=== PATIENT | female | born 1935 | race Caucasian/White ===

== ENCOUNTER 2016-11-16 17:55 | Observation (INO) | payer OTHER, BC ==
[2016-11-16 18:04] VITALS: BMI 38.7
--- NOTE | 2016-11-16 18:04 | PDOC ---
Rapid Medical Evaluation Time Seen by Provider: 11/16/16 17:58 Medical Evaluation: Allergies Allergy/AdvReac Type Severity Reaction Status Date / Time No Known Allergies Allergy Verified 11/16/16 17:59 11/16/16 18:03 I have performed a brief in-person evaluation of this patient. The patient presents with a chief complaint of: 81y/o F HTN, valve replacement p /w near syncope and fall, no chest pain. Pertinent physical exam findings: VSS no trauma I have ordered the following: labs, ua ekg, cxr ct head The patient will proceed to the ED for further evaluation.
[2016-11-16 18:30] LABS: BASOPHIL 0.4 % (0-2.0); EOSINOPHIL 2.3 % (0-4.5); MCHC 33.1 g/dl (32.0-36.0); MEAN CELL VOLUME 93.7 fl (80-96); MEAN PLT VOLUME 8.2 fl (7.5-11.1); NEUTROPHILS 78.6 % (42.8-82.8); PLATELET COUNT 216 K/MM3 (134-434); RDW 15.4 % (11.6-15.6); WHITE BLOOD COUNT 9.4 K/mm3 (4.0-10.0)
[2016-11-16 18:49] LABS: INR 2.39 (0.82-1.09); PROTHROMBIN TIME (PATIENT) 26.8 SEC (9.98-11.88)
[2016-11-16 18:52] LABS: URINE APPEARANCE CLEAR; URINE BILIRUBIN NEGATIVE (NEGATIVE); URINE BLOOD NEGATIVE (NEGATIVE); URINE COLOR YELLOW; URINE GLUCOSE (UA) NEGATIVE (NEGATIVE); URINE KETONE NEGATIVE (NEGATIVE); URINE LEUK ESTERASE NEGATIVE (NEGATIVE); URINE NITRITE NEGATIVE (NEGATIVE); URINE PROTEIN NEGATIVE (NEGATIVE); URINE UROBILINOGEN NEGATIVE E.U./dl (0.2-1.0)
[2016-11-16 18:56] LABS: ALBUMIN 3.4 g/dl (3.4-5.0); ANION GAP 8 (8-16); BILIRUBIN,TOTAL 0.6 mg/dL (0.2-1.0); CALCIUM 8.7 mg/dL (8.5-10.1); CO2 27 mmol/L (21-32); CREATININE 0.7 mg/dL (0.55-1.02); GLUCOSE,RANDOM 88 mg/dL (74-106); MAGNESIUM 2.1 mg/dL (1.8-2.4); SGOT/AST 22 U/L (15-37); SGPT/ALT 25 U/L (12-78); TOT PROT 6.8 g/dl (6.4-8.2)
[2016-11-16 18:59] LABS: ALK PHOS 80 U/L (45-117); TROPONIN I 0.04 ng/ml (0.00-0.05)
--- NOTE | 2016-11-16 19:40 | PDOC ---
History of Present Illness - General Chief Complaint: Lightheaded Stated Complaint: FALL/DIZZY Time Seen by Provider: 11/16/16 17:58 History Source: Patient Exam Limitations: No Limitations - History of Present Illness Initial Comments: 11/16/16 19:32 81yo Female patient with PmHx: HTN, Afib, Hypothyroidism, Heart valve replacement 10 yrs ago, anticoagulation use (Coumadin), presented to ED c/o fall. Patient states she was at work using the bathroom, and while washing her hands she fell over onto her right side. She denies head or neck injury, but states similar episode last April while at home. Patient did not seek any medical treatment at that time. However, patient verbalized discussing incident with her Neurologist Dr. Luna who order Cat Scan of her head that result returned normal. Patient denied feeling dizzy, light headed, confused, CP, Abd pain, back pain, n/v/d, or any other complaints at this time. Cardiology- Dr. Celaya PCP- Dr. Grullon Neurology- Dr. Luna Timing/Duration: reports: resolved prior to arrival Severity/Quality: denies: mild, moderate, severe, aching, burning, dull, ingestion, pressure, sharp, stabbing, tearing, tightness, other Location: denies: substernal, central, epigastric, shoulder, back, abdomen, other Chest Pain Radiation: denies: no radiation, jaw, arms, neck, shoulders, back, sternal notch, epigastric, other Activities at Onset: denies: none, exertion, emotional upset, rest, sleep, no specific activity, eating, working, sexual intercourse, other Prior Chest Pain/Cardiac Workup: reports: Other (Heart Valve Replacement.) Past History - Travel Traveled outside of the country in the last 30 days: No Close contact w/someone who was outside of country & ill: No - Past Medical History Allergies/Adverse Reactions: Allergies Allergy/AdvReac Type Severity Reaction Status Date / Time No Known Allergies Allergy Verified 11/16/16 17:59 Home Medications: Ambulatory Orders Aspirin [ASA -] 81 mg PO DAILY #0 tab.chew 07/03/12 Calcium Carb/Vit D3/Minerals [Caltrate-600 with Vit D Tab] 1 each PO DAILY #0 tablet 07/03/12 Cyanocobalamin Vit B-12 Inj. [Vitamin B12 Injection -] 1,000 mcg IJ MONTHLY #0 vial 07/03/12 Furosemide [Lasix -] 20 mg PO DAILY #0 tablet 07/03/12 Losartan/Hydrochlorothiazide [Losartan-Hctz 50-12.5 mg Tab] 1 each PO DAILY #0 tablet 07/03/12 Multivitamin W/Iron, Minerals [Centrum] 1 tab PO DAILY #0 liquid 07/03/12 Potassium Chloride [Klor-Con] 20 meq PO DAILY #0 packet 07/03/12 Rosuvastatin Calcium [Crestor] 5 mg PO HS #0 tablet 07/03/12 Sotalol HCl [Sotalol] 80 mg PO BID #0 tablet 07/03/12 Levothyroxine [Synthroid -] 100 mcg PO MOTUWETH 10/09/15 Warfarin Sodium [Coumadin] 2.5 mg PO DAILY #0 tablet 10/10/15 Levothyroxine [Synthroid -] 150 mcg PO SUFRSA 04/23/16 Anemia: No Asthma: No Cancer: No Cardiac Disorders: Yes (CHRONIC ATRIAL FIBRILLATION, ARTIFICAL AORTIC VALVE) CVA: No COPD: No CHF: No Dementia: No Diabetes: No GI Disorders: Yes (GASTRIC CARCINOID, COLON ADENOMAS) Disorders: No HTN: Yes Hypercholesterolemia: Yes Liver Disease: No Seizures: No Thyroid Disease: Yes (HYPOTHYROIDISM) - Surgical History Abdominal Surgery: Yes Appendectomy: No Cardiac Surgery: ([facility]R 2006-[facility]) Cholecystectomy: Yes (OPEN CHOLECYSTECTOMY) Neurologic Surgery: No Orthopedic Surgery: Yes (BILATERAL CARPAL TUNNEL RELEASE) - Psycho/Social/Smoking Cessation Hx Anxiety: No Suicidal Ideation: No Smoking Status: No Smoking History: Never smoked Have you smoked in the past 12 months: No Number of Cigarettes Smoked Daily: 0 Information on smoking cessation initiated: No Hx Alcohol Use: No Drug/Substance Use Hx: No Substance Use Type: None Hx Substance Use Treatment: No Cardiac Specific PMH - Complaint Specific PMHX Abdominal Aortic Aneurysm: No Angina: No Cardiac Arrhythmia: No Cardiac Stent: No GERD: No Myocardial Infarction: No Pacemaker: No Pulmonary Embolus: No Valvular Heart Disease: No Peripheral Vascular Disease: No Review of Systems - Review of Systems Able to Perform ROS?: Yes Is the patient limited Serbian proficient: No Constitutional: No: Chills, Fever, Malaise, Weakness HEENTM: No: Blurred Vision, Double Vision Respiratory: No: Cough, Orthopnea, Shortness of Breath, Stridor, Wheezing, Hemoptysis Cardiac (ROS): Yes: Syncope. No: Chest Pain, Edema, Lightheadedness, Palpitations, Chest Tightness ABD/GI: No: Blood Streaked Bowels, Constipated, Diarrhea, Nausea, Poor Appetite , Poor Fluid Intake, Rectal Bleeding, Vomiting : No: Dysuria, Frequency, Flank Pain, Hematuria, Pain, Urgency Musculoskeletal: Yes: Muscle Weakness. No: Back Pain Integumentary: No: Change in Color, Erythema, Rash, Sweating Neurological: Yes: Unsteady Gait (Uses assistive device for ambulation.). No: Headache, Numbness, Paresthesia, Seizure, Tingling, Tremors, Weakness, Ataxia, Dizziness All Other Systems: Reviewed and Negative *Physical Exam - Vital Signs Last Vital Signs Temp Pulse Resp BP Pulse Ox 97.6 F 70 19 153/91 96 11/16/16 18:00 11/16/16 18:00 11/16/16 18:00 11/16/16 18:00 11/16/16 18:00 - Physical Exam General Appearance: Yes: Nourished, Appropriately Dressed. No: Apparent Distress, Mild Distress, Moderate Distress, Severe Distress Neck: positive: Trachea midline, Supple. negative: Tender, Normal Thyroid, Rigid Respiratory/Chest: positive: Lungs Clear, Normal Breath Sounds. negative: Chest Tender, Respiratory Distress, Accessory Muscle Use, Labored Respiration, Rapid RR Cardiovascular: positive: Regular Rhythm, Regular Rate. negative: Edema, JVD, Murmur Gastrointestinal/Abdominal: positive: Normal Bowel Sounds, Soft. negative: Distended, Guarding, Rebound, Tenderness Musculoskeletal: positive: Normal Inspection, Other (Kyphosis). negative: CVA Tenderness Extremity: positive: Normal Capillary Refill, Normal Inspection, Normal Range of Motion Integumentary: positive: Normal Color, Dry, Warm Neurologic: positive: health and wellness coordinator II-XII NML intact, Fully Oriented, Alert, Normal Mood/ Affect, Normal Response, Motor Strength 5/5 ED Treatment Course - LABORATORY CBC & Chemistry Diagram: 11/16/16 18:27 11/16/16 18:27 - ADDITIONAL ORDERS Additional order review: Laboratory Results 11/16/16 11/16/16 11/16/16 18:40 18:27 18:27 INR 2.39 H Sodium 143 Potassium 3.8 Chloride 108 H Carbon Dioxide 27 Anion Gap 8 BUN 20 H Creatinine 0.7 Creat Clearance w eGFR > 60 Random Glucose 88 Calcium 8.7 Magnesium 2.1 Total Bilirubin 0.6 AST 22 D ALT 25 D Alkaline Phosphatase 80 Creatine Kinase 68 Troponin I 0.04 Total Protein 6.8 Albumin 3.4 Urine Color Yellow Urine Appearance Clear Urine pH 5.0 Ur Specific [place] 1.017 Urine Protein Negative Urine Glucose (UA) Negative Urine Ketones Negative Urine Blood Negative Urine Nitrite Negative Urine Bilirubin Negative Urine Urobilinogen Negative Ur Leukocyte Esterase Negative 11/16/16 18:27 RBC 3.72 MCV 93.7 MCHC 33.1 RDW 15.4 MPV 8.2 Neutrophils % 78.6 Lymphocytes % 8.4 D Monocytes % 10.3 H Eosinophils % 2.3 Basophils % 0.4 *DC/Admit/Observation/Transfer Diagnosis at time of Disposition: Syncope and collapse - Discharge Dispostion Condition at time of disposition: Fair Admit: Yes
--- NOTE | 2016-11-16 19:44 | PDOC ---
*Physical Exam - Vital Signs Last Vital Signs Temp Pulse Resp BP Pulse Ox 97.6 F 70 19 153/91 96 11/16/16 18:00 11/16/16 18:00 11/16/16 18:00 11/16/16 18:00 11/16/16 18:00 ED Treatment Course - LABORATORY CBC & Chemistry Diagram: 11/16/16 18:27 11/16/16 18:27 - ADDITIONAL ORDERS Additional order review: Laboratory Results 11/16/16 11/16/16 18:40 18:27 Sodium 143 Potassium 3.8 Chloride 108 H Carbon Dioxide 27 Anion Gap 8 BUN 20 H Creatinine 0.7 Creat Clearance w eGFR > 60 Random Glucose 88 Calcium 8.7 Magnesium 2.1 Total Bilirubin 0.6 AST 22 D ALT 25 D Alkaline Phosphatase 80 Creatine Kinase 68 Troponin I 0.04 Total Protein 6.8 Albumin 3.4 Urine Color Yellow Urine Appearance Clear Urine pH 5.0 Ur Specific [place] 1.017 Urine Protein Negative Urine Glucose (UA) Negative Urine Ketones Negative Urine Blood Negative Urine Nitrite Negative Urine Bilirubin Negative Urine Urobilinogen Negative Ur Leukocyte Esterase Negative 11/16/16 18:27 RBC 3.72 MCV 93.7 MCHC 33.1 RDW 15.4 MPV 8.2 Neutrophils % 78.6 Lymphocytes % 8.4 D Monocytes % 10.3 H Eosinophils % 2.3 Basophils % 0.4 Medical Decision Making - Medical Decision Making 11/16/16 19:44 agree with care from CARLOS Renee *DC/Admit/Observation/Transfer Diagnosis at time of Disposition: Syncope and collapse - Discharge Dispostion Condition at time of disposition: Fair
[2016-11-17] MEDS: ROSUVASTATIN CA 5 MG TABLET (FP) PO SCH ×2 (00:36→21:19)
[2016-11-17] MEDS: SOTALOL HCL 80 MG TABLET (FP) PO SCH ×3 (00:36→21:19)
[2016-11-17] MEDS: LEVOTHYROXINE NA 100 MCG TABLET (FP) PO SCH (06:40)
[2016-11-17 07:50] LABS: BASOPHIL 0.6 % (0-2.0); EOSINOPHIL 1.9 % (0-4.5); MCH 31.1 pg (25.7-33.7); MCHC 33.2 g/dl (32.0-36.0); MEAN CELL VOLUME 93.6 fl (80-96); MEAN PLT VOLUME 8.6 fl (7.5-11.1); NEUTROPHILS 76.5 % (42.8-82.8); PLATELET COUNT 164 K/MM3 (134-434)
[2016-11-17 08:02] LABS: INR 2.18 (0.82-1.09); PROTHROMBIN TIME (PATIENT) 24.4 SEC (9.98-11.88)
[2016-11-17 08:22] LABS: ALBUMIN 2.9 g/dl (3.4-5.0); ANION GAP 7 (8-16); BILIRUBIN,TOTAL 0.8 mg/dL (0.2-1.0); CALCIUM 8.8 mg/dL (8.5-10.1); CO2 27 mmol/L (21-32); GLUCOSE,RANDOM 81 mg/dL (74-106); SGOT/AST 22 U/L (15-37); SGPT/ALT 23 U/L (12-78); TOT PROT 5.6 g/dl (6.4-8.2)
[2016-11-17 08:27] LABS: ALK PHOS 66 U/L (45-117); CREATININE 0.5 mg/dL (0.55-1.02)
--- NOTE | 2016-11-17 08:51 | PN ---
Progress Note (short form) - Note Progress Note: Dr. Meyer to document today. 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 No loss CSS. Brought to ER by cinder crew worker. Similar to event last year. Hx A. Fib, Aortic Valve replacement, Hypertension , DJD knees and Hypothyroidism.
[2016-11-17] MEDS ORDERED: LOSARTAN 50MG/HCTZ 12.5MG 1 TAB (FP) PO SCH (10:00)
[2016-11-17] MEDS ORDERED: PT OWN MED DRAWER 7, Y5N ONE (10:40)
[2016-11-17] MEDS: ASPIRIN 81 MG CHEWABLE TABLETS PO SCH (10:48)
[2016-11-17] MEDS: POTASSIUM CHLORIDE TABS 20 MEQ TABLET.ER (FP) PO SCH (10:48)
[2016-11-17] MEDS: CALCIUM 500MG/VIT-D 200 UNITS COMBO TABLET (FP) PO SCH (10:48)
[2016-11-17] MEDS: FUROSEMIDE 20 MG TABLET (FP) PO SCH (10:48)
[2016-11-17] MEDS: MULTIVITAMINS THER W-MINERALS COMBO TABLET (FP) PO SCH (10:48)
--- NOTE | 2016-11-17 12:51 | CON.CARD ---
Consult Consult Specialty:: Cardiology Referred by:: Dayne Grullon MD Reason for Consultation:: H/o Ryan Busby - History of Present Illness Chief Complaint: s/p mechanical fall History of Present Illness: 81yo Female patient with PmHx: HTN, Afib, Hypothyroidism, Heart valve replacement 10 yrs ago, anticoagulation use (Coumadin), presented to ED c/o fall. Patient states she was at work using the bathroom, and while washing her hands she mechanocal fall over onto her right side. Neurologist Dr. Luna who order Cat Scan of her head that result returned normal. Patient denied chest tightness, palpitations, dyspnea worse than baseline, near or true syncope, orthopnea, PND or LE edema. Ambulates with walker assistance. Cardiology- Dr. Celaya PCP- Dr. Grullon Neurology- Dr. Luna - History Source History Provided By: Patient Limitations to Obtaining History: No Limitations - Past Medical History Cardio/Vascular: Yes: AFIB, HTN, Hyperlipdemia - Past Surgical History Past Surgical History: Yes: Valve Replacement - Alcohol/Substance Use Hx Alcohol Use: No - Smoking History Smoking history: Never smoked Have you smoked in the past 12 months: No Aproximately how many cigarettes per day: 0 Home Medications - Allergies Allergies/Adverse Reactions: Allergies Allergy/AdvReac Type Severity Reaction Status Date / Time No Known Allergies Allergy Verified 11/16/16 17:59 - Home Medications Home Medications: Ambulatory Orders Aspirin [ASA -] 81 mg PO DAILY #0 tab.chew 07/03/12 Calcium Carb/Vit D3/Minerals [Caltrate-600 with Vit D Tab] 1 each PO DAILY #0 tablet 07/03/12 Cyanocobalamin Vit B-12 Inj. [Vitamin B12 Injection -] 1,000 mcg IJ MONTHLY #0 vial 07/03/12 Furosemide [Lasix -] 20 mg PO DAILY #0 tablet 07/03/12 Losartan/Hydrochlorothiazide [Losartan-Hctz 50-12.5 mg Tab] 1 each PO DAILY #0 tablet 07/03/12 Multivitamin W/Iron, Minerals [Centrum] 1 tab PO DAILY #0 liquid 07/03/12 Potassium Chloride [Klor-Con] 20 meq PO DAILY #0 packet 07/03/12 Rosuvastatin Calcium [Crestor] 5 mg PO HS #0 tablet 07/03/12 Sotalol HCl [Sotalol] 80 mg PO BID #0 tablet 07/03/12 Levothyroxine [Synthroid -] 100 mcg PO MOTUWETH 10/09/15 Warfarin Sodium [Coumadin] 2.5 mg PO DAILY #0 tablet 10/10/15 Levothyroxine [Synthroid -] 150 mcg PO SUFRSA 04/23/16 Review of Systems - Review of Systems Constitutional: reports: No Symptoms - Risk Factors Known Risk Factors: Yes: Age, Gender, Hypercholesterolemia, Hypertension Vital Signs: Vital Signs Temperature 97.7 F 11/17/16 06:00 Pulse Rate 69 11/17/16 09:24 Respiratory Rate 20 11/17/16 09:24 Blood Pressure 130/60 11/17/16 09:24 O2 Sat by Pulse Oximetry (%) 96 11/17/16 10:52 Constitutional: Yes: No Distress, Calm Neck: Yes: Supple Respiratory: Yes: Regular, CTA Bilaterally Gastrointestinal: Yes: Normal Bowel Sounds, Soft, Abdomen, Obese Cardiovascular: Yes: Regular Rate and Rhythm JVD: No Carotid Bruit: No Heart Sounds: Yes: S1, S2 Murmur: Yes: Systolic Murmur, Grade 2 Edema: No - Other Data Labs, Other Data: CBC, BMP 11/17/16 06:00 11/17/16 06:00 INR, PTT INR 2.18 (0.82-1.09) H 11/17/16 06:00 Ejection Fraction %: LVEF > or = 40 % Imaging - Results Chest X-ray: Report Reviewed (NAD) Cat Scan: Report Reviewed (HCT: No acute changes) Problem List - Problems (1) Fall (on) (from) unspecified stairs and steps, initial encounter Code(s): W10.9XXA - FALL (ON) (FROM) UNSPECIFIED STAIRS AND STEPS, INIT ENCNTR Qualifiers: Encounter type: initial encounter Qualified Code(s): W10.9XXA - Fall (on) (from) unspecified stairs and steps, initial encounter (2) Status post aortic valve replacement with bioprosthetic valve during current hospitalization Code(s): Z95.4 - PRESENCE OF OTHER HEART-VALVE REPLACEMENT (3) Status post aortic aneurysm repair Code(s): Z98.89 - OTHER SPECIFIED POSTPROCEDURAL STATES * DO NOT USE * Z86.79 - PERSONAL HISTORY OF OTHER DISEASES OF THE CIRCULATORY SYSTEM (4) Paroxysmal atrial fibrillation Code(s): I48.0 - PAROXYSMAL ATRIAL FIBRILLATION (5) Hypertensive cardiomegaly without heart failure Code(s): I11.9 - HYPERTENSIVE HEART DISEASE WITHOUT HEART FAILURE (6) Hyperlipidemia Code(s): E78.5 - HYPERLIPIDEMIA, UNSPECIFIED Qualifiers: Hyperlipidemia type: pure hypercholesterolemia Qualified Code(s): E78.0 - Pure hypercholesterolemia (7) Hypothyroidism Code(s): E03.9 - HYPOTHYROIDISM, UNSPECIFIED Qualifiers: Hypothyroidism type: unspecified Qualified Code(s): E03.9 - Hypothyroidism, unspecified (8) Gait disturbance Code(s): R26.9 - UNSPECIFIED ABNORMALITIES OF GAIT AND MOBILITY (9) Anticoagulation adequate with anticoagulant therapy Code(s): Z79.01 - DETENTION (CURRENT) USE OF 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 Assessment/Plan 06/19/2015 Echo: Normal LV size and fxn, functional MS 1.2 cm^2, bioAVR, LAE, mild MR, TR 07/18/2013 P-Myoview: No ischemia, LVEF 82% 1. Post mechanical fall, denies LOC with underlying gait disturbance 2. s/p bioAVR [place] 3. PAF->SR CHADSVASC with therapeutic INR 4. HTN/HCVD 5. Hyperlipidemia 6. Mild carotid stenosis 7. Hypothyroidism P:1. Continue Lasix 20 qd, Hyzaar 50/12.5 qd, Crestor 5 qhs, Sotalol 80 bid with replete K as needed 2. Coumadin per INR 2-3 3. Check orthostasis, PT, gait training, check EKG (not in chart) 4. Thank you for consultative opportunity
--- NOTE | 2016-11-17 13:58 | HP ---
Admitting History and Physical - Primary Care Physician PCP: Dayne Grullon - Admission Chief Complaint: I fell History of Present Illness: Ms Berg is a very pleasant 81 year old female who comes in after a fall. 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 She says she did not feel lightheaded prior to the fall, nor did she lose consciousness. She did not feel weakness or paresthesia, she did not trip or have a mechanical fall. She says she just fell. She did not hit her head or feel like she sustained any trauma. However she was unable to stand up and called EMS. Aside from this she says she felt fine. She denies confusion, change of vision, vertigo, hearing loss or tinnitus, chest pain/pressure, shortness of breath, nausea, vomiting, diarrhea, constipation, difficulty or pain on urination, or swelling. History Source: Patient Limitations to Obtaining History: No Limitations - Past Medical History Cardiovascular: Yes: AFIB, HTN, Hyperlipdemia - Past Surgical History Past Surgical History: Yes: Cholecystectomy, Valve Replacement - Smoking History Smoking history: Never smoked Have you smoked in the past 12 months: No Aproximately how many cigarettes per day: 0 - Alcohol/Substance Use Hx Alcohol Use: Yes (occasional) History of Substance Use: reports: None - Social History ADL: Independent History of Recent Travel: No Home Medications - Allergies Allergies/Adverse Reactions: Allergies Allergy/AdvReac Type Severity Reaction Status Date / Time No Known Allergies Allergy Verified 11/16/16 17:59 - Home Medications Home Medications: Ambulatory Orders Aspirin [ASA -] 81 mg PO DAILY #0 tab.chew 07/03/12 Calcium Carb/Vit D3/Minerals [Caltrate-600 with Vit D Tab] 1 each PO DAILY #0 tablet 07/03/12 Cyanocobalamin Vit B-12 Inj. [Vitamin B12 Injection -] 1,000 mcg IJ MONTHLY #0 vial 07/03/12 Furosemide [Lasix -] 20 mg PO DAILY #0 tablet 07/03/12 Losartan/Hydrochlorothiazide [Losartan-Hctz 50-12.5 mg Tab] 1 each PO DAILY #0 tablet 07/03/12 Multivitamin W/Iron, Minerals [Centrum] 1 tab PO DAILY #0 liquid 07/03/12 Potassium Chloride [Klor-Con] 20 meq PO DAILY #0 packet 07/03/12 Rosuvastatin Calcium [Crestor] 5 mg PO HS #0 tablet 07/03/12 Sotalol HCl [Sotalol] 80 mg PO BID #0 tablet 07/03/12 Levothyroxine [Synthroid -] 100 mcg PO MOTUWETH 10/09/15 Warfarin Sodium [Coumadin] 2.5 mg PO DAILY #0 tablet 10/10/15 Levothyroxine [Synthroid -] 150 mcg PO SUFRSA 04/23/16 Family Disease History - Family Disease History Family Disease History: CA: Sister Review of Systems Findings/Remarks: Full review of systems obtained, as per HPI and otherwise negative. Physical Examination Vital Signs: Vital Signs Temperature 97.7 F 11/17/16 06:00 Pulse Rate 69 11/17/16 09:24 Respiratory Rate 20 11/17/16 09:24 Blood Pressure 130/60 11/17/16 09:24 O2 Sat by Pulse Oximetry (%) 96 11/17/16 10:52 Constitutional: Yes: Well Nourished, No Distress, Calm Eyes: Yes: Conjunctiva Clear, EOM Intact HENT: Yes: Atraumatic, Normocephalic Cardiovascular: Yes: Regular Rate and Rhythm. No: Gallop, Murmur, Rub Respiratory: Yes: Regular, CTA Bilaterally. No: Rales, Rhonchi, Wheezes Gastrointestinal: Yes: Normal Bowel Sounds, Soft. No: Distention, Tenderness Extremities: Yes: WNL Edema: No Labs: CBC, BMP 11/17/16 06:00 11/17/16 06:00 Imaging - Results Chest X-ray: Report Reviewed, Image Reviewed Ultrasound: Report Reviewed Problem List - Problems (1) Collapse Assessment/Plan: -patient tells me she collapsed without syncope -however patient told neurology she did pass out -neurology and cardiology following -carotid ultrasound reviewed -order ECHO per neurology request -monitor on telemetry Code(s): R55 - SYNCOPE AND COLLAPSE (2) Hyperlipidemia Assessment/Plan: -continue crestor Code(s): E78.5 - HYPERLIPIDEMIA, UNSPECIFIED Qualifiers: Hyperlipidemia type: pure hypercholesterolemia Qualified Code(s): E78.0 - Pure hypercholesterolemia (3) Hypothyroidism Assessment/Plan: -continue synthroid Code(s): E03.9 - HYPOTHYROIDISM, UNSPECIFIED Qualifiers: Hypothyroidism type: unspecified Qualified Code(s): E03.9 - Hypothyroidism, unspecified (4) Paroxysmal atrial fibrillation Assessment/Plan: -continue sotalol and coumadin -cardiology following Code(s): I48.0 - PAROXYSMAL ATRIAL FIBRILLATION (5) Status post aortic valve replacement with bioprosthetic valve during current hospitalization Assessment/Plan: -obtain ECHO to evaluate -cardiology following Code(s): Z95.4 - PRESENCE OF OTHER HEART-VALVE REPLACEMENT
--- NOTE | 2016-11-17 13:59 | EKG ---
Test Reason : Blood Pressure : / mmHG Vent. Rate : 068 BPM Atrial Rate : 068 BPM P-R Int : 162 ms QRS Dur : 086 ms QT Int : 444 ms P-R-T Axes : 010 -13 037 degrees QTc Int : 472 ms NORMAL SINUS RHYTHM INFERIOR INFARCT , AGE UNDETERMINED ABNORMAL ECG WHEN COMPARED WITH ECG OF 02-JUL-2012 11:33, NO SIGNIFICANT CHANGE WAS FOUND Confirmed by RICHARD BLACKWELL MD ([id number]) on 11/17/2016 1:58:37 PM Referred By: Confirmed By:RICHARD BLACKWELL MD
[2016-11-17] MEDS: HYDROCHLOROTHIAZIDE 12.5 MG CAPSULE (FP) PO SCH (14:20)
[2016-11-17] MEDS: LOSARTAN POTASSIUM 50 MG TABLET (FP) PO SCH (14:20)
--- NOTE | 2016-11-17 14:34 | CON.NEURO ---
Consult Consult Specialty:: NEUROLOGY Reason for Consultation:: syncope and collapse - History of Present Illness History of Present Illness: 81yo Female patient with pmh. of HTN, Afib, Hypothyroidism, Heart valve replacement 10 yrs ago, anticoagulation use (Coumadin), ataxic gait was admitted after a fall. The patient states she was at work using the bathroom, and while washing her hands she just fall down on the floor. She denies nausea, vomiting, lightheadeness. She called a coworker , who came to help her raise up from the floor. She ambulates with walker only for few years. - History Source History Provided By: Patient, Medical Record Limitations to Obtaining History: No Limitations - Past Medical History Cardio/Vascular: Yes: AFIB, HTN, Hyperlipdemia, Other (valve replacement) - Past Surgical History Past Surgical History: Yes: Valve Replacement - Alcohol/Substance Use Hx Alcohol Use: No - Smoking History Smoking history: Never smoked Have you smoked in the past 12 months: No Aproximately how many cigarettes per day: 0 Home Medications - Allergies Allergies/Adverse Reactions: Allergies Allergy/AdvReac Type Severity Reaction Status Date / Time No Known Allergies Allergy Verified 11/16/16 17:59 - Home Medications Home Medications: Ambulatory Orders Aspirin [ASA -] 81 mg PO DAILY #0 tab.chew 07/03/12 Calcium Carb/Vit D3/Minerals [Caltrate-600 with Vit D Tab] 1 each PO DAILY #0 tablet 07/03/12 Cyanocobalamin Vit B-12 Inj. [Vitamin B12 Injection -] 1,000 mcg IJ MONTHLY #0 vial 07/03/12 Furosemide [Lasix -] 20 mg PO DAILY #0 tablet 07/03/12 Losartan/Hydrochlorothiazide [Losartan-Hctz 50-12.5 mg Tab] 1 each PO DAILY #0 tablet 07/03/12 Multivitamin W/Iron, Minerals [Centrum] 1 tab PO DAILY #0 liquid 07/03/12 Potassium Chloride [Klor-Con] 20 meq PO DAILY #0 packet 07/03/12 Rosuvastatin Calcium [Crestor] 5 mg PO HS #0 tablet 07/03/12 Sotalol HCl [Sotalol] 80 mg PO BID #0 tablet 07/03/12 Levothyroxine [Synthroid -] 100 mcg PO MOTUWETH 10/09/15 Warfarin Sodium [Coumadin] 2.5 mg PO DAILY #0 tablet 10/10/15 Levothyroxine [Synthroid -] 150 mcg PO SUFRSA 04/23/16 Review of Systems - Review of Systems Constitutional: reports: Weakness Eyes: reports: No Symptoms HENT: reports: No Symptoms Neck: reports: No Symptoms Cardiovascular: reports: No Symptoms Respiratory: reports: No Symptoms Gastrointestinal: reports: No Symptoms Genitourinary: reports: No Symptoms Breasts: reports: No Symptoms Reported Musculoskeletal: reports: Muscle Weakness Neurological: reports: Pre-Existing Deficit, Unsteady Gait Hematology/Lymphatic: reports: No Symptoms Psychiatric: reports: No Symptoms Physical Exam-Neuro Vital Signs: Vital Signs Temperature 97.7 F 11/17/16 06:00 Pulse Rate 69 11/17/16 09:24 Respiratory Rate 20 11/17/16 09:24 Blood Pressure 130/60 11/17/16 09:24 O2 Sat by Pulse Oximetry (%) 96 11/17/16 10:52 Constitutional: Yes: No Distress, Calm Neck: Yes: Supple, Trachea Midline Cardiovascular: Yes: Regular Rate and Rhythm, S1, S2 Respiratory: Yes: Regular, CTA Bilaterally Gastrointestinal: Yes: Normal Bowel Sounds, Soft Renal/: Yes: WNL Musculoskeletal: Yes: WNL Edema: Yes Edema: LLE: 1+, RLE: 1+ Psychiatric: Yes: Alert, Oriented Labs: CBC, BMP 11/17/16 06:00 11/17/16 06:00 INR, PTT INR 2.18 (0.82-1.09) H 11/17/16 06:00 - Neuro Exam Level Of Consciousness: Yes: Oriented to Person, Oriented to Place, Oriented to Time Eyes: Yes: PERRLA Speech: WNL Dominant Hand: Right Cranial Nerves II-XII Intact: Yes Gag: Present DTR's: 1+ Left Bicep, 1+ Right Bicep, 1+ Left Tricep, 1+ Right Tricep, 1+ Left Brachioradialis, 1+ Right Brachioradialis, 1+ Left Achilles, 1+ Right Achilles Babinski: Absent Response to light touch: Normal Response to pain prick: Normal Response to temperature: Normal Response to vibration: Normal Coordination: Normal: Finger to Nose, Heel to Turner Motor Strength: 5/5: Left Arm, Right Arm, Left Leg, Right Leg Gait: Ataxia Imaging - Results Cat Scan: Report Reviewed, Image Reviewed Problem List - Problems (1) Fall (on) (from) unspecified stairs and steps, initial encounter Code(s): W10.9XXA - FALL (ON) (FROM) UNSPECIFIED STAIRS AND STEPS, INIT ENCNTR Qualifiers: Encounter type: initial encounter Qualified Code(s): W10.9XXA - Fall (on) (from) unspecified stairs and steps, initial encounter (2) Gait disturbance Code(s): R26.9 - UNSPECIFIED ABNORMALITIES OF GAIT AND MOBILITY (3) Ataxia Code(s): R27.0 - ATAXIA, UNSPECIFIED (4) Anticoagulation adequate with anticoagulant therapy Code(s): Z79.01 - MCFP (CURRENT) USE OF 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 Assessment/Plan 81yo Female patient with pmh. of HTN, Afib, Hypothyroidism, Heart valve replacement 10 yrs ago, anticoagulation use (Coumadin), ataxic gait was admitted after a fall. The patient states she was at work using the bathroom, and while washing her hands she just fall down on the floor. She states she didn 't urinate or bowel movements.She denies nausea, vomiting, lightheadeness. She called a coworker , who came to help her raise up from the floor. She ambulates with walker only for few years.She just finished in PT/OT for gait stability Impression: fall due to syncope, presyncope event. versus ataxia. Gait instability. CT head is negative for bleed ICP. INR is therapeutic. Plan: - to do syncope work up: doppler carotids, echocardiogram, MRI brain, - PT/OT evaluation - holter 24h. ekg. - check for UTI, cardiac troponin. check TSH, FT4, T4 - EEG to rule out seizures. Thank you for this kind referral.
[2016-11-17] MEDS: WARFARIN NA 2.5 MG TABLET (FP) PO SCH (18:11)
[2016-11-18] MEDS: LEVOTHYROXINE NA 100 MCG TABLET (FP) PO SCH (06:23)
[2016-11-18 07:26] LABS: THYROID STIMULATING HORMONE 1.66 uIU/ml (0.358-3.74)
--- NOTE | 2016-11-18 08:48 | PN ---
Progress Note (short form) - Note Progress Note: Dr. Meyer to document today.
[2016-11-18] MEDS: FUROSEMIDE 20 MG TABLET (FP) PO SCH (09:16)
[2016-11-18] MEDS: MULTIVITAMINS THER W-MINERALS COMBO TABLET (FP) PO SCH (09:16)
[2016-11-18] MEDS: CALCIUM 500MG/VIT-D 200 UNITS COMBO TABLET (FP) PO SCH (09:16)
[2016-11-18] MEDS: POTASSIUM CHLORIDE TABS 20 MEQ TABLET.ER (FP) PO SCH (09:16)
[2016-11-18] MEDS: HYDROCHLOROTHIAZIDE 12.5 MG CAPSULE (FP) PO SCH (09:16)
[2016-11-18] MEDS: ASPIRIN 81 MG CHEWABLE TABLETS PO SCH (09:16)
[2016-11-18] MEDS: SOTALOL HCL 80 MG TABLET (FP) PO SCH ×2 (09:17→22:14)
[2016-11-18 10:14] LABS: INR 1.7 (0.82-1.09); PROTHROMBIN TIME (PATIENT) 18.9 SEC (9.98-11.88)
--- NOTE | 2016-11-18 11:12 | PN ---
Progress Note, Physician History of Present Illness: Denies near or true syncope, palpitations, dyspnea. - Current Medication List Current Medications: Active Medications Aspirin (Asa -) 81 mg PO DAILY [facility] Last Admin: 11/18/16 09:16 Dose: 81 mg Calcium Carbonate/Cholecalciferol (Os-Fitz 500+D -) 1 tab PO DAILY [facility] Last Admin: 11/18/16 09:16 Dose: 1 tab Furosemide (Lasix -) 20 mg PO DAILY [facility] Last Admin: 11/18/16 09:16 Dose: 20 mg Hydrochlorothiazide (Hctz -) 12.5 mg PO DAILY [facility] Last Admin: 11/18/16 09:16 Dose: 12.5 mg Levothyroxine Sodium (Synthroid -) 150 mcg PO SuFrSa@0700 [facility] Levothyroxine Sodium (Synthroid -) 100 mcg PO MoTuWeTh@0700 [facility] Last Admin: 11/18/16 06:23 Dose: 100 mcg Losartan Potassium (Cozaar -) 50 mg PO DAILY [facility] Last Admin: 11/17/16 14:20 Dose: 50 mg Multivitamins/Minerals (Theragran-M) 1 each PO DAILY [facility] Last Admin: 11/18/16 09:16 Dose: 1 each Potassium Chloride (K-Dur -) 20 meq PO DAILY [facility] Last Admin: 11/18/16 09:16 Dose: 20 meq Rosuvastatin Calcium (Crestor -) 5 mg PO HS [facility] Last Admin: 11/17/16 21:19 Dose: 5 mg Sotalol HCl (Betapace -) 80 mg PO BID [facility] Last Admin: 11/18/16 09:17 Dose: 80 mg Warfarin Sodium (Coumadin -) 2.5 mg PO DAILY@1800 [facility] Last Admin: 11/17/16 18:11 Dose: 2.5 mg - Objective Vital Signs: Vital Signs Temperature 97.7 F 11/18/16 06:00 Pulse Rate 62 11/18/16 09:30 Respiratory Rate 20 11/18/16 09:30 Blood Pressure 141/75 11/18/16 09:30 O2 Sat by Pulse Oximetry (%) 96 11/17/16 19:30 Constitutional: Yes: No Distress, Calm Neck: Yes: Supple Cardiovascular: Yes: Regular Rate and Rhythm Respiratory: Yes: Regular, CTA Bilaterally Gastrointestinal: Yes: Normal Bowel Sounds, Soft, Abdomen, Obese Edema: No Labs: CBC, BMP 11/17/16 06:00 11/18/16 05:35 INR, PTT INR 2.18 (0.82-1.09) H 11/17/16 06:00 - ....Imaging EKG: Report Reviewed (Tele: PAF->SR EKG: NSR @ 62 inferior Qs) Problem List - Problems (1) Fall (on) (from) unspecified stairs and steps, initial encounter Code(s): W10.9XXA - FALL (ON) (FROM) UNSPECIFIED STAIRS AND STEPS, INIT ENCNTR Qualifiers: Encounter type: initial encounter Qualified Code(s): W10.9XXA - Fall (on) (from) unspecified stairs and steps, initial encounter (2) Status post aortic valve replacement with bioprosthetic valve during current hospitalization Code(s): Z95.4 - PRESENCE OF OTHER HEART-VALVE REPLACEMENT (3) Status post aortic aneurysm repair Code(s): Z98.89 - OTHER SPECIFIED POSTPROCEDURAL STATES * DO NOT USE * Z86.79 - PERSONAL HISTORY OF OTHER DISEASES OF THE CIRCULATORY SYSTEM (4) Paroxysmal atrial fibrillation Code(s): I48.0 - PAROXYSMAL ATRIAL FIBRILLATION (5) Hypertensive cardiomegaly without heart failure Code(s): I11.9 - HYPERTENSIVE HEART DISEASE WITHOUT HEART FAILURE (6) Hyperlipidemia Code(s): E78.5 - HYPERLIPIDEMIA, UNSPECIFIED Qualifiers: Hyperlipidemia type: pure hypercholesterolemia Qualified Code(s): E78.0 - Pure hypercholesterolemia (7) Hypothyroidism Code(s): E03.9 - HYPOTHYROIDISM, UNSPECIFIED Qualifiers: Hypothyroidism type: unspecified Qualified Code(s): E03.9 - Hypothyroidism, unspecified (8) Gait disturbance Code(s): R26.9 - UNSPECIFIED ABNORMALITIES OF GAIT AND MOBILITY (9) Anticoagulation adequate with anticoagulant therapy Code(s): Z79.01 - STAFF ASSISTANT (CURRENT) USE OF 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 Assessment/Plan 06/19/2015 Echo: Normal LV size and fxn, functional MS 1.2 cm^2, bioAVR, LAE, mild MR, TR 07/18/2013 P-Myoview: No ischemia, LVEF 82% MRI brain is negative for acute stroke. 11/17/2016 Echo: Normal LV size and fxn, borderline ZAIDA, mild TR, mod MG 23 mmHg, mild AR 1. Post mechanical fall, denies LOC with underlying gait disturbance 2. s/p bioAVR [place] 3. PAF->SR CHADSVASC with therapeutic INR 4. HTN/HCVD 5. Hyperlipidemia 6. Mild carotid stenosis 7. Hypothyroidism P:1. Continue Lasix 20 qd, Hyzaar 50/12.5 qd, Crestor 5 qhs, Sotalol 80 bid with replete K as needed 2. Coumadin per INR 2-3, d/c ASA 81 qd 3. PT, gait training
[2016-11-18] MEDS: LOSARTAN POTASSIUM 50 MG TABLET (FP) PO SCH (12:04)
--- NOTE | 2016-11-18 12:58 | PN ---
Progress Note, Physician History of Present Illness: 81yo Female patient with pmh. of HTN, Afib, Hypothyroidism, Heart valve replacement 10 yrs ago, anticoagulation use (Coumadin), ataxic gait was admitted after a fall. The patient states she was at work using the bathroom, and while washing her hands she just fall down on the floor. She denies nausea, vomiting, lightheadeness. She called a coworker , who came to help her raise up from the floor. She ambulates with walker only for few years. - Current Medication List Current Medications: Active Medications Aspirin (Asa -) 81 mg PO DAILY [facility] Last Admin: 11/18/16 09:16 Dose: 81 mg Calcium Carbonate/Cholecalciferol (Os-Fitz 500+D -) 1 tab PO DAILY [facility] Last Admin: 11/18/16 09:16 Dose: 1 tab Furosemide (Lasix -) 20 mg PO DAILY [facility] Last Admin: 11/18/16 09:16 Dose: 20 mg Hydrochlorothiazide (Hctz -) 12.5 mg PO DAILY [facility] Last Admin: 11/18/16 09:16 Dose: 12.5 mg Levothyroxine Sodium (Synthroid -) 150 mcg PO SuFrSa@0700 [facility] Levothyroxine Sodium (Synthroid -) 100 mcg PO MoTuWeTh@0700 [facility] Last Admin: 11/18/16 06:23 Dose: 100 mcg Losartan Potassium (Cozaar -) 50 mg PO DAILY [facility] Last Admin: 11/18/16 12:04 Dose: 50 mg Multivitamins/Minerals (Theragran-M) 1 each PO DAILY [facility] Last Admin: 11/18/16 09:16 Dose: 1 each Potassium Chloride (K-Dur -) 20 meq PO DAILY [facility] Last Admin: 11/18/16 09:16 Dose: 20 meq Rosuvastatin Calcium (Crestor -) 5 mg PO HS [facility] Last Admin: 11/17/16 21:19 Dose: 5 mg Sotalol HCl (Betapace -) 80 mg PO BID [facility] Last Admin: 11/18/16 09:17 Dose: 80 mg Warfarin Sodium (Coumadin -) 2.5 mg PO DAILY@1800 [facility] Last Admin: 11/17/16 18:11 Dose: 2.5 mg - Objective Vital Signs: Vital Signs Temperature 97.7 F 11/18/16 06:00 Pulse Rate 62 11/18/16 09:30 Respiratory Rate 20 11/18/16 09:30 Blood Pressure 141/75 11/18/16 09:30 O2 Sat by Pulse Oximetry (%) 96 11/17/16 19:30 Constitutional: Yes: Well Nourished, No Distress, Calm Eyes: Yes: Conjunctiva Clear, EOM Intact, PERRL HENT: Yes: Atraumatic, Normocephalic Neck: Yes: Supple, Trachea Midline Cardiovascular: Yes: Regular Rate and Rhythm, S1, S2 Respiratory: Yes: Regular, CTA Bilaterally, SOB on Exertion Gastrointestinal: Yes: Normal Bowel Sounds, Soft Musculoskeletal: Yes: WNL Extremities: Yes: WNL Edema: Yes Edema: LLE: 2+, RLE: 2+ Peripheral Pulses WNL: Yes Peripheral Pulses: Left Radial: 1+, Right Radial: 1+ Neurological: Yes: WNL, Alert, Oriented, Cran Nerves II-XII Intact, Pre- Existing Deficit, Unsteady Gait (severe ataxia, large base gait with walker) ...Motor Strength: WNL Psychiatric: Yes: Alert, Oriented Labs: CBC, BMP 11/17/16 06:00 11/18/16 05:35 INR, PTT INR 1.70 (0.82-1.09) H 11/18/16 09:20 - ....Imaging Ultrasound: Report Reviewed, Image Reviewed MRI: Report Reviewed, Image Reviewed EKG: Report Reviewed, Image Reviewed Problem List - Problems (1) Fall (on) (from) unspecified stairs and steps, initial encounter Code(s): W10.9XXA - FALL (ON) (FROM) UNSPECIFIED STAIRS AND STEPS, INIT ENCNTR Qualifiers: Encounter type: initial encounter Qualified Code(s): W10.9XXA - Fall (on) (from) unspecified stairs and steps, initial encounter (2) Gait disturbance Code(s): R26.9 - UNSPECIFIED ABNORMALITIES OF GAIT AND MOBILITY (3) Ataxia Code(s): R27.0 - ATAXIA, UNSPECIFIED (4) Anticoagulation adequate with anticoagulant therapy Code(s): Z79.01 - AUTO PAINTER (CURRENT) USE OF 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 (5) Aortic stenosis, moderate Code(s): I35.0 - NONRHEUMATIC AORTIC (VALVE) STENOSIS Assessment/Plan 81yo Female patient with pmh. of HTN, Afib, Hypothyroidism, Heart valve replacement 10 yrs ago, anticoagulation use (Coumadin), ataxic gait was admitted after a fall. The patient states she was at work using the bathroom, and while washing her hands she just fall down on the floor. She states she didn 't urinate or bowel movements.She denies nausea, vomiting, lightheadeness. She called a coworker , who came to help her raise up from the floor. She ambulates with walker only for few years.She just finished in PT/OT for gait stability Impression: fall due to syncope, presyncope event. cardiac syncope possible due to aortic stenosis moderate to severe. versus ataxia. Gait instability. CT head is negative for bleed ICP. INR is therapeutic. MRI brain is negative for acute stroke. Echocardiogram shows moderate to severe aortic stenosis. Plan: - syncope work up completed : doppler carotids, echocardiogram, MRI brain. - Cardiology consult appreciated . Patient has moderate to severe aortic stenosis. This could be a cause for her syncopal event. - PT/OT evaluation - holter 24h. ekg. - check for UTI, cardiac troponin. check TSH, FT4, T4 - EEG to rule out seizures. Thank you for this kind referral.
--- NOTE | 2016-11-18 13:01 | PN ---
Progress Note, Physician Chief Complaint: Ms Berg says she is feeling fine and without complaint. No cp, sob, n/v. Episode has not recurred. - Current Medication List Current Medications: Active Medications Aspirin (Asa -) 81 mg PO DAILY [facility] Last Admin: 11/18/16 09:16 Dose: 81 mg Calcium Carbonate/Cholecalciferol (Os-Fitz 500+D -) 1 tab PO DAILY [facility] Last Admin: 11/18/16 09:16 Dose: 1 tab Furosemide (Lasix -) 20 mg PO DAILY [facility] Last Admin: 11/18/16 09:16 Dose: 20 mg Hydrochlorothiazide (Hctz -) 12.5 mg PO DAILY [facility] Last Admin: 11/18/16 09:16 Dose: 12.5 mg Levothyroxine Sodium (Synthroid -) 150 mcg PO SuFrSa@0700 [facility] Levothyroxine Sodium (Synthroid -) 100 mcg PO MoTuWeTh@0700 [facility] Last Admin: 11/18/16 06:23 Dose: 100 mcg Losartan Potassium (Cozaar -) 50 mg PO DAILY [facility] Last Admin: 11/18/16 12:04 Dose: 50 mg Multivitamins/Minerals (Theragran-M) 1 each PO DAILY [facility] Last Admin: 11/18/16 09:16 Dose: 1 each Potassium Chloride (K-Dur -) 20 meq PO DAILY [facility] Last Admin: 11/18/16 09:16 Dose: 20 meq Rosuvastatin Calcium (Crestor -) 5 mg PO HS [facility] Last Admin: 11/17/16 21:19 Dose: 5 mg Sotalol HCl (Betapace -) 80 mg PO BID [facility] Last Admin: 11/18/16 09:17 Dose: 80 mg Warfarin Sodium (Coumadin -) 2.5 mg PO DAILY@1800 [facility] Last Admin: 11/17/16 18:11 Dose: 2.5 mg - Objective Vital Signs: Vital Signs Temperature 97.7 F 11/18/16 06:00 Pulse Rate 62 11/18/16 09:30 Respiratory Rate 20 11/18/16 09:30 Blood Pressure 141/75 11/18/16 09:30 O2 Sat by Pulse Oximetry (%) 96 11/17/16 19:30 Constitutional: Yes: Well Nourished, No Distress, Calm Cardiovascular: Yes: Regular Rate and Rhythm. No: Gallop, Murmur, Rub Respiratory: Yes: Regular, CTA Bilaterally. No: Rales, Rhonchi, Wheezes Gastrointestinal: Yes: Normal Bowel Sounds, Soft. No: Distention, Tenderness Extremities: Yes: WNL Edema: No Labs: CBC, BMP 11/17/16 06:00 11/18/16 05:35 INR, PTT INR 1.70 (0.82-1.09) H 11/18/16 09:20 Problem List - Problems (1) Collapse Code(s): R55 - SYNCOPE AND COLLAPSE (2) Hyperlipidemia Code(s): E78.5 - HYPERLIPIDEMIA, UNSPECIFIED Qualifiers: Hyperlipidemia type: pure hypercholesterolemia Qualified Code(s): E78.0 - Pure hypercholesterolemia (3) Hypothyroidism Code(s): E03.9 - HYPOTHYROIDISM, UNSPECIFIED Qualifiers: Hypothyroidism type: unspecified Qualified Code(s): E03.9 - Hypothyroidism, unspecified (4) Paroxysmal atrial fibrillation Code(s): I48.0 - PAROXYSMAL ATRIAL FIBRILLATION (5) Status post aortic valve replacement with bioprosthetic valve during current hospitalization Code(s): Z95.4 - PRESENCE OF OTHER HEART-VALVE REPLACEMENT Assessment/Plan (1) Collapse Assessment/Plan: -awaiting full work up from neurology and cardiology -MRI and ECHO reviewed -continue PT -has not recurred -if remains stable, plan for discharge tomorrow Code(s): R55 - SYNCOPE AND COLLAPSE (2) Hyperlipidemia Assessment/Plan: -continue crestor Code(s): E78.5 - HYPERLIPIDEMIA, UNSPECIFIED Qualifiers: Hyperlipidemia type: pure hypercholesterolemia Qualified Code(s): E78.0 - Pure hypercholesterolemia (3) Hypothyroidism Assessment/Plan: -continue synthroid -checking TSH and FT4 Code(s): E03.9 - HYPOTHYROIDISM, UNSPECIFIED Qualifiers: Hypothyroidism type: unspecified Qualified Code(s): E03.9 - Hypothyroidism, unspecified (4) Paroxysmal atrial fibrillation Assessment/Plan: -continue sotalol and coumadin -cardiology following Code(s): I48.0 - PAROXYSMAL ATRIAL FIBRILLATION (5) Status post aortic valve replacement with bioprosthetic valve during current hospitalization Assessment/Plan: -ECHO read reviewed -cardiology following Code(s): Z95.4 - PRESENCE OF OTHER HEART-VALVE REPLACEMENT
--- NOTE | 2016-11-18 14:13 | EKG ---
Test Reason : Blood Pressure : / mmHG Vent. Rate : 062 BPM Atrial Rate : 062 BPM P-R Int : 170 ms QRS Dur : 084 ms QT Int : 476 ms P-R-T Axes : 035 -21 022 degrees QTc Int : 483 ms NORMAL SINUS RHYTHM INFERIOR INFARCT (CITED ON OR BEFORE 16-NOV-2016) ABNORMAL ECG WHEN COMPARED WITH ECG OF 16-NOV-2016 18:26, NO SIGNIFICANT CHANGE WAS FOUND Confirmed by RAKEL RUIZ, PALMER ([id number]) on 11/18/2016 2:13:37 PM Referred By: Oskar HUERTA Confirmed By:PALMER ELLINGTON MD
[2016-11-18] MEDS: WARFARIN NA 2.5 MG TABLET (FP) PO SCH (17:31)
[2016-11-18] MEDS: ROSUVASTATIN CA 5 MG TABLET (FP) PO SCH (22:14)
[2016-11-19] MEDS ORDERED: LEVOTHYROXINE NA 150 MCG TABLET PO SCH (07:00)
[2016-11-19 07:02] LABS: BASOPHIL 0.4 % (0-2.0); EOSINOPHIL 2.5 % (0-4.5); MCH 31.2 pg (25.7-33.7); MCHC 33.4 g/dl (32.0-36.0); MEAN CELL VOLUME 93.4 fl (80-96); MEAN PLT VOLUME 8.2 fl (7.5-11.1); NEUTROPHILS 74.7 % (42.8-82.8); PLATELET COUNT 186 K/MM3 (134-434); RDW 14.9 % (11.6-15.6); WHITE BLOOD COUNT 9.1 K/mm3 (4.0-10.0)
[2016-11-19 07:19] LABS: INR 1.73 (0.82-1.09); PROTHROMBIN TIME (PATIENT) 19.2 SEC (9.98-11.88)
[2016-11-19 07:30] LABS: CREATININE 0.7 mg/dL (0.55-1.02); MAGNESIUM 2.1 mg/dL (1.8-2.4); PHOSPHOROUS 3.6 mg/dL (2.5-4.9)
--- NOTE | 2016-11-19 09:53 | PN ---
Progress Note (short form) - Note Progress Note: Dr. Meyer to document today.
[2016-11-19] MEDS: MULTIVITAMINS THER W-MINERALS COMBO TABLET (FP) PO SCH (10:14)
[2016-11-19] MEDS: POTASSIUM CHLORIDE TABS 20 MEQ TABLET.ER (FP) PO SCH (10:14)
[2016-11-19] MEDS: LOSARTAN POTASSIUM 50 MG TABLET (FP) PO SCH (10:15)
[2016-11-19] MEDS: CALCIUM 500MG/VIT-D 200 UNITS COMBO TABLET (FP) PO SCH (10:15)
[2016-11-19] MEDS: ASPIRIN 81 MG CHEWABLE TABLETS PO SCH (10:15)
[2016-11-19] MEDS: SOTALOL HCL 80 MG TABLET (FP) PO SCH (10:15)
[2016-11-19] MEDS: FUROSEMIDE 20 MG TABLET (FP) PO SCH (10:15)
[2016-11-19] MEDS: HYDROCHLOROTHIAZIDE 12.5 MG CAPSULE (FP) PO SCH (10:15)
--- NOTE | 2016-11-19 10:51 | PN ---
Progress Note, Physician History of Present Illness: Denies near or true syncope, palpitations, dyspnea. No further falls. - Current Medication List Current Medications: Active Medications Aspirin (Asa -) 81 mg PO DAILY [facility] Last Admin: 11/19/16 10:15 Dose: 81 mg Calcium Carbonate/Cholecalciferol (Os-Fitz 500+D -) 1 tab PO DAILY [facility] Last Admin: 11/19/16 10:15 Dose: 1 tab Furosemide (Lasix -) 20 mg PO DAILY [facility] Last Admin: 11/19/16 10:15 Dose: 20 mg Hydrochlorothiazide (Hctz -) 12.5 mg PO DAILY [facility] Last Admin: 11/19/16 10:15 Dose: 12.5 mg Levothyroxine Sodium (Synthroid -) 150 mcg PO SuFrSa@0700 [facility] Last Admin: 11/19/16 06:00 Dose: 150 mcg Levothyroxine Sodium (Synthroid -) 100 mcg PO MoTuWeTh@0700 [facility] Last Admin: 11/18/16 06:23 Dose: 100 mcg Losartan Potassium (Cozaar -) 50 mg PO DAILY [facility] Last Admin: 11/19/16 10:15 Dose: 50 mg Multivitamins/Minerals (Theragran-M) 1 each PO DAILY [facility] Last Admin: 11/19/16 10:14 Dose: 1 each Potassium Chloride (K-Dur -) 20 meq PO DAILY [facility] Last Admin: 11/19/16 10:14 Dose: 20 meq Rosuvastatin Calcium (Crestor -) 5 mg PO HS [facility] Last Admin: 11/18/16 22:14 Dose: 5 mg Sotalol HCl (Betapace -) 80 mg PO BID [facility] Last Admin: 11/19/16 10:15 Dose: 80 mg Warfarin Sodium (Coumadin -) 2.5 mg PO DAILY@1800 [facility] Last Admin: 11/18/16 17:31 Dose: 2.5 mg Warfarin Sodium (Coumadin -) 5 mg PO ONCE@1800 [facility] Stop: 11/19/16 18:01 - Objective Vital Signs: Vital Signs Temperature 97.4 F L 11/19/16 10:00 Pulse Rate 68 11/19/16 10:00 Respiratory Rate 20 11/19/16 10:00 Blood Pressure 132/74 11/19/16 10:00 O2 Sat by Pulse Oximetry (%) 96 11/18/16 22:00 Constitutional: Yes: No Distress, Calm Neck: Yes: Supple Cardiovascular: Yes: Regular Rate and Rhythm Respiratory: Yes: Regular, CTA Bilaterally Gastrointestinal: Yes: Normal Bowel Sounds, Soft Edema: No Labs: CBC, BMP 11/19/16 06:00 11/19/16 06:00 INR, PTT INR 1.73 (0.82-1.09) H 11/19/16 06:00 - ....Imaging EKG: Report Reviewed (Tele shows: PAF->SR EKG: NSR @ 64 QTc 464 msec) Problem List - Problems (1) Fall (on) (from) unspecified stairs and steps, initial encounter Code(s): W10.9XXA - FALL (ON) (FROM) UNSPECIFIED STAIRS AND STEPS, INIT ENCNTR Qualifiers: Encounter type: initial encounter Qualified Code(s): W10.9XXA - Fall (on) (from) unspecified stairs and steps, initial encounter (2) Status post aortic valve replacement with bioprosthetic valve during current hospitalization Code(s): Z95.4 - PRESENCE OF OTHER HEART-VALVE REPLACEMENT (3) Status post aortic aneurysm repair Code(s): Z98.89 - OTHER SPECIFIED POSTPROCEDURAL STATES * DO NOT USE * Z86.79 - PERSONAL HISTORY OF OTHER DISEASES OF THE CIRCULATORY SYSTEM (4) Paroxysmal atrial fibrillation Code(s): I48.0 - PAROXYSMAL ATRIAL FIBRILLATION (5) Hypertensive cardiomegaly without heart failure Code(s): I11.9 - HYPERTENSIVE HEART DISEASE WITHOUT HEART FAILURE (6) Hyperlipidemia Code(s): E78.5 - HYPERLIPIDEMIA, UNSPECIFIED Qualifiers: Hyperlipidemia type: pure hypercholesterolemia Qualified Code(s): E78.0 - Pure hypercholesterolemia (7) Hypothyroidism Code(s): E03.9 - HYPOTHYROIDISM, UNSPECIFIED Qualifiers: Hypothyroidism type: unspecified Qualified Code(s): E03.9 - Hypothyroidism, unspecified (8) Gait disturbance Code(s): R26.9 - UNSPECIFIED ABNORMALITIES OF GAIT AND MOBILITY (9) Anticoagulation adequate with anticoagulant therapy Code(s): Z79.01 - USP (CURRENT) USE OF 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 Assessment/Plan 06/19/2015 Echo: Normal LV size and fxn, functional MS 1.2 cm^2, bioAVR, LAE, mild MR, TR 07/18/2013 P-Myoview: No ischemia, LVEF 82% MRI brain is negative for acute stroke. 11/17/2016 Echo: Normal LV size and fxn, borderline ZAIDA, mild TR, mod MG 23 mmHg, mild AR 1. Post mechanical fall, denies LOC with underlying gait disturbance 2. s/p bioAVR [place] 3. PAF->SR CHADSVASC with therapeutic INR 4. HTN/HCVD 5. Hyperlipidemia 6. Mild carotid stenosis 7. Hypothyroidism P:1. Continue Lasix 20 qd, Hyzaar 50/12.5 qd, Crestor 5 qhs, Sotalol 80 bid with replete K as needed 2. Coumadin per INR 2-3, d/c ASA 81 qd 3. PT, gait training
--- NOTE | 2016-11-19 12:02 | DS ---
Physical Examination Vital Signs: Vital Signs Temperature 97.4 F L 11/19/16 10:00 Pulse Rate 68 11/19/16 10:00 Respiratory Rate 20 11/19/16 10:00 Blood Pressure 132/74 11/19/16 10:00 O2 Sat by Pulse Oximetry (%) 96 11/19/16 06:00 Constitutional: Yes: Well Nourished, No Distress, Calm Cardiovascular: Yes: Regular Rate and Rhythm. No: Gallop, Murmur, Rub Respiratory: Yes: Regular, CTA Bilaterally. No: Rales, Rhonchi, Wheezes Gastrointestinal: Yes: Normal Bowel Sounds, Soft. No: Distention, Tenderness Extremities: Yes: WNL Edema: No Labs: CBC, BMP 11/19/16 06:00 11/19/16 06:00 Discharge Summary Reason For Visit: SYNCOPE AND COLLAPSE Current Active Problems Anticoagulation adequate with anticoagulant therapy (Acute) Aortic stenosis, moderate (Acute) Ataxia (Acute) Collapse (Acute) Fall (on) (from) unspecified stairs and steps, initial encounter (Acute) Gait disturbance (Acute) Hyperlipidemia (Acute) Hypertensive cardiomegaly without heart failure (Acute) Hypothyroidism (Acute) Paroxysmal atrial fibrillation (Acute) Status post aortic aneurysm repair (Acute) Status post aortic valve replacement with bioprosthetic valve during current hospitalization (Acute) Syncope and collapse (Acute) Hospital Course: (1) Collapse Code(s): R55 - SYNCOPE AND COLLAPSE (2) Hyperlipidemia Code(s): E78.5 - HYPERLIPIDEMIA, UNSPECIFIED Qualifiers: Hyperlipidemia type: pure hypercholesterolemia Qualified Code(s): E78.0 - Pure hypercholesterolemia (3) Hypothyroidism Code(s): E03.9 - HYPOTHYROIDISM, UNSPECIFIED Qualifiers: Hypothyroidism type: unspecified Qualified Code(s): E03.9 - Hypothyroidism, unspecified (4) Paroxysmal atrial fibrillation Code(s): I48.0 - PAROXYSMAL ATRIAL FIBRILLATION (5) Status post aortic valve replacement with bioprosthetic valve during current hospitalization Code(s): Z95.4 - PRESENCE OF OTHER HEART-VALVE REPLACEMENT Ms Berg is a very pleasant 81 year old female who came in with a fall. She says she did not pass out, she simply collapsed but did not lose consciousness. She did not hit her head. She was admitted to the hospital under observation. She underwent full neurological and cardiac work up. The episode did not recur. Currently she is back to baseline. She is safe for discharge home. She is noted to have ataxia, she says this is unchanged and she feels comfortable walking. Will order home health for home PT for further treatment. 35 minutes spent in preparation of this discharge Condition: Stable - Instructions Diet, Activity, Other Instructions: resume previous diet and activity. INR check Tuesday or Tuesday of next week. Referrals: Dayne Grullon MD [Staff Physician] - Anthony Garcia MD [Staff Physician] - Bambi Collins MD [Staff Physician] - Disposition: VNS/HOME HEALTH CARE - Home Medications Comprehensive Discharge Medication List: Ambulatory Orders Aspirin [ASA -] 81 mg PO DAILY #0 tab.chew 07/03/12 Calcium Carb/Vit D3/Minerals [Caltrate-600 with Vit D Tab] 1 each PO DAILY #0 tablet 07/03/12 Cyanocobalamin Vit B-12 Inj. [Vitamin B12 Injection -] 1,000 mcg IJ MONTHLY #0 vial 07/03/12 Furosemide [Lasix -] 20 mg PO DAILY #0 tablet 07/03/12 Losartan/Hydrochlorothiazide [Losartan-Hctz 50-12.5 mg Tab] 1 each PO DAILY #0 tablet 07/03/12 Multivitamin W/Iron, Minerals [Centrum] 1 tab PO DAILY #0 liquid 07/03/12 Potassium Chloride [Klor-Con] 20 meq PO DAILY #0 packet 07/03/12 Rosuvastatin Calcium [Crestor] 5 mg PO HS #0 tablet 07/03/12 Sotalol HCl [Sotalol] 80 mg PO BID #0 tablet 07/03/12 Levothyroxine [Synthroid -] 100 mcg PO MOTUWETH 10/09/15 Warfarin Sodium [Coumadin] 2.5 mg PO DAILY #0 tablet 10/10/15 Levothyroxine [Synthroid -] 150 mcg PO SUFRSA 04/23/16
[2016-11-19 14:27] LABS: FREE T4 1.35 ng/dl (0.76-1.46)
[2016-11-19 14:38] VITALS: BP 113/72; PULSE 60; TEMP 98.2
--- NOTE | 2016-11-19 14:40 | PN ---
Progress Note, Physician History of Present Illness: 81yo Female patient with pmh. of HTN, Afib, Hypothyroidism, Heart valve replacement 10 yrs ago, anticoagulation use (Coumadin), ataxic gait was admitted after a fall. The patient states she was at work using the bathroom, and while washing her hands she just fall down on the floor. She denies nausea, vomiting, lightheadeness. She called a coworker , who came to help her raise up from the floor. She ambulates with walker only for few years. - Current Medication List Current Medications: Active Medications Aspirin (Asa -) 81 mg PO DAILY [facility] Last Admin: 11/19/16 10:15 Dose: 81 mg Calcium Carbonate/Cholecalciferol (Os-Fitz 500+D -) 1 tab PO DAILY [facility] Last Admin: 11/19/16 10:15 Dose: 1 tab Furosemide (Lasix -) 20 mg PO DAILY [facility] Last Admin: 11/19/16 10:15 Dose: 20 mg Hydrochlorothiazide (Hctz -) 12.5 mg PO DAILY [facility] Last Admin: 11/19/16 10:15 Dose: 12.5 mg Levothyroxine Sodium (Synthroid -) 150 mcg PO SuFrSa@0700 DANDY Last Admin: 11/19/16 06:00 Dose: 150 mcg Levothyroxine Sodium (Synthroid -) 100 mcg PO MoTuWeTh@0700 [facility] Last Admin: 11/18/16 06:23 Dose: 100 mcg Losartan Potassium (Cozaar -) 50 mg PO DAILY [facility] Last Admin: 11/19/16 10:15 Dose: 50 mg Multivitamins/Minerals (Theragran-M) 1 each PO DAILY [facility] Last Admin: 11/19/16 10:14 Dose: 1 each Potassium Chloride (K-Dur -) 20 meq PO DAILY [facility] Last Admin: 11/19/16 10:14 Dose: 20 meq Rosuvastatin Calcium (Crestor -) 5 mg PO HS [facility] Last Admin: 11/18/16 22:14 Dose: 5 mg Sotalol HCl (Betapace -) 80 mg PO BID [facility] Last Admin: 11/19/16 10:15 Dose: 80 mg Warfarin Sodium (Coumadin -) 2.5 mg PO DAILY@1800 DANDY Last Admin: 11/18/16 17:31 Dose: 2.5 mg Warfarin Sodium (Coumadin -) 5 mg PO ONCE@1800 ONE Stop: 11/19/16 18:01 - Objective Vital Signs: Vital Signs Temperature 97.4 F L 11/19/16 10:00 Pulse Rate 68 11/19/16 10:00 Respiratory Rate 20 11/19/16 10:00 Blood Pressure 132/74 11/19/16 10:00 O2 Sat by Pulse Oximetry (%) 96 11/19/16 06:00 Constitutional: Yes: No Distress, Calm Eyes: Yes: Conjunctiva Clear, EOM Intact, PERRL HENT: Yes: Atraumatic, Normocephalic Neck: Yes: Supple, Trachea Midline Cardiovascular: Yes: Regular Rate and Rhythm, S1, S2 Respiratory: Yes: Regular, CTA Bilaterally Gastrointestinal: Yes: Normal Bowel Sounds, Soft ...Rectal Exam: Yes: WNL Genitourinary: Yes: WNL Breast(s): Yes: WNL Musculoskeletal: Yes: WNL Extremities: Yes: WNL Edema: Yes Edema: LLE: 1+, RLE: 1+ Peripheral Pulses WNL: Yes Peripheral Pulses: Left Radial: 1+, Right Radial: 1+ Neurological: Yes: WNL, Alert, Oriented, Babinski negative, Cran Nerves II-XII Intact, Pre-Existing Deficit, Unsteady Gait, Other (ataxia) ...Motor Strength: WNL Psychiatric: Yes: Alert, Oriented Labs: CBC, BMP 11/19/16 06:00 11/19/16 06:00 INR, PTT INR 1.73 (0.82-1.09) H 11/19/16 06:00 - ....Imaging Cat Scan: Report Reviewed, Image Reviewed Ultrasound: Report Reviewed, Image Reviewed MRI: Report Reviewed, Image Reviewed Problem List - Problems (1) Fall (on) (from) unspecified stairs and steps, initial encounter Code(s): W10.9XXA - FALL (ON) (FROM) UNSPECIFIED STAIRS AND STEPS, INIT ENCNTR Qualifiers: Encounter type: initial encounter Qualified Code(s): W10.9XXA - Fall (on) (from) unspecified stairs and steps, initial encounter (2) Gait disturbance Code(s): R26.9 - UNSPECIFIED ABNORMALITIES OF GAIT AND MOBILITY (3) Ataxia Code(s): R27.0 - ATAXIA, UNSPECIFIED (4) Anticoagulation adequate with anticoagulant therapy Code(s): Z79.01 - FPC (CURRENT) USE OF 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 (5) Aortic stenosis, moderate Code(s): I35.0 - NONRHEUMATIC AORTIC (VALVE) STENOSIS (6) Gait instability Code(s): R26.81 - UNSTEADINESS ON FEET Assessment/Plan 81yo Female patient with pmh. of HTN, Afib, Hypothyroidism, Heart valve replacement 10 yrs ago, anticoagulation use (Coumadin), ataxic gait was admitted after a fall. The patient states she was at work using the bathroom, and while washing her hands she just fall down on the floor. She states she didn 't urinate or bowel movements.She denies nausea, vomiting, lightheadeness. She called a coworker , who came to help her raise up from the floor. She ambulates with walker only for few years.She just finished in PT/OT for gait stability Impression: fall due to syncope, presyncope event. cardiac syncope possible due to aortic stenosis moderate to severe. versus ataxia. Gait instability. MRI brain is negative for acute stroke. Echocardiogram shows moderate to severe aortic stenosis. Plan: - syncope work up completed : doppler carotids, echocardiogram, MRI brain. - Cardiology consult appreciated . - PT/OT evaluation - EEG is wnl. - f/u in 4 weeks office Thank you for this kind referral.
[2016-11-19] MEDS ORDERED: WARFARIN NA 5 MG TABLET (UD) PO ONE (15:00)
== END 2016-11-19 15:57 | disposition home health service (06) ==
LOC: JER 17:55 → JERBED 21:02 → J4S 11-17 00:28
PROVIDERS: ADMIT Specialist; ATTEND Specialist
PROC: 4A00X4Z Measurement of Central Nervous Electrical Activity, External Approach (ICD-10-PCS; principal; 2016-11-18)
DX: R55 Syncope and collapse (principal); E78.5 Hyperlipidemia, unspecified; E03.9 Hypothyroidism, unspecified; I48.0 Paroxysmal atrial fibrillation; Z95.2 Presence of prosthetic heart valve; Z79.01 Long term (current) use of anticoagulants; M17.0 Bilateral primary osteoarthritis of knee; R26.0 Ataxic gait; I11.9 Hypertensive heart disease without heart failure
CPT/HCPCS: 36415; 70450-TC; 70551-TC; 71010-TC; 73560-TC-LT; 73560-TC-RT; 80048; 80051; 80053; 81003; 82550; 83735; 84100; 84439; 84443; 84484; 85025; 85610; 93005; 93010; 93306-TC; 93880-TC; 95816; 97116-GP; 97161-GP; 99285-25; G0378

== ENCOUNTER 2017-06-30 19:55 | Inpatient (IN) | payer OTHER, BC ==
[2017-06-30 20:30] VITALS: BMI 35.5
--- NOTE | 2017-06-30 21:33 | PDOC ---
History of Present Illness - General Chief Complaint: Lightheaded Stated Complaint: Dizziness Time Seen by Provider: 06/30/17 20:49 - History of Present Illness Initial Comments: 06/30/17 21:33 CHIEF COMPLAINT: dizziness HISTORY OF PRESENT ILLNESS: 82 yo F with hx of HLD, a-fib, artificial valve replacement BIBEMS to ED for dizziness. Patient reports that she was "going to play [employer]ING[employer]" when she was told by other that "I didn't look very good, and I didn 't really feel well." She reports that she felt "kind of dizzy" and came to the ER. Patient also reports that she has had a rash since yesterday that her sustain engineer told her was a reaction to the Bactrim she has been taking for the past 3 weeks for a "skin infection from sitting too much". She denies any fall, injury, chest pain, shortness of breath, palpitations, headache. PAST MEDICAL HISTORY: as per HPI FAMILY HISTORY: Denies SOCIAL HISTORY: Denies tobacco, alcohol, illicit drug use. SURGICAL HISTORY: cholecystectomy ALLERGIES: Bactrim REVIEW OF SYSTEMS General/Constitutional: Denies fever or chills. Denies weakness, weight change. HEENT: Denies change in vision. Denies ear pain or discharge. Denies sore throat. Cardiovascular: Denies chest pain or shortness of breath. Respiratory: Denies cough, wheezing, or hemoptysis. Gastrointestinal: Denies nausea, vomiting, diarrhea or constipation. Denies rectal bleeding. Genitourinary: Denies dysuria, frequency, or change in urination. Musculoskeletal: Denies joint or muscle swelling or pain. Denies neck or back pain. Skin: "rash from the Bactrim" Neurological: "dizziness earlier, like lightheaded" Denies headache, LOC, loss of sensation. PHYSICAL EXAM General Appearance: Well-appearing, appropriately dressed. No apparent distress. HEENT: EOMI, PERRLA, pharynx normal. No conjunctival pallor. No photophobia, scleral icterus. Respiratory/Chest: Lungs CTAB. Cardiovascular: RRR. S1, S2. Gastrointestinal/Abdominal: Normal bowel sounds. Abdomen soft, non-distended. No tenderness or rebound tenderness. No organomegaly, pulsatile mass, guarding , hernia, hepatomegaly, splenomegaly. Musculoskeletal/Extremities: Normal inspection. FROM of all extremities, normal capillary refill. No tenderness to extremities, pedal edema, swelling, erythema or deformity. Integumentary: Diffuse erythematous, macular rash to torso and extremities. Appropriate color, dry, warm. Neurologic: cashier clerk II-XII intact. Fully oriented, alert. Appropriate mood/affect. Motor strength 5/5. No appreciable EOM palsy, facial droop or sensory deficit. Past History - Past Medical History Allergies/Adverse Reactions: Allergies Allergy/AdvReac Type Severity Reaction Status Date / Time sulfamethoxazole Allergy Verified 06/30/17 20:30 [From Bactrim] trimethoprim [From Bactrim] Allergy Verified 06/30/17 20:30 Home Medications: Ambulatory Orders Aspirin [ASA -] 81 mg PO DAILY #0 tab.chew 07/03/12 Calcium Carb/Vit D3/Minerals [Caltrate-600 with Vit D Tab] 1 each PO DAILY #0 tablet 07/03/12 Cyanocobalamin Vit B-12 Inj. [Vitamin B12 Injection -] 1,000 mcg IJ MONTHLY #0 vial 07/03/12 Furosemide [Lasix -] 20 mg PO DAILY #0 tablet 07/03/12 Losartan/Hydrochlorothiazide [Losartan-Hctz 50-12.5 mg Tab] 1 each PO DAILY #0 tablet 07/03/12 Multivitamin W/Iron, Minerals [Centrum] 1 tab PO DAILY #0 liquid 07/03/12 Potassium Chloride [Klor-Con] 20 meq PO DAILY #0 packet 07/03/12 Rosuvastatin Calcium [Crestor] 5 mg PO HS #0 tablet 07/03/12 Sotalol HCl [Sotalol] 80 mg PO BID #0 tablet 07/03/12 Levothyroxine [Synthroid -] 100 mcg PO MOTUWETH 10/09/15 Warfarin Sodium [Coumadin] 2.5 mg PO DAILY #0 tablet 10/10/15 Levothyroxine [Synthroid -] 150 mcg PO SUFRSA 04/23/16 Anemia: No Asthma: No Cancer: No Cardiac Disorders: Yes (CHRONIC ATRIAL FIBRILLATION, ARTIFICAL AORTIC VALVE) CVA: No COPD: No CHF: No Dementia: No Diabetes: No GI Disorders: Yes (GASTRIC CARCINOID, COLON ADENOMAS) Disorders: No HTN: Yes Hypercholesterolemia: Yes Liver Disease: No Seizures: No Thyroid Disease: Yes (HYPOTHYROIDISM) - Surgical History Abdominal Surgery: Yes Appendectomy: No Cardiac Surgery: (BOVINE AVR 2006-[facility]) Cholecystectomy: Yes (OPEN CHOLECYSTECTOMY) Lung Surgery: No Neurologic Surgery: No Orthopedic Surgery: Yes (BILATERAL CARPAL TUNNEL RELEASE) - Suicide/Smoking/Psychosocial Hx Smoking Status: No Smoking History: Current every day smoker Have you smoked in the past 12 months: No Number of Cigarettes Smoked Daily: 0 Information on smoking cessation initiated: No Hx Alcohol Use: No (denies) Drug/Substance Use Hx: No (denies) Substance Use Type: None Hx Substance Use Treatment: No *Physical Exam - Vital Signs Last Vital Signs Temp Pulse Resp BP Pulse Ox 98.5 F 63 17 110/45 99 06/30/17 20:22 06/30/17 20:22 06/30/17 20:22 06/30/17 20:22 06/30/17 20:22 ED Treatment Course - LABORATORY CBC & Chemistry Diagram: 06/30/17 22:05 06/30/17 22:01 Medical Decision Making - Medical Decision Making 06/30/17 21:51 82 yo F with hx of HLD, a-fib, artificial valve replacement BIBEMS to ED for dizziness. -CBC, CMP, card profile, PT/PTT/INR -UA, UC -Head CT r/o bleed given hx of INR >5 with current use of Coumadin Head CT negative. Laboratory Tests 06/30/17 06/30/17 06/30/17 22:01 22:01 22:01 WBC Hgb Monocytes % (Manual) INR 2.14 H D Potassium 5.2 H D BUN 50 H D Creatinine 2.4 H D Urine WBC 184 06/30/17 22:05 WBC 3.1 L D Hgb 10.0 L Monocytes % (Manual) 16 H* INR Potassium BUN Creatinine Urine WBC Labs: creatinine 2.4 up from 0.9 (12/03) UA positive for UTI. -Ceftriaxon IVPB Discussed case with attending MD Summers, will admit for UTI and EDU. 07/01/17 00:10 Discussed case with hospitalist, will admit to med/surg. *DC/Admit/Observation/Transfer Diagnosis at time of Disposition: UTI (urinary tract infection) Qualifiers: Urinary tract infection type: site unspecified Hematuria presence: without hematuria Qualified Code(s): N39.0 - Urinary tract infection, site not specified - Discharge Dispostion Admit: Yes - Referrals
[2017-06-30 22:20] LABS: MEAN PLT VOLUME 8.2 fl (7.5-11.1); WHITE BLOOD COUNT 3.1 K/mm3 (4.0-10.0)
[2017-06-30 22:27] LABS: MCH 31.3 pg (25.7-33.7); MCHC 33.6 g/dl (32.0-36.0); PLATELET COUNT 137 K/MM3 (134-434)
[2017-06-30 22:35] LABS: INR 2.14 (0.82-1.09); PROTHROMBIN TIME (PATIENT) 24.2 SEC (9.98-11.88)
[2017-06-30 22:38] LABS: ACTIVATED PTT 40.2 SECONDS (26.9-34.4)
[2017-06-30 22:47] LABS: ALBUMIN 3.3 g/dl (3.4-5.0); ANION GAP 10 (8-16); BILIRUBIN,TOTAL 0.2 mg/dL (0.2-1.0); CALCIUM 8.1 mg/dL (8.5-10.1); CO2 19 mmol/L (21-32); CREATININE 2.4 mg/dL (0.55-1.02); GLUCOSE,RANDOM 93 mg/dL (74-106); SGOT/AST 35 U/L (15-37); SGPT/ALT 36 U/L (12-78); TOT PROT 6.5 g/dl (6.4-8.2)
[2017-06-30 22:49] LABS: ALK PHOS 89 U/L (45-117); CPK 56 IU/L (26-192); TROPONIN I < 0.02 ng/ml (0.00-0.05)
[2017-06-30 22:57] LABS: PLATELET ESTIMATE ADEQUATE (NORMAL); TOTAL CELLS COUNTED 100
[2017-06-30] MEDS ORDERED: SODIUM CHLORIDE 0.9% 1000 ML INFUS.BAG IV ONE (22:57)
[2017-06-30 23:22] LABS: URINE APPEARANCE CLOUDY; URINE BILIRUBIN NEGATIVE (NEGATIVE); URINE BLOOD NEGATIVE (NEGATIVE); URINE COLOR YELLOW; URINE GLUCOSE (UA) NEGATIVE (NEGATIVE); URINE KETONE NEGATIVE (NEGATIVE); URINE NITRITE NEGATIVE (NEGATIVE); URINE UROBILINOGEN NEGATIVE mg/dL (0.2-1.0)
[2017-06-30 23:25] LABS: URINE PROTEIN 1+ (NEGATIVE)
[2017-06-30 23:27] LABS: CALCIUM OXALATE CRYSTALS MODERATE /hpf (NONE SEEN); GRANULAR CASTS 6 /lpf; URINE BACTERIA RARE /hpf (NONE SEEN); URINE HYALINE CAST 30 /lpf; URINE MUCUS RARE; URINE RBC 6 /hpf (0-3); URINE WBC 184 /hpf (3-5)
[2017-07-01] MEDS ORDERED: CEFTRIAXONE 1,000 MG in DEXTROSE 5%-WATER - 50 ML IVPB ONE (00:01)
[2017-07-01] MEDS ORDERED: cefTRIAXone SODIUM 1 GM VIAL ONE (01:14)
[2017-07-01] MEDS ORDERED: diphenhydrAMINE HCL 12.5 MG/5 ML UNIT-DOSE CUPS PO PRN (02:07)
--- NOTE | 2017-07-01 02:27 | HP ---
CHIEF COMPLAINT: dizziness PCP: Mitchel HISTORY OF PRESENT ILLNESS: This is an 82 year old female with a past medical history significant for Afib, Aortic valve repair who presented to the ED with report of dizziness and just not feeling well today. She states that she went to [facility] and people informed her that she looked pale. She has been on Bactrim for 3 weeks for an infection on her posterior thigh, but it was stopped today by her board catcher as she developed a rash. Her INR was elevated last week so she held her coumadin for 3 days and restarted it. She denies chest pain, SOB, abdominal pain, Nausea/ vomiting, dysuria, frequency, urgency. ER course was notable for: (1) CT head without acute changes (2) BUN 50/Cr 2.4 (3) WBC 3.1 Recent Travel: pt denies PAST MEDICAL HISTORY: Hyperlipidemia atrial fibrillation Hypertension gastric carcinoid removed 2y ago colon adenomas (removed) hypothyroidism PAST SURGICAL HISTORY: Aortic valve replacemetn (bovine) 2006 open cholycystectomy B/L carpal tunnel release Social History: Smoking: pt denies Alcohol: pt denies Drugs: pt denies Family History: mother age 52, cerebral hemorrhage father age 87, myeloplastic disorder sister age 47, BrCA sister age 70, esophageal CA half sister with chronic fatigue syndrome Allergies sulfamethoxazole [From Bactrim] Allergy (Verified 06/30/17 20:30) trimethoprim [From Bactrim] Allergy (Verified 06/30/17 20:30) HOME MEDICATIONS: 3 Medication Instructions Recorded Aspirin [ASA -] 81 mg PO DAILY #0 tab.chew 07/03/12 Calcium Carb/Vit D3/Minerals 1 each PO DAILY #0 tablet 07/03/12 [Caltrate-600 with Vit D Tab] Cyanocobalamin Vit B-12 Inj. 1,000 mcg IJ MONTHLY #0 vial 07/03/12 [Vitamin B12 Injection -] Furosemide [Lasix -] 20 mg PO DAILY #0 tablet 07/03/12 Losartan/Hydrochlorothiazide 1 each PO DAILY #0 tablet 07/03/12 [Losartan-Hctz 50-12.5 mg Tab] Multivitamin W/Iron, Minerals 1 tab PO DAILY #0 liquid 07/03/12 [Centrum] Potassium Chloride [Klor-Con] 20 meq PO DAILY #0 packet 07/03/12 Rosuvastatin Calcium [Crestor] 5 mg PO HS #0 tablet 07/03/12 Sotalol HCl [Sotalol] 80 mg PO BID #0 tablet 07/03/12 Levothyroxine [Synthroid -] 100 mcg PO MOTUWETH 10/09/15 Warfarin Sodium [Coumadin] 2.5 mg PO DAILY #0 tablet 10/10/15 Levothyroxine [Synthroid -] 150 mcg PO SUFRSA 04/23/16 REVIEW OF SYSTEMS CONSTITUTIONAL: Present: generalized weakness, malaise Absent: fever, chills, diaphoresis, loss of appetite, weight change HEENT: Absent: rhinorrhea, nasal congestion, throat pain, throat swelling, difficulty swallowing, mouth swelling, ear pain, eye pain, visual changes CARDIOVASCULAR: Absent: chest pain, syncope, palpitations, irregular heart rate, lightheadedness , peripheral edema RESPIRATORY: Absent: cough, shortness of breath, dyspnea with exertion, orthopnea, wheezing, stridor, hemoptysis GASTROINTESTINAL: Absent: abdominal pain, abdominal distension, nausea, vomiting, diarrhea, constipation, melena, hematochezia GENITOURINARY: Absent: dysuria, frequency, urgency, hesitancy, hematuria, flank pain, genital pain MUSCULOSKELETAL: Absent: myalgia, arthralgia, joint swelling, back pain, neck pain SKIN: Present: rash, itching Absent: pallor HEMATOLOGIC/IMMUNOLOGIC: Absent: easy bleeding, easy bruising, lymphadenopathy, frequent infections ENDOCRINE: Absent: unexplained weight gain, unexplained weight loss, heat intolerance, cold intolerance NEUROLOGIC: Present: dizziness Absent: headache, focal weakness or paresthesias, unsteady gait, seizure, mental status changes, bladder or bowel incontinence PSYCHIATRIC: Absent: anxiety, depression, suicidal or homicidal ideation, hallucinations. PHYSICAL EXAMINATION Vital Signs - 24 hr 3 06/30/17 20:22 Temperature 98.5 F Pulse Rate 63 Respiratory 17 Rate Blood Pressure 110/45 O2 Sat by Pulse 99 Oximetry (%) GENERAL: Awake, alert, and fully oriented, in no acute distress. HEAD: Normal with no signs of trauma. EYES: Pupils equal, round and reactive to light, extraocular movements intact, sclera anicteric, conjunctiva clear. No lid lag. EARS, NOSE, THROAT: Ears normal, nares patent, oropharynx clear without exudates. Moist mucous membranes. NECK: Normal range of motion, supple without lymphadenopathy, JVD, or masses. LUNGS: Breath sounds equal, clear to auscultation bilaterally. No wheezes, and no crackles. No accessory muscle use. HEART: Regular rate and rhythm, normal S1 and S2 without murmur, rub or gallop. ABDOMEN: Soft, nontender, not distended, normoactive bowel sounds, no guarding, no rebound, no masses. No hepatomegaly or splenomegaly. MUSCULOSKELETAL: Normal range of motion at all joints. No bony deformities or tenderness. No CVA tenderness. UPPER EXTREMITIES: 2+ pulses, warm, well-perfused. No cyanosis. No clubbing. No peripheral edema. LOWER EXTREMITIES: 2+ pulses, warm, well-perfused. No calf tenderness. No peripheral edema. NEUROLOGICAL: Cranial nerves II-XII intact. Normal speech. Normal gait. PSYCHIATRIC: Cooperative. Good eye contact. Appropriate mood and affect. SKIN: Warm, dry, normal turgor, normal capillary refill. + maculopapular rash, erythematous all over body. Left posterior thigh with discoloration, healing abscess. Laboratory Results - last 24 hr 3 06/30/17 06/30/17 06/30/17 22:01 22:01 22:01 WBC RBC Hgb Hct MCV MCH MCHC RDW Plt Count MPV Total Counted Neutrophils % Neutrophils % (Manual) Band Neuts % (Manual) Lymphocytes % Lymphocytes % (Manual) Monocytes % (Manual) Eosinophils % (Manual) Other Cell Type Platelet Estimate PT with INR 24.20 H INR 2.14 H D PTT (Actin FS) 40.2 H Sodium 134 L Potassium 5.2 H D Chloride 105 Carbon Dioxide 19 L D Anion Gap 10 BUN 50 H D Creatinine 2.4 H D Creat Clearance w eGFR 19.42 Random Glucose 93 Calcium 8.1 L Magnesium Total Bilirubin 0.2 D AST 35 D ALT 36 D Alkaline Phosphatase 89 Creatine Kinase 56 Troponin I < 0.02 Total Protein 6.5 Albumin 3.3 L Urine Color Yellow Urine Appearance Cloudy Urine pH 5.0 Urine Protein 1+ H Urine Glucose (UA) Negative Urine Ketones Negative Urine Blood Negative Urine Nitrite Negative Urine Bilirubin Negative Urine Urobilinogen Negative Urine RBC 6 Urine WBC 184 Ur Epithelial Cells Few Calcium Oxalate Crystal Moderate Urine Bacteria Rare Hyaline Casts 30 Granular Casts 6 Urine Mucus Rare 3 06/30/17 06/30/17 22:05 22:05 WBC 3.1 L D RBC 3.20 L Hgb 10.0 L Hct 29.8 L MCV 93.0 MCH 31.3 MCHC 33.6 RDW 15.0 Plt Count 137 D MPV 8.2 Total Counted 100 Neutrophils % No Result Required. Neutrophils % (Manual) 64 Band Neuts % (Manual) 4 Lymphocytes % No Result Required. Lymphocytes % (Manual) 12 Monocytes % (Manual) 16 H* Eosinophils % (Manual) 4 Other Cell Type Platelet Estimate Adequate PT with INR INR PTT (Actin FS) Sodium Potassium Chloride Carbon Dioxide Anion Gap BUN Creatinine Creat Clearance w eGFR Random Glucose Calcium Magnesium 2.4 Total Bilirubin AST ALT Alkaline Phosphatase Creatine Kinase Troponin I Total Protein Albumin Urine Color Urine Appearance Urine pH Urine Protein Urine Glucose (UA) Urine Ketones Urine Blood Urine Nitrite Urine Bilirubin Urine Urobilinogen Urine RBC Urine WBC Ur Epithelial Cells Calcium Oxalate Crystal Urine Bacteria Hyaline Casts Granular Casts Urine Mucus Radiology Results CT/HEAD CT WITHOUT CONTRAST History of dizziness CT scan of the brain without intravenous contrast. Since prior MRI of the brain dated 11/17/2016, there remains [id number] volume loss, ventricular dilatation and probable mild chronic microvascular ischemic changes. No mass lesion, gross acute infarct or intracranial hemorrhage are identified. There is no shift of the midline structures Visualized paranasal sinuses are well aerated and the calvarium is intact. Minimal bilateral mastoid effusion with calcification of the cavernous carotid arteries are present Impression: [id number] volume loss and mild chronic microvascular ischemic changes without gross evidence of acute intracranial pathology. Reported By: Heydi Lantigua MD 06/30/17 2333 ECG NSR, Vent rate 64, QTC [address]/T changes inferior infarct, age undetermined ASSESSMENT/PLAN: 82yF with PMH HTn, HLD, Afib, aortic valve replacement, gastric carcinoid, colon adnomas, hypothyroidism presented to the ED with dizziness. Acute kidney injury - cr 2.4, up from 0.9 in February. No h/o previous cr elevation in old chart - gentle IV hydration, 50cc/hr - hold hyzaar, lasix and potassium - repeat BMP in am, if not improving, renal consult UTI - start ceftriaxone, follow culture results allergic reaction to bactrim - bactrim dc'd this am - benadryl 25mg po PRN HTN - cont sotolol, hold hyzaar due to EDU Atrial fibrillation - now in sinus rhythm - cont sotolol - cont warfarin, monitor INR daily while inpatient HLD - cont home crestor hypothyroidism - cont synthroid DVT PPX - low risk, already on therapeutic coumadin, cont same FEN - NS @ 50cc/hr-monitor fluid/volume status - BMP in am - low sodium diet Dispo: pt currently requires inpatient management of her emergent condition. Visit type - Emergency Visit Emergency Visit: Yes ED Registration Date: 06/30/17 Care time: The patient presented to the Emergency Department on the above date and was hospitalized for further evaluation of their emergent condition. - New Patient This patient is new to me today: Yes Date on this admission: 07/01/17 - Critical Care Critical Care patient: No
[2017-07-01] MEDS: SODIUM CHLORIDE 1,000 ML IV SCH ×2 (02:48→23:59)
[2017-07-01 06:26] LABS: EOSINOPHIL 4.3 % (0-4.5); MCH 31.1 pg (25.7-33.7); MCHC 33.6 g/dl (32.0-36.0); MEAN CELL VOLUME 92.7 fl (80-96); MEAN PLT VOLUME 8.7 fl (7.5-11.1); NEUTROPHILS 55.8 % (42.8-82.8); PLATELET COUNT 127 K/MM3 (134-434); RDW 14.7 % (11.6-15.6); WHITE BLOOD COUNT 2.4 K/mm3 (4.0-10.0)
[2017-07-01] MEDS: LEVOTHYROXINE NA 150 MCG TABLET PO SCH (06:40)
[2017-07-01 06:51] LABS: INR 2.11 (0.82-1.09); PROTHROMBIN TIME (PATIENT) 23.8 SEC (9.98-11.88)
[2017-07-01 07:01] LABS: ANION GAP 10 (8-16); CO2 19 mmol/L (21-32); CREATININE 1.8 mg/dL (0.55-1.02); GLUCOSE,RANDOM 84 mg/dL (74-106); MAGNESIUM 2.2 mg/dL (1.8-2.4); PHOSPHOROUS 3.7 mg/dL (2.5-4.9)
--- NOTE | 2017-07-01 09:06 | EKG ---
Test Reason : Blood Pressure : / mmHG Vent. Rate : 064 BPM Atrial Rate : 064 BPM P-R Int : 182 ms QRS Dur : 080 ms QT Int : 430 ms P-R-T Axes : -07 -27 042 degrees QTc Int : 443 ms NORMAL SINUS RHYTHM INFERIOR INFARCT (CITED ON OR BEFORE 16-NOV-2016) ABNORMAL ECG WHEN COMPARED WITH ECG OF 17-NOV-2016 14:44, NO SIGNIFICANT CHANGE WAS FOUND Confirmed by KARINE GREENBERG MD ([id number]) on 07/01/2017 9:05:47 AM Referred By: Confirmed By:KARINE GREENBERG MD
[2017-07-01 10:10] LABS: URINE LEUK ESTERASE 3+ (NEGATIVE)
[2017-07-01] MEDS: MULTIVITAMINS (DAILY MVI) TABLET (FP) PO SCH (10:45)
[2017-07-01] MEDS: CALCIUM 500MG/VIT-D 200 UNITS COMBO TABLET (FP) PO SCH (10:45)
[2017-07-01] MEDS: ASPIRIN 81 MG CHEWABLE TABLETS PO SCH (10:45)
--- NOTE | 2017-07-01 11:42 | PN ---
Progress Note, Physician Chief Complaint: Ms Berg says she is feeling well and is without complaint. No cp, sob, n/v. - Current Medication List Current Medications: Active Medications Aspirin (Asa -) 81 mg PO DAILY [facility] Last Admin: 07/01/17 10:45 Dose: 81 mg Calcium Carbonate/Cholecalciferol (Os-Fitz 500+D -) 1 tab PO DAILY [facility] Last Admin: 07/01/17 10:45 Dose: 1 tab Ceftriaxone Sodium (Rocephin 1gm Ivpb (Pre-Docked)) 1 gm IVPB HS [facility] PRN Reason: Protocol Diphenhydramine HCl (Benadryl Oral Solution -) 25 mg PO Q4H PRN PRN Reason: FOR ITCHING Sodium Chloride (Normal Saline -) 1,000 mls @ 50 mls/hr IV ASDIR [facility] Stop: 07/02/17 02:03 Last Admin: 07/01/17 02:48 Dose: 50 mls/hr Levothyroxine Sodium (Synthroid -) 150 mcg PO SuFrSa@0700 [facility] Last Admin: 07/01/17 06:40 Dose: 150 mcg Levothyroxine Sodium (Synthroid -) 100 mcg PO MoTuWeTh@0700 [facility] Multivitamins/Minerals/Vitamin C (Tab-A-Vit -) 1 tab PO DAILY [facility] Last Admin: 07/01/17 10:45 Dose: 1 tab Rosuvastatin Calcium (Crestor -) 5 mg PO HS [facility] Sotalol HCl (Betapace -) 80 mg PO BID [facility] Warfarin Sodium (Coumadin -) 2.5 mg PO DAILY@1800 [facility] - Objective Vital Signs: Vital Signs Temperature 36.8 C 07/01/17 10:00 Pulse Rate 63 07/01/17 06:57 Respiratory Rate 16 07/01/17 10:00 Blood Pressure 109/48 07/01/17 10:00 O2 Sat by Pulse Oximetry (%) 100 07/01/17 10:00 Constitutional: Yes: Well Nourished, No Distress, Calm Cardiovascular: Yes: Regular Rate and Rhythm. No: Gallop, Murmur, Rub Respiratory: Yes: Regular, CTA Bilaterally. No: Rales, Rhonchi, Wheezes Gastrointestinal: Yes: Normal Bowel Sounds, Soft. No: Distention, Tenderness Extremities: Yes: WNL Edema: No Labs: CBC, BMP 07/01/17 06:10 07/01/17 06:10 INR, PTT INR 2.11 (0.82-1.09) H 07/01/17 06:10 Problem List - Problems (1) EDU (acute kidney injury) Assessment/Plan: -patient presents with EDU -suspect iatrogenic secondary to bactrim in elderly patient -continue hydration with IVF -monitor for improvement -discontinued bactrim Code(s): N17.9 - ACUTE KIDNEY FAILURE, UNSPECIFIED (2) UTI (urinary tract infection) Assessment/Plan: -seen on urinalysis -continue rocephin -await urine cultures Code(s): N39.0 - URINARY TRACT INFECTION, SITE NOT SPECIFIED Qualifiers: Urinary tract infection type: site unspecified Hematuria presence: without hematuria Qualified Code(s): N39.0 - Urinary tract infection, site not specified; N39.0 - Urinary tract infection, site not specified; R31.9 - Hematuria, unspecified; R31.9 - Hematuria, unspecified (3) Hyperlipidemia Assessment/Plan: -continue crestor Code(s): E78.5 - HYPERLIPIDEMIA, UNSPECIFIED Qualifiers: Hyperlipidemia type: pure hypercholesterolemia (4) Hypothyroidism Assessment/Plan: -continue levothyroxine Code(s): E03.9 - HYPOTHYROIDISM, UNSPECIFIED Qualifiers: Hypothyroidism type: unspecified Qualified Code(s): E03.9 - Hypothyroidism, unspecified; E03.9 - Hypothyroidism, unspecified; E03.9 - Hypothyroidism, unspecified (5) Paroxysmal atrial fibrillation Assessment/Plan: -continue sotalol -continue coumadin -INR therapeutic Code(s): I48.0 - PAROXYSMAL ATRIAL FIBRILLATION
[2017-07-01] MEDS ORDERED: cefTRIAXone 1 GM/50 ML BAG (PRE-DOCKED) IVPB SCH (22:00)
[2017-07-01] MEDS: CEFTRIAXONE 1 G/50 ML PREMIX 50 ML IVPB SCH (23:59)
[2017-07-02] MEDS: ROSUVASTATIN CA 5 MG TABLET (FP) PO SCH ×2 (00:11→21:34)
[2017-07-02] MEDS: SODIUM CHLORIDE 1,000 ML IV SCH (02:25)
[2017-07-02] MEDS: LEVOTHYROXINE NA 150 MCG TABLET PO SCH (06:15)
[2017-07-02 07:41] LABS: MCH 30.5 pg (25.7-33.7); MCHC 32.5 g/dl (32.0-36.0); MEAN CELL VOLUME 93.8 fl (80-96); MEAN PLT VOLUME 8.4 fl (7.5-11.1); PLATELET COUNT 124 K/MM3 (134-434); WHITE BLOOD COUNT 2.9 K/mm3 (4.0-10.0)
[2017-07-02 08:01] LABS: INR 1.64 (0.82-1.09); PROTHROMBIN TIME (PATIENT) 18.5 SEC (9.98-11.88)
[2017-07-02 08:21] LABS: ANION GAP 10 (8-16); CALCIUM 8.4 mg/dL (8.5-10.1); CO2 17 mmol/L (21-32); GLUCOSE,RANDOM 87 mg/dL (74-106); MAGNESIUM 2.2 mg/dL (1.8-2.4)
[2017-07-02 08:24] LABS: CREATININE 0.9 mg/dL (0.55-1.02); PHOSPHOROUS 3.7 mg/dL (2.5-4.9)
[2017-07-02 09:55] LABS: PLATELET COMMENT2 NO CLOTTING DETECTED; PLATELET ESTIMATE SLT DECREASED (NORMAL); TOTAL CELLS COUNTED 100
[2017-07-02] MEDS ORDERED: PT OWN MED DRAWER 7, Y5N ONE ×2 (10:47→21:33)
[2017-07-02] MEDS: CALCIUM 500MG/VIT-D 200 UNITS COMBO TABLET (FP) PO SCH (10:51)
[2017-07-02] MEDS: ASPIRIN 81 MG CHEWABLE TABLETS PO SCH (10:51)
[2017-07-02] MEDS: MULTIVITAMINS (DAILY MVI) TABLET (FP) PO SCH (10:51)
[2017-07-02] MEDS: CEFTRIAXONE 1 G/50 ML PREMIX 50 ML IVPB SCH (10:51)
--- NOTE | 2017-07-02 11:13 | PN ---
Progress Note, Physician Chief Complaint: No complaints other than concern about her rash. History of Present Illness: Patient with a past history of AVR (Porcine), A. Fib on Coumadin, Hypothyroidism , DJD and LS Disc Disease, Hypertension and Hyperlipidemia had been seeing the Dermatology MD Dr. Piper who has treated her with Bactrim for nearly 3 weeks for a draining abscess VS sebaceous cyst in her right posterior thigh. The patient began to develop a rash and was feeling weak and came to the ER. She was found to have a truncal body rash and markedly elevated renal lab. She is on IV fluid and her renal values are improved but she stil has a pancytopenia. INR down to 1.64 and I will give 5mg of coumadin today. Urine C/S contaminated; to repeat C/s. Heme and ID consult to be called. - Current Medication List Current Medications: Active Medications Aspirin (Asa -) 81 mg PO DAILY [facility] Last Admin: 07/02/17 10:51 Dose: 81 mg Calcium Carbonate/Cholecalciferol (Os-Fitz 500+D -) 1 tab PO DAILY [facility] Last Admin: 07/02/17 10:51 Dose: 1 tab Diphenhydramine HCl (Benadryl Oral Solution -) 25 mg PO Q4H PRN PRN Reason: FOR ITCHING CEFTRIAXONE 1 G/50 ML PREMIX (Ceftriaxone 1 Gm-D5w Bag) 50 mls @ 100 mls/hr IVPB DAILY [facility] Last Admin: 07/02/17 10:51 Dose: 100 mls/hr Levothyroxine Sodium (Synthroid -) 150 mcg PO SuFrSa@0700 [facility] Last Admin: 07/02/17 06:15 Dose: 150 mcg Levothyroxine Sodium (Synthroid -) 100 mcg PO MoTuWeTh@0700 [facility] Multivitamins/Minerals/Vitamin C (Tab-A-Vit -) 1 tab PO DAILY [facility] Last Admin: 07/02/17 10:51 Dose: 1 tab Rosuvastatin Calcium (Crestor -) 5 mg PO HS [facility] Last Admin: 07/02/17 00:11 Dose: 5 mg Sotalol HCl (Betapace -) 80 mg PO BID [facility] Warfarin Sodium (Coumadin -) 2.5 mg PO DAILY@1800 [facility] Warfarin Sodium (Coumadin -) 5 mg PO ONCE@1800 [facility] Stop: 07/02/17 18:01 - Objective Vital Signs: Vital Signs Temperature 97.9 F 07/02/17 08:56 Pulse Rate 67 07/02/17 08:56 Respiratory Rate 18 07/02/17 08:56 Blood Pressure 109/62 07/02/17 08:56 O2 Sat by Pulse Oximetry (%) 98 07/02/17 00:25 Constitutional: Yes: Calm Eyes: Yes: Conjunctiva Clear Cardiovascular: Yes: Pulse Irregular Respiratory: Yes: Diminished Gastrointestinal: Yes: Soft Genitourinary: No: Archuleta Present Musculoskeletal: Yes: Back Pain, Joint Stiffness Edema: LLE: Trace, RLE: Trace Integumentary: Yes: Erythema (Mostly trunk and neck.), Rash Wound/Incision: Yes: Other (Hardened non draining ? sebaceous cyst type lesion posterior right thigh.) Neurological: Yes: Alert, Oriented Labs: CBC, BMP 07/02/17 06:50 07/02/17 06:50 INR, PTT INR 1.64 (0.82-1.09) H 07/02/17 06:50 - ....Imaging Cat Scan: Report Reviewed EKG: Report Reviewed Problem List - Problems (1) Rash and nonspecific skin eruption Assessment/Plan: Probably related to Bactrim. Code(s): R21 - RASH AND OTHER NONSPECIFIC SKIN ERUPTION (2) EDU (acute kidney injury) Assessment/Plan: Improving BUN and Creatinine with IV fluid. Code(s): N17.9 - ACUTE KIDNEY FAILURE, UNSPECIFIED (3) UTI (urinary tract infection) Assessment/Plan: Ist specimen contaminated; to repeat but on IV Rx. Code(s): N39.0 - URINARY TRACT INFECTION, SITE NOT SPECIFIED Qualifiers: Urinary tract infection type: site unspecified Hematuria presence: without hematuria Qualified Code(s): N39.0 - Urinary tract infection, site not specified; N39.0 - Urinary tract infection, site not specified; R31.9 - Hematuria, unspecified; R31.9 - Hematuria, unspecified (4) Abscess Assessment/Plan: Right hamstring area; slightly indurated and no discharge currently Code(s): L02.91 - CUTANEOUS ABSCESS, UNSPECIFIED (5) Hypertensive cardiomegaly without heart failure Assessment/Plan: On Rx and stable. Code(s): I11.9 - HYPERTENSIVE HEART DISEASE WITHOUT HEART FAILURE (6) Pancytopenia Assessment/Plan: ??due to Bactrim; Heme consult placed Code(s): D61.818 - OTHER PANCYTOPENIA
--- NOTE | 2017-07-02 12:37 | PN ---
Progress Note (short form) - Note Progress Note: ID Consult dictated Drug rash secondary to sulfa allergy Hx draining wound, R posterior thigh Asymptomatic bacteruria Azotemia- resolved Pancytopenia Observe off antibiotics Benadryl
--- NOTE | 2017-07-02 13:10 | CONS ---
DATE OF CONSULTATION: DATE OF DICTATION: 07/02/2017 HISTORY OF PRESENT ILLNESS: An 82-year-old female evaluated for drug rash. She was admitted to the hospital with a 1-day history of generalized weakness, dizziness, and rash. She had been taking Bactrim for a draining soft tissue cyst of the right thigh. She was under the care of a guest relations agent and was prescribed Bactrim. She had been taking it for approximately 3 weeks. She was found to have a confluent rash mainly involving the face, chest area, and upper extremities bilaterally. She denies any associated fever or chills. No mucous membrane involvement. She reports that the rash is not pruritic. No prior history of sulfa allergy. PAST MEDICAL HISTORY: Positive for atrial fibrillation, hypothyroidism, DJD, hypertension, hyperlipidemia, history of MRSA of a left upper extremity wound, history of gastric carcinoma. PAST SURGICAL HISTORY: Status post aortic valve replacement and cholecystectomy. ALLERGIES: Now to SULFA. MEDICATIONS: Include Coumadin; Betapace; Crestor; aspirin; Synthroid. SOCIAL HISTORY: Lives at home. Positive history of tobacco use. SYSTEMS REVIEW:Neurologic: No loss of consciousness, seizure activity, focal weakness. Cardiac: Negative chest pain or palpitations. Respiratory: Negative cough or sputum production. No wheezing. Gastrointestinal: Negative vomiting or diarrhea. Genitourinary: Negative for urinary tract infection. LABORATORY DATA: White count 2.9, 45 neutrophils, 5 bands, 41 lymphocytes, 8 monocytes, 1 eosinophil, hematocrit 30.2, platelet count 124. BUN 31, creatinine 0.9. Urinalysis: 184 white cells. Urine culture contaminated. PHYSICAL EXAMINATION:General: She is awake and alert. She is not acutely toxic appearing. Vital Signs: Temperature 97.9, blood pressure 109/62, pulse 67, regular, respirations 18 per minute. HEENT: Sclerae anicteric. Cardiac: Heart sounds S1, S2. Positive murmur. Lungs: Clear. Abdomen: Soft, obese, nontender. Extremities: Negative for edema. Skin: There is confluent rash involving the face, upper chest, and upper extremities bilaterally. It does not appear to be urticarial. No excoriation is noted. Small area of erythema present on the right posterior thigh without drainage noted. IMPRESSION: 1. Drug rash secondary to SULFA allergy. 2. Asymptomatic bacteruria. 3. Azotemia, resolved. 4. Pancytopenia. RECOMMENDATIONS: Would observe off antibiotic therapy. No treatment for asymptomatic bacteruria. Basil contreras Thank you for the kind referral. Viviana [id number]
[2017-07-02] MEDS: SOTALOL HCL 80 MG TABLET (FP) PO SCH ×2 (13:23→21:34)
--- NOTE | 2017-07-02 14:06 | CONSULT ---
Consult - text type - Consultation Consultation Note: HEMATOLOGY CONSULT NOTE CONSULTED FOR PANCYTOPENIA HISTORY OF PRESENT ILLNESS: This is an 82 year old female with a past medical history significant for Afib, Aortic valve repair who presented to the ED with report of dizziness and not feeling well along with a diffuse rash. She was on Bactrim for 3 weeks for an infection on her posterior thigh, and it was stopped when she was admitted. She had ARF and a diffuse maculopapular rashdeveloped a rash. Her INR was elevated last week so she held her coumadin for 3 days and restarted it. PAST MEDICAL HISTORY: Hyperlipidemia atrial fibrillation Hypertension gastric carcinoid removed 2y ago colon adenomas (removed) hypothyroidism PAST SURGICAL HISTORY: Aortic valve replacemetn (bovine) 2006 open cholycystectomy B/L carpal tunnel release Social History: Smoking: pt denies Alcohol: pt denies Drugs: pt denies Family History: mother age 52, cerebral hemorrhage father age 87, myeloplastic disorder sister age 47, BrCA sister age 70, esophageal CA half sister with chronic fatigue syndrome Allergies sulfamethoxazole [From Bactrim] Allergy (Verified 06/30/17 20:30) trimethoprim [From Bactrim] Allergy (Verified 06/30/17 20:30) HOME MEDICATIONS: 3 Medication Instructions Recorded Aspirin [ASA -] 81 mg PO DAILY #0 tab.chew 07/03/12 Calcium Carb/Vit D3/Minerals 1 each PO DAILY #0 tablet 07/03/12 [Caltrate-600 with Vit D Tab] Cyanocobalamin Vit B-12 Inj. 1,000 mcg IJ MONTHLY #0 vial 07/03/12 [Vitamin B12 Injection -] Furosemide [Lasix -] 20 mg PO DAILY #0 tablet 07/03/12 Losartan/Hydrochlorothiazide 1 each PO DAILY #0 tablet 07/03/12 [Losartan-Hctz 50-12.5 mg Tab] Multivitamin W/Iron, Minerals 1 tab PO DAILY #0 liquid 07/03/12 [Centrum] Potassium Chloride [Klor-Con] 20 meq PO DAILY #0 packet 07/03/12 Rosuvastatin Calcium [Crestor] 5 mg PO HS #0 tablet 07/03/12 Sotalol HCl [Sotalol] 80 mg PO BID #0 tablet 07/03/12 Levothyroxine [Synthroid -] 100 mcg PO MOTUWETH 10/09/15 Warfarin Sodium [Coumadin] 2.5 mg PO DAILY #0 tablet 10/10/15 Levothyroxine [Synthroid -] 150 mcg PO SUFRSA 04/23/16 REVIEW OF SYSTEMS CONSTITUTIONAL: Present: generalized weakness, malaise Absent: fever, chills, diaphoresis, loss of appetite, weight change HEENT: Absent: rhinorrhea, nasal congestion, throat pain, throat swelling, difficulty swallowing, mouth swelling, ear pain, eye pain, visual changes CARDIOVASCULAR: Absent: chest pain, syncope, palpitations, irregular heart rate, lightheadedness , peripheral edema RESPIRATORY: Absent: cough, shortness of breath, dyspnea with exertion, orthopnea, wheezing, stridor, hemoptysis GASTROINTESTINAL: Absent: abdominal pain, abdominal distension, nausea, vomiting, diarrhea, constipation, melena, hematochezia GENITOURINARY: Absent: dysuria, frequency, urgency, hesitancy, hematuria, flank pain, genital pain MUSCULOSKELETAL: Absent: myalgia, arthralgia, joint swelling, back pain, neck pain SKIN: Present: rash, itching Absent: pallor HEMATOLOGIC/IMMUNOLOGIC: Absent: easy bleeding, easy bruising, lymphadenopathy, frequent infections ENDOCRINE: Absent: unexplained weight gain, unexplained weight loss, heat intolerance, cold intolerance NEUROLOGIC: Present: dizziness Absent: headache, focal weakness or paresthesias, unsteady gait, seizure, mental status changes, bladder or bowel incontinence PSYCHIATRIC: Absent: anxiety, depression, suicidal or homicidal ideation, hallucinations. Vital Signs Period Temp Pulse Resp BP Sys/Vincent Pulse Ox Last 24 Hr 97.9 F-98.5 F 63-82 18-22 100-145/62-81 97-98 GENERAL: Awake, alert, and fully oriented, in no acute distress. HEAD: Normal with no signs of trauma. EYES: Pupils equal, round and reactive to light, extraocular movements intact, sclera anicteric, conjunctiva clear. No lid lag. EARS, NOSE, THROAT: Ears normal, nares patent, oropharynx clear without exudates. Moist mucous membranes. NECK: Normal range of motion, supple without lymphadenopathy, JVD, or masses. LUNGS: Breath sounds equal, clear to auscultation bilaterally. No wheezes, and no crackles. No accessory muscle use. HEART: Regular rate and rhythm, normal S1 and S2 without murmur, rub or gallop. ABDOMEN: Soft, nontender, not distended, normoactive bowel sounds, no guarding, no rebound, no masses. No hepatomegaly or splenomegaly. MUSCULOSKELETAL: Normal range of motion at all joints. No bony deformities or tenderness. No CVA tenderness. UPPER EXTREMITIES: 2+ pulses, warm, well-perfused. No cyanosis. No clubbing. No peripheral edema. LOWER EXTREMITIES: 2+ pulses, warm, well-perfused. No calf tenderness. No peripheral edema. NEUROLOGICAL: Cranial nerves II-XII intact. Normal speech. Normal gait. PSYCHIATRIC: Cooperative. Good eye contact. Appropriate mood and affect. SKIN: Warm, dry, normal turgor, normal capillary refill. + maculopapular rash, erythematous all over body. Left posterior thigh with discoloration, healing abscess. CBC, BMP 07/02/17 06:50 07/02/17 06:50 Active Medications Generic Name Dose Route Start Last Admin Trade Name Freq PRN Reason Stop Dose Admin Aspirin 81 mg 07/01/17 10:00 07/02/17 10:51 Asa - PO 81 mg DAILY [facility] Administration Calcium Carbonate/Cholecalciferol 1 tab 07/01/17 10:00 07/02/17 10:51 Os-Fitz 500+D - PO 1 tab DAILY [facility] Administration Diphenhydramine HCl 25 mg 07/01/17 02:07 Benadryl Oral Solution - PO Q4H PRN FOR ITCHING Levothyroxine Sodium 150 mcg 07/01/17 07:00 07/02/17 06:15 Synthroid - PO 150 mcg SuFrSa@0700 [facility] Administration Levothyroxine Sodium 100 mcg 07/04/17 07:00 Synthroid - PO MoTuWeTh@0700 [facility] Multivitamins/Minerals/Vitamin C 1 tab 07/01/17 10:00 07/02/17 10:51 Tab-A-Vit - PO 1 tab DAILY [facility] Administration Rosuvastatin Calcium 5 mg 07/01/17 22:00 07/02/17 00:11 Crestor - PO 5 mg HS [facility] Administration Sotalol HCl 80 mg 07/02/17 11:15 07/02/17 13:23 Betapace - PO 80 mg BID [facility] Administration Warfarin Sodium 2.5 mg 07/02/17 18:00 Coumadin - PO DAILY@1800 [facility] Warfarin Sodium 5 mg 07/02/17 18:00 Coumadin - PO 07/02/17 18:01 ONCE@[address]/HEAD CT WITHOUT CONTRAST History of dizziness CT scan of the brain without intravenous contrast. Since prior MRI of the brain dated 11/17/2016, there remains [id number] volume loss, ventricular dilatation and probable mild chronic microvascular ischemic changes. No mass lesion, gross acute infarct or intracranial hemorrhage are identified. There is no shift of the midline structures Visualized paranasal sinuses are well aerated and the calvarium is intact. Minimal bilateral mastoid effusion with calcification of the cavernous carotid arteries are present Impression: [id number] volume loss and mild chronic microvascular ischemic changes without gross evidence of acute intracranial pathology. Reported By: Heydi Lantigua MD 06/30/17 [id number] ASSESSMENT/PLAN: 82yF with PMH HTn, HLD, Afib, aortic valve replacement, gastric carcinoid, colon adnomas, hypothyroidism here with bactrim side effects. The pancytopenia is likley form bactrim -Folic acid can help and hence I am starting folic acid -will check other anemia labs as well
[2017-07-02] MEDS: FOLIC ACID 1 MG TABLET (FP) PO SCH (15:51)
[2017-07-02] MEDS ORDERED: WARFARIN NA 5 MG TABLET (UD) PO ONE (18:00)
[2017-07-02 21:37] LABS: BASOPHIL 0.8 % (0-2.0); EOSINOPHIL 7.5 % (0-4.5); MCHC 33.4 g/dl (32.0-36.0); MEAN CELL VOLUME 92.6 fl (80-96); MEAN PLT VOLUME 8.6 fl (7.5-11.1); NEUTROPHILS 39.8 % (42.8-82.8); PLATELET COUNT 118 K/MM3 (134-434); RDW 15.2 % (11.6-15.6); WHITE BLOOD COUNT 2.7 K/mm3 (4.0-10.0)
[2017-07-02 22:07] LABS: ALBUMIN 2.7 g/dl (3.4-5.0); ANION GAP 7 (8-16); BILIRUBIN,TOTAL 0.2 mg/dL (0.2-1.0); CALCIUM 8.2 mg/dL (8.5-10.1); CO2 21 mmol/L (21-32); GLUCOSE,RANDOM 93 mg/dL (74-106); SGOT/AST 34 U/L (15-37); SGPT/ALT 33 U/L (12-78); TOT PROT 5.5 g/dl (6.4-8.2)
[2017-07-02 22:08] LABS: ALK PHOS 70 U/L (45-117)
--- NOTE | 2017-07-03 01:44 | RAPID ---
Physical Examination Vital Signs: Vital Signs Temperature 99.8 F H 07/02/17 23:49 Pulse Rate 89 07/02/17 23:49 Respiratory Rate 18 07/02/17 23:49 Blood Pressure 136/79 07/02/17 23:49 O2 Sat by Pulse Oximetry (%) 97 07/02/17 21:00 Findings/Remarks: Was called to the bedside by rapid response at approximately 8pm because patient was unresponsive with a pulse. upon arrival at bedside, patient was minimally responsive but able to follow commands. Vital signs at this point were WNL. Fingerstick WNL. Approximaely 5 minutes later, the patient spontaneously became responsive and stated that she had fallen asleep. Constitutional: Yes: Well Nourished, No Distress HENT: Yes: Atraumatic, Normocephalic Neck: Yes: Supple, Trachea Midline Cardiovascular: Yes: Regular Rate and Rhythm Respiratory: Yes: Regular, CTA Bilaterally Gastrointestinal: Yes: Normal Bowel Sounds, Soft. No: Distention, Tenderness Integumentary: Yes: Rash (maculopapular rash noted over entire body. The patient had this rash on admission.) Neurological: Yes: Alert, Oriented ...Motor Strength: LUE (5/5), LLE (5/5), RUE (5/5), RLE (5/5) Psychiatric: Yes: Alert, Oriented Labs: CBC, BMP 07/02/17 21:20 07/02/17 21:20 Rapid Response - Rapid Response Assessment: patient seems to have been in a deep sleep and was unresponsive. Once she was roused, the patient was able to move all 4 extremities, follow commands and was alert and oriented x3. Patient's vital signs did not change throughout the event. She received no narcotics this evening. Recommendations/Interventions: ordered CBC, CMP, mag, lactic acid stat. Will f/u results.
[2017-07-03] MEDS: LEVOTHYROXINE NA 150 MCG TABLET PO SCH (06:34)
[2017-07-03 07:30] LABS: BASOPHIL 0.8 % (0-2.0); EOSINOPHIL 6.9 % (0-4.5); MCH 30.4 pg (25.7-33.7); MCHC 32.6 g/dl (32.0-36.0); MEAN CELL VOLUME 93.3 fl (80-96); MEAN PLT VOLUME 8.4 fl (7.5-11.1); NEUTROPHILS 40.5 % (42.8-82.8); PLATELET COUNT 136 K/MM3 (134-434); RDW 14.9 % (11.6-15.6); WHITE BLOOD COUNT 3.4 K/mm3 (4.0-10.0)
[2017-07-03 07:59] LABS: ALBUMIN 2.9 g/dl (3.4-5.0); ANION GAP 9 (8-16); CALCIUM 8.3 mg/dL (8.5-10.1); CO2 21 mmol/L (21-32); GLUCOSE,RANDOM 82 mg/dL (74-106)
[2017-07-03 08:17] LABS: BILIRUBIN,TOTAL 0.5 mg/dL (0.2-1.0); CREATININE 0.8 mg/dL (0.55-1.02); INR 1.46 (0.82-1.09); PROTHROMBIN TIME (PATIENT) 16.5 SEC (9.98-11.88); TOT PROT 5.9 g/dl (6.4-8.2)
[2017-07-03 08:18] LABS: ALK PHOS 76 U/L (45-117); LDH 314 U/L (84-246); SGOT/AST 30 U/L (15-37); SGPT/ALT 35 U/L (12-78)
[2017-07-03] MEDS: MULTIVITAMINS (DAILY MVI) TABLET (FP) PO SCH (09:01)
[2017-07-03] MEDS: CALCIUM 500MG/VIT-D 200 UNITS COMBO TABLET (FP) PO SCH (09:01)
[2017-07-03] MEDS: SOTALOL HCL 80 MG TABLET (FP) PO SCH ×4 (09:02→22:08)
[2017-07-03] MEDS: ASPIRIN 81 MG CHEWABLE TABLETS PO SCH (09:02)
[2017-07-03] MEDS: FOLIC ACID 1 MG TABLET (FP) PO SCH (09:02)
--- NOTE | 2017-07-03 10:54 | PN ---
Progress Note (short form) - Note Progress Note: Patient feels better today and is a little sheepish that she caused the Hospitalist to be called when she was in a deep sleep yesterday from her long ER stay and was initially not arousable by the burse. Vital signs remained stable. Seen by Suzie RUIZ and Dx of Bactrim pancytopenia seems to be the logical choice. CBC improved today and now on Folic acid. ID rec: No antibiotics for now and she has no dysuria. I think we should D/C precautions. On Exam: Vital Signs Temp 97.5 F L 07/03/17 06:00 Pulse 57 L 07/03/17 06:00 Resp 16 07/03/17 06:00 BP 124/56 07/03/17 06:00 Pulse Ox 97 07/02/17 21:00 Intake & Output 07/02/17 07/02/17 07/03/17 11:59 23:59 11:59 Intake Total 400 200 0 Balance 400 200 0 Weight 184 lb 8 oz Intake: IV 350 Normal Saline - 1,000 ml 350 @ 50 mls/hr IV ASDIR [facility] Rx#:[id number] IVPB 50 0 0 Oral 200 Other: Voiding Method Bedpan Bedpan Weight Measurement Method Built in [facility] Alert Chest: Clear Cor :Irreg Abd: Soft No pedal edema Facial and chest rash fading Abnormal Lab Results 07/02/17 07/02/17 07/03/17 21:20 21:20 06:15 WBC 2.7 L 3.4 L RBC 2.99 L 3.34 L Hgb 9.3 L 10.1 L Hct 27.7 L 31.1 L Plt Count 118 L Neutrophils % 39.8 L D 40.5 L Monocytes % 17.9 H 13.9 H Eosinophils % 7.5 H 6.9 H PT with INR INR Chloride 112 H Anion Gap 7 L BUN 25 H Calcium 8.2 L LD Total Total Protein 5.5 L Albumin 2.7 L 07/03/17 07/03/17 06:15 06:15 WBC RBC Hgb Hct Plt Count Neutrophils % Monocytes % Eosinophils % PT with INR 16.50 H INR 1.46 H Chloride 111 H Anion Gap BUN 24 H Calcium 8.3 L LD Total 314 H Total Protein 5.9 L Albumin 2.9 L IMP: Pancytopenia from Bactrim improving Acute Renal Failure nearly at baseline A.Fib DJD Plan: Increase Coumadin again today as INR fell inspite of higher dose yesterday F/U CBC and basic profile PT Tuesday Problem List - Problems (1) Rash and nonspecific skin eruption Code(s): R21 - RASH AND OTHER NONSPECIFIC SKIN ERUPTION (2) EDU (acute kidney injury) Code(s): N17.9 - ACUTE KIDNEY FAILURE, UNSPECIFIED (3) UTI (urinary tract infection) Code(s): N39.0 - URINARY TRACT INFECTION, SITE NOT SPECIFIED Qualifiers: Urinary tract infection type: site unspecified Hematuria presence: without hematuria Qualified Code(s): N39.0 - Urinary tract infection, site not specified; N39.0 - Urinary tract infection, site not specified; R31.9 - Hematuria, unspecified; R31.9 - Hematuria, unspecified (4) Abscess Code(s): L02.91 - CUTANEOUS ABSCESS, UNSPECIFIED (5) Hypertensive cardiomegaly without heart failure Code(s): I11.9 - HYPERTENSIVE HEART DISEASE WITHOUT HEART FAILURE (6) Pancytopenia Code(s): D61.818 - OTHER PANCYTOPENIA
--- NOTE | 2017-07-03 11:03 | EKG ---
Test Reason : Blood Pressure : / mmHG Vent. Rate : 067 BPM Atrial Rate : 067 BPM P-R Int : 146 ms QRS Dur : 080 ms QT Int : 420 ms P-R-T Axes : 053 -19 043 degrees QTc Int : 443 ms SINUS RHYTHM WITH PREMATURE ATRIAL COMPLEXES INFERIOR INFARCT (CITED ON OR BEFORE 16-NOV-2016) ABNORMAL ECG WHEN COMPARED WITH ECG OF 30-JUN-2017 22:48, PREMATURE ATRIAL COMPLEXES ARE NOW PRESENT Confirmed by KARINE GREENBERG MD ([id number]) on 07/03/2017 11:02:45 AM Referred By: Confirmed By:KARINE GREENBERG MD
[2017-07-03 11:56] LABS: FERRITIN 422.175 ng/ml (6.9-282.5)
--- NOTE | 2017-07-03 13:39 | PROC ---
Procedure Note Procedure: This is an 82 year old female with a past medical history significant for Afib, Aortic valve repair who presented to the ED with report of dizziness and not feeling well along with a diffuse rash. She was on Bactrim for 3 weeks for an infection on her posterior thigh, and it was stopped when she was admitted. She had ARF and a diffuse maculopapular rashdeveloped a rash. Her INR was elevated last week so she held her coumadin for 3 days and restarted it. Vital Signs Period Temp Pulse Resp BP Sys/Vincent Pulse Ox Last 24 Hr 97.5 F-99.8 F 57-89 16-18 95-136/50-79 97-97 GENERAL: Awake, alert, and fully oriented, in no acute distress. HEAD: Normal with no signs of trauma. EYES: Pupils equal, round and reactive to light, extraocular movements intact, sclera anicteric, conjunctiva clear. No lid lag. EARS, NOSE, THROAT: Ears normal, nares patent, oropharynx clear without exudates. Moist mucous membranes. NECK: Normal range of motion, supple without lymphadenopathy, JVD, or masses. LUNGS: Breath sounds equal, clear to auscultation bilaterally. No wheezes, and no crackles. No accessory muscle use. HEART: Regular rate and rhythm, normal S1 and S2 without murmur, rub or gallop. ABDOMEN: Soft, nontender, not distended, normoactive bowel sounds, no guarding, no rebound, no masses. No hepatomegaly or splenomegaly. MUSCULOSKELETAL: Normal range of motion at all joints. No bony deformities or tenderness. No CVA tenderness. UPPER EXTREMITIES: 2+ pulses, warm, well-perfused. No cyanosis. No clubbing. No peripheral edema. LOWER EXTREMITIES: 2+ pulses, warm, well-perfused. No calf tenderness. No peripheral edema. NEUROLOGICAL: Cranial nerves II-XII intact. Normal speech. Normal gait. PSYCHIATRIC: Cooperative. Good eye contact. Appropriate mood and affect. SKIN: Warm, dry, normal turgor, normal capillary refill. + maculopapular rash, erythematous all over body. Left posterior thigh with discoloration, healing abscess. CBC, BMP 07/03/17 06:15 07/03/17 06:15 Active Medications Generic Name Dose Route Start Last Admin Trade Name Freq PRN Reason Stop Dose Admin Aspirin 81 mg 07/01/17 10:00 07/03/17 09:02 Asa - PO 81 mg DAILY DANDY Administration Calcium Carbonate/Cholecalciferol 1 tab 07/01/17 10:00 07/03/17 09:01 Os-Fitz 500+D - PO 1 tab DAILY DANDY Administration Diphenhydramine HCl 25 mg 07/01/17 02:07 Benadryl Oral Solution - PO Q4H PRN FOR ITCHING Folic Acid 1 mg 07/02/17 14:15 07/03/17 09:02 Folic Acid - PO 1 mg DAILY DANDY Administration Levothyroxine Sodium 150 mcg 07/01/17 07:00 07/03/17 06:34 Synthroid - PO 150 mcg SuFrSa@0700 DANDY Administration Levothyroxine Sodium 100 mcg 07/04/17 07:00 Synthroid - PO MoTuWeTh@0700 [facility] Multivitamins/Minerals/Vitamin C 1 tab 07/01/17 10:00 07/03/17 09:01 Tab-A-Vit - PO 1 tab DAILY DANDY Administration Rosuvastatin Calcium 5 mg 07/01/17 22:00 07/02/17 21:34 Crestor - PO 5 mg HS DANDY Administration Sotalol HCl 80 mg 07/02/17 11:15 07/03/17 09:02 Betapace - PO 80 mg BID DANDY Administration Warfarin Sodium 2.5 mg 07/02/17 18:00 Coumadin - PO DAILY@1800 [facility] Warfarin Sodium 7.5 mg 07/03/17 18:00 Coumadin - PO 07/03/17 18:01 ONCE@1800 ONE ASSESSMENT/PLAN: 82yF with PMH HTn, HLD, Afib, aortic valve replacement, gastric carcinoid, colon adnomas, hypothyroidism here with bactrim side effects. The pancytopenia is likley form bactrim -Her counts are slowly improving -continue folic acid for possible help with marrow recovery
[2017-07-03] MEDS: WARFARIN NA 2.5 MG TABLET (FP) PO SCH (14:12)
[2017-07-03] MEDS ORDERED: WARFARIN NA 7.5 MG TABLET (FP) PO ONE (18:00)
[2017-07-03] MEDS ORDERED: PT OWN MED DRAWER 7, Y5N ONE (21:35)
[2017-07-03] MEDS: ROSUVASTATIN CA 5 MG TABLET (FP) PO SCH (22:08)
[2017-07-04 06:06] LABS: SERUM IRON 59 ug/dL (27-139); TOTAL IRON BINDING CAPACITY 218 ug/dL (250-450); UIBC 159 ug/dL (118-369)
[2017-07-04 06:09] LABS: EOSINOPHIL 5.6 % (0-4.5); MCH 31.2 pg (25.7-33.7); MCHC 33.5 g/dl (32.0-36.0); MEAN CELL VOLUME 93.1 fl (80-96); MEAN PLT VOLUME 8.2 fl (7.5-11.1); NEUTROPHILS 41.7 % (42.8-82.8); PLATELET COUNT 138 K/MM3 (134-434); RDW 15.3 % (11.6-15.6); WHITE BLOOD COUNT 3.6 K/mm3 (4.0-10.0)
[2017-07-04 06:21] LABS: INR 1.81 (0.82-1.09); PROTHROMBIN TIME (PATIENT) 20.4 SEC (9.98-11.88)
[2017-07-04] MEDS: LEVOTHYROXINE NA 100 MCG TABLET (FP) PO SCH (06:24)
--- NOTE | 2017-07-04 10:06 | PN ---
Progress Note (short form) - Note Progress Note: Feels better and rash fading. Still anxious about event where she was not arousable by the nurse on Sat brian; VS were negative throughout. Uses rollator but she still drives. No current SOB but PT to evaluate today. On Exam: Vital Signs Temp 97.8 F 07/04/17 08:00 Pulse 57 L 07/04/17 08:00 Resp 18 07/04/17 08:00 BP 131/83 07/04/17 08:00 Pulse Ox 96 07/03/17 21:00 Intake & Output 07/03/17 07/03/17 07/04/17 11:59 23:59 11:59 Intake Total 0 260 Balance 0 260 Intake: IV 10 negrita #22 07/01/17 10 IVPB 0 0 Oral 250 Other: Voiding Method Bedpan Toilet # Unmeasured Voids Void 1 1 Bowel Movement No: 07/02/17 No Alert Chest: No rales Cor: Irregular with aortic murmur Abd Soft Ext: DJD but no edema Rash on trunk and face improving. Abnormal Lab Results 07/03/17 07/03/17 07/04/17 06:15 06:15 05:25 WBC 3.6 L RBC 3.01 L Hgb 9.4 L Hct 28.0 L Neutrophils % 41.7 L Monocytes % 16.1 H Eosinophils % 5.6 H PT with INR INR Chloride 111 H BUN 24 H Calcium 8.3 L TIBC 218 L Ferritin 422.175 H LD Total 314 H Total Protein 5.9 L Albumin 2.9 L Serum Folate 40 H D 07/04/17 05:25 WBC RBC Hgb Hct Neutrophils % Monocytes % Eosinophils % PT with INR 20.40 H INR 1.81 H Chloride BUN Calcium TIBC Ferritin LD Total Total Protein Albumin Serum Folate IMP: Pancytopenia due to Bactrim slowly improving ? Presyncope Rash from drug reaction AVR Porcine Hypothyroidism Sever DJD knees Plan: PT F/U CBC Cardiac Eval ??home Tuesday Problem List - Problems (1) Rash and nonspecific skin eruption Code(s): R21 - RASH AND OTHER NONSPECIFIC SKIN ERUPTION (2) EDU (acute kidney injury) Code(s): N17.9 - ACUTE KIDNEY FAILURE, UNSPECIFIED (3) UTI (urinary tract infection) Code(s): N39.0 - URINARY TRACT INFECTION, SITE NOT SPECIFIED Qualifiers: Urinary tract infection type: site unspecified Hematuria presence: without hematuria Qualified Code(s): N39.0 - Urinary tract infection, site not specified; N39.0 - Urinary tract infection, site not specified; R31.9 - Hematuria, unspecified; R31.9 - Hematuria, unspecified (4) Abscess Code(s): L02.91 - CUTANEOUS ABSCESS, UNSPECIFIED (5) Hypertensive cardiomegaly without heart failure Code(s): I11.9 - HYPERTENSIVE HEART DISEASE WITHOUT HEART FAILURE (6) Pancytopenia Code(s): D61.818 - OTHER PANCYTOPENIA
[2017-07-04] MEDS: ASPIRIN 81 MG CHEWABLE TABLETS PO SCH (10:15)
[2017-07-04] MEDS: FOLIC ACID 1 MG TABLET (FP) PO SCH (10:15)
[2017-07-04] MEDS: CALCIUM 500MG/VIT-D 200 UNITS COMBO TABLET (FP) PO SCH (10:15)
[2017-07-04] MEDS: MULTIVITAMINS (DAILY MVI) TABLET (FP) PO SCH (10:15)
[2017-07-04] MEDS: SOTALOL HCL 80 MG TABLET (FP) PO SCH ×2 (10:15→21:55)
--- NOTE | 2017-07-04 14:04 | CON.CARD ---
Consult Consult Specialty:: Cardiology Referred by:: Dayne Grullon MD Reason for Consultation:: h/o bioAVR, Ryan - History of Present Illness Chief Complaint: Dizziness History of Present Illness: 82 yo Female patient with h/o HTN, paroxysmal Afib, Hypothyroidism, Bentall with bioprosthetic aortic valve replacement (19mm Faulkner Bovine Pericardial) with moderate transvalvular stenosis (MG 26mm Hg), diastolic dysfunction, hyperlipidemia, HTN/HCVD, PAD, anticoagulation use (Coumadin) admitted for positional dizziness, EDU and maculopapular rash due to Bactrim use since resolved after offending agent d/naomi and IVF. Patient denied chest tightness, palpitations, dyspnea worse than baseline, near or true syncope, orthopnea, PND or LE edema. Ambulates with walker assistance. Cardiology- Dr. Celaya PCP- Dr. Grullon Neurology- Dr. Luna - History Source History Provided By: Patient Limitations to Obtaining History: No Limitations - Past Medical History Cardio/Vascular: Yes: AFIB, HTN, Hyperlipdemia ...: No - Past Surgical History Past Surgical History: Yes: Cholecystectomy, Valve Replacement - Alcohol/Substance Use Hx Alcohol Use: No (denies) History of Substance Use: reports: None - Smoking History Smoking history: Current every day smoker Have you smoked in the past 12 months: No Aproximately how many cigarettes per day: 0 - Social History ADL: Independent History of Recent Travel: No Home Medications - Allergies Allergies/Adverse Reactions: Allergies Allergy/AdvReac Type Severity Reaction Status Date / Time sulfamethoxazole Allergy Verified 06/30/17 20:30 [From Bactrim] trimethoprim [From Bactrim] Allergy Verified 06/30/17 20:30 - Home Medications Home Medications: Ambulatory Orders Aspirin [ASA -] 81 mg PO DAILY #0 tab.chew 07/03/12 Calcium Carb/Vit D3/Minerals [Caltrate-600 with Vit D Tab] 1 each PO DAILY #0 tablet 07/03/12 Cyanocobalamin Vit B-12 Inj. [Vitamin B12 Injection -] 1,000 mcg IJ MONTHLY #0 vial 07/03/12 Furosemide [Lasix -] 20 mg PO DAILY #0 tablet 07/03/12 Losartan/Hydrochlorothiazide [Losartan-Hctz 50-12.5 mg Tab] 1 each PO DAILY #0 tablet 07/03/12 Multivitamin W/Iron, Minerals [Centrum] 1 tab PO DAILY #0 liquid 07/03/12 Potassium Chloride [Klor-Con] 20 meq PO DAILY #0 packet 07/03/12 Rosuvastatin Calcium [Crestor] 5 mg PO HS #0 tablet 07/03/12 Sotalol HCl [Sotalol] 80 mg PO BID #0 tablet 07/03/12 Levothyroxine [Synthroid -] 100 mcg PO MOTUWETH 10/09/15 Warfarin Sodium [Coumadin] 2.5 mg PO DAILY #0 tablet 10/10/15 Levothyroxine [Synthroid -] 150 mcg PO SUFRSA 04/23/16 Family Disease History - Family Disease History Family Disease History: CA: Sister Review of Systems - Review of Systems Integumentary: reports: Rash Neurological: reports: Dizziness Vital Signs: Vital Signs Temperature 97.8 F 07/04/17 08:00 Pulse Rate 57 L 07/04/17 08:00 Respiratory Rate 18 07/04/17 09:00 Blood Pressure 131/83 07/04/17 08:00 O2 Sat by Pulse Oximetry (%) 100 07/04/17 09:00 Constitutional: Yes: No Distress, Calm Neck: Yes: Supple Respiratory: Yes: Regular, CTA Bilaterally Gastrointestinal: Yes: Normal Bowel Sounds, Soft Cardiovascular: Yes: Regular Rate and Rhythm JVD: No Carotid Bruit: No Heart Sounds: Yes: S1, S2 Murmur: Yes: Systolic Murmur, Grade 2 Edema: Yes Edema: LLE: Trace, RLE: Trace - Other Data Labs, Other Data: CBC, BMP 07/04/17 05:25 07/03/17 06:15 INR, PTT INR 1.81 (0.82-1.09) H 07/04/17 05:25 NSR @ 63 PRWP and inferior Qs similar to previous Imaging - Results Cat Scan: Report Reviewed (HCT: SVID) Problem List - Problems (1) EDU (acute kidney injury) Code(s): N17.9 - ACUTE KIDNEY FAILURE, UNSPECIFIED (2) Pancytopenia Code(s): D61.818 - OTHER PANCYTOPENIA (3) Rash and nonspecific skin eruption Code(s): R21 - RASH AND OTHER NONSPECIFIC SKIN ERUPTION (4) Anticoagulation adequate with anticoagulant therapy Code(s): Z79.01 - NURSING HOME (CURRENT) USE OF 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 (5) Aortic stenosis, moderate Code(s): I35.0 - NONRHEUMATIC AORTIC (VALVE) STENOSIS (6) Hyperlipidemia Code(s): E78.5 - HYPERLIPIDEMIA, UNSPECIFIED Qualifiers: Hyperlipidemia type: pure hypercholesterolemia Qualified Code(s): E78.00 - Pure hypercholesterolemia, unspecified; E78.00 - Pure hypercholesterolemia, unspecified; E78.00 - Pure hypercholesterolemia, unspecified; E78.0 - Pure hypercholesterolemia (7) Hypertensive cardiomegaly without heart failure Code(s): I11.9 - HYPERTENSIVE HEART DISEASE WITHOUT HEART FAILURE (8) Hypothyroidism Code(s): E03.9 - HYPOTHYROIDISM, UNSPECIFIED Qualifiers: Hypothyroidism type: unspecified Qualified Code(s): E03.9 - Hypothyroidism, unspecified; E03.9 - Hypothyroidism, unspecified; E03.9 - Hypothyroidism, unspecified (9) Paroxysmal atrial fibrillation Code(s): I48.0 - PAROXYSMAL ATRIAL FIBRILLATION (10) Status post aortic aneurysm repair Code(s): Z98.89 - OTHER SPECIFIED POSTPROCEDURAL STATES * DO NOT USE * Z86.79 - PERSONAL HISTORY OF OTHER DISEASES OF THE CIRCULATORY SYSTEM (11) Status post aortic valve replacement with bioprosthetic valve during current hospitalization Code(s): Z95.4 - PRESENCE OF OTHER HEART-VALVE REPLACEMENT (12) Dizziness Code(s): R42 - DIZZINESS AND GIDDINESS Assessment/Plan 06/19/2015 Echo: Normal LV size and fxn, functional MS 1.2 cm^2, bioAVR, LAE, mild MR, TR 12/08/2016 Lexiscan MPI: No ischemia, LVEF 73% 07/18/2013 P-Myoview: No ischemia, LVEF 82% MRI brain is negative for acute stroke. 11/17/2016 Echo: Normal LV size and fxn, borderline ZAIDA, mild TR, mod MG 23 mmHg, mild AR 1. Post Bactrim drug reaction with recovering pancytopenia 2. Resolved dizziness, possible orthostasis 3. s/p bioAVR Bentall with moderate transvalvular gradient 4. PAF->SR CHADSVASC with subtherapeutic INR 5. HTN/HCVD 6. Hyperlipidemia 7. Mild carotid stenosis 8. Hypothyroidism 9. Pre-renal EDU resolved P:1. Continue Crestor 5 qhs, Sotalol 80 bid, resume losartan 25 qd with uptitration as tolerated, hold diuretics 2. Dose Coumadin per INR 2-3 3. Completed abx course 4. F/u echocardiogram to assess aortic transvalvular gradient as outpatient 5. Thank you for consultative opportunity
[2017-07-04] MEDS: LOSARTAN POTASSIUM 25 MG TABLET PO SCH (14:59)
[2017-07-04] MEDS ORDERED: WARFARIN NA 5 MG TABLET (UD) PO ONE (18:00)
--- NOTE | 2017-07-04 19:18 | PN ---
Progress Note (short form) - Note Progress Note: PAtient seen an dexamined Denies any complaints AFVSS Oropharynx: No thrush, No mucositis Neck: Supple Nodes: Without adenopathy Cor: RSR, No murmurs, No gallops Lungs: Clear to P&A Abd: Soft, Normal bowel sounds, No organomegaly Ext:No significant edema Skin: maculopapular rash on the trunk Labs reviewed MEds revewed A/P 82yF with PMH HTn, HLD, Afib, aortic valve replacement, gastric carcinoid, colon adnomas, hypothyroidism here with bactrim side effects. The pancytopenia is likley form bactrim -Her counts are slowly improving
[2017-07-04] MEDS: ROSUVASTATIN CA 5 MG TABLET (FP) PO SCH (21:55)
[2017-07-05] MEDS: LEVOTHYROXINE NA 100 MCG TABLET (FP) PO SCH (06:12)
[2017-07-05 07:03] LABS: EOSINOPHIL 5.3 % (0-4.5); MCH 30.7 pg (25.7-33.7); MCHC 33.2 g/dl (32.0-36.0); MEAN CELL VOLUME 92.4 fl (80-96); NEUTROPHILS 43.2 % (42.8-82.8); RDW 14.9 % (11.6-15.6); WHITE BLOOD COUNT 4.1 K/mm3 (4.0-10.0)
--- NOTE | 2017-07-05 07:18 | EKG ---
Test Reason : Blood Pressure : / mmHG Vent. Rate : 063 BPM Atrial Rate : 063 BPM P-R Int : 180 ms QRS Dur : 086 ms QT Int : 426 ms P-R-T Axes : 022 -23 038 degrees QTc Int : 435 ms NORMAL SINUS RHYTHM WITH SINUS ARRHYTHMIA INFERIOR INFARCT (CITED ON OR BEFORE 16-NOV-2016) ABNORMAL ECG WHEN COMPARED WITH ECG OF 02-JUL-2017 21:13, NO SIGNIFICANT CHANGE WAS FOUND Confirmed by MARY ELLEN YOUNG MD ([id number]) on 07/05/2017 7:18:29 AM Referred By: Confirmed By:MARY ELLEN YOUNG MD
[2017-07-05] MEDS: WARFARIN NA 2.5 MG TABLET (FP) PO SCH (08:30)
[2017-07-05 09:23] VITALS: BP 121/63; PULSE 53; TEMP 97.5
[2017-07-05] MEDS: ASPIRIN 81 MG CHEWABLE TABLETS PO SCH (09:23)
[2017-07-05] MEDS: SOTALOL HCL 80 MG TABLET (FP) PO SCH (09:23)
[2017-07-05] MEDS: CALCIUM 500MG/VIT-D 200 UNITS COMBO TABLET (FP) PO SCH (09:23)
[2017-07-05] MEDS: LOSARTAN POTASSIUM 25 MG TABLET PO SCH (09:23)
[2017-07-05] MEDS: FOLIC ACID 1 MG TABLET (FP) PO SCH (09:23)
[2017-07-05] MEDS: MULTIVITAMINS (DAILY MVI) TABLET (FP) PO SCH (09:23)
[2017-07-05 09:59] LABS: PLATELET COUNT 149 K/MM3 (134-434); PLATELET ESTIMATE ADEQUATE (NORMAL)
[2017-07-05 10:12] LABS: INR 2.87 (0.82-1.09); PROTHROMBIN TIME (PATIENT) 32.4 SEC (9.98-11.88)
--- NOTE | 2017-07-05 13:00 | DS ---
Physical Examination Vital Signs: Vital Signs Temperature 97.5 F L 07/05/17 09:22 Pulse Rate 53 L 07/05/17 09:22 Respiratory Rate 20 07/05/17 09:22 Blood Pressure 121/63 07/05/17 09:22 O2 Sat by Pulse Oximetry (%) 97 07/05/17 09:00 Constitutional: Yes: Calm Eyes: Yes: Conjunctiva Clear Cardiovascular: Yes: Pulse Irregular Respiratory: Yes: Regular Gastrointestinal: Yes: Soft Renal/: No: Archuleta Present Musculoskeletal: Yes: Joint Swelling (knees) Edema: No Integumentary: Yes: Other (allergic rash much improved.) Neurological: Yes: Alert, Oriented Labs: CBC, BMP 07/05/17 06:30 07/03/17 06:15 Discharge Summary Reason For Visit: FALL Current Active Problems EDU (acute kidney injury) (Acute) Dizziness (Acute) Pancytopenia (Acute) Rash and nonspecific skin eruption (Acute) UTI (urinary tract infection) (Acute) Atrial Fibrillation on Coumadin DJD of knees Procedures: Principal: IV fluids and Cultures Other Procedures: daily labs and Consultants from hematology and ID Hospital Course: Slow for pancytopenia to improve and rash to begin to fade. Also difficult to get INR therapeutic. Condition: Improved - Instructions Diet, Activity, Other Instructions: No added salt in diet. See Dr. Grullon within 2 weeks if able after discharge Continue Biweekly INR tests and have a CBC done the next time you go for INR Make an appt with Dr. Morris for a repeat Echocardiogram Referrals: Dayne Grullon MD [Primary Care Provider] - Marge Morris MD [Staff Physician] - Disposition: HOME - Home Medications Comprehensive Discharge Medication List: Ambulatory Orders Aspirin [ASA -] 81 mg PO DAILY #0 tab.chew 07/03/12 Calcium Carb/Vit D3/Minerals [Caltrate-600 with Vit D Tab] 1 each PO DAILY #0 tablet 07/03/12 Cyanocobalamin Vit B-12 Inj. [Vitamin B12 Injection -] 1,000 mcg IJ MONTHLY #0 vial 07/03/12 Multivitamin W/Iron, Minerals [Centrum] 1 tab PO DAILY #0 liquid 07/03/12 Rosuvastatin Calcium [Crestor] 5 mg PO HS #0 tablet 10/15/12 Sotalol HCl [Sotalol] 80 mg PO BID #0 tablet 07/03/12 Levothyroxine [Synthroid -] 100 mcg PO MOTUWETH 10/09/15 Warfarin Sodium [Coumadin] 2.5 mg PO DAILY #0 tablet 10/10/15 Levothyroxine [Synthroid -] 150 mcg PO SUFRSA 04/23/16 Folic Acid - 1 mg PO DAILY #30 tablet 07/05/17 Losartan Potassium [Cozaar -] 25 mg PO DAILY #30 tablet 07/05/17
--- NOTE | 2017-07-05 14:13 | PN ---
Progress Note, Physician Chief Complaint: Events noted Not in distress History of Present Illness: Patient was seen and examined. Awake and alert. Chart was reviewed Denies chest pain or SOB - Current Medication List Current Medications: Active Medications Aspirin (Asa -) 81 mg PO DAILY [facility] Last Admin: 07/05/17 09:23 Dose: 81 mg Calcium Carbonate/Cholecalciferol (Os-Fitz 500+D -) 1 tab PO DAILY [facility] Last Admin: 07/05/17 09:23 Dose: 1 tab Diphenhydramine HCl (Benadryl Oral Solution -) 25 mg PO Q4H PRN PRN Reason: FOR ITCHING Folic Acid (Folic Acid -) 1 mg PO DAILY [facility] Last Admin: 07/05/17 09:23 Dose: 1 mg Levothyroxine Sodium (Synthroid -) 150 mcg PO SuFrSa@0700 [facility] Last Admin: 07/03/17 06:34 Dose: 150 mcg Levothyroxine Sodium (Synthroid -) 100 mcg PO MoTuWeTh@0700 [facility] Last Admin: 07/05/17 06:12 Dose: 100 mcg Losartan Potassium (Cozaar -) 25 mg PO DAILY [facility] Last Admin: 07/05/17 09:23 Dose: 25 mg Multivitamins/Minerals/Vitamin C (Tab-A-Vit -) 1 tab PO DAILY [facility] Last Admin: 07/05/17 09:23 Dose: 1 tab Rosuvastatin Calcium (Crestor -) 5 mg PO HS [facility] Last Admin: 07/04/17 21:55 Dose: 5 mg Sotalol HCl (Betapace -) 80 mg PO BID [facility] Last Admin: 07/05/17 09:23 Dose: 80 mg Warfarin Sodium (Coumadin -) 2.5 mg PO DAILY@1800 [facility] Last Admin: 07/05/17 08:30 Dose: Not Given - Objective Vital Signs: Vital Signs Temperature 97.5 F L 07/05/17 09:22 Pulse Rate 53 L 07/05/17 09:22 Respiratory Rate 20 07/05/17 09:22 Blood Pressure 121/63 07/05/17 09:22 O2 Sat by Pulse Oximetry (%) 97 07/05/17 09:00 Neck: Yes: Supple Cardiovascular: Yes: Murmur (SM), S1, S2 Respiratory: Yes: Diminished Gastrointestinal: Yes: Normal Bowel Sounds, Soft. No: Tenderness Edema: No Labs: CBC, BMP 07/05/17 06:30 07/03/17 06:15 INR, PTT INR 2.87 (0.82-1.09) H D 07/05/17 06:30 Problem List - Problems (1) EDU (acute kidney injury) Code(s): N17.9 - ACUTE KIDNEY FAILURE, UNSPECIFIED (2) Aortic stenosis, moderate Code(s): I35.0 - NONRHEUMATIC AORTIC (VALVE) STENOSIS (3) Dizziness Code(s): R42 - DIZZINESS AND GIDDINESS (4) Hyperlipidemia Code(s): E78.5 - HYPERLIPIDEMIA, UNSPECIFIED Qualifiers: Hyperlipidemia type: pure hypercholesterolemia Qualified Code(s): E78.00 - Pure hypercholesterolemia, unspecified; E78.00 - Pure hypercholesterolemia, unspecified; E78.00 - Pure hypercholesterolemia, unspecified; E78.0 - Pure hypercholesterolemia (5) Hypothyroidism Code(s): E03.9 - HYPOTHYROIDISM, UNSPECIFIED Qualifiers: Hypothyroidism type: unspecified Qualified Code(s): E03.9 - Hypothyroidism, unspecified; E03.9 - Hypothyroidism, unspecified; E03.9 - Hypothyroidism, unspecified (6) Paroxysmal atrial fibrillation Code(s): I48.0 - PAROXYSMAL ATRIAL FIBRILLATION (7) Status post aortic aneurysm repair Code(s): Z98.89 - OTHER SPECIFIED POSTPROCEDURAL STATES * DO NOT USE * Z86.79 - PERSONAL HISTORY OF OTHER DISEASES OF THE CIRCULATORY SYSTEM (8) Status post aortic valve replacement with bioprosthetic valve during current hospitalization Code(s): Z95.4 - PRESENCE OF OTHER HEART-VALVE REPLACEMENT (9) Syncope and collapse Code(s): R55 - SYNCOPE AND COLLAPSE Assessment/Plan 1. Post Bactrim drug reaction with recovering pancytopenia 2. Resolved dizziness and possible orthostasis 3. 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 PAF now in sinus rhythm [id number] of 5 5. HTN/HCVD 6. Hyperlipidemia 7. Mild carotid stenosis 8. Hypothyroidism 9. Pre-renal EDU resolved PLAN: 1. Continue Crestor 5 qhs, Sotalol 80 bid, Losartan 25 qd with uptitration as tolerated 2. Dose Coumadin to keep INR 2-3 3. Completed antibiotic course 4. Follow up echocardiogram to assess aortic transvalvular gradient as outpatient Further plans are to follow Sang H. Shi MD
== END 2017-07-05 14:25 | disposition home or self-care (01) | DRG 682 ==
LOC: JER 19:55 → JERBED 07-01 01:08 → UNDOADMIN 07-01 01:19 → J6S 07-01 23:30
PROVIDERS: ADMIT Internal Medicine; ATTEND Internal Medicine
DX: N17.9 Acute kidney failure, unspecified (principal); D61.811 Other drug-induced pancytopenia; N39.0 Urinary tract infection, site not specified; L02.415 Cutaneous abscess of right lower limb; E78.5 Hyperlipidemia, unspecified; E03.9 Hypothyroidism, unspecified; I35.0 Nonrheumatic aortic (valve) stenosis; R42 Dizziness and giddiness; I48.0 Paroxysmal atrial fibrillation; R55 Syncope and collapse; I11.9 Hypertensive heart disease without heart failure; D63.8 Anemia in other chronic diseases classified elsewhere; M17.0 Bilateral primary osteoarthritis of knee; L27.0 Generalized skin eruption due to drugs and medicaments taken internally
CPT/HCPCS: 36415; 70450-TC; 80048; 80053; 81003; 81015; 82550; 82607; 82728; 82746; 83540; 83550; 83605; 83615; 83735; 84100; 84484; 85025; 85044; 85610; 85730; 87081; 87086; 93005; 93010; 97116-GP; 97161-GP; 99284-25

== ENCOUNTER 2018-01-16 13:26 | Observation (INO) | payer OTHER, BC ==
--- NOTE | 2018-01-16 13:44 | PDOC ---
History of Present Illness - General Chief Complaint: Syncope/Near Syncope Stated Complaint: Syncope/Near Syncope Time Seen by Provider: 01/16/18 13:41 - History of Present Illness Initial Comments: 01/16/18 13:43 82 year old female with a PMH of Aortic Valve replacement, HTN, Hypothyroidism, HLD, Paroxysmal AFib (on Warfarin) presents with an episode of near syncope. Patient states she was sitting at a local dining establishment when she felt sudden substernal chest tightness that radiated to her L arm followed by an episode of "zoning out" for an unknown period of time, possibly "10 minutes." States her friend called 911. Denies any associated shortness of breath, lightheadedness, palpitations, diaphoresis. Currently asymptomatic. Notes a 1 week h/o viral URI like symptoms including runny nose, diarrhea. Patient denies fever, chills, abdominal pain, nausea, vomit, diarrhea or constipation. Patient denies dysuria, frequency, urgency or hematuria. Patient denies sick contacts or recent travel. Allergy: Bactrim Surgical: aortic valve replacement- bovine (2006) cholecystectomy Social: lifetime non-smoker, denies alcohol PMD: Dr. Grullon [place] Dispenser: Dr. Celaya Past History - Past Medical History Allergies/Adverse Reactions: Allergies Allergy/AdvReac Type Severity Reaction Status Date / Time sulfamethoxazole Allergy Severe Rash Verified 01/16/18 13:55 [From Bactrim] trimethoprim [From Bactrim] Allergy Severe Rash Verified 01/16/18 13:55 Home Medications: Ambulatory Orders Aspirin [ASA -] 81 mg PO DAILY #0 tab.chew 07/03/12 Calcium Carb/Vit D3/Minerals [Caltrate-600 with Vit D Tab] 1 each PO DAILY #0 tablet 07/03/12 Cyanocobalamin Vit B-12 Inj. [Vitamin B12 Injection -] 1,000 mcg IJ MONTHLY #0 vial 07/03/12 Multivitamin W/Iron, Minerals [Centrum] 1 tab PO DAILY #0 liquid 07/03/12 Rosuvastatin Calcium [Crestor] 5 mg PO HS #0 tablet 07/03/12 Sotalol HCl [Sotalol] 80 mg PO BID #0 tablet 07/03/12 Levothyroxine [Synthroid -] 100 mcg PO MOTUWETH 01/21/16 Warfarin Sodium [Coumadin] 2.5 mg PO DAILY #0 tablet 10/10/15 Levothyroxine [Synthroid -] 150 mcg PO ASDIR 04/23/16 Folic Acid - 1 mg PO DAILY #30 tablet 07/05/17 Furosemide 20 mg PO DAILY 01/16/18 Losartan Potassium 50 mg PO DAILY 01/16/18 Potassium Chloride 20 meq PO DAILY 01/16/18 Anemia: No Asthma: No Cancer: No Cardiac Disorders: Yes (CHRONIC ATRIAL FIBRILLATION, ARTIFICAL AORTIC VALVE) CVA: No COPD: No CHF: No Dementia: No Diabetes: No GI Disorders: Yes (GASTRIC CARCINOID, COLON ADENOMAS) Disorders: No HTN: Yes Hypercholesterolemia: Yes Liver Disease: No Seizures: No Thyroid Disease: Yes (HYPOTHYROIDISM) - Surgical History Abdominal Surgery: Yes Appendectomy: No Cardiac Surgery: (BOVINE AVR 2006-[facility]) Cholecystectomy: Yes (OPEN CHOLECYSTECTOMY) Lung Surgery: No Neurologic Surgery: No Orthopedic Surgery: Yes (BILATERAL CARPAL TUNNEL RELEASE) - Suicide/Smoking/Psychosocial Hx Smoking Status: No Smoking History: Current every day smoker Have you smoked in the past 12 months: No Number of Cigarettes Smoked Daily: 0 Hx Alcohol Use: No (denies) Drug/Substance Use Hx: No (denies) Substance Use Type: None Hx Substance Use Treatment: No Review of Systems - Review of Systems Constitutional: No: Chills, Fever HEENTM: No: Recent change in vision Respiratory: Yes: Shortness of Breath. No: Cough Cardiac (ROS): Yes: Chest Pain. No: Lightheadedness, Palpitations, Syncope ABD/GI: No: Constipated, Diarrhea, Nausea, Vomiting : No: Burning, Dysuria *Physical Exam - Physical Exam General Appearance: Yes: Nourished, Appropriately Dressed HEENT: positive: EOMI, JALIL Neck: positive: Trachea midline, Supple Respiratory/Chest: positive: Lungs Clear Cardiovascular: positive: Regular Rate, S1, S2. negative: Edema, JVD Vascular Pulses: Dorsalis-Pedis (R): 2+, Doralis-Pedis (L): 2+ Gastrointestinal/Abdominal: positive: Normal Bowel Sounds, Soft. negative: Distended, Guarding, Rebound, Tenderness Musculoskeletal: negative: CVA Tenderness (R), CVA Tenderness (L) Extremity: positive: Normal Capillary Refill, Normal Inspection Integumentary: positive: Normal Color, Dry, Warm Neurologic: positive: Fully Oriented, Alert ED Treatment Course - LABORATORY CBC & Chemistry Diagram: 01/16/18 14:15 01/16/18 14:15 - RADIOLOGY Radiology Studies Ordered: Category Date Time Status CHEST X-RAY PORTABLE* [RAD] Stat Radiology 01/16/18 13:41 Ordered Medical Decision Making - Medical Decision Making 01/16/18 14:21 82 year old female presents with near syncopal episode + resolved chest tightness. H/o recent rhinorrhea, diarrhea. Asymptomatic at presentation. VS unremarkable. Frontal diagnosis: TIA, r/o ACS, dehydration, PNA, Infection including Influenza. Troponin, basic labs, CXR, ECG. Reassess. 01/16/18 14:24 ECG shows NSR HR 67, no ANA MARÍA/STD/TWI, poor R wave progression V1-V6, non-acute ischemic ECG. C/w ECG dated 07/02/17. 01/16/18 14:57 No electrolyte derangement, Troponin (-) x1. Influenza B positive suggesting patient's syncope possibly 2/2 to dehydration. VS stable. Patient remains A& O x3, asymptomatic. Isolation precautions applied. Patient counseled on POC including planned admission. Head CT pending. 01/16/18 15:[address] negative 01/16/18 15:17 Patient admitted to OBS- Tele for further evaluation including DANY. Will continue to monitor while in ED. *DC/Admit/Observation/Transfer Diagnosis at time of Disposition: Influenza B - Discharge Dispostion Condition at time of disposition: Fair Admit: Yes - Referrals - Patient Instructions - Post Discharge Activity
[2018-01-16 14:23] LABS: BASO % 0.8 % (0-2.0); EOS % 1.4 % (0-4.5); HEMATOCRIT 35.2 % (32.4-45.2); HEMOGLOBIN 11.9 GM/dL (10.7-15.3); LYMPH % 26.7 % (8-40); MCH 31.8 pg (25.7-33.7); MCHC 33.9 g/dl (32.0-36.0); MEAN CELL VOLUME 93.9 fl (80-96); MEAN PLT VOLUME 9.4 fl (7.5-11.1); MONO % 19.8 % (3.8-10.2); NEUT % 51.3 % (42.8-82.8); PLATELET COUNT 199 K/MM3 (134-434); RBC 3.75 M/mm3 (3.60-5.2); RDW 15.1 % (11.6-15.6); WHITE BLOOD COUNT 3.4 K/mm3 (4.0-10.0)
[2018-01-16 14:40] LABS: INR 2.13 (0.82-1.09); PROTHROMBIN TIME (PATIENT) 24.1 SEC (9.7-13.0)
[2018-01-16 14:43] LABS: ACTIVATED PTT 37.9 SECONDS (26.9-34.4)
[2018-01-16 14:50] LABS: ALBUMIN 3.5 g/dl (3.4-5.0); ANION GAP 5 (8-16); BLOOD UREA NITROGEN 18 mg/dL (7-18); CALCIUM 8.1 mg/dL (8.5-10.1); CHLORIDE 109 mmol/L (98-107); CO2 26 mmol/L (21-32); CREATININE 1.1 mg/dL (0.55-1.02); GLUCOSE,RANDOM 95 mg/dL (74-106); POTASSIUM 3.6 mmol/L (3.5-5.1); SGOT/AST 38 U/L (15-37); SGPT/ALT 27 U/L (12-78); SODIUM 140 mmol/L (136-145)
[2018-01-16 14:55] LABS: ALK PHOS 81 U/L (45-117); BILIRUBIN,TOTAL 0.3 mg/dL (0.2-1.0); N-TERMINAL BNP 678.35 pg/ml (5-450); TOT PROT 6.7 g/dl (6.4-8.2)
[2018-01-16] MEDS ORDERED: ACETAMINOPHEN 325 MG TABLET (FP) PO PRN (15:46)
--- NOTE | 2018-01-16 15:54 | HP ---
Admitting History and Physical - Primary Care Physician PCP: Dayne Grullon - Admission Chief Complaint: I guess I passed out History of Present Illness: Ms Berg is a very pleasant 82 year old female who came in with an episode of passing out. She says she has a cold this week and has been coughing, the cough was non-productive. It has been present for about 5 days. Associated with this was diarrhea, she says she was having about 6 bowel movements a day and it was mainly liquid. The diarrhea has resolved and her coughing is getting better. She was at [employer] this morning and while eating her friend noticed she became unresponsive. She says she did not fall but was sitting there and not responding to his inquiries. This did not last long and resolved. However because of this she came in for further evaluation. She says she currently feels fine and is without complaint aside from the minimal cough. She denies fevers, chills, lightheadedness, dizziness, chest pain, shortness of breath, nausea, vomiting, difficulty or pain on urination, or swelling. History Source: Patient Limitations to Obtaining History: No Limitations - Past Medical History Cardiovascular: Yes: AFIB, HTN, Hyperlipdemia - Past Surgical History Past Surgical History: Yes: Cholecystectomy, Valve Replacement - Smoking History Smoking history: Current every day smoker Have you smoked in the past 12 months: No Aproximately how many cigarettes per day: 0 - Alcohol/Substance Use Hx Alcohol Use: No (denies) History of Substance Use: reports: None - Social History ADL: Independent History of Recent Travel: No Home Medications - Allergies Allergies/Adverse Reactions: Allergies Allergy/AdvReac Type Severity Reaction Status Date / Time sulfamethoxazole Allergy Severe Rash Verified 01/16/18 13:55 [From Bactrim] trimethoprim [From Bactrim] Allergy Severe Rash Verified 01/16/18 13:55 - Home Medications Home Medications: Ambulatory Orders Aspirin [ASA -] 81 mg PO DAILY #0 tab.chew 07/03/12 Calcium Carb/Vit D3/Minerals [Caltrate-600 with Vit D Tab] 1 each PO DAILY #0 tablet 07/03/12 Cyanocobalamin Vit B-12 Inj. [Vitamin B12 Injection -] 1,000 mcg IJ MONTHLY #0 vial 07/03/12 Multivitamin W/Iron, Minerals [Centrum] 1 tab PO DAILY #0 liquid 10/15/12 Rosuvastatin Calcium [Crestor] 5 mg PO HS #0 tablet 07/03/12 Sotalol HCl [Sotalol] 80 mg PO BID #0 tablet 07/03/12 Levothyroxine [Synthroid -] 100 mcg PO MOTUWETH 10/09/15 Warfarin Sodium [Coumadin] 2.5 mg PO DAILY #0 tablet 10/10/15 Levothyroxine [Synthroid -] 150 mcg PO ASDIR 04/23/16 Folic Acid - 1 mg PO DAILY #30 tablet 07/05/17 Furosemide 20 mg PO DAILY 01/16/18 Losartan Potassium 50 mg PO DAILY 01/16/18 Potassium Chloride 20 meq PO DAILY 01/16/18 Family Disease History - Family Disease History Family Disease History: CA: Sister Review of Systems Findings/Remarks: full review of systems obtained, as per HPI and otherwise normal Physical Examination Vital Signs: Vital Signs Temperature 36.7 C 01/16/18 13:55 Pulse Rate 63 01/16/18 13:55 Respiratory Rate 20 01/16/18 13:55 Blood Pressure 111/59 01/16/18 13:55 O2 Sat by Pulse Oximetry (%) 98 01/16/18 13:55 Constitutional: Yes: Well Nourished, No Distress, Calm Eyes: Yes: Conjunctiva Clear, EOM Intact HENT: Yes: Atraumatic, Normocephalic Cardiovascular: Yes: Regular Rate and Rhythm. No: Gallop, Murmur, Rub Respiratory: Yes: Regular, CTA Bilaterally. No: Rales, Rhonchi, Wheezes Gastrointestinal: Yes: Normal Bowel Sounds, Soft. No: Distention, Tenderness Extremities: Yes: WNL Edema: No Labs: CBC, BMP 01/16/18 14:15 01/16/18 14:15 Imaging - Results Chest X-ray: Image Reviewed Problem List - Problems (1) Syncope and collapse Assessment/Plan: -suspect most likely secondary to dehydration (lasix with current diarrhea) -admit telemetry observation -hold lasix -hydrate with IVF -check echo and carotid ultrasound -PT consult -consult neurology for possible absence seizure Code(s): R55 - SYNCOPE AND COLLAPSE (2) Influenza B Assessment/Plan: -flu swab positive -tamiflu, renally dosed Code(s): J10.1 - FLU DUE TO OTH IDENT INFLUENZA VIRUS W OTH RESP MANIFEST (3) EDU (acute kidney injury) Assessment/Plan: -secondary to dehydration -hold lasix and losartan -hydrate with IVF -recheck in am Code(s): N17.9 - ACUTE KIDNEY FAILURE, UNSPECIFIED (4) Hyperlipidemia Assessment/Plan: -continue crestor Code(s): E78.5 - HYPERLIPIDEMIA, UNSPECIFIED Qualifiers: Hyperlipidemia type: pure hypercholesterolemia Qualified Code(s): E78.00 - Pure hypercholesterolemia, unspecified (5) Hypothyroidism Assessment/Plan: -continue levothyroxine Code(s): E03.9 - HYPOTHYROIDISM, UNSPECIFIED Qualifiers: Hypothyroidism type: unspecified Qualified Code(s): E03.9 - Hypothyroidism , unspecified (6) Paroxysmal atrial fibrillation Assessment/Plan: -cardiology consulted for sotalol dosing in EDU -continue coumadin Code(s): I48.0 - PAROXYSMAL ATRIAL FIBRILLATION
[2018-01-16] MEDS ORDERED: SODIUM CHLORIDE 1,000 ML IV SCH (16:00)
--- NOTE | 2018-01-16 16:47 | PDOC ---
Attending Attestation - HPI HPI: 01/16/18 16:48 The patient is an 82 year old female with a significant PMH of HTN, hypothyroidism, and paroxysmal AFib who presents to the emergency department with an episode of suspected near syncope and chest tightness. The patient states she suddenly developed substernal chest tightness with radiation to her left arm, after which she lost her bearings for a short period. The patient denies any shortness of breath. She denies fevers or chills. She denies nausea, vomiting, or diarrhea. She currently denies any pain or other complaints. Allergies: Sulfamethoxazole, Trimethoprim PCP: Dr. Grullon - Physicial Exam PE: 01/16/18 16:48 Vitals: Triage Vital signs reviewed General Appearance: no acute distress, well nourished well developed, Head: Atraumatic, normocephalic Cardiac: Regular rate and rhythm, no murmurs, no rubs, no gallops, Lungs: Clear to auscultation bilateral, good air movement bilaterally, Abdomen: Soft, nondistended, normal bowel sounds, nontender to palpation Extremities: Full range of motion to all extremities, no cyanosis, clubbing, or edema Skin: Warm and dry, no rashes or lesions, no petechiae Neuro: AOX3; Cranial Nerves 2-12 grossly intact, Strength intact to all extremities, Sensation intact to all extremities Psych: normal mood, normal affect <Carl Shabazz - Last Filed: 01/16/18 16:48> - Resident Resident Name: Rita Harrisica - ED Attending Attestation I have performed the following: I have examined & evaluated the patient, The case was reviewed & discussed with the resident, I agree w/resident's findings & plan, Exceptions are as noted - Medical Decision Making 01/16/18 17:18 The patient is an 82 year old female with a significant PMH of HTN, hypothyroidism, and paroxysmal AFib who presents to the emergency department with an episode of suspected near syncope and chest tightness. The patient states she suddenly developed substernal chest tightness with radiation to her left arm, after which she lost her bearings for a short period. The patient denies any shortness of breath. She denies fevers or chills. She denies nausea, vomiting, or diarrhea. She currently denies any pain or other complaints. We will obtain EKG cardiac enzymes influenza swab and reassessed Patient Flu B positive we will observe on telemetry troponin negative. Low suspicion for cardiac etiology. <Cuco Cruz - Last Filed: 01/16/18 17:19> Heart Score/ECG Review - ECG Impressions Comment:: 01/16/18 17:17 Sinus rhythm [address] elevations no T-wave inversions cannot rule out anterior infarct age-indeterminate Interpreted by me. <Cuco Cruz - Last Filed: 01/16/18 17:19>
--- NOTE | 2018-01-16 16:54 | CON.CARD ---
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 The patient states she developed substernal chest tightness with radiation to her left arm, after which she lost her bearings for a short period. The patient denies any shortness of breath, palpitations, dyspnea worse than baseline, true syncope, orthopnea, PND or LE edema. She reports anorexia over the weekend with diarrhea past 3 days, recent uptitration of losartan 50 daily. Cardiology- Dr. Celaya PCP- Dr. Grullon Neurology- Dr. Luna Allergies: Sulfamethoxazole, Trimethoprim - History Source History Provided By: Patient Limitations to Obtaining History: No Limitations - Past Medical History Cardio/Vascular: Yes: AFIB, HTN, Hyperlipdemia - Past Surgical History Past Surgical History: Yes: Cholecystectomy, Valve Replacement - Alcohol/Substance Use Hx Alcohol Use: No (denies) History of Substance Use: reports: None - Smoking History Smoking history: Current every day smoker Have you smoked in the past 12 months: No Aproximately how many cigarettes per day: 0 - Social History ADL: Independent History of Recent Travel: No Home Medications - Allergies Allergies/Adverse Reactions: Allergies Allergy/AdvReac Type Severity Reaction Status Date / Time sulfamethoxazole Allergy Severe Rash Verified 01/16/18 13:55 [From Bactrim] trimethoprim [From Bactrim] Allergy Severe Rash Verified 01/16/18 13:55 - Home Medications Home Medications: Ambulatory Orders Aspirin [ASA -] 81 mg PO DAILY #0 tab.chew 07/03/12 Calcium Carb/Vit D3/Minerals [Caltrate-600 with Vit D Tab] 1 each PO DAILY #0 tablet 07/03/12 Cyanocobalamin Vit B-12 Inj. [Vitamin B12 Injection -] 1,000 mcg IJ MONTHLY #0 vial 07/03/12 Multivitamin W/Iron, Minerals [Centrum] 1 tab PO DAILY #0 liquid 07/03/12 Rosuvastatin Calcium [Crestor] 5 mg PO HS #0 tablet 07/03/12 Sotalol HCl [Sotalol] 80 mg PO BID #0 tablet 07/03/12 Levothyroxine [Synthroid -] 100 mcg PO MOTUWETH 10/09/15 Warfarin Sodium [Coumadin] 2.5 mg PO DAILY #0 tablet 10/10/15 Levothyroxine [Synthroid -] 150 mcg PO SUFRSA 04/23/16 Folic Acid - 1 mg PO DAILY #30 tablet 07/05/17 Furosemide 20 mg PO DAILY 01/16/18 Losartan Potassium 50 mg PO DAILY 01/16/18 Potassium Chloride 20 meq PO DAILY 01/16/18 Family Disease History - Family Disease History Family Disease History: CA: Sister Review of Systems - Review of Systems Cardiovascular: reports: Chest Pain Gastrointestinal: reports: Diarrhea Neurological: reports: Dizziness, Syncope Vital Signs: Vital Signs Temperature 98.0 F 01/16/18 13:55 Pulse Rate 63 01/16/18 13:55 Respiratory Rate 20 01/16/18 13:55 Blood Pressure 111/59 01/16/18 13:55 O2 Sat by Pulse Oximetry (%) 98 01/16/18 13:55 Constitutional: Yes: No Distress, Calm Neck: Yes: Supple Respiratory: Yes: Regular, Diminished Gastrointestinal: Yes: Normal Bowel Sounds, Soft Cardiovascular: Yes: Regular Rate and Rhythm JVD: No Carotid Bruit: No Heart Sounds: Yes: S1, S2 Murmur: Yes: Systolic Murmur, Grade 2 Edema: Yes Edema: LLE: Trace, RLE: Trace - Other Data Labs, Other Data: CBC, BMP 01/16/18 14:15 01/16/18 14:15 INR, PTT INR 2.13 (0.82-1.09) H 01/16/18 14:15 Troponin, BNP 01/16/18 14:15 Troponin I < 0.02 B-Natriuretic Peptide 678.35 H Troponin, BNP 01/16/18 14:15 Troponin I < 0.02 B-Natriuretic Peptide 678.35 H ECG: Sinus bradycardia with sinus arrhythmia at 51 bpm with poor R-wave progression and nonspecific T wave abnormality, QTc interval was noted at 455 ms Prior Cardiac Procedures: Valve Surgery Ejection Fraction %: LVEF > or = 40 % Imaging - Results Chest X-ray: Pending Cat Scan: Report Reviewed (No bleed) Problem List - Problems (1) EDU (acute kidney injury) Code(s): N17.9 - ACUTE KIDNEY FAILURE, UNSPECIFIED (2) Anticoagulation adequate with anticoagulant therapy Code(s): Z79.01 - [facility] (CURRENT) USE OF 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 (3) Aortic stenosis, moderate Code(s): I35.0 - NONRHEUMATIC AORTIC (VALVE) STENOSIS (4) Dizziness Code(s): R42 - DIZZINESS AND GIDDINESS (5) Hyperlipidemia Code(s): E78.5 - HYPERLIPIDEMIA, UNSPECIFIED Qualifiers: Hyperlipidemia type: pure hypercholesterolemia Qualified Code(s): E78.00 - Pure hypercholesterolemia, unspecified (6) Hypertensive cardiomegaly without heart failure Code(s): I11.9 - HYPERTENSIVE HEART DISEASE WITHOUT HEART FAILURE (7) Hypothyroidism Code(s): E03.9 - HYPOTHYROIDISM, UNSPECIFIED Qualifiers: Hypothyroidism type: unspecified Qualified Code(s): E03.9 - Hypothyroidism , unspecified (8) Paroxysmal atrial fibrillation Code(s): I48.0 - PAROXYSMAL ATRIAL FIBRILLATION (9) Status post aortic aneurysm repair Code(s): Z98.89 - OTHER SPECIFIED POSTPROCEDURAL STATES * DO NOT USE *; Z86.79 - PERSONAL HISTORY OF OTHER DISEASES OF THE CIRCULATORY SYSTEM (10) Status post aortic valve replacement with bioprosthetic valve during current hospitalization Code(s): Z95.4 - PRESENCE OF OTHER HEART-VALVE REPLACEMENT (11) Syncope and collapse Code(s): R55 - SYNCOPE AND COLLAPSE Assessment/Plan Echocardiography 01/12/2018 revealed concentric left ventricular hypertrophy with normal left ventricular size and systolic function and estimated left ventricular ejection fraction between 70-75%, borderline bi-atrial dilatation, mild mitral valve regurgitation, mild tricuspid valve regurgitation with calculated RVSP of 25 mmHg, bio-prosthetic aortic valve with a mean trans- valvular gradient of 23.8 mmHg and a peak transvalvular gradient of 38.9 mmHg and trace aortic valve regurgitation. Pharmacologic Lexiscan myocardial perfusion imaging study performed December 08, 2016 revealed small size apical wall defect compatible with apical thinning with normal left ventricular contraction pattern on LV gated analysis with calculated left ventricular ejection fraction of 74% at rest and 73% post Lexiscan infusion. 1. Dizziness and possible orthostasis in context of volume loss (diarrhea) 2. 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 PAF now in sinus rhythm [id number] of 5 with therapeutic INR 4. HTN/HCVD 5. Hyperlipidemia 6. Mild carotid stenosis 7. Hypothyroidism 8. Pre-renal EDU 9. Diastolic dysfunction PLAN: 1. Continue Crestor 5 qhs, Sotalol 80 bid, decrease Losartan 25 qd, hold Lasix for now and hydrate 2. Dose Coumadin to keep INR 2-3 3. Antibiotic prophylaxis as per the [place] [employer] guidelines
[2018-01-16] MEDS ORDERED: WARFARIN NA 5 MG TABLET (UD) ONE (19:18)
[2018-01-16] MEDS: WARFARIN NA 2.5 MG TABLET (FP) PO SCH (19:35)
[2018-01-16] MEDS: ROSUVASTATIN CA 5 MG TABLET (FP) PO SCH (22:31)
[2018-01-16] MEDS: OSELTAMIVIR PHOSPHATE 30 MG CAPSULE PO SCH (22:31)
[2018-01-16] MEDS: MULTIVITAMINS THER W-MINERALS COMBO TABLET (FP) PO SCH (22:31)
[2018-01-16] MEDS: SOTALOL HCL 80 MG TABLET (FP) PO SCH (23:12)
[2018-01-17 01:03] VITALS: BMI 32.9
[2018-01-17] MEDS: LEVOTHYROXINE NA 100 MCG TABLET (FP) PO SCH (06:01)
[2018-01-17 07:48] LABS: ANION GAP 9 (8-16); BASO % 0.5 % (0-2.0); BLOOD UREA NITROGEN 18 mg/dL (7-18); CALCIUM 8.1 mg/dL (8.5-10.1); CHLORIDE 110 mmol/L (98-107); CO2 25 mmol/L (21-32); CREATININE 0.7 mg/dL (0.55-1.02); EOS % 1.8 % (0-4.5); GLUCOSE,RANDOM 81 mg/dL (74-106); HEMATOCRIT 32.3 % (32.4-45.2); HEMOGLOBIN 11.1 GM/dL (10.7-15.3); LYMPH % 24.7 % (8-40); MAGNESIUM 1.9 mg/dL (1.8-2.4); MCH 31.7 pg (25.7-33.7); MCHC 34.4 g/dl (32.0-36.0); MEAN CELL VOLUME 92.3 fl (80-96); MEAN PLT VOLUME 8.3 fl (7.5-11.1); MONO % 15.7 % (3.8-10.2); NEUT % 57.3 % (42.8-82.8); PHOSPHOROUS 3.3 mg/dL (2.5-4.9); PLATELET COUNT 134 K/MM3 (134-434); POTASSIUM 3.6 mmol/L (3.5-5.1); RDW 14.7 % (11.6-15.6); SODIUM 144 mmol/L (136-145)
[2018-01-17 08:06] LABS: INR 2.26 (0.82-1.09); PROTHROMBIN TIME (PATIENT) 25.5 SEC (9.7-13.0)
--- NOTE | 2018-01-17 09:34 | CONSULT ---
Consult - text type - Consultation Consultation Note: Neurology History of Present Illness: Pleasant 82 year old female who came in with an episode of passing out. She says she had a cold this week and has been coughing with associated diarrhea, she says she was having about 6 bowel movements a day and it was mainly liquid, which has resolved. Reportedly, She was at [facility] on morning of admission and became unresponsive. No head trauma and did not sustain a fall. Does still have slight cough but otherwise was feeling herself. In ER, she completed CT head which did not show acute changes. Carotid Dopplers also completed and reviewed and demonstrated L 50-70% ICA stenosis possible. Unclear if this is what precipitated her event. There was concern of her unresponsiveness and whether this could be Absence seizure. Does not have history of seizures and had one similar episode with Bactrim (also in context of illness) but otherwise no prior similar events. More likely to be in context of dehydration vs possibly Afib, cardiology following and note reviewed. - Past Medical History Cardiovascular: Yes: AFIB, HTN, Hyperlipdemia - Past Surgical History Past Surgical History: Yes: Cholecystectomy, Valve Replacement - Smoking History Smoking history: Current every day smoker Have you smoked in the past 12 months: No Aproximately how many cigarettes per day: 0 - Alcohol/Substance Use Hx Alcohol Use: No (denies) History of Substance Use: reports: None - Social History ADL: Independent History of Recent Travel: No Home Medications - Allergies Allergies/Adverse Reactions: Allergies Allergy/AdvReac Type Severity Reaction Status Date / Time sulfamethoxazole Allergy Severe Rash Verified 01/16/18 13:55 [From Bactrim] trimethoprim [From Bactrim] Allergy Severe Rash Verified 01/16/18 13:55 - Home Medications Home Medications: Ambulatory Orders Aspirin [ASA -] 81 mg PO DAILY #0 tab.chew 07/03/12 Calcium Carb/Vit D3/Minerals [Caltrate-600 with Vit D Tab] 1 each PO DAILY #0 tablet 07/03/12 Cyanocobalamin Vit B-12 Inj. [Vitamin B12 Injection -] 1,000 mcg IJ MONTHLY #0 vial 07/03/12 Multivitamin W/Iron, Minerals [Centrum] 1 tab PO DAILY #0 liquid 07/03/12 Rosuvastatin Calcium [Crestor] 5 mg PO HS #0 tablet 07/03/12 Sotalol HCl [Sotalol] 80 mg PO BID #0 tablet 07/03/12 Levothyroxine [Synthroid -] 100 mcg PO MOTUWETH 10/09/15 Warfarin Sodium [Coumadin] 2.5 mg PO DAILY #0 tablet 10/10/15 Levothyroxine [Synthroid -] 150 mcg PO ASDIR 04/23/16 Folic Acid - 1 mg PO DAILY #30 tablet 07/05/17 Furosemide 20 mg PO DAILY 01/16/18 Losartan Potassium 50 mg PO DAILY 01/16/18 Potassium Chloride 20 meq PO DAILY 01/16/18 Family Disease History - Family Disease History Family Disease History: CA: Sister Review of Systems Findings/Remarks: full review of systems obtained, as per HPI and otherwise normal Physical Examination Vital Signs: Vital Signs Temperature 36.7 C 01/16/18 13:55 Pulse Rate 63 01/16/18 13:55 Respiratory Rate 20 01/16/18 13:55 Blood Pressure 111/59 01/16/18 13:55 O2 Sat by Pulse Oximetry (%) 98 01/16/18 13:55 Constitutional: Yes: Well Nourished, No Distress, Calm Eyes: Yes: Conjunctiva Clear, EOM Intact HENT: Yes: Atraumatic, Normocephalic Cardiovascular: Yes: Regular Rate and Rhythm. No: Gallop, Murmur, Rub Respiratory: Yes: Regular, CTA Bilaterally. No: Rales, Rhonchi, Wheezes Gastrointestinal: Yes: Normal Bowel Sounds, Soft. No: Distention, Tenderness Extremities: Yes: WNL Edema: No Neuro: CN intact, no slurred speech, no facial droop, sensory grossly intact to LT, moves all ext equally, finger to nose normal Labs: CBCD WBC 3.0 K/mm3 (4.0-10.0) L 01/17/18 06:00 RBC 3.50 M/mm3 (3.60-5.2) L 01/17/18 06:00 Hgb 11.1 GM/dL (10.7-15.3) 01/17/18 06:00 Hct 32.3 % (32.4-45.2) L 01/17/18 06:00 MCV 92.3 fl (80-96) 01/17/18 06:00 MCHC 34.4 g/dl (32.0-36.0) 01/17/18 06:00 RDW 14.7 % (11.6-15.6) 01/17/18 06:00 Plt Count 134 K/MM3 (134-434) D 01/17/18 06:00 MPV 8.3 fl (7.5-11.1) D 01/17/18 06:00 CMP Sodium 144 mmol/L (136-145) 01/17/18 06:00 Potassium 3.6 mmol/L (3.5-5.1) 01/17/18 06:00 Chloride 110 mmol/L (98-107) H 01/17/18 06:00 Carbon Dioxide 25 mmol/L (21-32) 01/17/18 06:00 Anion Gap 9 (8-16) 01/17/18 06:00 BUN 18 mg/dL (7-18) 01/17/18 06:00 Creatinine 0.7 mg/dL (0.55-1.02) 01/17/18 06:00 Creat Clearance w eGFR 47.79 (>60) 01/16/18 14:15 Calcium 8.1 mg/dL (8.5-10.1) L 01/17/18 06:00 Total Bilirubin 0.3 mg/dL (0.2-1.0) D 01/16/18 14:15 AST 38 U/L (15-37) H 01/16/18 14:15 ALT 27 U/L (12-78) 01/16/18 14:15 Alkaline Phosphatase 81 U/L (45-117) 01/16/18 14:15 Total Protein 6.7 g/dl (6.4-8.2) 01/16/18 14:15 Albumin 3.5 g/dl (3.4-5.0) 01/16/18 14:[address] head reviewed Carotid Doppler reviewed Plan: 82 year old female who came in with an episode of passing out. She says she had a cold this week and has been coughing with associated diarrhea, she says she was having about 6 bowel movements a day and it was mainly liquid, which has resolved. Reportedly, She was at [facility] on morning of [facility] and became unresponsive. No head trauma and did not sustain a fall. Does still have slight cough but otherwise was feeling herself. In ER, she completed CT head which did not show acute changes. Would not pursue MRI at this point as patient without deficits Carotid Dopplers also completed and reviewed and demonstrated L 50-70% ICA stenosis possible. Defer to primary team Do not feel this is related seizure at this pointl, can check EEG as outpatient More likely to be in context of dehydration vs possibly Afib, cardiology following and note reviewed Follow up tele, on Coumadin for Afib Continue IVF Monitor BP, maintain normotensive range Check orthostatics PT/OT Getting tamiflu for influenze Fall precautions DVT ppx
[2018-01-17] MEDS ORDERED: LOSARTAN POTASSIUM 25 MG TABLET PO SCH (10:00)
--- NOTE | 2018-01-17 10:35 | PN ---
Progress Note, Physician Chief Complaint: Events noted Isolated with Influenza Complains of cough, less SOB History of Present Illness: Patient was seen and examined. Awake and alert. Chart was reviewed Denies chest pain, less SOB and no palpitations - Current Medication List Current Medications: Active Medications Acetaminophen (Tylenol -) 650 mg PO Q4H PRN PRN Reason: PAIN LEVEL 1-5 Aspirin (Asa -) 81 mg PO DAILY [facility] Calcium Carbonate/Cholecalciferol (Os-Fitz 500+D -) 1 tab PO DAILY [facility] Folic Acid (Folic Acid -) 1 mg PO DAILY [facility] Sodium Chloride (Normal Saline -) 1,000 mls @ 50 mls/hr IV ASDIR [facility] Stop: 01/17/18 15:47 Last Admin: 01/16/18 16:23 Dose: 50 mls/hr Levothyroxine Sodium (Synthroid -) 100 mcg PO MoTuWeTh@0700 [facility] Last Admin: 01/17/18 06:01 Dose: 100 mcg Levothyroxine Sodium (Synthroid -) 150 mcg PO SuFrSa@0700 [facility] Multivitamins/Minerals (Theragran-M) 1 each PO DAILY [facility] Last Admin: 01/16/18 22:31 Dose: 1 each Oseltamivir Phosphate (Tamiflu -) 30 mg PO BID [facility] Stop: 01/21/18 21:59 Last Admin: 01/16/18 22:31 Dose: 30 mg Rosuvastatin Calcium (Crestor -) 5 mg PO HS [facility] Last Admin: 01/16/18 22:31 Dose: 5 mg Sotalol HCl (Betapace -) 80 mg PO BID [facility] Last Admin: 01/16/18 23:12 Dose: Not Given Warfarin Sodium (Coumadin -) 2.5 mg PO SuMoTuThSa@1800 [facility] Last Admin: 01/16/18 19:35 Dose: 2.5 mg - Objective Vital Signs: Vital Signs Temperature 98.6 F 01/17/18 05:00 Pulse Rate 63 01/17/18 05:00 Respiratory Rate 20 01/17/18 05:00 Blood Pressure 147/75 01/17/18 05:00 O2 Sat by Pulse Oximetry (%) 96 01/17/18 04:00 Eyes: Yes: PERRL HENT: Yes: Atraumatic Neck: Yes: Supple Cardiovascular: Yes: Regular Rate and Rhythm, Murmur (Soft SM), S1, S2 Respiratory: Yes: Diminished Gastrointestinal: Yes: Normal Bowel Sounds, Soft. No: Tenderness Edema: No Additional Findings/Remarks: - Review of Systems Constitutional: denies: Weakness. denies: Chills, Fever Cardiovascular: denies: Chest Pain, Palpitations, (+) Shortness of Breath Respiratory: (+) Cough, denies: Hemoptysis, Orthopnea, PND, (+) SOB, SOB on Exertion Gastrointestinal: denies: Abdominal Pain, Constipation, Diarrhea, Melena, Nausea , Rectal Bleeding, Vomiting Musculoskeletal: denies: Muscle Weakness Neurological: denies: Unsteady Gait, Weakness. denies: Confusion, Dizziness, Headache, Numbness, Seizure, Syncope Labs: CBC, BMP 01/17/18 06:00 01/17/18 06:00 INR, PTT INR 2.26 (0.82-1.09) H 01/17/18 06:00 Problem List - Problems (1) HTN (hypertension) Code(s): I10 - ESSENTIAL (PRIMARY) HYPERTENSION Qualifiers: Hypertension type: essential hypertension Qualified Code(s): I10 - Essential (primary) hypertension (2) Diastolic dysfunction Code(s): I51.9 - HEART DISEASE, UNSPECIFIED (3) Influenza B Code(s): J10.1 - FLU DUE TO OTH IDENT INFLUENZA VIRUS W OTH RESP MANIFEST (4) Aortic stenosis, moderate Code(s): I35.0 - NONRHEUMATIC AORTIC (VALVE) STENOSIS (5) Hyperlipidemia Code(s): E78.5 - HYPERLIPIDEMIA, UNSPECIFIED Qualifiers: Hyperlipidemia type: pure hypercholesterolemia Qualified Code(s): E78.00 - Pure hypercholesterolemia, unspecified (6) Hypothyroidism Code(s): E03.9 - HYPOTHYROIDISM, UNSPECIFIED Qualifiers: Hypothyroidism type: unspecified Qualified Code(s): E03.9 - Hypothyroidism , unspecified (7) Paroxysmal atrial fibrillation Code(s): I48.0 - PAROXYSMAL ATRIAL FIBRILLATION (8) Status post aortic aneurysm repair Code(s): Z98.89 - OTHER SPECIFIED POSTPROCEDURAL STATES * DO NOT USE *; Z86.79 - PERSONAL HISTORY OF OTHER DISEASES OF THE CIRCULATORY SYSTEM (9) Status post aortic valve replacement with bioprosthetic valve during current hospitalization Code(s): Z95.4 - PRESENCE OF OTHER HEART-VALVE REPLACEMENT Assessment/Plan 1. Dizziness and possible orthostasis in context of volume loss 2. Post bio-prosthetic AVR - [place] with moderate transvalvular gradient as outlined on recent echocardiography 3. PAF now in sinus rhythm [id number] of 5 with therapeutic INR 4. HTN/HCVD 5. Hyperlipidemia 6. Mild carotid stenosis 7. Hypothyroidism 8. Pre-renal EDU 9. Diastolic dysfunction PLAN: 1. Continue Crestor 5 qhs, Sotalol 80 bid and Losartan 25 qd. Lasix being held 2. Dose Coumadin to keep INR 2-3 3. Continue treatment for influenza 4. Transthoracic echocardiography is being repeated to assess prosthetic aortic valve and LV function Further plans are to follow Efrain Osullivan MD
--- NOTE | 2018-01-17 11:01 | PN ---
Progress Note (short form) - Note Progress Note: Dr. Meyer to document today.
[2018-01-17] MEDS: MULTIVITAMINS THER W-MINERALS COMBO TABLET (FP) PO SCH (11:13)
[2018-01-17] MEDS: CALCIUM 500MG/VIT-D 200 UNITS COMBO TABLET (FP) PO SCH (11:14)
[2018-01-17] MEDS: OSELTAMIVIR PHOSPHATE 30 MG CAPSULE PO SCH (11:14)
[2018-01-17] MEDS: ASPIRIN 81 MG CHEWABLE TABLETS PO SCH (11:15)
[2018-01-17] MEDS: SOTALOL HCL 80 MG TABLET (FP) PO SCH ×2 (11:15→21:02)
[2018-01-17] MEDS: FOLIC ACID 1 MG TABLET (FP) PO SCH (11:20)
[2018-01-17] MEDS ORDERED: ALBUTEROL SO4 0.042% IH SOL 1.25 MG/3 ML VIAL.NEB NEB ONE (11:36)
--- NOTE | 2018-01-17 13:56 | PN ---
Progress Note, Physician Chief Complaint: Ms Berg says she is feeling much better. Still with cough and congestion but improved. No cp or sob. No further syncopal episodes. - Current Medication List Current Medications: Active Medications Acetaminophen (Tylenol -) 650 mg PO Q4H PRN PRN Reason: PAIN LEVEL 1-5 Aspirin (Asa -) 81 mg PO DAILY [facility] Last Admin: 01/17/18 11:15 Dose: 81 mg Calcium Carbonate/Cholecalciferol (Os-Fitz 500+D -) 1 tab PO DAILY [facility] Last Admin: 01/17/18 11:14 Dose: 1 tab Folic Acid (Folic Acid -) 1 mg PO DAILY [facility] Last Admin: 01/17/18 11:20 Dose: Not Given Levothyroxine Sodium (Synthroid -) 100 mcg PO MoTuWeTh@0700 [facility] Last Admin: 01/17/18 06:01 Dose: 100 mcg Levothyroxine Sodium (Synthroid -) 150 mcg PO SuFrSa@0700 [facility] Multivitamins/Minerals (Theragran-M) 1 each PO DAILY [facility] Last Admin: 01/17/18 11:13 Dose: 1 each Oseltamivir Phosphate (Tamiflu -) 75 mg PO BID [facility] Stop: 01/21/18 21:59 Rosuvastatin Calcium (Crestor -) 5 mg PO HS [facility] Last Admin: 01/16/18 22:31 Dose: 5 mg Sotalol HCl (Betapace -) 80 mg PO BID [facility] Last Admin: 01/17/18 11:15 Dose: 80 mg Warfarin Sodium (Coumadin -) 2.5 mg PO SuMoTuThSa@1800 [facility] Last Admin: 01/16/18 19:35 Dose: 2.5 mg - Objective Vital Signs: Vital Signs Temperature 37.0 C 01/17/18 09:00 Pulse Rate 82 01/17/18 09:00 Respiratory Rate 18 01/17/18 09:00 Blood Pressure 144/66 01/17/18 09:00 O2 Sat by Pulse Oximetry (%) 96 01/17/18 04:00 Constitutional: Yes: Well Nourished, No Distress, Calm Cardiovascular: Yes: Regular Rate and Rhythm, Murmur. No: Gallop, Rub Respiratory: Yes: Regular, CTA Bilaterally, Rhonchi (bibasilar). No: Rales, Wheezes Gastrointestinal: Yes: Normal Bowel Sounds, Soft. No: Distention, Tenderness Extremities: Yes: WNL Edema: No Labs: CBC, BMP 01/17/18 06:00 01/17/18 06:00 INR, PTT INR 2.26 (0.82-1.09) H 01/17/18 06:00 Problem List - Problems (1) Syncope and collapse Code(s): R55 - SYNCOPE AND COLLAPSE (2) Influenza B Code(s): J10.1 - FLU DUE TO OTH IDENT INFLUENZA VIRUS W OTH RESP MANIFEST (3) EDU (acute kidney injury) Code(s): N17.9 - ACUTE KIDNEY FAILURE, UNSPECIFIED (4) Hyperlipidemia Code(s): E78.5 - HYPERLIPIDEMIA, UNSPECIFIED Qualifiers: Hyperlipidemia type: pure hypercholesterolemia Qualified Code(s): E78.00 - Pure hypercholesterolemia, unspecified (5) Hypothyroidism Code(s): E03.9 - HYPOTHYROIDISM, UNSPECIFIED Qualifiers: Hypothyroidism type: unspecified Qualified Code(s): E03.9 - Hypothyroidism , unspecified (6) Paroxysmal atrial fibrillation Code(s): I48.0 - PAROXYSMAL ATRIAL FIBRILLATION Assessment/Plan (1) Syncope and collapse Assessment/Plan: -ECHO reviewed, concerning for severe stenosis across replaced valve -cardiology following, will await their evaluations and recommendations -will stop IVF today since renal function normalized and do not wan to cause fluid overload -awaiting PT evaluation -possible discharge tomorrow pending cardiology assistance Code(s): R55 - SYNCOPE AND COLLAPSE (2) Influenza B Assessment/Plan: -renal function normalized after IVF -change tamiflu to full dose Code(s): J10.1 - FLU DUE TO OTH IDENT INFLUENZA VIRUS W OTH RESP MANIFEST (3) EDU (acute kidney injury) Assessment/Plan: -resolved after IVF -will stop IVF today -will not restart diuretics at this time until evaluated by cardiology Code(s): N17.9 - ACUTE KIDNEY FAILURE, UNSPECIFIED (4) Hyperlipidemia Assessment/Plan: -continue crestor Code(s): E78.5 - HYPERLIPIDEMIA, UNSPECIFIED Qualifiers: Hyperlipidemia type: pure hypercholesterolemia Qualified Code(s): E78.00 - Pure hypercholesterolemia, unspecified (5) Hypothyroidism Assessment/Plan: -continue levothyroxine Code(s): E03.9 - HYPOTHYROIDISM, UNSPECIFIED Qualifiers: Hypothyroidism type: unspecified Qualified Code(s): E03.9 - Hypothyroidism , unspecified (6) Paroxysmal atrial fibrillation Assessment/Plan: -continue sotalol and coumadin Code(s): I48.0 - PAROXYSMAL ATRIAL FIBRILLATION
[2018-01-17] MEDS: WARFARIN NA 2.5 MG TABLET (FP) PO SCH (18:06)
[2018-01-17] MEDS ORDERED: PT OWN MED DRAWER 7, Y5N ONE (20:58)
[2018-01-17] MEDS: OSELTAMIVIR PHOSPHATE 75 MG CAPSULE PO SCH (21:02)
[2018-01-17] MEDS: ROSUVASTATIN CA 5 MG TABLET (FP) PO SCH (21:02)
[2018-01-17] MEDS ORDERED: ALBUTEROL SO4 2.5/IPRATROPIUM 0.5 INH SOL 3 ML VIAL.NEB. NEB PRN (21:07)
[2018-01-18] MEDS: LEVOTHYROXINE NA 100 MCG TABLET (FP) PO SCH (06:13)
[2018-01-18 06:43] LABS: BASO % 0.3 % (0-2.0); EOS % 1.7 % (0-4.5); HEMATOCRIT 34.6 % (32.4-45.2); HEMOGLOBIN 11.6 GM/dL (10.7-15.3); LYMPH % 22.8 % (8-40); MCH 31.4 pg (25.7-33.7); MCHC 33.5 g/dl (32.0-36.0); MEAN CELL VOLUME 93.6 fl (80-96); MEAN PLT VOLUME 8.3 fl (7.5-11.1); MONO % 12.4 % (3.8-10.2); NEUT % 62.8 % (42.8-82.8); PLATELET COUNT 148 K/MM3 (134-434); RBC 3.69 M/mm3 (3.60-5.2); WHITE BLOOD COUNT 3.6 K/mm3 (4.0-10.0)
[2018-01-18 07:01] LABS: INR 3.12 (0.82-1.09); PROTHROMBIN TIME (PATIENT) 35.3 SEC (9.7-13.0)
[2018-01-18 07:22] LABS: ANION GAP 9 (8-16); BLOOD UREA NITROGEN 16 mg/dL (7-18); CALCIUM 8.2 mg/dL (8.5-10.1); CHLORIDE 111 mmol/L (98-107); CO2 25 mmol/L (21-32); GLUCOSE,RANDOM 86 mg/dL (74-106); POTASSIUM 3.9 mmol/L (3.5-5.1); SODIUM 145 mmol/L (136-145)
[2018-01-18 07:24] LABS: CREATININE 0.6 mg/dL (0.55-1.02); PHOSPHOROUS 3.3 mg/dL (2.5-4.9)
--- NOTE | 2018-01-18 08:54 | PN ---
Progress Note (short form) - Note Progress Note: Dr. Meyer/CARLOS Moon to document today. Still temp 101.5 last PM.
[2018-01-18 09:14] LABS: URINE APPEARANCE SLCLOUDY; URINE BILIRUBIN NEGATIVE (<2.0 mg/dL); URINE COLOR YELLOW; URINE GLUCOSE (UA) NEGATIVE (NEGATIVE); URINE KETONE NEGATIVE (NEGATIVE); URINE NITRITE POSITIVE (NEGATIVE); URINE PROTEIN NEGATIVE (NEGATIVE); URINE UROBILINOGEN NEGATIVE mg/dL (0.2-1.0)
[2018-01-18 09:19] LABS: URINE LEUK ESTERASE 1+ (NEGATIVE)
[2018-01-18] MEDS: CALCIUM 500MG/VIT-D 200 UNITS COMBO TABLET (FP) PO SCH (09:20)
[2018-01-18] MEDS: SOTALOL HCL 80 MG TABLET (FP) PO SCH ×2 (09:20→22:07)
[2018-01-18] MEDS: ASPIRIN 81 MG CHEWABLE TABLETS PO SCH (09:20)
[2018-01-18] MEDS: FOLIC ACID 1 MG TABLET (FP) PO SCH (09:20)
[2018-01-18 09:21] LABS: EPI CELLS RARE /HPF (FEW); URINE BACTERIA MODERATE /hpf (NONE SEEN); URINE HYALINE CAST 5 /lpf; URINE MUCUS RARE
[2018-01-18] MEDS ORDERED: PT OWN MED DRAWER 7, Y5N ONE ×2 (09:22→21:23)
[2018-01-18] MEDS: MULTIVITAMINS THER W-MINERALS COMBO TABLET (FP) PO SCH (09:23)
[2018-01-18] MEDS: OSELTAMIVIR PHOSPHATE 75 MG CAPSULE PO SCH ×2 (09:23→22:06)
--- NOTE | 2018-01-18 09:33 | PN ---
Progress Note (short form) - Note Progress Note: Neurology History of Present Illness: Pleasant 82 year old female who came in with an episode of passing out. She says she had a cold this week and has been coughing with associated diarrhea, she says she was having about 6 bowel movements a day and it was mainly liquid, which has resolved. Reportedly, She was at [facility] on morning of admission and became unresponsive. No head trauma and did not sustain a fall. In ER, she completed CT head which did not show acute changes. Carotid Dopplers also completed and reviewed and demonstrated L 50-70% ICA stenosis. There was concern of her unresponsiveness and whether this could be Absence seizure. Does not have history of seizures and had one similar episode with Bactrim (also in context of illness) but otherwise no prior similar events. More likely to be in context of dehydration vs possibly Afib, cardiology following and note reviewed. Patient doing well this morning and reports feeling at her baseline. Neurologically no new events and has been stable without events. Active Medications Acetaminophen (Tylenol -) 650 mg PO Q4H PRN PRN Reason: PAIN LEVEL 1-5 Last Admin: 01/17/18 21:02 Dose: 650 mg Albuterol/Ipratropium (Duoneb -) 1 amp NEB Q4H PRN PRN Reason: SHORTNESS OF BREATH Last Admin: 01/17/18 23:33 Dose: 1 amp Aspirin (Asa -) 81 mg PO DAILY [facility] Last Admin: 01/18/18 09:20 Dose: 81 mg Calcium Carbonate/Cholecalciferol (Os-Fitz 500+D -) 1 tab PO DAILY [facility] Last Admin: 01/18/18 09:20 Dose: 1 tab Folic Acid (Folic Acid -) 1 mg PO DAILY [facility] Last Admin: 01/18/18 09:20 Dose: 1 mg Levothyroxine Sodium (Synthroid -) 100 mcg PO MoTuWeTh@0700 [facility] Last Admin: 01/18/18 06:13 Dose: 100 mcg Levothyroxine Sodium (Synthroid -) 150 mcg PO SuFrSa@0700 [facility] Multivitamins/Minerals (Theragran-M) 1 each PO DAILY [facility] Last Admin: 01/18/18 09:23 Dose: 1 each Oseltamivir Phosphate (Tamiflu -) 75 mg PO BID [facility] Stop: 01/21/18 21:59 Last Admin: 01/18/18 09:23 Dose: 75 mg Rosuvastatin Calcium (Crestor -) 5 mg PO HS [facility] Last Admin: 01/17/18 21:02 Dose: 5 mg Sotalol HCl (Betapace -) 80 mg PO BID [facility] Last Admin: 01/18/18 09:20 Dose: 80 mg Warfarin Sodium (Coumadin -) 2.5 mg PO SuMoTuThSa@1800 [facility] Last Admin: 01/17/18 18:06 Dose: 2.5 mg Physical Examination Vital Signs Period Temp Pulse Resp BP Sys/Vincent Pulse Ox Last 24 Hr 97.5 F-101.5 F 64-80 16-20 107-140/55-73 96-97 Constitutional: Yes: Well Nourished, No Distress, Calm Eyes: Yes: Conjunctiva Clear, EOM Intact HENT: Yes: Atraumatic, Normocephalic Cardiovascular: Yes: Regular Rate and Rhythm. No: Gallop, Murmur, Rub Respiratory: Yes: Regular, CTA Bilaterally. No: Rales, Rhonchi, Wheezes Gastrointestinal: Yes: Normal Bowel Sounds, Soft. No: Distention, Tenderness Extremities: Yes: WNL Edema: No Neuro: CN intact, no slurred speech, no facial droop, sensory grossly intact to LT, moves all ext equally, finger to nose normal Labs: CBCD WBC 3.6 K/mm3 (4.0-10.0) L 01/18/18 05:35 RBC 3.69 M/mm3 (3.60-5.2) 01/18/18 05:35 Hgb 11.6 GM/dL (10.7-15.3) 01/18/18 05:35 Hct 34.6 % (32.4-45.2) 01/18/18 05:35 MCV 93.6 fl (80-96) 01/18/18 05:35 MCHC 33.5 g/dl (32.0-36.0) 01/18/18 05:35 RDW 15.0 % (11.6-15.6) 01/18/18 05:35 Plt Count 148 K/MM3 (134-434) 01/18/18 05:35 MPV 8.3 fl (7.5-11.1) 01/18/18 05:35 CMP Sodium 145 mmol/L (136-145) 01/18/18 05:35 Potassium 3.9 mmol/L (3.5-5.1) 01/18/18 05:35 Chloride 111 mmol/L (98-107) H 01/18/18 05:35 Carbon Dioxide 25 mmol/L (21-32) 01/18/18 05:35 Anion Gap 9 (8-16) 01/18/18 05:35 BUN 16 mg/dL (7-18) 01/18/18 05:35 Creatinine 0.6 mg/dL (0.55-1.02) 01/18/18 05:35 Creat Clearance w eGFR 47.79 (>60) 01/16/18 14:15 Calcium 8.2 mg/dL (8.5-10.1) L 01/18/18 05:35 Total Bilirubin 0.3 mg/dL (0.2-1.0) D 01/16/18 14:15 AST 38 U/L (15-37) H 01/16/18 14:15 ALT 27 U/L (12-78) 01/16/18 14:15 Alkaline Phosphatase 81 U/L (45-117) 01/16/18 14:15 Total Protein 6.7 g/dl (6.4-8.2) 01/16/18 14:15 Albumin 3.5 g/dl (3.4-5.0) 01/16/18 14:[address] head reviewed Carotid Doppler reviewed Plan: 82 year old female who came in with an episode of passing out. She says she had a cold this week and has been coughing with associated diarrhea, she says she was having about 6 bowel movements a day and it was mainly liquid, which has resolved. Reportedly, She was at [facility] on morning of admission and became unresponsive. No head trauma and did not sustain a fall. Does still have slight cough but otherwise was feeling herself. In ER, she completed CT head which did not show acute changes. Discussed with patient again today Would not pursue MRI at this point as patient without deficits Carotid Dopplers with L possibly 50-70% ICA stenosis, discussed with patient again today Do not feel this is related seizure at this point, can check EEG as outpatient, discussed with patient More likely to be in context of dehydration vs possibly Afib, cardiology following and note reviewed Follow up tele, on Coumadin for Afib Continue IVF Monitor BP, maintain normotensive range Check orthostatics PT/OT Getting tamiflu for influenza, Fall precautions DVT ppx
--- NOTE | 2018-01-18 10:33 | EKG ---
Test Reason : Blood Pressure : / mmHG Vent. Rate : 067 BPM Atrial Rate : 067 BPM P-R Int : 138 ms QRS Dur : 078 ms QT Int : 442 ms P-R-T Axes : 032 -21 029 degrees QTc Int : 467 ms NORMAL SINUS RHYTHM INFERIOR INFARCT (CITED ON OR BEFORE 16-NOV-2016) CANNOT RULE OUT ANTERIOR INFARCT , AGE UNDETERMINED ABNORMAL ECG WHEN COMPARED WITH ECG OF 02-JUL-2017 21:13, NO SIGNIFICANT CHANGE WAS FOUND Confirmed by ROSALVA RUIZ, RICHARD ([id number]) on 01/18/2018 10:32:52 AM Referred By: Confirmed By:RICHARD BLACKWELL MD
--- NOTE | 2018-01-18 11:05 | PN ---
Progress Note, Physician History of Present Illness: No further near syncope or chest pain, diarrhea has resolved. - Current Medication List Current Medications: Active Medications Acetaminophen (Tylenol -) 650 mg PO Q4H PRN PRN Reason: PAIN LEVEL 1-5 Last Admin: 01/17/18 21:02 Dose: 650 mg Albuterol/Ipratropium (Duoneb -) 1 amp NEB Q4H PRN PRN Reason: SHORTNESS OF BREATH Last Admin: 01/17/18 23:33 Dose: 1 amp Aspirin (Asa -) 81 mg PO DAILY [facility] Last Admin: 01/18/18 09:20 Dose: 81 mg Calcium Carbonate/Cholecalciferol (Os-Fitz 500+D -) 1 tab PO DAILY [facility] Last Admin: 01/18/18 09:20 Dose: 1 tab Folic Acid (Folic Acid -) 1 mg PO DAILY [facility] Last Admin: 01/18/18 09:20 Dose: 1 mg Levothyroxine Sodium (Synthroid -) 100 mcg PO MoTuWeTh@0700 [facility] Last Admin: 01/18/18 06:13 Dose: 100 mcg Levothyroxine Sodium (Synthroid -) 150 mcg PO SuFrSa@0700 [facility] Multivitamins/Minerals (Theragran-M) 1 each PO DAILY [facility] Last Admin: 01/18/18 09:23 Dose: 1 each Oseltamivir Phosphate (Tamiflu -) 75 mg PO BID [facility] Stop: 01/21/18 21:59 Last Admin: 01/18/18 09:23 Dose: 75 mg Rosuvastatin Calcium (Crestor -) 5 mg PO HS [facility] Last Admin: 01/17/18 21:02 Dose: 5 mg Sotalol HCl (Betapace -) 80 mg PO BID [facility] Last Admin: 01/18/18 09:20 Dose: 80 mg Warfarin Sodium (Coumadin -) 2.5 mg PO SuMoTuThSa@1800 [facility] Last Admin: 01/17/18 18:06 Dose: 2.5 mg - Objective Vital Signs: Vital Signs Temperature 97.5 F L 01/18/18 06:00 Pulse Rate 64 01/18/18 06:00 Respiratory Rate 20 01/18/18 06:00 Blood Pressure 140/59 01/18/18 06:00 O2 Sat by Pulse Oximetry (%) 97 01/18/18 04:00 Constitutional: Yes: No Distress, Calm Neck: Yes: Supple Cardiovascular: Yes: Regular Rate and Rhythm, Murmur (2/6 SM) Respiratory: Yes: Regular, Diminished Gastrointestinal: Yes: Normal Bowel Sounds, Soft, Abdomen, Obese Edema: No Labs: CBC, BMP 01/18/18 05:35 01/18/18 05:35 INR, PTT INR 3.12 (0.82-1.09) H D 01/18/18 05:35 - ....Imaging EKG: Report Reviewed (Tele: NSR occ [facility]) Problem List - Problems (1) EDU (acute kidney injury) Code(s): N17.9 - ACUTE KIDNEY FAILURE, UNSPECIFIED (2) Anticoagulation adequate with anticoagulant therapy Code(s): 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 (3) Aortic stenosis, moderate Code(s): I35.0 - NONRHEUMATIC AORTIC (VALVE) STENOSIS (4) Dizziness Code(s): R42 - DIZZINESS AND GIDDINESS (5) Hyperlipidemia Code(s): E78.5 - HYPERLIPIDEMIA, UNSPECIFIED Qualifiers: Hyperlipidemia type: pure hypercholesterolemia Qualified Code(s): E78.00 - Pure hypercholesterolemia, unspecified (6) Hypertensive cardiomegaly without heart failure Code(s): I11.9 - HYPERTENSIVE HEART DISEASE WITHOUT HEART FAILURE (7) Hypothyroidism Code(s): E03.9 - HYPOTHYROIDISM, UNSPECIFIED Qualifiers: Hypothyroidism type: unspecified Qualified Code(s): E03.9 - Hypothyroidism , unspecified (8) Paroxysmal atrial fibrillation Code(s): I48.0 - PAROXYSMAL ATRIAL FIBRILLATION (9) Status post aortic aneurysm repair Code(s): Z98.89 - OTHER SPECIFIED POSTPROCEDURAL STATES * DO NOT USE *; Z86.79 - PERSONAL HISTORY OF OTHER DISEASES OF THE CIRCULATORY SYSTEM (10) Status post aortic valve replacement with bioprosthetic valve during current hospitalization Code(s): Z95.4 - PRESENCE OF OTHER HEART-VALVE REPLACEMENT (11) Syncope and collapse Code(s): R55 - SYNCOPE AND COLLAPSE Assessment/Plan Echocardiography 01/12/2018 revealed concentric left ventricular hypertrophy with normal left ventricular size and systolic function and estimated left ventricular ejection fraction between 70-75%, borderline bi-atrial dilatation, mild mitral valve regurgitation, mild tricuspid valve regurgitation with calculated RVSP of 25 mmHg, bio-prosthetic aortic valve with a mean trans- valvular gradient of 23.8 mmHg and a peak transvalvular gradient of 38.9 mmHg and trace aortic valve regurgitation. 01/17/2018 Echo: Normal biventricular size and fxn, mod elevated gradient across AV prosthesis MG 33 mmHg, PG 55 mmHg Pharmacologic Lexiscan myocardial perfusion imaging study performed December 08, 2016 revealed small size apical wall defect compatible with apical thinning with normal left ventricular contraction pattern on LV gated analysis with calculated left ventricular ejection fraction of 74% at rest and 73% post Lexiscan infusion. Carotid Dopplers with L possibly 50-70% ICA stenosis 1. Dizziness and orthostasis in context of volume loss (diarrhea) resolved 2. 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 PAF now in sinus rhythm [id number] of 5 with therapeutic INR 4. HTN/HCVD 5. Hyperlipidemia 6. Mild carotid stenosis 7. Hypothyroidism 8. Pre-renal EDU resolved 9. Diastolic dysfunction PLAN: 1. Continue Crestor 5 qhs, Sotalol 80 bid and resume Losartan 25 qd. Lasix being held 2. Dose Coumadin to keep INR 2-3 3. Continue treatment for influenza 4. Abx prophylaxis against endocarditis 5. D/c planning with f/u in office with Dr. Morris [phone]
[2018-01-18] MEDS: LOSARTAN POTASSIUM 25 MG TABLET PO SCH (11:29)
--- NOTE | 2018-01-18 16:20 | PN ---
Progress Note, Physician Chief Complaint: Ms Berg says she is feeling much better. Had fever last night but currently resolved. Says she is in her normal state of health and would like to go home. - Current Medication List Current Medications: Active Medications Acetaminophen (Tylenol -) 650 mg PO Q4H PRN PRN Reason: PAIN LEVEL 1-5 Last Admin: 01/17/18 21:02 Dose: 650 mg Albuterol/Ipratropium (Duoneb -) 1 amp NEB Q4H PRN PRN Reason: SHORTNESS OF BREATH Last Admin: 01/17/18 23:33 Dose: 1 amp Aspirin (Asa -) 81 mg PO DAILY [facility] Last Admin: 01/18/18 09:20 Dose: 81 mg Calcium Carbonate/Cholecalciferol (Os-Fitz 500+D -) 1 tab PO DAILY [facility] Last Admin: 01/18/18 09:20 Dose: 1 tab Folic Acid (Folic Acid -) 1 mg PO DAILY [facility] Last Admin: 01/18/18 09:20 Dose: 1 mg Levothyroxine Sodium (Synthroid -) 100 mcg PO MoTuWeTh@0700 [facility] Last Admin: 01/18/18 06:13 Dose: 100 mcg Levothyroxine Sodium (Synthroid -) 150 mcg PO SuFrSa@0700 [facility] Losartan Potassium (Cozaar -) 25 mg PO DAILY [facility] Last Admin: 01/18/18 11:29 Dose: 25 mg Multivitamins/Minerals (Theragran-M) 1 each PO DAILY [facility] Last Admin: 01/18/18 09:23 Dose: 1 each Oseltamivir Phosphate (Tamiflu -) 75 mg PO BID [facility] Stop: 01/21/18 21:59 Last Admin: 01/18/18 09:23 Dose: 75 mg Rosuvastatin Calcium (Crestor -) 5 mg PO HS [facility] Last Admin: 01/17/18 21:02 Dose: 5 mg Sotalol HCl (Betapace -) 80 mg PO BID [facility] Last Admin: 01/18/18 09:20 Dose: 80 mg Warfarin Sodium (Coumadin -) 2.5 mg PO SuMoTuThSa@1800 [facility] Last Admin: 01/17/18 18:06 Dose: 2.5 mg - Objective Vital Signs: Vital Signs Temperature 36.4 C L 01/18/18 10:00 Pulse Rate 74 01/18/18 10:00 Respiratory Rate 18 01/18/18 10:00 Blood Pressure 130/78 01/18/18 10:00 O2 Sat by Pulse Oximetry (%) 96 01/18/18 12:00 Constitutional: Yes: Well Nourished, No Distress, Calm Cardiovascular: Yes: Regular Rate and Rhythm. No: Gallop, Murmur, Rub Respiratory: Yes: Regular, Rhonchi (bilateral bases). No: CTA Bilaterally, Rales, Wheezes Gastrointestinal: Yes: Normal Bowel Sounds, Soft. No: Distention, Tenderness Extremities: Yes: WNL Edema: No Labs: CBC, BMP 01/18/18 05:35 01/18/18 05:35 INR, PTT INR 3.12 (0.82-1.09) H D 01/18/18 05:35 Problem List - Problems (1) Syncope and collapse Code(s): R55 - SYNCOPE AND COLLAPSE (2) Influenza B Code(s): J10.1 - FLU DUE TO OTH IDENT INFLUENZA VIRUS W OTH RESP MANIFEST (3) EDU (acute kidney injury) Code(s): N17.9 - ACUTE KIDNEY FAILURE, UNSPECIFIED (4) Hyperlipidemia Code(s): E78.5 - HYPERLIPIDEMIA, UNSPECIFIED Qualifiers: Hyperlipidemia type: pure hypercholesterolemia Qualified Code(s): E78.00 - Pure hypercholesterolemia, unspecified (5) Hypothyroidism Code(s): E03.9 - HYPOTHYROIDISM, UNSPECIFIED Qualifiers: Hypothyroidism type: unspecified Qualified Code(s): E03.9 - Hypothyroidism , unspecified (6) Paroxysmal atrial fibrillation Code(s): I48.0 - PAROXYSMAL ATRIAL FIBRILLATION Assessment/Plan (1) Syncope and collapse Assessment/Plan: -case d/w cardiology -safe for discharge with follow up Code(s): R55 - SYNCOPE AND COLLAPSE (2) Influenza B Assessment/Plan: -renal function normalized after IVF -continue tamiflu -check chest x-ray since with fever and ronchi -if no overlying pneumonia, discharge home today Code(s): J10.1 - FLU DUE TO OTH IDENT INFLUENZA VIRUS W OTH RESP MANIFEST (3) EDU (acute kidney injury) Assessment/Plan: -resolved -will continue to hold lasix Code(s): N17.9 - ACUTE KIDNEY FAILURE, UNSPECIFIED (4) Hyperlipidemia Assessment/Plan: -continue crestor Code(s): E78.5 - HYPERLIPIDEMIA, UNSPECIFIED Qualifiers: Hyperlipidemia type: pure hypercholesterolemia Qualified Code(s): E78.00 - Pure hypercholesterolemia, unspecified (5) Hypothyroidism Assessment/Plan: -continue levothyroxine Code(s): E03.9 - HYPOTHYROIDISM, UNSPECIFIED Qualifiers: Hypothyroidism type: unspecified Qualified Code(s): E03.9 - Hypothyroidism , unspecified (6) Paroxysmal atrial fibrillation Assessment/Plan: -continue sotalol and coumadin Code(s): I48.0 - PAROXYSMAL ATRIAL FIBRILLATION
[2018-01-18] MEDS: ROSUVASTATIN CA 5 MG TABLET (FP) PO SCH (22:06)
[2018-01-19] MEDS: LEVOTHYROXINE NA 100 MCG TABLET (FP) PO SCH (06:30)
--- NOTE | 2018-01-19 08:56 | PN ---
Progress Note (short form) - Note Progress Note: Dr. Meyer to document today. Home but she's uncertain Re: VNS PT
--- NOTE | 2018-01-19 09:11 | PN ---
Progress Note (short form) - Note Progress Note: Neurology History of Present Illness: Pleasant 82 year old female who came in with an episode of passing out. She says she had a cold this week and has been coughing with associated diarrhea, she says she was having about 6 bowel movements a day and it was mainly liquid, which has resolved. Reportedly, She was at [facility] on morning of admission and became unresponsive. No head trauma and did not sustain a fall. In ER, she completed CT head which did not show acute changes. Carotid Dopplers also completed and reviewed and demonstrated L 50-70% ICA stenosis. There was concern of her unresponsiveness and whether this could be Absence seizure. Does not have history of seizures and had one similar episode with Bactrim (also in context of illness) but otherwise no prior similar events. Seems to be in context of dehydration vs possibly Afib. Patient doing well this morning and reports feeling at her baseline. Neurologically no new events and has been stable without events since admission. Active Medications Acetaminophen (Tylenol -) 650 mg PO Q4H PRN PRN Reason: PAIN LEVEL 1-5 Last Admin: 01/17/18 21:02 Dose: 650 mg Albuterol/Ipratropium (Duoneb -) 1 amp NEB Q4H PRN PRN Reason: SHORTNESS OF BREATH Last Admin: 01/17/18 23:33 Dose: 1 amp Aspirin (Asa -) 81 mg PO DAILY [facility] Last Admin: 01/18/18 09:20 Dose: 81 mg Calcium Carbonate/Cholecalciferol (Os-Fitz 500+D -) 1 tab PO DAILY [facility] Last Admin: 01/18/18 09:20 Dose: 1 tab Folic Acid (Folic Acid -) 1 mg PO DAILY [facility] Last Admin: 01/18/18 09:20 Dose: 1 mg Levothyroxine Sodium (Synthroid -) 100 mcg PO MoTuWeTh@0700 [facility] Last Admin: 01/19/18 06:30 Dose: 100 mcg Levothyroxine Sodium (Synthroid -) 150 mcg PO SuFrSa@0700 [facility] Losartan Potassium (Cozaar -) 25 mg PO DAILY [facility] Last Admin: 01/18/18 11:29 Dose: 25 mg Multivitamins/Minerals (Theragran-M) 1 each PO DAILY [facility] Last Admin: 01/18/18 09:23 Dose: 1 each Oseltamivir Phosphate (Tamiflu -) 75 mg PO BID [facility] Stop: 01/21/18 21:59 Last Admin: 01/18/18 22:06 Dose: 75 mg Rosuvastatin Calcium (Crestor -) 5 mg PO [facility] Last Admin: 01/18/18 22:06 Dose: 5 mg Sotalol HCl (Betapace -) 80 mg PO BID [facility] Last Admin: 01/18/18 22:07 Dose: 80 mg Warfarin Sodium (Coumadin -) 2.5 mg PO SuMoTuThSa@1800 [facility] Last Admin: 01/17/18 18:06 Dose: 2.5 mg Physical Examination Vital Signs Temperature 97.5 F L 01/19/18 06:00 Pulse Rate 72 01/19/18 06:00 Respiratory Rate 18 01/19/18 06:00 Blood Pressure 126/63 01/19/18 06:00 O2 Sat by Pulse Oximetry (%) 97 01/18/18 20:00 Constitutional: Yes: Well Nourished, No Distress, Calm Eyes: Yes: Conjunctiva Clear, EOM Intact HENT: Yes: Atraumatic, Normocephalic Cardiovascular: Yes: Regular Rate and Rhythm. No: Gallop, Murmur, Rub Respiratory: Yes: Regular, CTA Bilaterally. No: Rales, Rhonchi, Wheezes Gastrointestinal: Yes: Normal Bowel Sounds, Soft. No: Distention, Tenderness Extremities: Yes: WNL Edema: No Neuro: CN intact, no slurred speech, no facial droop, sensory grossly intact to LT, moves all ext equally, finger to nose normal Labs: CBCD WBC 3.6 K/mm3 (4.0-10.0) L 01/18/18 05:35 RBC 3.69 M/mm3 (3.60-5.2) 01/18/18 05:35 Hgb 11.6 GM/dL (10.7-15.3) 01/18/18 05:35 Hct 34.6 % (32.4-45.2) 01/18/18 05:35 MCV 93.6 fl (80-96) 01/18/18 05:35 MCHC 33.5 g/dl (32.0-36.0) 01/18/18 05:35 RDW 15.0 % (11.6-15.6) 01/18/18 05:35 Plt Count 148 K/MM3 (134-434) 01/18/18 05:35 MPV 8.3 fl (7.5-11.1) 01/18/18 05:35 CMP Sodium 145 mmol/L (136-145) 01/18/18 05:35 Potassium 3.9 mmol/L (3.5-5.1) 01/18/18 05:35 Chloride 111 mmol/L (98-107) H 01/18/18 05:35 Carbon Dioxide 25 mmol/L (21-32) 01/18/18 05:35 Anion Gap 9 (8-16) 01/18/18 05:35 BUN 16 mg/dL (7-18) 01/18/18 05:35 Creatinine 0.6 mg/dL (0.55-1.02) 01/18/18 05:35 Creat Clearance w eGFR 47.79 (>60) 01/16/18 14:15 Calcium 8.2 mg/dL (8.5-10.1) L 01/18/18 05:35 Total Bilirubin 0.3 mg/dL (0.2-1.0) D 01/16/18 14:15 AST 38 U/L (15-37) H 01/16/18 14:15 ALT 27 U/L (12-78) 01/16/18 14:15 Alkaline Phosphatase 81 U/L (45-117) 01/16/18 14:15 Total Protein 6.7 g/dl (6.4-8.2) 01/16/18 14:15 Albumin 3.5 g/dl (3.4-5.0) 01/16/18 14:[address] head reviewed Carotid Doppler reviewed Plan: 82 year old female who came in with an episode of passing out. She says she had a cold this week and has been coughing with associated diarrhea, she says she was having about 6 bowel movements a day and it was mainly liquid, which has resolved. Reportedly, She was at [facility] on morning of admission and became unresponsive. No head trauma and did not sustain a fall. Does still have slight cough but otherwise was feeling herself. In ER, she completed CT head which did not show acute changes. Carotid Dopplers complete as above Do not feel this is related seizure at this point, can check EEG as outpatient, discussed with patient Likely to be erlated dehydration/possibly Afib Follow up tele, on Coumadin for Afib Monitor BP, maintain normotensive range tamiflu for influenza, Fall precautions DVT ppx Likely for discharge
[2018-01-19] MEDS: ASPIRIN 81 MG CHEWABLE TABLETS PO SCH (10:05)
[2018-01-19] MEDS: CALCIUM 500MG/VIT-D 200 UNITS COMBO TABLET (FP) PO SCH (10:05)
[2018-01-19] MEDS: MULTIVITAMINS THER W-MINERALS COMBO TABLET (FP) PO SCH (10:05)
[2018-01-19] MEDS: LOSARTAN POTASSIUM 25 MG TABLET PO SCH (10:05)
[2018-01-19] MEDS: SOTALOL HCL 80 MG TABLET (FP) PO SCH (10:05)
[2018-01-19] MEDS: OSELTAMIVIR PHOSPHATE 75 MG CAPSULE PO SCH (10:05)
[2018-01-19] MEDS: FOLIC ACID 1 MG TABLET (FP) PO SCH (10:05)
[2018-01-19] MEDS ORDERED: CEPHALEXIN MONOHYDRATE 500 MG CAPSULE (UD) PO ONE (11:00)
[2018-01-19 11:02] VITALS: BP 131/64; PULSE 67; TEMP 98.2
--- NOTE | 2018-01-19 11:19 | PN ---
Progress Note, Physician History of Present Illness: No further near syncope or chest pain, diarrhea has resolved. - Current Medication List Current Medications: Active Medications Acetaminophen (Tylenol -) 650 mg PO Q4H PRN PRN Reason: PAIN LEVEL 1-5 Last Admin: 01/17/18 21:02 Dose: 650 mg Albuterol/Ipratropium (Duoneb -) 1 amp NEB Q4H PRN PRN Reason: SHORTNESS OF BREATH Last Admin: 01/17/18 23:33 Dose: 1 amp Aspirin (Asa -) 81 mg PO DAILY [facility] Last Admin: 01/19/18 10:05 Dose: 81 mg Calcium Carbonate/Cholecalciferol (Os-Fitz 500+D -) 1 tab PO DAILY [facility] Last Admin: 01/19/18 10:05 Dose: 1 tab Folic Acid (Folic Acid -) 1 mg PO DAILY [facility] Last Admin: 01/19/18 10:05 Dose: 1 mg Levothyroxine Sodium (Synthroid -) 100 mcg PO MoTuWeTh@0700 [facility] Last Admin: 01/19/18 06:30 Dose: 100 mcg Levothyroxine Sodium (Synthroid -) 150 mcg PO SuFrSa@0700 [facility] Losartan Potassium (Cozaar -) 25 mg PO DAILY [facility] Last Admin: 01/19/18 10:05 Dose: 25 mg Multivitamins/Minerals (Theragran-M) 1 each PO DAILY [facility] Last Admin: 01/19/18 10:05 Dose: 1 each Oseltamivir Phosphate (Tamiflu -) 75 mg PO BID [facility] Stop: 01/21/18 21:59 Last Admin: 01/19/18 10:05 Dose: 75 mg Rosuvastatin Calcium (Crestor -) 5 mg PO HS [facility] Last Admin: 01/18/18 22:06 Dose: 5 mg Sotalol HCl (Betapace -) 80 mg PO BID [facility] Last Admin: 01/19/18 10:05 Dose: 80 mg Warfarin Sodium (Coumadin -) 2.5 mg PO SuMoTuThSa@1800 [facility] Last Admin: 01/17/18 18:06 Dose: 2.5 mg - Objective Vital Signs: Vital Signs Temperature 98.2 F 01/19/18 10:00 Pulse Rate 67 01/19/18 10:00 Respiratory Rate 18 01/19/18 10:00 Blood Pressure 131/64 01/19/18 10:00 O2 Sat by Pulse Oximetry (%) 97 01/19/18 10:00 Constitutional: Yes: No Distress, Calm Neck: Yes: Supple Cardiovascular: Yes: Regular Rate and Rhythm Respiratory: Yes: Regular, Diminished Gastrointestinal: Yes: Normal Bowel Sounds, Soft Edema: No Labs: CBC, BMP 01/18/18 05:35 01/18/18 05:35 INR, PTT INR 3.12 (0.82-1.09) H D 01/18/18 05:35 - ....Imaging EKG: Report Reviewed (Tele: NSR, no PAF) Problem List - Problems (1) EDU (acute kidney injury) Code(s): N17.9 - ACUTE KIDNEY FAILURE, UNSPECIFIED (2) Anticoagulation adequate with anticoagulant therapy Code(s): 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 (3) Aortic stenosis, moderate Code(s): I35.0 - NONRHEUMATIC AORTIC (VALVE) STENOSIS (4) Dizziness Code(s): R42 - DIZZINESS AND GIDDINESS (5) Hyperlipidemia Code(s): E78.5 - HYPERLIPIDEMIA, UNSPECIFIED Qualifiers: Hyperlipidemia type: pure hypercholesterolemia Qualified Code(s): E78.00 - Pure hypercholesterolemia, unspecified (6) Hypertensive cardiomegaly without heart failure Code(s): I11.9 - HYPERTENSIVE HEART DISEASE WITHOUT HEART FAILURE (7) Hypothyroidism Code(s): E03.9 - HYPOTHYROIDISM, UNSPECIFIED Qualifiers: Hypothyroidism type: unspecified Qualified Code(s): E03.9 - Hypothyroidism , unspecified (8) Paroxysmal atrial fibrillation Code(s): I48.0 - PAROXYSMAL ATRIAL FIBRILLATION (9) Status post aortic aneurysm repair Code(s): Z98.89 - OTHER SPECIFIED POSTPROCEDURAL STATES * DO NOT USE *; Z86.79 - PERSONAL HISTORY OF OTHER DISEASES OF THE CIRCULATORY SYSTEM (10) Status post aortic valve replacement with bioprosthetic valve during current hospitalization Code(s): Z95.4 - PRESENCE OF OTHER HEART-VALVE REPLACEMENT (11) Syncope and collapse Code(s): R55 - SYNCOPE AND COLLAPSE Assessment/Plan Echocardiography 01/12/2018 revealed concentric left ventricular hypertrophy with normal left ventricular size and systolic function and estimated left ventricular ejection fraction between 70-75%, borderline bi-atrial dilatation, mild mitral valve regurgitation, mild tricuspid valve regurgitation with calculated RVSP of 25 mmHg, bio-prosthetic aortic valve with a mean trans- valvular gradient of 23.8 mmHg and a peak transvalvular gradient of 38.9 mmHg and trace aortic valve regurgitation. 01/17/2018 Echo: Normal biventricular size and fxn, mod elevated gradient across AV prosthesis MG 33 mmHg, PG 55 mmHg Pharmacologic Lexiscan myocardial perfusion imaging study performed December 08, 2016 revealed small size apical wall defect compatible with apical thinning with normal left ventricular contraction pattern on LV gated analysis with calculated left ventricular ejection fraction of 74% at rest and 73% post Lexiscan infusion. Carotid Dopplers with L possibly 50-70% ICA stenosis 1. Dizziness and orthostasis in context of volume loss (diarrhea) resolved 2. 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 PAF now in sinus rhythm [id number] of 5 with therapeutic INR 4. HTN/HCVD 5. Hyperlipidemia 6. Mild carotid stenosis 7. Hypothyroidism 8. Pre-renal EDU resolved 9. Diastolic dysfunction PLAN: 1. Continue Crestor 5 qhs, Sotalol 80 bid and resume Losartan 25 qd. Lasix being held 2. Dose Coumadin to keep INR 2-3 3. Continue treatment for influenza 4. Abx prophylaxis against endocarditis 5. D/c planning with f/u in office with Dr. Morris [phone]
--- NOTE | 2018-01-19 12:57 | DS ---
Physical Examination Vital Signs: Vital Signs Temperature 36.8 C 01/19/18 10:00 Pulse Rate 67 01/19/18 10:00 Respiratory Rate 18 01/19/18 10:00 Blood Pressure 131/64 01/19/18 10:00 O2 Sat by Pulse Oximetry (%) 97 01/19/18 10:00 Constitutional: Yes: Well Nourished, No Distress, Calm Cardiovascular: Yes: Regular Rate and Rhythm. No: Gallop, Murmur, Rub Respiratory: Yes: Regular, CTA Bilaterally. No: Rales, Rhonchi, Wheezes Gastrointestinal: Yes: Normal Bowel Sounds, Soft. No: Distention, Tenderness Extremities: Yes: WNL Edema: No Labs: CBC, BMP 01/18/18 05:35 01/18/18 05:35 Discharge Summary Reason For Visit: INFLUENZA B,PRE SYNCOPE Hospital Course: (1) Syncope and collapse Code(s): R55 - SYNCOPE AND COLLAPSE (2) Influenza B Code(s): J10.1 - FLU DUE TO OTH IDENT INFLUENZA VIRUS W OTH RESP MANIFEST (3) EDU (acute kidney injury) Code(s): N17.9 - ACUTE KIDNEY FAILURE, UNSPECIFIED (4) Hyperlipidemia Code(s): E78.5 - HYPERLIPIDEMIA, UNSPECIFIED Qualifiers: Hyperlipidemia type: pure hypercholesterolemia Qualified Code(s): E78.00 - Pure hypercholesterolemia, unspecified (5) Hypothyroidism Code(s): E03.9 - HYPOTHYROIDISM, UNSPECIFIED Qualifiers: Hypothyroidism type: unspecified Qualified Code(s): E03.9 - Hypothyroidism , unspecified (6) Paroxysmal atrial fibrillation Code(s): I48.0 - PAROXYSMAL ATRIAL FIBRILLATION (7) UTI Ms Berg is a very pleasant 82 year old female who comes in with syncope and found to have influenza B and EDU. She was admitted to the hospital under observation on telemetry. Her diuretics were held and she was hydrated. She was seen by cardiology and followed while here. She did well with hydration, her IVF was stopped after 24 hours. Her ECHO showed severe stenosis but this was unchanged from previous ECHO. She was also started on tamiflu. She had a fever overnight and a chest x-ray was checked which was negative for pneumonia. Even though she had no urinary symptoms, her UA and urine culture were positive. She is currently safe for discharge home with tamiflu and keflex. She should follow up with Dr Grullon next week. 33 minutes spent in preparation of this discharge Condition: Good - Instructions Diet, Activity, Other Instructions: resume previous diet and activity Referrals: Dayne Grullon MD [Primary Care Provider] - Disposition: VNS/HOME HEALTH CARE - Home Medications Comprehensive Discharge Medication List: Ambulatory Orders Aspirin [ASA -] 81 mg PO DAILY #0 tab.chew 07/03/12 Calcium Carb/Vit D3/Minerals [Caltrate-600 with Vit D Tab] 1 each PO DAILY #0 tablet 07/03/12 Cyanocobalamin Vit B-12 Inj. [Vitamin B12 Injection -] 1,000 mcg IJ MONTHLY #0 vial 07/03/12 Multivitamin W/Iron, Minerals [Centrum] 1 tab PO DAILY #0 liquid 07/03/12 Rosuvastatin Calcium [Crestor] 5 mg PO HS #0 tablet 07/03/12 Sotalol HCl [Sotalol] 80 mg PO BID #0 tablet 07/03/12 Levothyroxine [Synthroid -] 100 mcg PO MOTUWETH 10/09/15 Warfarin Sodium [Coumadin] 2.5 mg PO DAILY #0 tablet 10/10/15 Levothyroxine [Synthroid -] 150 mcg PO ASDIR 04/23/16 Folic Acid - 1 mg PO DAILY #30 tablet 07/05/17 Albuterol Sulfate Inhaler - [Ventolin HFA Inhaler -] 1 - 2 inh PO QID PRN #1 inhaler 01/18/18 Losartan Potassium 25 mg PO DAILY #30 tablet 01/18/18 Losartan Potassium [Cozaar -] 25 mg PO DAILY #30 tablet 01/18/18 Oseltamivir Phosphate [Tamiflu -] 75 mg PO BID #8 capsule 01/18/18 Oseltamivir Phosphate [Tamiflu] 75 mg PO BID #8 capsule 01/18/18 Cephalexin [Keflex] 500 mg PO BID #14 capsule 01/19/18
[2018-01-20] MEDS ORDERED: LEVOTHYROXINE NA 150 MCG TABLET PO SCH (07:00)
== END 2018-01-19 12:13 | disposition home health service (06) ==
LOC: JER 13:26 → JERBED 15:15 → J4S 20:33
PROVIDERS: ADMIT Internal Medicine; ATTEND Internal Medicine
PROC: 3E0337Z Introduction of Electrolytic and Water Balance Substance into Peripheral Vein, Percutaneous Approach (ICD-10-PCS; principal; 2018-01-16)
PROC: 3E0F7GC Introduction of Other Therapeutic Substance into Respiratory Tract, Via Natural or Artificial Opening (ICD-10-PCS; 2018-01-16)
DX: R55 Syncope and collapse (principal); J10.1 Influenza due to other identified influenza virus with other respiratory manifestations; N17.9 Acute kidney failure, unspecified; I48.0 Paroxysmal atrial fibrillation; I35.0 Nonrheumatic aortic (valve) stenosis; I11.9 Hypertensive heart disease without heart failure; E03.9 Hypothyroidism, unspecified; E78.5 Hyperlipidemia, unspecified; R42 Dizziness and giddiness; N39.0 Urinary tract infection, site not specified; Z79.01 Long term (current) use of anticoagulants; Z95.4 Presence of other heart-valve replacement; Z88.2 Allergy status to sulfonamides; Z79.82 Long term (current) use of aspirin
CPT/HCPCS: 36415; 70450-TC; 71045-TC-FY; 71046-TC-FY; 80048; 80053; 81003; 81015; 82550; 83605; 83735; 83880; 84100; 84484; 85025; 85610; 85730; 87040; 87086; 87186; 87804; 93005; 93010; 93306-TC; 93880-TC; 94640; 96360; 96361; 97116-GP; 97161-GP; 99285-25; G0378; J7030; J7620

== ENCOUNTER 2018-02-17 11:58 | Day surgery (SDC) | payer OTHER, BC ==
[2018-02-17 13:00] VITALS: BMI 34.3
[2018-02-17 14:16] VITALS: TEMP 97.7
[2018-02-17 15:13] VITALS: BP 133/67; PULSE 61
--- NOTE | 2018-02-21 14:03 | PATH ---
Surgical Pathology Report Patient Name: CYNTHIA SHAIKH [facility]. Rec. #: [id number] /Age/Gender: 1935 (Age: 82) / F Account: [id number] Location: U-ENDOSCOPY Taken: 02/17/2018 Received: 02/20/2018 Reported: 02/21/2018 Physicians: Pastora Mathis M.D. Specimen(s) Received A: BX OF FUNDUS POLYP B: BX GASTRIC ANTRUM C: BX BODY POLYP D: POLYP FROM TRANSVERSE COLON Clinical History Colonic polyps, abnormal weight loss, family history of malignant neoplasm, carcinoma surveillance Final Diagnosis A. STOMACH, FUNDUS, POLYP, BIOPSY: POLYPOID GASTRIC OXYNTIC MUCOSA WITH MODERATE CHRONIC GASTRITIS, MILD FOVEOLAR HYPERPLASIA, AND FOCAL INTESTINAL METAPLASIA. IMMUNOHISTOCHEMICAL STAIN FOR H. PYLORI IS NEGATIVE. NO DYSPLASIA IDENTIFIED. B. STOMACH, ANTRUM, BIOPSY: GASTRIC ANTRAL MUCOSA WITH MILD CHRONIC FOCAL ACTIVE GASTRITIS AND INTESTINAL METAPLASIA. IMMUNOHISTOCHEMICAL STAIN FOR H. PYLORI IS NEGATIVE. NO DYSPLASIA IDENTIFIED C. STOMACH, BODY, POLYP, BIOPSY: FUNDIC GLAND POLYP. IMMUNOHISTOCHEMICAL STAIN FOR H. PYLORI IS NEGATIVE. D. TRANSVERSE COLON, POLYPS, BIOPSY: TUBULAR ADENOMA(S). Comment: Part A-C, History of Carcinoid tumor noted. No carcinoid tumor identified in this material. Prior material reviewed ([id number]). Electronically Signed Linh Virk M.D. Gross Description A. Received in formalin, labeled "biopsy gastric fundus polyp" is a carson, irregular portion of soft tissue measuring 0.3 cm. in greatest dimension. The specimen is submitted in toto in one cassette. B. Received in formalin, labeled "biopsy gastric antrum" is a carson, irregular portion of soft tissue measuring 0.8 cm. in greatest dimension. The specimen is submitted in toto in one cassette. C. Received in formalin, labeled "biopsy gastric body polyp" is a carson, irregular portion of soft tissue measuring 0.5 cm. in greatest dimension. The specimen is submitted in toto in one cassette. D. Received in formalin, labeled "polyps transverse colon" are 5 carson, irregular portions of soft tissue ranging from 0.2-0.5 cm. in greatest dimension. The specimens are submitted in toto in one cassette. /02/20/2018/2018
== END 2018-02-17 15:20 | disposition home or self-care (01) ==
LOC: JASU-ENDO 11:58
PROVIDERS: ATTEND Internal Medicine Gastroenterology
PROC: 0DB68ZX Excision of Stomach, Via Natural or Artificial Opening Endoscopic, Diagnostic (ICD-10-PCS; 2018-02-17)
PROC: 0DBL8ZX Excision of Transverse Colon, Via Natural or Artificial Opening Endoscopic, Diagnostic (ICD-10-PCS; principal; 2018-02-17 13:15)
DX: K29.50 Unspecified chronic gastritis without bleeding (principal); K57.30 Diverticulosis of large intestine without perforation or abscess without bleeding; R63.4 Abnormal weight loss; Z86.010 Personal history of colon polyps; K63.5 Polyp of colon; D12.3 Benign neoplasm of transverse colon; K64.8 Other hemorrhoids; K31.7 Polyp of stomach and duodenum; K44.9 Diaphragmatic hernia without obstruction or gangrene; K25.9 Gastric ulcer, unspecified as acute or chronic, without hemorrhage or perforation
CPT/HCPCS: 88305-TC; 88342-TC

== ENCOUNTER 2018-06-07 12:10 | Inpatient (IN) | payer OTHER, BC ==
[2018-06-07 12:51] VITALS: BMI 34.5
--- NOTE | 2018-06-07 13:47 | PDOC ---
History of Present Illness - General Chief Complaint: Weakness Stated Complaint: Diarrhea Time Seen by Provider: 06/07/18 13:22 History Source: Patient Exam Limitations: No Limitations - History of Present Illness Initial Comments: 06/07/18 13:41 83 yo female pmh of hypertension, hypothyroidism, paroxysmal afib and aortic valve replacement 11 years ago (bovine, anticoagulated on warfarin) presents to the ED for a presyncapal event and 3 days of non bloody diarrhea. Patient states she was using the toilet at 11 am when she had sudden onset of lightheadedness that lasted 30 min, no LOC. Patient denies straining while using the toilet, blood in the stool CP, palpitations, SOB, ORTEGA, one sided numbness or weakness, F/C/N/V. Last INR unknown Patient had recent colonoscopy found diverticulosis Past History - Past Medical History Allergies/Adverse Reactions: Allergies Allergy/AdvReac Type Severity Reaction Status Date / Time sulfamethoxazole Allergy Severe Rash Verified 06/07/18 12:29 [From Bactrim] trimethoprim [From Bactrim] Allergy Severe Rash Verified 06/07/18 12:29 Home Medications: Ambulatory Orders Aspirin [ASA -] 81 mg PO DAILY #0 tab.chew 07/03/12 Calcium Carb/Vit D3/Minerals [Caltrate-600 with Vit D Tab] 1 each PO DAILY #0 tablet 07/03/12 Cyanocobalamin Vit B-12 Inj. [Vitamin B12 Injection -] 1,000 mcg IJ MONTHLY #0 vial 07/03/12 Multivitamin W/Iron, Minerals [Centrum] 1 tab PO DAILY #0 liquid 07/03/12 Rosuvastatin Calcium [Crestor] 5 mg PO HS #0 tablet 07/03/12 Sotalol HCl [Sotalol] 80 mg PO BID #0 tablet 07/03/12 Levothyroxine [Synthroid -] 100 mcg PO MOTUWETH 10/09/15 Warfarin Sodium [Coumadin] 2.5 mg PO DAILY #0 tablet 10/10/15 Losartan Potassium [Cozaar -] 50 mg PO DAILY 02/17/18 Multivit-Min/FA/Lycopen/Lutein [Centrum Silver Tablet] 1 each PO DAILY 02/17/18 Anemia: No Asthma: No Cancer: No Cardiac Disorders: Yes (CHRONIC ATRIAL FIBRILLATION, ARTIFICAL AORTIC VALVE) CVA: No COPD: No CHF: No Dementia: No Diabetes: No GI Disorders: Yes (GASTRIC CARCINOID, COLON ADENOMAS) Disorders: No HTN: Yes Hypercholesterolemia: Yes Liver Disease: No Seizures: No Thyroid Disease: Yes (HYPOTHYROIDISM) - Surgical History Abdominal Surgery: Yes Appendectomy: No Cardiac Surgery: Yes (BOVINE AVR 2006-[facility]) Cholecystectomy: Yes (OPEN CHOLECYSTECTOMY) Lung Surgery: No Neurologic Surgery: No Orthopedic Surgery: Yes (BILATERAL CARPAL TUNNEL RELEASE) - Suicide/Smoking/Psychosocial Hx Smoking Status: No Smoking History: Former smoker Have you smoked in the past 12 months: No Number of Cigarettes Smoked Daily: 0 Information on smoking cessation initiated: No Hx Alcohol Use: No Drug/Substance Use Hx: No Substance Use Type: None Hx Substance Use Treatment: No Review of Systems - Review of Systems Constitutional: No: Chills, Fever, Weakness HEENTM: Yes: Other (no Headache) Respiratory: No: Shortness of Breath Cardiac (ROS): Yes: Lightheadedness (lasted 30 min, resoloved ). No: Chest Pain , Irregular Heart Rate, Palpitations, Syncope, Chest Tightness ABD/GI: Yes: Diarrhea (3 days, 2-3 episodes of loose stools each day). No: Abd. Pain w/ defecation, Nausea, Rectal Bleeding, Vomiting : No: Burning, Dysuria, Hematuria Musculoskeletal: No: Muscle Weakness Neurological: Yes: Unsteady Gait (at baseline, walks with rolling walker). No: Headache, Numbness, Paresthesia, Weakness, Dizziness *Physical Exam - Vital Signs Last Vital Signs Temp Pulse Resp BP Pulse Ox 98.3 F 79 20 113/67 98 06/07/18 12:29 06/07/18 12:29 06/07/18 12:29 06/07/18 12:29 06/07/18 12:29 - Physical Exam General Appearance: Yes: Nourished, Appropriately Dressed. No: Apparent Distress HEENT: positive: EOMI Neck: positive: Trachea midline, Supple Respiratory/Chest: positive: Lungs Clear, Normal Breath Sounds. negative: Respiratory Distress, Crackles, Rales, Wheezing Cardiovascular: positive: Regular Rhythm, Regular Rate, S1, S2. negative: Edema , JVD, Murmur Vascular Pulses: Dorsalis-Pedis (R): 4+, Doralis-Pedis (L): 4+ Gastrointestinal/Abdominal: positive: Normal Bowel Sounds, Flat, Soft. negative : Pulsatile Mass, Protuberent, Distended, Guarding, Rebound, Tenderness Rectal Exam: positive: normal exam, normal rectal tone. negative: hemorrhoids Extremity: positive: Normal Capillary Refill Integumentary: positive: Normal Color Neurologic: positive: Fully Oriented, Alert, Normal Mood/Affect, Normal Response ED Treatment Course - LABORATORY CBC & Chemistry Diagram: 06/07/18 14:06 06/07/18 14:06 Medical Decision Making - Medical Decision Making 06/07/18 16:00 83 yo female pmh of hypertension, afib (on eliquis) presents to ED for sudden onset lightheadedness while on the toilet. Patient admits to 3 days of loose stools *DC/Admit/Observation/Transfer Diagnosis at time of Disposition: Pre-syncope - Discharge Dispostion Condition at time of disposition: Stable Decision to Admit order: Yes - Referrals - Patient Instructions - Post Discharge Activity
--- NOTE | 2018-06-07 13:48 | PDOC ---
Attending Attestation - Resident Resident Name: Sonido Palencia - ED Attending Attestation I have performed the following: I have examined & evaluated the patient, The case was reviewed & discussed with the resident, I agree w/resident's findings & plan - HPI HPI: 06/07/18 20:05 83 yo female pmh of hypertension, hypothyroidism, paroxysmal afib and aortic valve replacement 11 years ago (bovine, anticoagulated on warfarin) presents to the ED with near syncopal event, a/w dizziness while on the toilet. - Physicial Exam PE: 06/07/18 16:00 NAD, well appearing, MMM, nl conjunctiva, anicteric; neck supple. lungs clear, + irregularly irregular, +holosystolic murmur, abdomen soft nontender. ALMANZAR x4, no focal neuro deficits. No peripheral edema. normal color for ethnicity, WWP. - Medical Decision Making 06/07/18 13:48 83 yo female pmh of hypertension, hypothyroidism, paroxysmal afib and aortic valve replacement 11 years ago (bovine, anticoagulated on warfarin) presents to the ED with near syncopal event, a/w dizziness while on the toilet. DDx chest pain: ACS, NSTEMI, PUD, esophageal spasm, GERD, gastritis, costochondritis, pneumonia, pleurisy, pericarditis/myocarditis. dehydration, electrolyte/metabolic derangements. infection. supratherapeutic INR. Vital signs reviewed, wnl. Prior notes reviewed, including admissions, discharges and consultations. laboratory results and imaging reviewed, basic labs and lytes wnl, notable for elevated INR c/w coumadin use.. guaiac negative for blood. trop mildly elevated, ASA ordered. EKG normal sinus rhythm, no interval abnormalities, narrow QRS, ST and T wave segments and morphology normal. Nonspecific T wave abnormalities in inferior leads, changed TWI in III Dispo: Admit observation for near syncope, EKG changes, cardiac risk factors, tele and serial trops/labs, r/o ACS.. Discussed results and management plan with pt at bedside, agree with impression and plan UA +UTI, ceftriaxone IV by inpatient team, resulted later after admission and sign out. 06/07/18 20:06
[2018-06-07 14:31] LABS: BASO % 0.2 % (0-2.0); EOS % 0.2 % (0-4.5); HEMATOCRIT 33.5 % (32.4-45.2); HEMOGLOBIN 11.3 GM/dL (10.7-15.3); LYMPH % 7.1 % (8-40); MCHC 33.6 g/dl (32.0-36.0); MEAN CELL VOLUME 92.3 fl (80-96); MEAN PLT VOLUME 8.7 fl (7.5-11.1); MONO % 14.4 % (3.8-10.2); NEUT % 78.1 % (42.8-82.8); PLATELET COUNT 160 K/MM3 (134-434); RBC 3.63 M/mm3 (3.60-5.2); RDW 15.2 % (11.6-15.6); WHITE BLOOD COUNT 9.5 K/mm3 (4.0-10.0)
[2018-06-07 14:43] LABS: INR 2.23 (0.83-1.09); PROTHROMBIN TIME (PATIENT) 25.2 SEC (9.7-13.0)
[2018-06-07 14:57] LABS: ALBUMIN 2.8 g/dl (3.4-5.0); ANION GAP 9 MMOL/L (8-16); BILIRUBIN,TOTAL 0.9 mg/dL (0.2-1); BLOOD UREA NITROGEN 32 mg/dL (7-18); CALCIUM 8.4 mg/dL (8.5-10.1); CHLORIDE 110 mmol/L (98-107); CO2 24 mmol/L (21-32); CREATININE 0.9 mg/dL (0.55-1.3); GLUCOSE,RANDOM 94 mg/dL (74-106); POTASSIUM 3.2 mmol/L (3.5-5.1); SGOT/AST 49 U/L (15-37); SGPT/ALT 36 U/L (13-61); SODIUM 143 mmol/L (136-145)
[2018-06-07 14:58] LABS: ALK PHOS 89 U/L (45-117); TOT PROT 6.2 g/dl (6.4-8.2)
[2018-06-07] MEDS ORDERED: POTASSIUM CHLORIDE ORAL LIQUID 20 MEQ/15 ML PO ONE (15:25)
--- NOTE | 2018-06-07 15:25 | EKG ---
Test Reason : Blood Pressure : / mmHG Vent. Rate : 070 BPM Atrial Rate : 070 BPM P-R Int : 136 ms QRS Dur : 080 ms QT Int : 404 ms P-R-T Axes : 020 -24 016 degrees QTc Int : 436 ms SINUS RHYTHM WITH BLOCKED PREMATURE ATRIAL COMPLEXES INFERIOR INFARCT (CITED ON OR BEFORE 16-NOV-2016) ABNORMAL ECG WHEN COMPARED WITH ECG OF 16-JAN-2018 13:53, PREMATURE ATRIAL COMPLEXES ARE NOW PRESENT Confirmed by RICHARD BLACKWELL MD ([id number]) on 06/07/2018 3:25:26 PM Referred By: Confirmed By:RICHARD BLACKWELL MD
[2018-06-07] MEDS ORDERED: POTASSIUM CHLORIDE ORAL LIQUID 20 MEQ/15 ML ONE (15:34)
--- NOTE | 2018-06-07 16:06 | HP ---
Admitting History and Physical - Primary Care Physician PCP: Dayne Grullon - Admission Chief Complaint: diarrhea History of Present Illness: is a pleasant 83 year old female who comes with 2 days of diarrhea. Pt reports not feeling well 4 days ago, "achy, and chilly" per pt. Pt noticed having loose BMs since yesterday, approximately 5 episodes over the last 24 hours. Pt describes BMs as liquid, denies blood in stool. Pt also reports reduced appetite, and reduced po intake over the last couple of days. Denies changes in diet/medications. This am, pt reports feeling dizzy/lightheaded when she was sitting on the toilet, she was afraid to fall so she pressed Gratafy and was brought into hospital. She denies any loss of consciousness/fall/head trauma at this time. Denies any chest pain/discomfort, sob, n/v, rash, abd pain , unilateral weakness, fevers, recent antibiotic use. History Source: Patient, Medical Record Limitations to Obtaining History: No Limitations - Past Medical History Cardiovascular: Yes: AFIB, HTN, Hyperlipdemia Heme/Onc: Yes: Anemia (pernicious), B12 Deficiency Infectious Disease: Yes: Herpes Zoster Musculoskeletal: Yes: Osteoarthritis - Past Surgical History Past Surgical History: Yes: Cholecystectomy, Valve Replacement (Aortic) - Smoking History Smoking history: Former smoker Have you smoked in the past 12 months: No Aproximately how many cigarettes per day: 0 - Alcohol/Substance Use Hx Alcohol Use: No History of Substance Use: reports: None - Social History Usual Living Arrangement: Yes: Alone ADL: Independent History of Recent Travel: No Home Medications - Allergies Allergies/Adverse Reactions: Allergies Allergy/AdvReac Type Severity Reaction Status Date / Time sulfamethoxazole Allergy Severe Rash Verified 06/07/18 12:29 [From Bactrim] trimethoprim [From Bactrim] Allergy Severe Rash Verified 06/07/18 12:29 - Home Medications Home Medications: Ambulatory Orders Aspirin [ASA -] 81 mg PO DAILY #0 tab.chew 07/03/12 Calcium Carb/Vit D3/Minerals [Caltrate-600 with Vit D Tab] 1 each PO DAILY #0 tablet 07/03/12 Cyanocobalamin Vit B-12 Inj. [Vitamin B12 Injection -] 1,000 mcg IJ MONTHLY #0 vial 07/03/12 Multivitamin W/Iron, Minerals [Centrum] 1 tab PO DAILY #0 liquid 07/03/12 Rosuvastatin Calcium [Crestor] 5 mg PO HS #0 tablet 07/03/12 Sotalol HCl [Sotalol] 80 mg PO BID #0 tablet 07/03/12 Levothyroxine [Synthroid -] 100 mcg PO MOTUWETH 10/09/15 Warfarin Sodium [Coumadin] 2.5 mg PO DAILY #0 tablet 10/10/15 Losartan Potassium [Cozaar -] 50 mg PO DAILY 02/17/18 Multivit-Min/FA/Lycopen/Lutein [Centrum Silver Tablet] 1 each PO DAILY 02/17/18 Family Disease History - Family Disease History Family Disease History: CA: Sister Physical Examination Vital Signs: Vital Signs Temperature 97.8 F 06/07/18 14:21 Pulse Rate 68 06/07/18 14:21 Respiratory Rate 16 06/07/18 14:21 Blood Pressure 110/75 06/07/18 14:21 O2 Sat by Pulse Oximetry (%) 98 06/07/18 14:21 Labs: CBC, BMP 06/07/18 14:06 06/07/18 14:06 Imaging - Results Chest X-ray: Pending Problem List - Problems (1) Pre-syncope Assessment/Plan: suspect vasovagal 2/2 dehydration/gi losses cardiac/neuro etiology unlikely IVF encourage po intake tele monitoring PT ordered Code(s): R55 - SYNCOPE AND COLLAPSE (2) Diarrhea Assessment/Plan: loose BMs x 2 days possibly 2/2 uti cdiff/stool culture ordered IVF/ lactose free diet as tolerated monitor Code(s): R19.7 - DIARRHEA, UNSPECIFIED (3) EDU (acute kidney injury) Assessment/Plan: pre renal IVF monitor Code(s): N17.9 - ACUTE KIDNEY FAILURE, UNSPECIFIED (4) Hypokalemia Assessment/Plan: 2/2 gi losses/poor po intake replete prn monitor bmp Code(s): E87.6 - HYPOKALEMIA (5) UTI (urinary tract infection) Assessment/Plan: UA+, UA neg considering poor po intake, diarrhea, presyncope, will treat wbcs wbl, afebrile ceftriaxone day 1 if tolerating diet, without deterioration, transition to po antibx Code(s): N39.0 - URINARY TRACT INFECTION, SITE NOT SPECIFIED Qualifiers: Urinary tract infection type: acute cystitis Hematuria presence: with hematuria Qualified Code(s): N30.01 - Acute cystitis with hematuria (6) Hypothyroidism Assessment/Plan: stable continue levothyroxine Code(s): E03.9 - HYPOTHYROIDISM, UNSPECIFIED Qualifiers: Hypothyroidism type: unspecified Qualified Code(s): E03.9 - Hypothyroidism , unspecified (7) Hyperlipidemia Assessment/Plan: stable continue statin Code(s): E78.5 - HYPERLIPIDEMIA, UNSPECIFIED Qualifiers: Hyperlipidemia type: pure hypercholesterolemia Qualified Code(s): E78.00 - Pure hypercholesterolemia, unspecified (8) HTN (hypertension) Assessment/Plan: controlled hypotensive here losartan per parameters monitor Code(s): I10 - ESSENTIAL (PRIMARY) HYPERTENSION Qualifiers: Hypertension type: essential hypertension Qualified Code(s): I10 - Essential (primary) hypertension (9) S/P AVR (aortic valve replacement) Assessment/Plan: coagulated on coumadin inr therapeutic monitor Code(s): Z95.2 - PRESENCE OF PROSTHETIC HEART VALVE
[2018-06-07] MEDS: SODIUM CHLORIDE 1,000 ML IV SCH (16:23)
[2018-06-07] MEDS ORDERED: WARFARIN NA 5 MG TABLET (UD) ONE (16:24)
[2018-06-07] MEDS: WARFARIN NA 2.5 MG TABLET (FP) PO SCH ×2 (16:24→18:16)
[2018-06-07 18:04] LABS: URINE APPEARANCE CLOUDY; URINE BILIRUBIN NEGATIVE (<2.0 mg/dL); URINE COLOR AMBER; URINE GLUCOSE (UA) NEGATIVE (NEGATIVE); URINE KETONE 1+ (NEGATIVE); URINE NITRITE NEGATIVE (NEGATIVE); URINE UROBILINOGEN 4.0 E.U/dl mg/dL (0.2-1.0)
[2018-06-07 18:12] LABS: URINE LEUK ESTERASE 3+ (NEGATIVE); URINE PROTEIN 2+ (NEGATIVE)
[2018-06-07 18:17] LABS: EPI CELLS FEW /HPF (FEW); URINE BACTERIA RARE /hpf (NONE SEEN); URINE HYALINE CAST 3 /lpf; URINE MUCUS FEW
[2018-06-07] MEDS ORDERED: POTASSIUM CHLORIDE TABS 20 MEQ TABLET.ER (FP) PO ONE (18:45)
[2018-06-07] MEDS ORDERED: cefTRIAXone SODIUM 1 GM VIAL ONE (21:50)
[2018-06-07] MEDS ORDERED: DEXTROSE 5%-WATER - 50 ML IVPB ONE (21:50)
[2018-06-07] MEDS: CEFTRIAXONE 1 GM in DEXTROSE 5%-WATER - 50 ML IVPB SCH (21:53)
[2018-06-07] MEDS: SOTALOL HCL 80 MG TABLET (FP) PO SCH (21:53)
[2018-06-07] MEDS: LACTOBACILLUS ACIDOPHILUS 1 TABLET PO SCH (21:53)
[2018-06-07] MEDS ORDERED: ROSUVASTATIN CA 5 MG TABLET (FP) PO SCH (22:00)
[2018-06-07] MEDS: ROSUVASTATIN CA 10 MG TABLET (FP) PO SCH (23:16)
[2018-06-08] MEDS: LEVOTHYROXINE NA 100 MCG TABLET (FP) PO SCH (06:22)
[2018-06-08 08:01] LABS: BASO % 0.2 % (0-2.0); EOS % 0.9 % (0-4.5); HEMATOCRIT 31.8 % (32.4-45.2); HEMOGLOBIN 10.5 GM/dL (10.7-15.3); LYMPH % 11.3 % (8-40); MCH 30.6 pg (25.7-33.7); MEAN PLT VOLUME 8.4 fl (7.5-11.1); MONO % 13.8 % (3.8-10.2); NEUT % 73.8 % (42.8-82.8); PLATELET COUNT 141 K/MM3 (134-434); RBC 3.42 M/mm3 (3.60-5.2); RDW 15.7 % (11.6-15.6); WHITE BLOOD COUNT 8.7 K/mm3 (4.0-10.0)
--- NOTE | 2018-06-08 08:30 | PN ---
Progress Note (short form) - Note Progress Note: Dr. Meyer/RECEIVING COORDINATOR Red to document today. No BM since admission. Await PT (She uses a walker at home). She is anxious to go home already.
[2018-06-08 08:53] LABS: ANION GAP 10 MMOL/L (8-16); BLOOD UREA NITROGEN 35 mg/dL (7-18); CALCIUM 8.7 mg/dL (8.5-10.1); CHLORIDE 117 mmol/L (98-107); CO2 20 mmol/L (21-32); CREATININE 0.7 mg/dL (0.55-1.3); GLUCOSE,RANDOM 75 mg/dL (74-106); MAGNESIUM 2.3 mg/dL (1.8-2.4); POTASSIUM 4.2 mmol/L (3.5-5.1); SODIUM 147 mmol/L (136-145)
[2018-06-08 09:16] LABS: INR 3.03 (0.83-1.09); PROTHROMBIN TIME (PATIENT) 34.2 SEC (9.7-13.0)
[2018-06-08] MEDS ORDERED: cefTRIAXone SODIUM 1 GM VIAL ONE (10:32)
[2018-06-08] MEDS ORDERED: DEXTROSE 5%-WATER - 50 ML IVPB ONE (10:32)
[2018-06-08] MEDS: CEFTRIAXONE 1 GM in DEXTROSE 5%-WATER - 50 ML IVPB SCH (10:42)
[2018-06-08] MEDS: SOTALOL HCL 80 MG TABLET (FP) PO SCH ×2 (10:42→21:42)
[2018-06-08] MEDS: LACTOBACILLUS ACIDOPHILUS 1 TABLET PO SCH (10:43)
[2018-06-08] MEDS: LOSARTAN POTASSIUM 25 MG TABLET PO SCH (10:43)
[2018-06-08] MEDS: ASPIRIN 81 MG CHEWABLE TABLETS PO SCH (10:43)
--- NOTE | 2018-06-08 11:06 | DS ---
Physical Examination Vital Signs: Vital Signs Temperature 98.2 F 06/08/18 06:00 Pulse Rate 66 06/08/18 06:00 Respiratory Rate 20 06/08/18 06:00 Blood Pressure 140/76 06/08/18 06:00 O2 Sat by Pulse Oximetry (%) 97 06/08/18 06:00 Constitutional: Yes: Well Nourished, No Distress, Calm Cardiovascular: Yes: Pulse Irregular Respiratory: Yes: WNL, Regular, CTA Bilaterally. No: Accessory Muscle Use, Rhonchi, SOB, Tachypnea, Wheezes Gastrointestinal: Yes: WNL, Normal Bowel Sounds, Soft. No: Distention, Tenderness Renal/: Yes: WNL Edema: No Neurological: Yes: WNL, Alert, Oriented Psychiatric: Yes: WNL, Alert, Oriented Labs: CBC, BMP 06/08/18 07:35 06/08/18 07:35 Discharge Summary Reason For Visit: PRE-SYNCOPE Current Active Problems Diarrhea (Acute) Hypokalemia (Acute) Pre-syncope (Acute) S/P AVR (aortic valve replacement) (Acute) Hospital Course: 83 year old female admitted for evaluation of pre syncope, diarrhea. Pt found to have UTI, dehydration. received 3 doses of ceftriaxone, transitioned to po keflex to complete 7 day course. Suspect vasovagal episode at home. UTI could' ve been contributory to diarrhea. Pt has not had any diarrhea for the last 48 hours, infectious etiology unlikely. Pt had an episode of rapid afib in 150s yesterday which resolved, pt asymptomatic. INR 3.87 today, advised to HOLD coumadin tonight and recheck INR on tuesday, PCP informed. No further events, pt tolerating diet, ambulated well with PT. Pt is medically stable for discharge home on po antibx. Condition: Stable - Instructions Diet, Activity, Other Instructions: resume diet, maintain hydration 2l/day eat meals, take antibx with food antibx bid x 4 days - start tomorrow HOLD COUMADIN TONIGHT, RESTART TOMORROW NIGHT, CHECK BLOOD WORK ON TUESDAY f/u as directed Referrals: Dayne Grullon MD [Primary Care Provider] - 1 Week Disposition: HOME - Home Medications Comprehensive Discharge Medication List: Ambulatory Orders Aspirin [ASA -] 81 mg PO DAILY #0 tab.chew 07/03/12 Calcium Carb/Vit D3/Minerals [Caltrate-600 with Vit D Tab] 1 each PO DAILY #0 tablet 07/03/12 Cyanocobalamin Vit B-12 Inj. [Vitamin B12 Injection -] 1,000 mcg IJ MONTHLY #0 vial 07/03/12 Multivitamin W/Iron, Minerals [Centrum] 1 tab PO DAILY #0 liquid 07/03/12 Rosuvastatin Calcium [Crestor] 5 mg PO HS #0 tablet 07/03/12 Sotalol HCl [Sotalol] 80 mg PO BID #0 tablet 07/03/12 Levothyroxine [Synthroid -] 100 mcg PO MOTUWETH 10/09/15 Warfarin Sodium [Coumadin] 2.5 mg PO DAILY #0 tablet 10/10/15 Losartan Potassium [Cozaar -] 50 mg PO DAILY 02/17/18 Multivit-Min/FA/Lycopen/Lutein [Centrum Silver Tablet] 1 each PO DAILY 02/17/18 Cephalexin [Keflex] 500 mg PO BID 5 Days #10 capsule 06/08/18 Lactobacillus Acidophilus [Bacid -] 1 tab PO DAILY #7 tab 06/08/18
--- NOTE | 2018-06-08 11:41 | CON.CARD ---
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 The patient denies any shortness of breath, palpitations, dyspnea worse than baseline, true syncope, orthopnea, PND or LE edema. - History Source History Provided By: Patient Limitations to Obtaining History: No Limitations - Past Medical History Cardio/Vascular: Yes: AFIB, HTN, Hyperlipdemia ...: No Infectious Disease: Yes: Herpes Zoster Musculoskeletal: Yes: Osteoarthritis - Past Surgical History Past Surgical History: Yes: Cholecystectomy, Valve Replacement (Aortic) - Alcohol/Substance Use Hx Alcohol Use: No History of Substance Use: reports: None - Smoking History Smoking history: Former smoker Have you smoked in the past 12 months: No Aproximately how many cigarettes per day: 0 - Social History ADL: Independent History of Recent Travel: No Home Medications - Allergies Allergies/Adverse Reactions: Allergies Allergy/AdvReac Type Severity Reaction Status Date / Time sulfamethoxazole Allergy Severe Rash Verified 06/07/18 12:29 [From Bactrim] trimethoprim [From Bactrim] Allergy Severe Rash Verified 06/07/18 12:29 - Home Medications Home Medications: Ambulatory Orders Aspirin [ASA -] 81 mg PO DAILY #0 tab.chew 07/03/12 Calcium Carb/Vit D3/Minerals [Caltrate-600 with Vit D Tab] 1 each PO DAILY #0 tablet 07/03/12 Cyanocobalamin Vit B-12 Inj. [Vitamin B12 Injection -] 1,000 mcg IJ MONTHLY #0 vial 07/03/12 Multivitamin W/Iron, Minerals [Centrum] 1 tab PO DAILY #0 liquid 07/03/12 Rosuvastatin Calcium [Crestor] 5 mg PO HS #0 tablet 07/03/12 Sotalol HCl [Sotalol] 80 mg PO BID #0 tablet 07/03/12 Levothyroxine [Synthroid -] 100 mcg PO MOTUWETH 10/09/15 Warfarin Sodium [Coumadin] 2.5 mg PO DAILY #0 tablet 10/10/15 Losartan Potassium [Cozaar -] 50 mg PO DAILY 02/17/18 Multivit-Min/FA/Lycopen/Lutein [Centrum Silver Tablet] 1 each PO DAILY 02/17/18 Cephalexin [Keflex] 500 mg PO BID 5 Days #10 capsule 06/08/18 Lactobacillus Acidophilus [Bacid -] 1 tab PO DAILY #7 tab 06/08/18 Family Disease History - Family Disease History Family Disease History: CA: Sister Review of Systems - Review of Systems Neck: reports: No Symptoms Cardiovascular: reports: No Symptoms Respiratory: reports: No Symptoms Gastrointestinal: reports: Diarrhea Genitourinary: reports: No Symptoms Musculoskeletal: reports: No Symptoms Integumentary: reports: No Symptoms Neurological: reports: No Symptoms Endocrine: reports: No Symptoms Vital Signs: Vital Signs Temperature 98.2 F 06/08/18 06:00 Pulse Rate 66 06/08/18 06:00 Respiratory Rate 20 06/08/18 06:00 Blood Pressure 140/76 06/08/18 06:00 O2 Sat by Pulse Oximetry (%) 97 06/08/18 06:00 Constitutional: Yes: No Distress, Calm Neck: Yes: Supple Respiratory: Yes: Regular, CTA Bilaterally Gastrointestinal: Yes: Normal Bowel Sounds, Soft Cardiovascular: Yes: Tachycardia, Pulse Irregular JVD: No Carotid Bruit: No Heart Sounds: Yes: S1, S2 Murmur: Yes: Systolic Murmur, Grade 2 Edema: No - Other Data Labs, Other Data: CBC, BMP 06/08/18 07:35 06/08/18 07:35 INR, PTT INR 3.03 (0.83-1.09) H 06/08/18 07:35 Troponin, BNP 06/07/18 06/07/18 06/08/18 14:06 22:10 07:30 Troponin I 0.06 H 0.04 Cancelled 06/08/18 07:35 Troponin I 0.04 Troponin, BNP 06/07/18 06/07/18 06/08/18 14:06 22:10 07:30 Troponin I 0.06 H 0.04 Cancelled 06/08/18 07:35 Troponin I 0.04 Rapid afib->NSR @ 62 QTc 432 msec Imaging - Results Chest X-ray: Report Reviewed (NAD) Problem List - Problems (1) Microalbuminuria Code(s): R80.9 - PROTEINURIA, UNSPECIFIED (2) Diarrhea Code(s): R19.7 - DIARRHEA, UNSPECIFIED Qualifiers: Diarrhea type: unspecified type Qualified Code(s): R19.7 - Diarrhea, unspecified (3) S/P AVR (aortic valve replacement) Code(s): Z95.2 - PRESENCE OF PROSTHETIC HEART VALVE (4) Anticoagulation adequate with anticoagulant therapy Code(s): Z79.01 - BASEBALL COACH (CURRENT) USE OF 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 (5) Aortic stenosis, moderate Code(s): I35.0 - NONRHEUMATIC AORTIC (VALVE) STENOSIS (6) Diastolic dysfunction Code(s): I51.9 - HEART DISEASE, UNSPECIFIED (7) Hyperlipidemia Code(s): E78.5 - HYPERLIPIDEMIA, UNSPECIFIED Qualifiers: Hyperlipidemia type: pure hypercholesterolemia Qualified Code(s): E78.00 - Pure hypercholesterolemia, unspecified (8) Hypertensive cardiomegaly without heart failure Code(s): I11.9 - HYPERTENSIVE HEART DISEASE WITHOUT HEART FAILURE (9) Paroxysmal atrial fibrillation Code(s): I48.0 - PAROXYSMAL ATRIAL FIBRILLATION (10) Status post aortic aneurysm repair Code(s): Z98.89 - OTHER SPECIFIED POSTPROCEDURAL STATES * DO NOT USE *; Z86.79 - PERSONAL HISTORY OF OTHER DISEASES OF THE CIRCULATORY SYSTEM (11) Status post aortic valve replacement with bioprosthetic valve during current hospitalization Code(s): Z95.4 - PRESENCE OF OTHER HEART-VALVE REPLACEMENT (12) UTI (urinary tract infection) Code(s): N39.0 - URINARY TRACT INFECTION, SITE NOT SPECIFIED Qualifiers: Urinary tract infection type: acute cystitis Hematuria presence: with hematuria Qualified Code(s): N30.01 - Acute cystitis with hematuria (13) Hypothyroidism Code(s): E03.9 - HYPOTHYROIDISM, UNSPECIFIED Qualifiers: Hypothyroidism type: unspecified Qualified Code(s): E03.9 - Hypothyroidism , unspecified Assessment/Plan Echocardiography 01/12/2018 revealed concentric left ventricular hypertrophy with normal left ventricular size and systolic function and estimated left ventricular ejection fraction between 70-75%, borderline bi-atrial dilatation, mild mitral valve regurgitation, mild tricuspid valve regurgitation with calculated RVSP of 25 mmHg, bio-prosthetic aortic valve with a mean trans- valvular gradient of 23.8 mmHg and a peak transvalvular gradient of 38.9 mmHg and trace aortic valve regurgitation. 01/17/2018 Echo: Normal biventricular size and fxn, mod elevated gradient across AV prosthesis MG 33 mmHg, PG 55 mmHg Pharmacologic Lexiscan myocardial perfusion imaging study performed December 08, 2016 revealed small size apical wall defect compatible with apical thinning with normal left ventricular contraction pattern on LV gated analysis with calculated left ventricular ejection fraction of 74% at rest and 73% post Lexiscan infusion. Carotid Dopplers with L possibly 50-70% ICA stenosis 1. PAF with RVR now in sinus rhythm [id number] of 5 with therapeutic INR 2. 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 HTN/HCVD 4. Hyperlipidemia 5. Mild carotid stenosis 6. Hypothyroidism 7. Microalbuminuria 8. Diastolic dysfunction 9. UTI PLAN: 1. Continue Sotalol 80 bid with Cardizem IV as needed for rate-control 2. Continue Crestor 5 qhs and Losartan 50 qd. 3. Dose Coumadin to keep INR 2-3 4. Abx prophylaxis against endocarditis, complete empiric abx course for UTI 5. If remains rate-controlled or in NSR, may d/c with f/u in office with Dr. Morris [phone]
[2018-06-08] MEDS ORDERED: dilTIAZem HCL 50 MG/10 ML - 10 ML VIAL IVPUSH PRN (11:58)
--- NOTE | 2018-06-08 13:47 | PN ---
Progress Note, Physician Chief Complaint: Pt sitting in chair in no acute distress. has not had any diarrhea, tolerating diet. ambulating. Denies any chest pain, sob, n/v/d upon interaction, noted pt to go into rapid afib to 150s, pt asymptomatic. received sotalol, resolved - Current Medication List Current Medications: Active Medications Aspirin (Asa -) 81 mg PO DAILY [facility] Last Admin: 06/08/18 10:43 Dose: 81 mg Diltiazem HCl (Cardizem Injection -) 10 mg IVPUSH Q4H PRN PRN Reason: TACHYCARDIA Sodium Chloride (Normal Saline -) 1,000 mls @ 50 mls/hr IV ASDIR [facility] Stop: 06/08/18 16:17 Last Admin: 06/07/18 16:23 Dose: 50 mls/hr Ceftriaxone Sodium 1 gm/ (Dextrose) 50 mls @ 100 mls/hr IVPB DAILY [facility]; Protocol Last Admin: 06/08/18 10:42 Dose: 100 mls/hr Lactobacillus Acidophilus (Bacid -) 1 tab PO DAILY [facility] Last Admin: 06/08/18 10:43 Dose: 1 tab Levothyroxine Sodium (Synthroid -) 100 mcg PO 0700 [facility] Last Admin: 06/08/18 06:22 Dose: 100 mcg Losartan Potassium (Cozaar -) 50 mg PO DAILY [facility] Last Admin: 06/08/18 10:43 Dose: 50 mg Rosuvastatin Calcium (Crestor -) 5 mg PO HS [facility] Last Admin: 06/07/18 23:16 Dose: 5 mg Sotalol HCl (Betapace -) 80 mg PO BID [facility] Last Admin: 06/08/18 10:42 Dose: 80 mg Warfarin Sodium (Coumadin -) 2.5 mg PO 1800 [facility] Last Admin: 06/07/18 18:16 Dose: Not Given - Objective Vital Signs: Vital Signs Temperature 97.7 F 06/08/18 10:00 Pulse Rate 68 06/08/18 10:00 Respiratory Rate 18 06/08/18 13:22 Blood Pressure 128/63 06/08/18 10:00 O2 Sat by Pulse Oximetry (%) 96 06/08/18 13:22 Constitutional: Yes: Well Nourished, No Distress, Calm Cardiovascular: Yes: Pulse Irregular, Murmur Respiratory: Yes: WNL, Regular, CTA Bilaterally. No: Accessory Muscle Use, Rhonchi, SOB, Tachypnea, Wheezes Gastrointestinal: Yes: WNL, Normal Bowel Sounds, Soft. No: Distention, Tenderness Genitourinary: Yes: WNL Extremities: Yes: WNL Edema: No Neurological: Yes: WNL, Alert, Oriented Psychiatric: Yes: WNL, Alert, Oriented Labs: CBC, BMP 06/08/18 07:35 06/08/18 07:35 INR, PTT INR 3.03 (0.83-1.09) H 06/08/18 07:35 Problem List - Problems (1) Pre-syncope Code(s): R55 - SYNCOPE AND COLLAPSE (2) Diarrhea Code(s): R19.7 - DIARRHEA, UNSPECIFIED Qualifiers: Diarrhea type: unspecified type Qualified Code(s): R19.7 - Diarrhea, unspecified (3) EDU (acute kidney injury) Code(s): N17.9 - ACUTE KIDNEY FAILURE, UNSPECIFIED (4) Hypokalemia Code(s): E87.6 - HYPOKALEMIA (5) UTI (urinary tract infection) Code(s): N39.0 - URINARY TRACT INFECTION, SITE NOT SPECIFIED Qualifiers: Urinary tract infection type: acute cystitis Hematuria presence: with hematuria Qualified Code(s): N30.01 - Acute cystitis with hematuria (6) Hypothyroidism Code(s): E03.9 - HYPOTHYROIDISM, UNSPECIFIED Qualifiers: Hypothyroidism type: unspecified Qualified Code(s): E03.9 - Hypothyroidism , unspecified (7) Hyperlipidemia Code(s): E78.5 - HYPERLIPIDEMIA, UNSPECIFIED Qualifiers: Hyperlipidemia type: pure hypercholesterolemia Qualified Code(s): E78.00 - Pure hypercholesterolemia, unspecified (8) HTN (hypertension) Code(s): I10 - ESSENTIAL (PRIMARY) HYPERTENSION Qualifiers: Hypertension type: essential hypertension Qualified Code(s): I10 - Essential (primary) hypertension (9) S/P AVR (aortic valve replacement) Code(s): Z95.2 - PRESENCE OF PROSTHETIC HEART VALVE (10) Paroxysmal A-fib Code(s): I48.0 - PAROXYSMAL ATRIAL FIBRILLATION Assessment/Plan (1) Pre-syncope Assessment/Plan: suspect vasovagal 2/2 dehydration/gi losses stable, ambulated well with PT pt refuses home VNS, pt prefers outpt PT Code(s): R55 - SYNCOPE AND COLLAPSE (2) Diarrhea Assessment/Plan: infec etiology unlikely no episode over the last 24 hours monitor Code(s): R19.7 - DIARRHEA, UNSPECIFIED (3) EDU (acute kidney injury) Assessment/Plan: improved, pre renal po intake monitor Code(s): N17.9 - ACUTE KIDNEY FAILURE, UNSPECIFIED (4) Hypokalemia Assessment/Plan: improved Code(s): E87.6 - HYPOKALEMIA (5) UTI (urinary tract infection) Assessment/Plan: UA+, UC neg wbcs wbl, afebrile ceftriaxone day 2 if tolerating diet, without deterioration, transition to po antibx Code(s): N39.0 - URINARY TRACT INFECTION, SITE NOT SPECIFIED Qualifiers: Urinary tract infection type: acute cystitis Hematuria presence: with hematuria Qualified Code(s): N30.01 - Acute cystitis with hematuria (6) Hypothyroidism Assessment/Plan: stable continue levothyroxine Code(s): E03.9 - HYPOTHYROIDISM, UNSPECIFIED Qualifiers: Hypothyroidism type: unspecified Qualified Code(s): E03.9 - Hypothyroidism , unspecified (7) Hyperlipidemia Assessment/Plan: stable continue statin Code(s): E78.5 - HYPERLIPIDEMIA, UNSPECIFIED Qualifiers: Hyperlipidemia type: pure hypercholesterolemia Qualified Code(s): E78.00 - Pure hypercholesterolemia, unspecified (8) HTN (hypertension) Assessment/Plan: controlled losartan per parameters Code(s): I10 - ESSENTIAL (PRIMARY) HYPERTENSION Qualifiers: Hypertension type: essential hypertension Qualified Code(s): I10 - Essential (primary) hypertension (9) S/P AVR (aortic valve replacement) Assessment/Plan: coagulated on coumadin inr therapeutic monitor Code(s): Z95.2 - PRESENCE OF PROSTHETIC HEART VALVE (10) Paroxysmal A-fib Assessment/Plan: episode of rapid afib this am hr to 150s, resolved pt asymptomatic cardiology consult appreciated Code(s): I48.0 - PAROXYSMAL ATRIAL FIBRILLATION Dispo: home tomorrow am if no clinical changes. pt requires 24 hour monitoring
--- NOTE | 2018-06-08 14:38 | EKG ---
Test Reason : Blood Pressure : / mmHG Vent. Rate : 062 BPM Atrial Rate : 062 BPM P-R Int : 140 ms QRS Dur : 084 ms QT Int : 426 ms P-R-T Axes : 023 -08 008 degrees QTc Int : 432 ms NORMAL SINUS RHYTHM INFERIOR INFARCT (CITED ON OR BEFORE 16-NOV-2016) ABNORMAL ECG WHEN COMPARED WITH ECG OF 07-JUN-2018 12:35, PREMATURE ATRIAL COMPLEXES ARE NO LONGER PRESENT T WAVE AMPLITUDE HAS INCREASED IN ANTEROLATERAL LEADS Confirmed by PALMER ELLINGTON MD ([id number]) on 06/08/2018 2:38:21 PM Referred By: HUBERT SCOTT Confirmed By:PALMER ELLINGTON MD
[2018-06-08] MEDS: WARFARIN NA 2.5 MG TABLET (FP) PO SCH ×2 (17:04→18:40)
[2018-06-08] MEDS: ROSUVASTATIN CA 10 MG TABLET (FP) PO SCH (21:42)
[2018-06-08] MEDS: SODIUM CHLORIDE 1,000 ML IV SCH (21:43)
[2018-06-09] MEDS: LEVOTHYROXINE NA 100 MCG TABLET (FP) PO SCH (06:35)
[2018-06-09 06:59] LABS: BASO % 0.5 % (0-2.0); EOS % 2.2 % (0-4.5); HEMATOCRIT 30.5 % (32.4-45.2); HEMOGLOBIN 10.1 GM/dL (10.7-15.3); LYMPH % 12.1 % (8-40); MCH 30.4 pg (25.7-33.7); MCHC 33.1 g/dl (32.0-36.0); MEAN CELL VOLUME 91.8 fl (80-96); MEAN PLT VOLUME 8.1 fl (7.5-11.1); MONO % 13.3 % (3.8-10.2); NEUT % 71.9 % (42.8-82.8); PLATELET COUNT 143 K/MM3 (134-434); RBC 3.32 M/mm3 (3.60-5.2); RDW 15.4 % (11.6-15.6); WHITE BLOOD COUNT 6.9 K/mm3 (4.0-10.0)
[2018-06-09 07:05] LABS: INR 3.87 (0.83-1.09); PROTHROMBIN TIME (PATIENT) 43.7 SEC (9.7-13.0)
[2018-06-09 07:16] LABS: ANION GAP 5 MMOL/L (8-16); BLOOD UREA NITROGEN 31 mg/dL (7-18); CALCIUM 8.1 mg/dL (8.5-10.1); CHLORIDE 114 mmol/L (98-107); CO2 25 mmol/L (21-32); CREATININE 0.7 mg/dL (0.55-1.3); GLUCOSE,RANDOM 89 mg/dL (74-106); MAGNESIUM 2.2 mg/dL (1.8-2.4); POTASSIUM 3.6 mmol/L (3.5-5.1); SODIUM 144 mmol/L (136-145)
[2018-06-09] MEDS ORDERED: cefTRIAXone SODIUM 1 GM VIAL ONE (08:36)
[2018-06-09] MEDS ORDERED: DEXTROSE 5%-WATER - 50 ML IVPB ONE (08:36)
--- NOTE | 2018-06-09 08:55 | PN ---
Progress Note (short form) - Note Progress Note: CARLOS Moon to document today and D/C. Await final urine C/S. No events overnite. I gave her a Rx for outpt PT for Gait and Balance
[2018-06-09] MEDS: SOTALOL HCL 80 MG TABLET (FP) PO SCH (09:08)
[2018-06-09] MEDS: ASPIRIN 81 MG CHEWABLE TABLETS PO SCH (09:08)
[2018-06-09] MEDS: LACTOBACILLUS ACIDOPHILUS 1 TABLET PO SCH (09:08)
[2018-06-09] MEDS: LOSARTAN POTASSIUM 25 MG TABLET PO SCH (09:09)
[2018-06-09] MEDS: CEFTRIAXONE 1 GM in DEXTROSE 5%-WATER - 50 ML IVPB SCH (09:10)
[2018-06-09] MEDS ORDERED: POTASSIUM CHLORIDE TABS 20 MEQ TABLET.ER (FP) PO ONE (09:13)
--- NOTE | 2018-06-09 11:27 | PN ---
Progress Note, Physician History of Present Illness: Remains in SR overnight, asymptomatic. - Current Medication List Current Medications: Active Medications Aspirin (Asa -) 81 mg PO DAILY [facility] Last Admin: 06/09/18 09:08 Dose: 81 mg Diltiazem HCl (Cardizem Injection -) 10 mg IVPUSH Q4H PRN PRN Reason: TACHYCARDIA Ceftriaxone Sodium 1 gm/ (Dextrose) 50 mls @ 100 mls/hr IVPB DAILY [facility]; Protocol Last Admin: 06/09/18 09:10 Dose: 100 mls/hr Lactobacillus Acidophilus (Bacid -) 1 tab PO DAILY [facility] Last Admin: 06/09/18 09:08 Dose: 1 tab Levothyroxine Sodium (Synthroid -) 100 mcg PO 0700 [facility] Last Admin: 06/09/18 06:35 Dose: 100 mcg Losartan Potassium (Cozaar -) 50 mg PO DAILY [facility] Last Admin: 06/09/18 09:09 Dose: 50 mg Rosuvastatin Calcium (Crestor -) 5 mg PO HS [facility] Last Admin: 06/08/18 21:42 Dose: 5 mg Sotalol HCl (Betapace -) 80 mg PO BID [facility] Last Admin: 06/09/18 09:08 Dose: 80 mg Warfarin Sodium (Coumadin -) 2.5 mg PO 1800 [facility] Last Admin: 06/08/18 18:40 Dose: 2.5 mg - Objective Vital Signs: Vital Signs Temperature 98 F 06/09/18 05:00 Pulse Rate 61 06/09/18 05:00 Respiratory Rate 18 06/09/18 05:00 Blood Pressure 155/77 06/09/18 05:00 O2 Sat by Pulse Oximetry (%) 95 06/08/18 22:00 Constitutional: Yes: No Distress, Calm, Thin Neck: Yes: Supple Cardiovascular: Yes: Regular Rate and Rhythm, Murmur (2/6 SM) Respiratory: Yes: Regular, CTA Bilaterally Gastrointestinal: Yes: Normal Bowel Sounds, Soft Edema: No Labs: CBC, BMP 06/09/18 05:30 06/09/18 05:30 INR, PTT INR 3.87 (0.83-1.09) H 06/09/18 05:30 - ....Imaging EKG: Report Reviewed (Tele: PAF->SR) Problem List - Problems (1) Microalbuminuria Code(s): R80.9 - PROTEINURIA, UNSPECIFIED (2) Diarrhea Code(s): R19.7 - DIARRHEA, UNSPECIFIED Qualifiers: Diarrhea type: unspecified type Qualified Code(s): R19.7 - Diarrhea, unspecified (3) S/P AVR (aortic valve replacement) Code(s): Z95.2 - PRESENCE OF PROSTHETIC HEART VALVE (4) Anticoagulation adequate with anticoagulant therapy Code(s): Z79.01 - FILTER HELPER (CURRENT) USE OF 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 (5) Aortic stenosis, moderate Code(s): I35.0 - NONRHEUMATIC AORTIC (VALVE) STENOSIS (6) Diastolic dysfunction Code(s): I51.9 - HEART DISEASE, UNSPECIFIED (7) Hyperlipidemia Code(s): E78.5 - HYPERLIPIDEMIA, UNSPECIFIED Qualifiers: Hyperlipidemia type: pure hypercholesterolemia Qualified Code(s): E78.00 - Pure hypercholesterolemia, unspecified (8) Hypertensive cardiomegaly without heart failure Code(s): I11.9 - HYPERTENSIVE HEART DISEASE WITHOUT HEART FAILURE (9) Paroxysmal atrial fibrillation Code(s): I48.0 - PAROXYSMAL ATRIAL FIBRILLATION (10) Status post aortic aneurysm repair Code(s): Z98.89 - OTHER SPECIFIED POSTPROCEDURAL STATES * DO NOT USE *; Z86.79 - PERSONAL HISTORY OF OTHER DISEASES OF THE CIRCULATORY SYSTEM (11) Status post aortic valve replacement with bioprosthetic valve during current hospitalization Code(s): Z95.4 - PRESENCE OF OTHER HEART-VALVE REPLACEMENT (12) UTI (urinary tract infection) Code(s): N39.0 - URINARY TRACT INFECTION, SITE NOT SPECIFIED Qualifiers: Urinary tract infection type: acute cystitis Hematuria presence: with hematuria Qualified Code(s): N30.01 - Acute cystitis with hematuria (13) Hypothyroidism Code(s): E03.9 - HYPOTHYROIDISM, UNSPECIFIED Qualifiers: Hypothyroidism type: unspecified Qualified Code(s): E03.9 - Hypothyroidism , unspecified Assessment/Plan Echocardiography 01/12/2018 revealed concentric left ventricular hypertrophy with normal left ventricular size and systolic function and estimated left ventricular ejection fraction between 70-75%, borderline bi-atrial dilatation, mild mitral valve regurgitation, mild tricuspid valve regurgitation with calculated RVSP of 25 mmHg, bio-prosthetic aortic valve with a mean trans- valvular gradient of 23.8 mmHg and a peak transvalvular gradient of 38.9 mmHg and trace aortic valve regurgitation. 01/17/2018 Echo: Normal biventricular size and fxn, mod elevated gradient across AV prosthesis MG 33 mmHg, PG 55 mmHg Pharmacologic Lexiscan myocardial perfusion imaging study performed December 08, 2016 revealed small size apical wall defect compatible with apical thinning with normal left ventricular contraction pattern on LV gated analysis with calculated left ventricular ejection fraction of 74% at rest and 73% post Lexiscan infusion. Carotid Dopplers with L possibly 50-70% ICA stenosis 1. PAF with RVR now in sinus rhythm [id number] of 5 with supratherapeutic INR 2. 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 HTN/HCVD 4. Hyperlipidemia 5. Mild carotid stenosis 6. Hypothyroidism 7. Microalbuminuria 8. Diastolic dysfunction 9. UTI PLAN: 1. Continue Sotalol 80 bid 2. Continue Crestor 5 qhs and Losartan 50 qd. 3. Dose Coumadin to keep INR 2-3 4. Abx prophylaxis against endocarditis, complete empiric abx course for UTI 5. January d/c with f/u in office with Dr. Morris [phone]
[2018-06-09 19:45] VITALS: BP 149/72; PULSE 60; TEMP 98.8
== END 2018-06-09 19:39 | disposition home or self-care (01) | DRG 690 ==
LOC: JER 12:10 → JERBED 15:21 → J4W 21:15 → OBSVTOIN 06-08 14:52
PROVIDERS: ADMIT Internal Medicine; ATTEND Internal Medicine
DX: N39.0 Urinary tract infection, site not specified (principal); N17.9 Acute kidney failure, unspecified; R55 Syncope and collapse; I48.0 Paroxysmal atrial fibrillation; E86.0 Dehydration; R19.7 Diarrhea, unspecified; E87.6 Hypokalemia; I10 Essential (primary) hypertension; Z95.2 Presence of prosthetic heart valve; E03.9 Hypothyroidism, unspecified; Z95.3 Presence of xenogenic heart valve; K57.30 Diverticulosis of large intestine without perforation or abscess without bleeding; I48.2 Chronic atrial fibrillation; Z87.891 Personal history of nicotine dependence; Z79.01 Long term (current) use of anticoagulants; D51.0 Vitamin B12 deficiency anemia due to intrinsic factor deficiency
CPT/HCPCS: 36415; 71045-TC-FY; 80048; 80053; 81003; 81015; 82272; 82550; 82962; 83735; 84100; 84484; 85025; 85610; 87086; 87186; 93005; 93010; 97116-GP; 97161-GP; 99285-25; G0378; J7030

== ENCOUNTER 2018-10-28 15:11 | Emergency (ER) | payer OTHER, BC ==
[2018-10-28 15:18] VITALS: BP 186/108; PULSE 64; TEMP 98; BMI 32.9
--- NOTE | 2018-10-28 16:06 | PDOC ---
History of Present Illness - General Chief Complaint: Injury Stated Complaint: FALL - History of Present Illness Initial Comments: The patient is an 83F w/ a history of a-fib (coumadin), OA, multiple falls in the past, and anemia who presents s/p fall from standing. She states she was getting her walker out of her car when she tripped over it and her left arm was trapped under it. She denies hitting her head or LOC. In the ED she denies new pain in her shoulder. Denies decreased ROM. Denies recent illness, fevers/chills, ORTEGA, vision changes, chest pain, SOB, abdominal pain, other new MSK pain, or changes in sensation or strength Has not taken her coumadin today PMH: AFIB, HTN, Hyperlipdemia, Anemia (pernicious), B12 Deficiency, Herpes Zoster, Osteoarthritis 10/28/18 16:06 Past History - Past Medical History Allergies/Adverse Reactions: Allergies Allergy/AdvReac Type Severity Reaction Status Date / Time sulfamethoxazole Allergy Severe Rash Verified 10/28/18 15:18 [From Bactrim] trimethoprim [From Bactrim] Allergy Severe Rash Verified 10/28/18 15:18 Home Medications: Ambulatory Orders Aspirin [ASA -] 81 mg PO DAILY #0 tab.chew 07/03/12 Calcium Carb/Vit D3/Minerals [Caltrate-600 with Vit D Tab] 1 each PO DAILY #0 tablet 07/03/12 Cyanocobalamin Vit B-12 Inj. [Vitamin B12 Injection -] 1,000 mcg IJ MONTHLY #0 vial 07/03/12 Multivitamin W/Iron, Minerals [Centrum] 1 tab PO DAILY #0 liquid 07/03/12 Rosuvastatin Calcium [Crestor] 5 mg PO HS #0 tablet 07/03/12 Sotalol HCl [Sotalol] 80 mg PO BID #0 tablet 07/03/12 Levothyroxine [Synthroid -] 100 mcg PO MOTUWETH 10/09/15 Warfarin Sodium [Coumadin] 2.5 mg PO DAILY #0 tablet 10/10/15 Losartan Potassium [Cozaar -] 50 mg PO DAILY 02/17/18 Aspirin [Martin Chewable] 81 mg PO DAILY 10/28/18 Levothyroxine [Synthroid -] 150 mcg PO ASDIR 10/28/18 Anemia: Yes Asthma: No Cancer: No Cardiac Disorders: Yes (CHRONIC ATRIAL FIBRILLATION, ARTIFICAL AORTIC VALVE) CVA: No COPD: No CHF: No Dementia: No Diabetes: No GI Disorders: Yes (GASTRIC CARCINOID, COLON ADENOMAS) Disorders: No HTN: Yes Hypercholesterolemia: Yes Liver Disease: No Seizures: No Thyroid Disease: Yes (HYPOTHYROIDISM) - Surgical History Abdominal Surgery: Yes Appendectomy: No Cardiac Surgery: Yes (BOVINE AVR 2006-[facility]) Cholecystectomy: Yes (OPEN CHOLECYSTECTOMY) Lung Surgery: No Neurologic Surgery: No Orthopedic Surgery: Yes (BILATERAL CARPAL TUNNEL RELEASE) - Suicide/Smoking/Psychosocial Hx Smoking Status: No Smoking History: Never smoked Have you smoked in the past 12 months: No Number of Cigarettes Smoked Daily: 0 Information on smoking cessation initiated: No Hx Alcohol Use: No Drug/Substance Use Hx: No Substance Use Type: None Hx Substance Use Treatment: No Review of Systems - Review of Systems Able to Perform ROS?: Yes Comments:: GENERAL/CONSTITUTIONAL: No fever or chills. No weakness HEAD, EYES, EARS, NOSE AND THROAT: No change in vision. No ear pain or discharge. No sore throat CARDIOVASCULAR: No chest pain or shortness of breath RESPIRATORY: Denies cough, hemoptysis GASTROINTESTINAL: No nausea, vomiting, diarrhea or constipation GENITOURINARY: No dysuria, frequency, or change in urination MUSCULOSKELETAL: per HPI SKIN: No rash NEUROLOGIC: No headache, vertigo, loss of consciousness, or change in strength/ sensation ENDOCRINE: No increased thirst. No abnormal weight change HEMATOLOGIC/LYMPHATIC: No anemia, easy bleeding, or history of blood clots ALLERGIC/IMMUNOLOGIC: No hives or skin allergy 10/28/18 16:05 Is the patient limited Hungarian proficient: No *Physical Exam - Vital Signs Last Vital Signs Temp Pulse Resp BP Pulse Ox 98 F 64 18 186/108 H 98 10/28/18 15:16 10/28/18 15:16 10/28/18 15:16 10/28/18 15:16 10/28/18 15:16 - Physical Exam Comments: GENERAL: Awake, alert, and fully oriented, in no acute distress HEAD: No signs of trauma, normocephalic, atraumatic EYES: PERRLA, EOMI, sclera anicteric, conjunctiva clear ENT: Hearing grossly normal, nares patent, oropharynx clear without exudates. No uvular deviation. Moist mucosa LUNGS: No distress, speaks full sentences, clear to auscultation bilaterally HEART: Regular rate and irregularly irregular rhythm, normal S1 and S2, no murmurs appreciated, peripheral pulses normal and equal bilaterally ABDOMEN: Soft, nontender, normoactive bowel sounds. No guarding, no rebound EXTREMITIES : Normal inspection, Normal range of motion, no edema. No clubbing or cyanosis. NEUROLOGICAL: Cranial nerves II through XII grossly intact. Normal speech, normal gait, no focal sensorimotor deficits SKIN: Warm, Dry. No R shoulder ecchymosis 10/28/18 16:05 Moderate Sedation - Procedure Monitoring Vital Signs: Procedure Monitoring Vital Signs Temperature 98 F 10/28/18 15:16 Pulse Rate 64 10/28/18 15:16 Respiratory Rate 18 10/28/18 15:16 Blood Pressure 186/108 H 10/28/18 15:16 O2 Sat by Pulse Oximetry (%) 98 10/28/18 15:16 Medical Decision Making - Medical Decision Making The pt is an 83F w/ a history of a-fib (coumadin), history of falls, who presents for evaluation s/p mechanical fall from standing ED Course R shoulder XR Patient denies hitting her head, remembers all of the events, and no abrasions/ ecchymosis on her head. Will not obtain a CT head as patient is a reliable historian denying head trauma Shoulder XR w/o new acute pathology, old humeral head fx seen Plan for D/C w/ PCP f/u Discharge instructions and return precautions given Patient in agreement and verbalized understanding Dispo: home 10/28/18 16:29 *DC/Admit/Observation/Transfer Diagnosis at time of Disposition: Fall from standing Qualifiers: Encounter type: initial encounter Qualified Code(s): W19.XXXA - Unspecified fall, initial encounter - Discharge Dispostion Disposition: HOME Condition at time of disposition: Stable Decision to Admit order: No - Referrals Referrals: Dayne Grullon MD [Primary Care Provider] - - Patient Instructions Printed Discharge Instructions: How to Prevent Falls Additional Instructions: You were seen in the Emergency Department for evaluation after fall from standing. Your X-ray was negative for acute fracture. You may take Tylenol or Ibuprofen for pain as needed as directed on the bottle. Review the handout provided at discharge. Follow up with your primary care provider within the next 3-5 days. Return to the Emergency Department if you develop fevers/chills, weakness, changes in sensation, repeat falls, injury to your head, or any new/concerning symptoms. - Post Discharge Activity
--- NOTE | 2018-10-28 16:28 | PDOC ---
Attending Attestation - Resident Resident Name: Kyle Mitchell - ED Attending Attestation I have performed the following: I have examined & evaluated the patient, The case was reviewed & discussed with the resident, I agree w/resident's findings & plan, Exceptions are as noted - HPI HPI: 10/28/18 16:25 83y F hx of afib, sp valve replacement(on coumadin), tripped over her walker as she took it out of the back seat of the car and put her weight down on it before it fully opened and fell down. The patient notes that her R arm was pinned down below her body and the ground and she was notes it hurts alitlte bit. She endorses a history of shoulder fracture. Pt was feeling ewll this morning, and was running several errands. denies any headache, dizziness, visoin changs, neck pain, back pain, cp, sob, abd pain, n/v, diaphorsis, increased leg swelling. pt deneshitting her head or LOC. states she was able to catch someone's attention and they called EMS. - Physicial Exam PE: 10/28/18 17:24 GENERAL: The patient is awake, alert, and fully oriented, Nontoxic - in no acute distress. HEAD: Normocephalic, atraumatic. EYES: extraocular movements intact, sclera anicteric, conjunctiva clear. ENT: Normal voice, Moist mucous membranes. NECK: Normal range of motion, supple LUNGS: Breath sounds equal, clear to auscultation bilaterally. No wheezes, no rhonchi, no rales. HEART: irregular, systolic murmer appreciated ABDOMEN: Soft, nontender, normoactive bowel sounds. No guarding, no rebound. . No CVA tenderness EXTREMITIES: Normal range of motion, +2 pitting edema to shins. NEUROLOGICAL: No facial assymetry, Normal speech, PSYCH: Normal mood, normal affect. SKIN: Warm, Dry, normal turgor, BACK: No midline tenderness to the cervical, thoracic or lumbar spine MSK: FROM of b/l shoulders, elbows, wrist. FROM of hips, knees, ankles - No signs of ecchymosis, erythema, or crepitus noted on palpation extremities, chest wall, clavicals, ribs, back. - Medical Decision Making 10/28/18 17:31 83y F hx of afib, valve replacemen ton coumadin presents s/p mechanical fall with mild R shoulder pain with oout any head injurym loc, neck pain or any other discomfort. exam as documented, but no acute findings. pt was ambulated, able to abmulate with support (she does not have her walker currently) xrays are negative for fx pt feeling well will dc with pmd fu
== END 2018-10-28 18:42 | disposition home or self-care (01) ==
LOC: JER 15:11
DX: M25.511 Pain in right shoulder (principal); W01.198A Fall on same level from slipping, tripping and stumbling with subsequent striking against other object, initial encounter; Y93.89 Activity, other specified; Y92.414 Local residential or business street as the place of occurrence of the external cause; Y99.8 Other external cause status; I10 Essential (primary) hypertension; I48.2 Chronic atrial fibrillation; Z79.01 Long term (current) use of anticoagulants; E78.00 Pure hypercholesterolemia, unspecified; D51.0 Vitamin B12 deficiency anemia due to intrinsic factor deficiency; Z91.81 History of falling; E03.9 Hypothyroidism, unspecified; Z95.4 Presence of other heart-valve replacement; Z85.020 Personal history of malignant carcinoid tumor of stomach
CPT/HCPCS: 73030-TC-RT-FY; 99281-25

== ENCOUNTER 2019-07-25 13:01 | Inpatient (IN) | payer OTHER, BC ==
--- NOTE | 2019-07-25 13:31 | PDOC ---
Rapid Medical Evaluation Time Seen by Provider: 07/25/19 13:28 Medical Evaluation: Allergies Allergy/AdvReac Type Severity Reaction Status Date / Time sulfamethoxazole Allergy Severe Rash Verified 10/28/18 15:18 [From Bactrim] trimethoprim [From Bactrim] Allergy Severe Rash Verified 10/28/18 15:18 07/25/19 13:28 CC: coccyx pain s/p slip and fall. RMA'd after fall 07/09 PE: deferred Orders: xray Patient will proceed to ER for continued evaluation. Discharge Disposition - Diagnosis Fall from standing - Referrals - Patient Instructions - Post Discharge Activity
--- NOTE | 2019-07-25 14:09 | PDOC ---
History of Present Illness - General Chief Complaint: Back Pain Stated Complaint: BACK PAIN Time Seen by Provider: 07/25/19 13:28 History Source: Patient - History of Present Illness Initial Comments: 07/25/19 14:07 84 yo F PMH of Afib ( on warfarin), Aortic Valve replacement, hypothyroidism, hyperlipidemia, diastolic HF presents to ED with Left sacral/coccyx pain. Pt states she fell on her buttox on 07/09 and has not had pain until 1 day ago. 1 day ago she started having pain that is worse from sitting. she also notices the pain is worse when she gets up to start walking. she rates the pain as a 5/ 10. she is not interested in taking anything for pain relief. 07/25/19 14:13 Past History - Past Medical History Allergies/Adverse Reactions: Allergies Allergy/AdvReac Type Severity Reaction Status Date / Time sulfamethoxazole Allergy Severe Rash Verified 10/28/18 15:18 [From Bactrim] trimethoprim [From Bactrim] Allergy Severe Rash Verified 10/28/18 15:18 Home Medications: Ambulatory Orders Aspirin [ASA -] 81 mg PO DAILY #0 tab.chew 07/03/12 Calcium Carb/Vit D3/Minerals [Caltrate-600 with Vit D Tab] 1 each PO DAILY #0 tablet 07/03/12 Cyanocobalamin Vit B-12 Inj. [Vitamin B12 Injection -] 1,000 mcg IJ MONTHLY #0 vial 07/03/12 Multivitamin W/Iron, Minerals [Centrum] 1 tab PO DAILY #0 liquid 07/03/12 Rosuvastatin Calcium [Crestor] 5 mg PO HS #0 tablet 07/03/12 Sotalol HCl [Sotalol] 80 mg PO BID #0 tablet 07/03/12 Levothyroxine [Synthroid -] 100 mcg PO DAILY 10/09/15 Warfarin Sodium [Coumadin] 2.5 mg PO DAILY #0 tablet 10/10/15 Losartan Potassium [Cozaar -] 50 mg PO DAILY 02/17/18 Folic Acid - 1 mg PO DAILY 07/25/19 Furosemide 20 mg PO ASDIR 07/25/19 Potassium Chloride 20 meq PO ASDIR 07/25/19 Anemia: Yes Asthma: No Cancer: No Cardiac Disorders: Yes (CHRONIC ATRIAL FIBRILLATION, ARTIFICAL AORTIC VALVE) CVA: No COPD: No CHF: No Dementia: No Diabetes: No GI Disorders: Yes (GASTRIC CARCINOID, COLON ADENOMAS) Disorders: No HTN: Yes Hypercholesterolemia: Yes Liver Disease: No Seizures: No Thyroid Disease: Yes (HYPOTHYROIDISM) - Surgical History Abdominal Surgery: Yes Appendectomy: No Cardiac Surgery: Yes (BOVINE AVR 2006-[facility]) Cholecystectomy: Yes (OPEN CHOLECYSTECTOMY) Lung Surgery: No Neurologic Surgery: No Orthopedic Surgery: Yes (BILATERAL CARPAL TUNNEL RELEASE) - Psycho Social/Smoking Cessation Hx Smoking Status: No Smoking History: Never smoked Have you smoked in the past 12 months: No Number of Cigarettes Smoked Daily: 0 Information on smoking cessation initiated: No Hx Alcohol Use: No Drug/Substance Use Hx: No Substance Use Type: None Hx Substance Use Treatment: No Review of Systems - Review of Systems Constitutional: No: Chills, Fever Respiratory: No: Shortness of Breath Cardiac (ROS): No: Chest Pain, Lightheadedness ABD/GI: No: Diarrhea, Nausea, Vomiting, Abdominal cramping : No: Burning, Dysuria Musculoskeletal: Yes: Back Pain (coccyx pain), Joint Stiffness Neurological: Yes: Unsteady Gait (chronic, uses roller walker ) *Physical Exam - Vital Signs Last Vital Signs Temp Pulse Resp BP Pulse Ox 99.1 F 67 19 112/62 98 07/25/19 13:30 07/25/19 13:30 07/25/19 13:30 07/25/19 13:30 07/25/19 13:30 - Physical Exam General Appearance: Yes: Nourished, Appropriately Dressed. No: Apparent Distress HEENT: positive: EOMI, Normal Voice Respiratory/Chest: positive: Lungs Clear, Normal Breath Sounds. negative: Respiratory Distress, Accessory Muscle Use Cardiovascular: positive: Regular Rate, S1, S2. negative: JVD Gastrointestinal/Abdominal: positive: Normal Bowel Sounds, Soft. negative: Distended Rectal Exam: positive: normal exam, normal rectal tone. negative: melena, hemorrhoids Musculoskeletal: positive: Normal Inspection, Muscle Spasm (Left sacral). negative: CVA Tenderness, Vertebral Tenderness Neurologic: positive: Fully Oriented ED Treatment Course - LABORATORY CBC & Chemistry Diagram: 07/25/19 17:45 07/25/19 17:45 - RADIOLOGY Radiology Studies Ordered: Category Date Time Status PELVIS [RAD] Stat Radiology 07/25/19 14:06 Ordered Medical Decision Making - Medical Decision Making 07/25/19 14:17 84 yo F presenting with L side sacral/ coccyx pain r/o fracture -X-ray reviewed, inconclusive -CT pelvis reviewed: No CT evidence of fracture as noted above. 10 x 7.4 x 6.4 cm acute intramuscular hematoma posteriorly at the level of the left hip. 07/25/19 19:30 -CBC reviewed. Hgb 8.6. INR 3.66 -r/o acute blood loss. -rectal performed, non melanotic stools, no bright red blood 07/25/19 19:31 Discharge - Discharge Information Problems reviewed: Yes Clinical Impression/Diagnosis: Fall from standing, Back pain Condition: Stable - Admission Yes - Follow up/Referral Referrals: Dayne Grullon MD [Primary Care Provider] - - Patient Discharge Instructions Patient Printed Discharge Instructions: DI for Low Back Pain Additional Instructions: You came into the hospital for back pain. You had X-rays of your spine and hip. You also had a CT. The CT shows that you have some bruising in that area. You may take tylenol every 6 hours to help manage your pain. Please continue to take your medications as prescribed. Please follow up with your primary physician within 1 week to monitor your symptoms. Please follow up with your primary physician to confirm your warfarin dose. Please return to the ED with any new/ worsening/ concerning symptoms. - Post Discharge Activity
--- NOTE | 2019-07-25 15:39 | PDOC ---
Attending Attestation - Resident Resident Name: Araceli Soria - ED Attending Attestation I have performed the following: I have examined & evaluated the patient, The case was reviewed & discussed with the resident, I agree w/resident's findings & plan, Exceptions are as noted - HPI HPI: 07/25/19 15:38 84-year-old female history of aortic valve stenosis aortic valve replacement A. fib on Coumadin here today status post a fall 2 weeks ago. Patient states she was doing her laundry subsequent he fell backward landed on her buttock. She does normally walk with a four-point walker states she called the ambulance at that time they came helped her finish her laundry and sat her up she has been ambulating without difficulty since then but is here today complaining of persistent left buttock hip pain. Patient denies any head trauma no upper or lower back pain no fevers no chills no new weakness states she lives in assisted living facility where they do help her if called upon - Physicial Exam PE: 07/25/19 15:40 Awake alert no acute distress head is atraumatic no awake alert no acute distress head is atraumatic. There is no midline cervical spinal tenderness. No midline TL or S spine tenderness. Lungs are clear bilaterally heart is regular abdomen is soft nontender lateral pelvis is stable and nontender there is left buttock tenderness small area of ecchymosis which is quarter sized patient has full range of motion in her hip knee and ankle are nontender skin is warm and dry except for the ecchymosis noted - Medical Decision Making 07/25/19 15:41 84-year-old female multiple medical problems status post trip and fall 2 weeks ago here complaining of persistent hip pain. Plan x-ray of the coccyx and pelvis left hip to rule out any fracture review of a hip x-ray demonstrates severe degenerative disease making interpretation difficult. Will obtain CT pelvis to rule out fracture patient has been ambulating if negative likely DC home with follow-up with her PCP for outpatient MRI if pain persists
[2019-07-25 18:09] LABS: BASO % 0.3 % (0-2.0); EOS % 0.3 % (0-4.5); HEMATOCRIT 25.8 % (32.4-45.2); HEMOGLOBIN 8.6 GM/dL (10.7-15.3); LYMPH % 13.6 % (8-40); MCH 32.1 pg (25.7-33.7); MCHC 33.3 g/dl (32.0-36.0); MEAN CELL VOLUME 96.3 fl (80-96); MONO % 12.7 % (3.8-10.2); NEUT % 73.1 % (42.8-82.8); PLATELET COUNT 191 K/MM3 (134-434); RBC 2.68 M/mm3 (3.60-5.2); RDW 14.6 % (11.6-15.6); WHITE BLOOD COUNT 8.5 K/mm3 (4.0-10.0)
[2019-07-25 18:21] LABS: INR 3.66 (0.83-1.09); PROTHROMBIN TIME (PATIENT) 43.7 SEC (9.7-13.0)
[2019-07-25 18:35] LABS: ALBUMIN 3.2 g/dl (3.4-5.0); BLOOD UREA NITROGEN 26.9 mg/dL (7-18); CALCIUM 8.7 mg/dL (8.5-10.1); CREATININE 0.9 mg/dL (0.55-1.3); POTASSIUM 3.6 mmol/L (3.5-5.1); TOT PROT 6.2 g/dl (6.4-8.2)
--- NOTE | 2019-07-25 20:53 | HP ---
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 Pt admits to a remote history of mechanical fall on her buttom on 07/09/19 but no pain until 1 day ago after working the [employer] all day. At the time of the fall, the pt denied experiencing any syncope, headache, dizziness, blurry vision, palpitations, chest pain or SOB. The patient characterized the pain as a constant,dull, non-radiating pain with no alleviating factors. Sitting down for long period of time and direct pressure aggravates the pain. She denies any immediate changes to her wafarin dose; however according to the patient,around 07/13/19 she was instructed by Dr Hutchins to take a full dose of warfarin ( 5mg) for 3 days then to revert back to the usual 2.5 mg as her INR was suboptimal. She further denies any new herbal supplements, medications, or ingestion of contraindicated foods though she does admits to drinking pea soup the day prior. Additionally, pt endorsed occasional findings of blood streaks on wiping after BM. Her last colonoscopy was with Dr Morse who removed 2 polyps and follow up in 2 years.She denies any fever, chills, yellowing of the skin, dark color change in her urine, weakness or numbness in her lower extremities, or bladder/bowel incontinence. On her recent cardiology visit with Dr Cooper, Pt was informed of the recent findings of significant narrowing of her bovine aortic valve that might require further intervention. Pt last B12 injection was on 07/09 and pending for 08/09. ER course was notable for: (1) CBC remarkable for macrocytic anemia at 8.6/25.8 MCV 96.3, CMP with elevated BUN 26.9, PT/PTT/INR 43.7/50/3.66 (2) Xray of hip/pelvis/lumbar/coccyx with no evidence of fracture or pathology. CT pelvis significant for 10x7.4x6.4 cm intramuscular hematoma posterior to left hip Recent Travel: none PAST MEDICAL HISTORY: as above PAST SURGICAL HISTORY: as above and cholecystectomy Family Hx: non contributory Social History: goof diet with appropriate restriction for hypothyroidism and warfarin Smoking:denies Alcohol: denies Drugs: denies Allergies sulfamethoxazole [From Bactrim] Allergy (Severe, Verified 10/28/18 15:18) Rash trimethoprim [From Bactrim] Allergy (Severe, Verified 10/28/18 15:18) Rash HOME MEDICATIONS: Home Medications Medication Instructions Recorded Aspirin [ASA -] 81 mg PO DAILY #0 tab.chew 07/03/12 Calcium Carb/Vit D3/Minerals 1 each PO DAILY #0 tablet 07/03/12 [Caltrate-600 with Vit D Tab] Cyanocobalamin Vit B-12 Inj. 1,000 mcg IJ MONTHLY #0 vial 07/03/12 [Vitamin B12 Injection -] Multivitamin W/Iron, Minerals 1 tab PO DAILY #0 liquid 07/03/12 [Centrum] Rosuvastatin Calcium [Crestor] 5 mg PO HS #0 tablet 07/03/12 Sotalol HCl [Sotalol] 80 mg PO BID #0 tablet 07/03/12 Levothyroxine [Synthroid -] 100 mcg PO DAILY 10/09/15 Warfarin Sodium [Coumadin] 2.5 mg PO DAILY #0 tablet 10/10/15 Losartan Potassium [Cozaar -] 50 mg PO DAILY 02/17/18 Folic Acid - 1 mg PO DAILY 07/25/19 Furosemide 20 mg PO ASDIR 07/25/19 Potassium Chloride 20 meq PO ASDIR 07/25/19 REVIEW OF SYSTEMS CONSTITUTIONAL: Absent: fever, chills, diaphoresis, generalized weakness, malaise, loss of appetite, weight change HEENT: Absent: rhinorrhea, nasal congestion, throat pain, throat swelling, difficulty swallowing, mouth swelling, ear pain, eye pain, visual changes CARDIOVASCULAR: Absent: chest pain, syncope, palpitations, irregular heart rate, lightheadedness , peripheral edema RESPIRATORY: Absent: cough, shortness of breath, dyspnea with exertion, orthopnea, wheezing, stridor, hemoptysis GASTROINTESTINAL: Absent: abdominal pain, abdominal distension, nausea, vomiting, diarrhea, constipation, melena, hematochezia GENITOURINARY: Absent: dysuria, frequency, urgency, hesitancy, hematuria, flank pain, genital pain MUSCULOSKELETAL: myalgia Absent: arthralgia, joint swelling, back pain, neck pain SKIN: bruising in upper left arm Absent: rash, itching, pallor HEMATOLOGIC/IMMUNOLOGIC: Absent: easy bleeding, easy bruising, lymphadenopathy, frequent infections ENDOCRINE: Absent: unexplained weight gain, unexplained weight loss, heat intolerance, cold intolerance NEUROLOGIC: Absent: headache, focal weakness or paresthesias, dizziness, unsteady gait, seizure, mental status changes, bladder or bowel incontinence PSYCHIATRIC: Absent: anxiety, depression, suicidal or homicidal ideation, hallucinations. PHYSICAL EXAMINATION Vital Signs - 24 hr 07/25/19 13:30 Temperature 99.1 F Pulse Rate 67 Respiratory 19 Rate Blood Pressure 112/62 O2 Sat by Pulse 98 Oximetry (%) GENERAL: Awake, alert, and fully oriented, in no acute distress. HEAD: Normal with no signs of trauma. EYES: Pupils equal, round and reactive to light, extraocular movements intact, mild scleral icteric, conjunctiva clear. No lid lag. EARS, NOSE, THROAT: oropharynx clear without exudates. Moist mucous membranes. NECK: Normal range of motion, supple without lymphadenopathy, JVD, or masses. LUNGS: Breath sounds equal, clear to auscultation bilaterally. No wheezes, and no crackles. No accessory muscle use. HEART: Regular rate and rhythm, normal S1 and S2 with murmur, but no rub or gallop. ABDOMEN: Soft, nontender, not distended, normoactive bowel sounds, no guarding, no rebound, no masses. No hepatomegaly or splenomegaly. MUSCULOSKELETAL: Normal range of motion at all joints except reduced at knee and hip. No bony deformities or tenderness. No CVA tenderness. UPPER EXTREMITIES: 2+ pulses, warm, well-perfused. No cyanosis. No clubbing. No peripheral edema. LOWER EXTREMITIES: 2+ pulses, warm, with varicose veins. No calf tenderness. trace peripheral edema. NEUROLOGICAL: Cranial nerves II-XII intact. Normal speech. gross motor and sensation intact PSYCHIATRIC: Cooperative. Good eye contact. Appropriate mood and affect. SKIN: Warm, dry, normal turgor, multiple ecchymosis and gluteal enlargement on the Left from hematoma RECTAL EXAM: 1 skin tag, no hemarrhoids but hard stool noted in rectal vault with any blood on glove or around the anus Laboratory Results - last 24 hr 07/25/19 07/25/19 07/25/19 17:45 17:45 17:45 WBC 8.5 RBC 2.68 L Hgb 8.6 L Hct 25.8 L D MCV 96.3 H MCH 32.1 MCHC 33.3 RDW 14.6 Plt Count 191 D MPV 8.0 Absolute Neuts (auto) 6.2 Neutrophils % 73.1 Lymphocytes % 13.6 Monocytes % 12.7 H Eosinophils % 0.3 D Basophils % 0.3 Nucleated RBC % 0 PT with INR 43.70 H INR 3.66 H PTT (Actin FS) 50.0 H Sodium 144 Potassium 3.6 Chloride 112 H Carbon Dioxide 27 Anion Gap 5 L BUN 26.9 H Creatinine 0.9 Est GFR (CKD-EPI)AfAm 69.01 Est GFR (CKD-EPI)NonAf 59.55 Random Glucose 92 Calcium 8.7 Total Bilirubin 1.0 AST 25 ALT 17 Alkaline Phosphatase 75 Total Protein 6.2 L Albumin 3.2 L Stool Occult Blood 07/25/19 19:23 WBC RBC Hgb Hct MCV MCH MCHC RDW Plt Count MPV Absolute Neuts (auto) Neutrophils % Lymphocytes % Monocytes % Eosinophils % Basophils % Nucleated RBC % PT with INR INR PTT (Actin FS) Sodium Potassium Chloride Carbon Dioxide Anion Gap BUN Creatinine Est GFR (CKD-EPI)AfAm Est GFR (CKD-EPI)NonAf Random Glucose Calcium Total Bilirubin AST ALT Alkaline Phosphatase Total Protein Albumin Stool Occult Blood Negative ASSESSMENT/PLAN: 84 y/o F with PMH of Afib (on coumadin), Aortic valve replacement (bovine valve 12 yrs ago), hypothyroidism, 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 Intramuscular hematoma while on warfarin (INR 3.66) s/p mechanical fall Holding warfarin for tonight. holding Aspirin ( reach out to PCP for necessity of aspirin therapy) Repeat CT tomorrow for reevaluation of hematoma acute anemia with macrocytosis ( in the setting of large acute hematoma and HX of pernicious anemia ) Hb on 02/2019 was 11.6. on admission 8.6/25.8. repeat CBC 7.7/23. transfused 1 unit PRBC, 2 FFP and 5mg PO of Vit K for reversal. f/u routine CBC at 6 am. routine Pt/INR in the morning acute intramuscular hematoma most likely contributing to acute drop. pt has recent findings of narrowing of bovine valve echo for cardiac and valvular function assessment FOBT negative low transfusion threshold; if hb < 8 in the setting of significant cardiac history recommend cardiology consult mechanical fall . pt has some ecchymosis on her body including forehead. if headache or altered, consider Head CT Xray of hip/pelvis/coccyx no acute fracture or pathology Pt ordered fall precautions FEN encourage PO fluid intake no standing fluids monitor lytes DVT SCDs Visit type - Emergency Visit Emergency Visit: Yes ED Registration Date: 07/25/19 Care time: The patient presented to the Emergency Department on the above date and was hospitalized for further evaluation of their emergent condition. - New Patient This patient is new to me today: Yes Date on this admission: 07/26/19 - Critical Care Critical Care patient: No ATTENDING PHYSICIAN STATEMENT I saw and evaluated the patient. I reviewed the resident's note and discussed the case with the resident. I agree with the resident's findings and plan as documented. SUBJECTIVE: OBJECTIVE: ASSESSMENT AND PLAN:
[2019-07-26] MEDS ORDERED: ACETAMINOPHEN 325 MG TABLET (FP) PO PRN (00:30)
--- NOTE | 2019-07-26 00:50 | PN ---
Teaching Attending Note Name of Resident: Michelle Olivares ATTENDING PHYSICIAN STATEMENT I saw and evaluated the patient. I reviewed the resident's note and discussed the case with the resident. I agree with the resident's findings and plan as documented. SUBJECTIVE: 84-year-old woman with a history of atrial fibrillation (on Coumadin) bovine aortic valve replacement 12 years ago, hypothyroidism, pernicious anemia (on monthly vitamin B12 injection), CHF complained of left buttock pain for the last 2 days. She reported a fall that she has had about 2 weeks ago and landed on her buttocks at that time. Reports fall was mechanical, denied hitting her head or loss of consciousness. Patient denied any bleeding in her stool urine, or vomiting blood. OBJECTIVE: Last Vital Signs Temp Pulse Resp BP Pulse Ox 99.1 F 67 19 112/62 98 07/25/19 13:30 07/25/19 13:30 07/25/19 13:30 07/25/19 13:30 07/25/19 13:30 GENERAL: Well developed, well nourished. Awake and alert. No acute distress. HEENT: Normocephalic, atraumatic. PERRLA, EOMI. No conjunctival pallor. Sclera are non- icteric. Dry oral mucosa NECK: Supple. Full ROM. No JVD. Carotid pulses 2+ and symmetric, without bruits. No thyromegaly. No lymphadenopathy. CARDIOVASCULAR: Regular rate and rhythm. No murmurs, rubs, or gallops. Distal pulses are 2+ and symmetric. PULMONARY: No evidence of respiratory distress. Lungs clear to auscultation bilaterally. No wheezing, rales or rhonchi. ABDOMINAL: Soft. Non-tender. Non-distended. No rebound or guarding. No organomegaly. Normoactive bowel sounds. MUSCULOSKELETAL Normal range of motion at all joints. No bony deformities or tenderness. No CVA tenderness. EXTREMITIES: Left hip was nontender to touch, no evidence of bleeding or ecchymoses around site SKIN: Multiple ecchymoses found on head, extremities including left shoulder.Dry frail skin PSYCHIATRIC: Cooperative. Good eye contact. Appropriate mood and affect. Abnormal Lab Results 07/25/19 07/25/19 07/25/19 17:45 17:45 17:45 RBC 2.68 L Hgb 8.6 L Hct 25.8 L D MCV 96.3 H Monocytes % 12.7 H PT with INR 43.70 H INR 3.66 H PTT (Actin FS) 50.0 H Chloride 112 H Anion Gap 5 L BUN 26.9 H Total Protein 6.2 L Albumin 3.2 L Imaging studies reviewed Pelvis CT without contrast showed no evidence of pelvic or hip fracture. There was an approximate 10 x 7.4 x 6.5 cm acute hematoma which was seen within the left gluteus marisol muscle at the level of the hip. Overlying subcutaneous edema was noted ASSESSMENT AND PLAN: 84-year-old woman s/p Prosthetic bovine aortic valvewith large acute hematoma and left gluteus marisol muscle as described above likely from remote fall that she had 2 weeks ago. Patient is at higher risk for bleeding because she is both on Coumadin and aspirin. INR was found to be supratherapeutic at 3.66. No evidence of active bleeding at this time besides her hematoma. FOBT was negative. Patient might be better off without anticoagulation since she is falling and that high risk for bleeds. Admit to [facility] Repeat pelvic CT in 8 hours to make sure hematoma was not expanding. If expanding would administer immediate vitamin K and fresh frozen plasma. Monitor CBC every 8 hours Hold Coumadin at this time, repeat coagulation studies in a.m. UA #Severe normocytic anemiamight be secondary to acute bleed into gluteus marisol. Noted to have significant drop in hemoglobin from previous value of 11 g/dL back in February 2019. #Frequent falls and unsteady gait. Patient appears clinically dry, dehydrated Hold furosemide temporarily Check orthostatics Bedrest and fall precautions Physical therapy evaluation #Hypothyroidism Send TSH continue home dose levothyroxine 100 mcg p.o. daily Elevated INR is sufficient for DVT prophylaxis
[2019-07-26 01:24] LABS: BASO % 0.8 % (0-2.0); EOS % 0.6 % (0-4.5); HEMOGLOBIN 7.7 GM/dL (10.7-15.3); LYMPH % 14.2 % (8-40); MCH 32.3 pg (25.7-33.7); MCHC 33.3 g/dl (32.0-36.0); MEAN PLT VOLUME 8.8 fl (7.5-11.1); MONO % 14.5 % (3.8-10.2); NEUT % 69.9 % (42.8-82.8); PLATELET COUNT 192 K/MM3 (134-434); RBC 2.37 M/mm3 (3.60-5.2); RDW 14.3 % (11.6-15.6); WHITE BLOOD COUNT 8.4 K/mm3 (4.0-10.0)
[2019-07-26] MEDS ORDERED: PHYTONADIONE 5 MG TABLET PO ONE (01:50)
[2019-07-26] MEDS ORDERED: PHYTONADIONE 5 MG TABLET ONE (02:02)
[2019-07-26 06:12] VITALS: BMI 27.1
[2019-07-26] MEDS: LEVOTHYROXINE NA 100 MCG TABLET (FP) PO SCH (06:32)
[2019-07-26 07:49] LABS: BASO % 0.3 % (0-2.0); EOS % 0.5 % (0-4.5); HEMATOCRIT 21.2 % (32.4-45.2); HEMOGLOBIN 7.1 GM/dL (10.7-15.3); LYMPH % 14.8 % (8-40); MCH 32.2 pg (25.7-33.7); MCHC 33.4 g/dl (32.0-36.0); MEAN CELL VOLUME 96.5 fl (80-96); MEAN PLT VOLUME 8.3 fl (7.5-11.1); MONO % 15.2 % (3.8-10.2); NEUT % 69.2 % (42.8-82.8); PLATELET COUNT 162 K/MM3 (134-434); RBC 2.19 M/mm3 (3.60-5.2); RDW 14.7 % (11.6-15.6); WHITE BLOOD COUNT 7.7 K/mm3 (4.0-10.0)
[2019-07-26 08:20] LABS: INR 2.54 (0.83-1.09); PROTHROMBIN TIME (PATIENT) 30.2 SEC (9.7-13.0)
[2019-07-26 08:47] LABS: EPI CELLS >36 /HPF (0-5/HPF); HYALINE CASTS 20 /lpf (0-8); URINE APPEARANCE TURBID; URINE BACTERIA 4959.2 /hpf (NEGATIVE); URINE BILIRUBIN NEGATIVE (NEGATIVE); URINE COLOR YELLOW; URINE GLUCOSE (UA) NEGATIVE (NEGATIVE); URINE KETONE TRACE (NEGATIVE); URINE LEUK ESTERASE 2+ (NEGATIVE); URINE NITRITE POSITIVE (NEGATIVE); URINE PROTEIN 1+ (NEGATIVE); URINE RBC 2 /hpf (0-4); URINE WBC 61 /hpf (0-5)
[2019-07-26 09:16] LABS: BILIRUBIN,TOTAL 0.9 mg/dL (0.2-1); BLOOD UREA NITROGEN 24.1 mg/dL (7-18); CALCIUM 8.8 mg/dL (8.5-10.1); CREATININE 0.8 mg/dL (0.55-1.3); MAGNESIUM 2.3 mg/dL (1.8-2.4); PHOSPHOROUS 2.7 mg/dL (2.5-4.9); POTASSIUM 3.8 mmol/L (3.5-5.1); TOT PROT 5.8 g/dl (6.4-8.2)
[2019-07-26] MEDS ORDERED: FLU VACCINE QUAD 60 MCG/0.5 ML (MDV 19-20) IM ONE (10:00)
--- NOTE | 2019-07-26 10:05 | PN ---
Teaching Attending Note Name of Resident: Maria G Ponce ATTENDING PHYSICIAN STATEMENT I saw and evaluated the patient. I reviewed the resident's note and discussed the case with the resident. I agree with the resident's findings and plan as documented. SUBJECTIVE: Patient is feeling better. Vital Signs Temperature 98.3 F 07/26/19 06:00 Pulse Rate 68 07/26/19 06:00 Respiratory Rate 20 07/26/19 06:00 Blood Pressure 122/57 L 07/26/19 06:00 O2 Sat by Pulse Oximetry (%) 97 07/26/19 05:30 GENERAL: The patient is awake, alert, and fully oriented, in no acute distress. HEAD: Normal with no signs of trauma. EYES: PERRL, extraocular movements intact, sclera anicteric, conjunctiva clear. ENT: Ears normal, oropharynx clear without exudates, moist mucous membranes. NECK: Trachea midline, full range of motion, supple. LUNGS: Breath sounds equal, clear to auscultation bilaterally, no wheezes, no crackles, no accessory muscle use. HEART: Regular rate and rhythm, S1, S2 without murmur, rub or gallop. ABDOMEN: Soft, nontender, nondistended, normoactive bowel sounds, no guarding, no rebound, no hepatosplenomegaly, no masses. EXTREMITIES: 2+ pulses, warm, well-perfused, no edema. NEUROLOGICAL: Cranial nerves II through XII grossly intact. Normal speech, gait not observed. PSYCH: Normal mood, normal affect. SKIN: Warm, dry, normal turgor, no rashes or lesions noted CBCD WBC 7.7 K/mm3 (4.0-10.0) 07/26/19 07:15 RBC 2.19 M/mm3 (3.60-5.2) L 07/26/19 07:15 Hgb 7.1 GM/dL (10.7-15.3) L 07/26/19 07:15 Hct 21.2 % (32.4-45.2) L 07/26/19 07:15 MCV 96.5 fl (80-96) H 07/26/19 07:15 MCHC 33.4 g/dl (32.0-36.0) 07/26/19 07:15 RDW 14.7 % (11.6-15.6) 07/26/19 07:15 Plt Count 162 K/MM3 (134-434) 07/26/19 07:15 MPV 8.3 fl (7.5-11.1) 07/26/19 07:15 CMP Sodium 145 mmol/L (136-145) 07/26/19 07:15 Potassium 3.8 mmol/L (3.5-5.1) 07/26/19 07:15 Chloride 112 mmol/L (98-107) H 07/26/19 07:15 Carbon Dioxide 27 mmol/L (21-32) 07/26/19 07:15 Anion Gap 6 MMOL/L (8-16) L 07/26/19 07:15 BUN 24.1 mg/dL (7-18) H 07/26/19 07:15 Creatinine 0.8 mg/dL (0.55-1.3) 07/26/19 07:15 Random Glucose 106 mg/dL (74-106) 07/26/19 07:15 Calcium 8.8 mg/dL (8.5-10.1) 07/26/19 07:15 Total Bilirubin 0.9 mg/dL (0.2-1) 07/26/19 07:15 AST 21 U/L (15-37) 07/26/19 07:15 ALT 15 U/L (13-61) 07/26/19 07:15 Alkaline Phosphatase 69 U/L (45-117) 07/26/19 07:15 Total Protein 5.8 g/dl (6.4-8.2) L 07/26/19 07:15 Albumin 3.0 g/dl (3.4-5.0) L 07/26/19 07:15 Home Medications Medication Instructions Recorded Aspirin [ASA -] 81 mg PO DAILY #0 tab.chew 07/03/12 Calcium Carb/Vit D3/Minerals 1 each PO DAILY #0 tablet 07/03/12 [Caltrate-600 with Vit D Tab] Cyanocobalamin Vit B-12 Inj. 1,000 mcg IJ MONTHLY #0 vial 07/03/12 [Vitamin B12 Injection -] Multivitamin W/Iron, Minerals 1 tab PO DAILY #0 liquid 07/03/12 [Centrum] Rosuvastatin Calcium [Crestor] 5 mg PO HS #0 tablet 07/03/12 Sotalol HCl [Sotalol] 80 mg PO BID #0 tablet 10/15/12 Levothyroxine [Synthroid -] 100 mcg PO DAILY 10/09/15 Warfarin Sodium [Coumadin] 2.5 mg PO DAILY #0 tablet 10/10/15 Losartan Potassium [Cozaar -] 50 mg PO DAILY 02/17/18 Folic Acid - 1 mg PO DAILY 07/25/19 Furosemide 20 mg PO WEEKLY 07/25/19 Potassium Chloride 20 meq PO WEEKLY 07/25/19 Current Medications Generic Name Dose Route Start Last Admin Trade Name Freq PRN Reason Stop Dose Admin Acetaminophen 650 mg 07/26/19 00:30 07/26/19 06:33 Tylenol - PO 650 mg Q4H PRN Administration PAIN LEVEL 4 - 6 Levothyroxine Sodium 100 mcg 07/26/19 07:00 07/26/19 06:32 Synthroid - PO 100 mcg DAILY@0700 [facility] Administration Home Medications Medication Instructions Recorded Aspirin [ASA -] 81 mg PO DAILY #0 tab.chew 07/03/12 Calcium Carb/Vit D3/Minerals 1 each PO DAILY #0 tablet 07/03/12 [Caltrate-600 with Vit D Tab] Cyanocobalamin Vit B-12 Inj. 1,000 mcg IJ MONTHLY #0 vial 07/03/12 [Vitamin B12 Injection -] Multivitamin W/Iron, Minerals 1 tab PO DAILY #0 liquid 07/03/12 [Centrum] Rosuvastatin Calcium [Crestor] 5 mg PO HS #0 tablet 07/03/12 Sotalol HCl [Sotalol] 80 mg PO BID #0 tablet 07/03/12 Levothyroxine [Synthroid -] 100 mcg PO DAILY 10/09/15 Warfarin Sodium [Coumadin] 2.5 mg PO DAILY #0 tablet 10/10/15 Losartan Potassium [Cozaar -] 50 mg PO DAILY 02/17/18 Folic Acid - 1 mg PO DAILY 07/25/19 Furosemide 20 mg PO DAILY 07/25/19 Potassium Chloride 20 meq PO DAILY 07/25/[address] without contrast showed no evidence of pelvic or hip fracture. pelvic CT in 8 hours to make sure hematoma was not expanding. If expanding would administer immediate vitamin K and fresh frozen plasma. ASSESSMENT AND PLAN: Patient is an 84-year-old woman s/p Prosthetic bovine aortic valve presented with large acute hematoma at the level of left hip. # Acute Intramuscular Hematoma at the level of left hip :10 x 7.4 x 6.5 cm , will repeat Ct of the pelvis , if increasing in size will give Vit. K and FFP hold Coumadin at this time, repeat coagulation studies in a.m. #acute severe normocytic anemiadue to acute bleed into gluteus marisol. with baseline of 11 g/dL back in February 2019. #Frequent falls and unsteady gait. Patient appears clinically dry, dehydrated, hold furosemide temporarily, orthostatics #Hypothyroidism: continue home meds. DVT px: Elevated INR , hold coumadin since has Hematoma. Bedrest and fall precautions Physical therapy evaluation
--- NOTE | 2019-07-26 11:48 | EKG ---
Test Reason : Blood Pressure : / mmHG Vent. Rate : 067 BPM Atrial Rate : 067 BPM P-R Int : 148 ms QRS Dur : 080 ms QT Int : 456 ms P-R-T Axes : 025 -14 025 degrees QTc Int : 481 ms NORMAL SINUS RHYTHM WITH SINUS ARRHYTHMIA CANNOT RULE OUT INFERIOR INFARCT (CITED ON OR BEFORE 16-NOV-2016) ABNORMAL ECG WHEN COMPARED WITH ECG OF 08-JUN-2018 11:35, QUESTIONABLE CHANGE IN INITIAL FORCES OF INFERIOR LEADS NONSPECIFIC T WAVE ABNORMALITY NOW EVIDENT IN LATERAL LEADS Confirmed by PALMER ELLINGTON MD ([id number]) on 07/26/2019 11:48:25 AM Referred By: Confirmed By:PALMER ELLINGTON MD
--- NOTE | 2019-07-26 15:25 | PN ---
Physical Exam: SUBJECTIVE: Patient seen and examined in the morning. No acute events overnight. Patient has no complaints of chest pain, shortness of breath, cough, fever, chills, abdominal pain, hematuria, or hematochezia. OBJECTIVE: Vital Signs Period Temp Pulse Resp BP Sys/Vincent Pulse Ox Last 24 Hr 98.1 F-98.9 F 68-75 16-20 100-149/54-68 97-98 GENERAL: The patient is awake, alert, and fully oriented, in no acute distress. HEAD: Normal with no signs of trauma. EYES: PERRL, extraocular movements intact, sclera anicteric, conjunctiva clear. LUNGS: Breath sounds equal, clear to auscultation bilaterally, no wheezes. HEART: Regular rate and rhythm, S1, S2 without murmur, rub or gallop. ABDOMEN: Soft, nontender, nondistended, normoactive bowel sounds. EXTREMITIES: 2+ pulses, warm, well-perfused, no edema. NEUROLOGICAL: Cranial nerves II through XII grossly intact. SKIN: Warm, dry skin. Patient has swelling on left buttock as compared to the right side. Laboratory Results - last 24 hr CBC, BMP 07/26/19 07:15 07/26/19 07:15 Active Medications Generic Name Dose Route Start Last Admin Trade Name Freq PRN Reason Stop Dose Admin Acetaminophen 650 mg 07/26/19 00:30 07/26/19 06:33 Tylenol - PO 650 mg Q4H PRN Administration PAIN LEVEL 4 - 6 Levothyroxine Sodium 100 mcg 07/26/19 07:00 07/26/19 06:32 Synthroid - PO 100 mcg DAILY@0700 [facility] Administration ASSESSMENT/PLAN: 84 F with PMH of Afib (on warfarin), Aortic valve replacement, hypothyroidism, pernicious anemia, HLD, CHF, presenting with left hip and buttock pain likely secondary to hematoma and found to be anemic on presentation. 1) Left Gluteal Hematoma -Pelvic CT shows no evidence of fracture however there is 10X 7.4 x 6.4 acute intramuscular hematoma in the left gluteus. -Holding patient's home does of warfarin. -Cardiology consulted, appreciate recs -Vascular Surgery consulted, appreciate recs 2)Acute Anemia with macrocytosis -2 units of FFP, 1 unit PRBC given, 5 mg PO Vitamin K -Hgb in the morning 7.1 -Repeat Hgb shows: 3)Mechanical Fall -Coccyx,hip,pelvic, lumbar spine all negative. -Fall precautions -Physical therapy F: Patient on no IV fluids E: Monitor CMP N: Patient is on sodium restricted diet DVT: SCD's Dispo: admitted to medicine Visit type - Emergency Visit Emergency Visit: Yes ED Registration Date: 07/25/19 Care time: The patient presented to the Emergency Department on the above date and was hospitalized for further evaluation of their emergent condition. - New Patient This patient is new to me today: Yes Date on this admission: 07/26/19 - Critical Care Critical Care patient: No ATTENDING PHYSICIAN STATEMENT I saw and evaluated the patient. I reviewed the resident's note and discussed the case with the resident. I agree with the resident's findings and plan as documented. SUBJECTIVE: OBJECTIVE: ASSESSMENT AND PLAN:
[2019-07-26 19:21] LABS: BASO % 0.5 % (0-2.0); EOS % 1.1 % (0-4.5); HEMATOCRIT 23.7 % (32.4-45.2); HEMOGLOBIN 7.8 GM/dL (10.7-15.3); LYMPH % 15.9 % (8-40); MCH 31.3 pg (25.7-33.7); MCHC 33.1 g/dl (32.0-36.0); MEAN CELL VOLUME 94.5 fl (80-96); MEAN PLT VOLUME 8.6 fl (7.5-11.1); MONO % 12.4 % (3.8-10.2); NEUT % 70.1 % (42.8-82.8); PLATELET COUNT 154 K/MM3 (134-434); RBC 2.51 M/mm3 (3.60-5.2); RDW 16.6 % (11.6-15.6); WHITE BLOOD COUNT 7.4 K/mm3 (4.0-10.0)
[2019-07-27] MEDS: LEVOTHYROXINE NA 100 MCG TABLET (FP) PO SCH (06:42)
[2019-07-27 08:18] LABS: BASO % 0.5 % (0-2.0); EOS % 1.7 % (0-4.5); HEMATOCRIT 26.8 % (32.4-45.2); HEMOGLOBIN 9.3 GM/dL (10.7-15.3); LYMPH % 12.8 % (8-40); MCH 31.9 pg (25.7-33.7); MCHC 34.8 g/dl (32.0-36.0); MEAN CELL VOLUME 91.4 fl (80-96); MEAN PLT VOLUME 8.1 fl (7.5-11.1); MONO % 12.8 % (3.8-10.2); NEUT % 72.2 % (42.8-82.8); PLATELET COUNT 153 K/MM3 (134-434); RBC 2.93 M/mm3 (3.60-5.2); RDW 16.3 % (11.6-15.6); WHITE BLOOD COUNT 8.3 K/mm3 (4.0-10.0)
[2019-07-27 08:35] LABS: BLOOD UREA NITROGEN 19.5 mg/dL (7-18); CALCIUM 8.8 mg/dL (8.5-10.1); CREATININE 0.6 mg/dL (0.55-1.3); POTASSIUM 3.9 mmol/L (3.5-5.1)
--- NOTE | 2019-07-27 09:00 | PN ---
Teaching Attending Note Name of Resident: Maria G Ponce ATTENDING PHYSICIAN STATEMENT I saw and evaluated the patient. I reviewed the resident's note and discussed the case with the resident. I agree with the resident's findings and plan as documented. SUBJECTIVE: Patient is feeling better with no acute distress. Vital Signs Temperature 98.8 F 07/27/19 13:00 Pulse Rate 85 07/27/19 13:00 Respiratory Rate 20 07/27/19 13:00 Blood Pressure 131/68 07/27/19 13:00 O2 Sat by Pulse Oximetry (%) 98 07/27/19 09:00 GENERAL: The patient is awake, alert, and fully oriented, in no acute distress. HEAD: Normal with no signs of trauma. EYES: PERRL, extraocular movements intact, sclera anicteric, conjunctiva clear. ENT: Ears normal, oropharynx clear without exudates, moist mucous membranes. NECK: Trachea midline, full range of motion, supple. LUNGS: Breath sounds equal, clear to auscultation bilaterally, no wheezes, no crackles, no accessory muscle use. HEART: Regular rate and rhythm, S1, S2 positive, JOHN 2/6 no rub or gallop. ABDOMEN: Soft, Nt,ND, normoactive bowel sounds, no guarding, no rebound, no hepatosplenomegaly, no masses. EXTREMITIES: 2+ pulses, warm, well-perfused, no edema. NEUROLOGICAL: Cranial nerves II through XII grossly intact. Normal speech, gait not observed. PSYCH: Normal mood, normal affect. SKIN: Warm, dry, normal turgor, no rashes or lesions noted CBCD WBC 8.3 K/mm3 (4.0-10.0) 07/27/19 07:05 RBC 2.93 M/mm3 (3.60-5.2) L 07/27/19 07:05 Hgb 9.3 GM/dL (10.7-15.3) L 07/27/19 07:05 Hct 26.8 % (32.4-45.2) L 07/27/19 07:05 MCV 91.4 fl (80-96) 07/27/19 07:05 MCHC 34.8 g/dl (32.0-36.0) 07/27/19 07:05 RDW 16.3 % (11.6-15.6) H 07/27/19 07:05 Plt Count 153 K/MM3 (134-434) 07/27/19 07:05 MPV 8.1 fl (7.5-11.1) 07/27/19 07:05 CMP Sodium 142 mmol/L (136-145) 07/27/19 07:05 Potassium 3.9 mmol/L (3.5-5.1) 07/27/19 07:05 Chloride 111 mmol/L (98-107) H 07/27/19 07:05 Carbon Dioxide 28 mmol/L (21-32) 07/27/19 07:05 Anion Gap 3 MMOL/L (8-16) L 07/27/19 07:05 BUN 19.5 mg/dL (7-18) H 07/27/19 07:05 Creatinine 0.6 mg/dL (0.55-1.3) 07/27/19 07:05 Random Glucose 95 mg/dL (74-106) 07/27/19 07:05 Calcium 8.8 mg/dL (8.5-10.1) 07/27/19 07:05 Total Bilirubin 0.9 mg/dL (0.2-1) 07/26/19 07:15 AST 21 U/L (15-37) 07/26/19 07:15 ALT 15 U/L (13-61) 07/26/19 07:15 Alkaline Phosphatase 69 U/L (45-117) 07/26/19 07:15 Total Protein 5.8 g/dl (6.4-8.2) L 07/26/19 07:15 Albumin 3.0 g/dl (3.4-5.0) L 07/26/19 07:15 Current Medications Generic Name Dose Route Start Last Admin Trade Name Galq PRN Reason Stop Dose Admin Acetaminophen 650 mg 07/26/19 00:30 07/26/19 06:33 Tylenol - PO 650 mg Q4H PRN Administration PAIN LEVEL 4 - 6 Levothyroxine Sodium 100 mcg 07/26/19 07:00 07/27/19 06:42 Synthroid - PO 100 mcg DAILY@0700 [facility] Administration Home Medications Medication Instructions Recorded Aspirin [ASA -] 81 mg PO DAILY #0 tab.chew 07/03/12 Calcium Carb/Vit D3/Minerals 1 each PO DAILY #0 tablet 07/03/12 [Caltrate-600 with Vit D Tab] Cyanocobalamin Vit B-12 Inj. 1,000 mcg IJ MONTHLY #0 vial 07/03/12 [Vitamin B12 Injection -] Multivitamin W/Iron, Minerals 1 tab PO DAILY #0 liquid 07/03/12 [Centrum] Rosuvastatin Calcium [Crestor] 5 mg PO HS #0 tablet 07/03/12 Sotalol HCl [Sotalol] 80 mg PO BID #0 tablet 07/03/12 Levothyroxine [Synthroid -] 100 mcg PO DAILY 10/09/15 Warfarin Sodium [Coumadin] 2.5 mg PO DAILY #0 tablet 10/10/15 Losartan Potassium [Cozaar -] 50 mg PO DAILY 02/17/18 Folic Acid - 1 mg PO DAILY 07/25/19 Furosemide 20 mg PO DAILY 07/25/19 Potassium Chloride 20 meq PO DAILY 07/25/[address] without contrast showed no evidence of pelvic or hip fracture. pelvic CT in 8 hours to make sure hematoma was not expanding. ASSESSMENT AND PLAN: Patient is an 84-year-old woman s/p Prosthetic bovine aortic valve presented with large acute hematoma at the level of left hip. # Acute Intramuscular Hematoma at the level of left hip :10 x 7.4 x 6.5 cm , repeat CT of pelvis: 9.4x8x11.3cm with soft tissue edema, Demirealization, cant exclude subtle sacral fx, positive for soft tissue edema. hemoglobin is stable , monitor closely. if drops please transfuse and FFP, hold Coumadin at this time , repeat coagulation studies in a.m. Cosider MRI if needed. to r/o subtle sacral #acute severe normocytic anemiadue to acute bleed into gluteus marisol. with baseline of 11 g/dL back in February 2019, now is 9g/dl #Frequent falls and unsteady gait. Patient appears clinically dry, dehydrated, hold furosemide temporarily, orthostatics #Hypothyroidism: continue home meds. DVT px: Elevated INR , hold coumadin since has Hematoma. Bedrest and fall precautions Physical therapy evaluation when stable to rehab.
--- NOTE | 2019-07-27 09:06 | CONSULT ---
- Consultation REQUESTING PROVIDER: VASCULAR SURGERY - Anjel Marquez CONSULT REQUEST: We have been asked to surgically evaluate this patient for LEFT gluteal hematoma PCP: Sugey Randhawa HPI: Called to evrafat 84 y/o F w/ PMHx as noted below. Presents to [facility] ED w/ c/ o LEFT buttock pain s/p mechanical fall. States she fell on 07/09/19 and denied any pain or LOC at that time. Yesterday, patient was working the [employer] and began to experience LEFT buttock pain. Informs that she is on Coumadin ( which she is compliant) for AVR & Afib. Per Medical notes, I see that patient' upped her dose of Coumadin from 2.5mg to 5mg (x 3 days, then revert back) as she was subtherapeutic per Dr. Hutchins. Denies CP, palpitations, SOB, BULL or LOC prior too or post fall. While in the ED, patient had the following studies: 1. Xray of hip/pelvis/lumbar/coccyx with no evidence of fracture or pathology 2. 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), HLD, dCHF PSHx: AVR (bovine; 12 years ago); Cholecystectomy Home Meds Allergies: Sulfa (rash) ROS: CONSTITUTIONAL: Absent: diaphoresis, generalized weakness, malaise, loss of appetite, weight change CARDIOVASCULAR: Absent: irregular heart rate, RESPIRATORY: Absent: cough, wheezing, stridor, hemoptysis GASTROINTESTINAL:Absent: abdominal pain, abdominal distension, constipation GENITOURINARY: Absent: dysuria, frequency, urgency, hesitancy, hematuria, flank pain, genital pain MUSCULOSKELETAL: Absent: myalgia, arthralgia, joint swelling, back pain, neck pain SKIN: Absent: rash, itching, pallor HEMATOLOGIC/IMMUNOLOGIC: Absent: easy bleeding, lymphadenopathy NEUROLOGIC: Absent: headache, focal weakness, unsteady gait, seizure, mental status changes, PSYCHIATRIC: Absent: anxiety, depression, suicidal or homicidal ideation, hallucinations. PE: GENERAL: a&o, nad HEAD: nc. at. NECK: Normal ROM, supple LUNGS: cta bilat HEART: rrr ABDOMEN: Soft, nt. nd LE: ecchymosis over LEFT glute. No erythema or warmth. + fem/DP/PT. Varicose veins. No calf tenderness NEUROLOGICAL: GMNVI PSYCHIATRIC: Cooperative. Good eye contact. Appropriate mood and affect. Last Vital Signs Temp Pulse Resp BP Pulse Ox 98.5 F 79 20 140/66 97 07/27/19 05:00 07/27/19 05:00 07/27/19 05:00 07/27/19 05:00 07/26/19 21:00 CBC, BMP 07/27/19 07:05 07/27/19 07:05 INR, PTT INR 2.54 (0.83-1.09) H 07/26/19 07:15 Blood Type Blood Type O POSITIVE 07/26/19 02:20 Problem List - Problems (1) Hematoma Assessment/Plan: 84 yo female w/ h/o AVR (prosthetic bovine) and Afib on AC at home. Now s/p fall on 07/09/19 and sustained intramuscular hematoma to LEFT glute. Acute normocytic anemia secondary to bleed f/u Repeat Pelvic CT to monitor for hematoma expansion Warm Compress Serial exams Monitor H/H Cont to hold Coumadin f/u Coags Offload all pressure sensitive areas Cont medical management No surgical intervention unless hematoma expands and leukocytosis develops Above plan discussed with Dr. Marquez and agrees. Code(s): T14.8XXA - OTHER INJURY OF UNSPECIFIED BODY REGION, INITIAL ENCOUNTER (2) Fall (on) (from) unspecified stairs and steps, initial encounter Code(s): W10.9XXA - FALL (ON) (FROM) UNSPECIFIED STAIRS AND STEPS, INIT ENCNTR Qualifiers: Encounter type: initial encounter Qualified Code(s): W10.9XXA - Fall (on) ( from) unspecified stairs and steps, initial encounter (3) Anticoagulation adequate with anticoagulant therapy Code(s): Z79.01 - RESIDENTIAL (CURRENT) USE OF 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 (4) Gait instability Code(s): R26.81 - UNSTEADINESS ON FEET (5) HTN (hypertension) Code(s): I10 - ESSENTIAL (PRIMARY) HYPERTENSION Qualifiers: Hypertension type: essential hypertension Qualified Code(s): I10 - Essential (primary) hypertension (6) Hypothyroidism Code(s): E03.9 - HYPOTHYROIDISM, UNSPECIFIED Qualifiers: Hypothyroidism type: unspecified Qualified Code(s): E03.9 - Hypothyroidism , unspecified (7) Paroxysmal A-fib Code(s): I48.0 - PAROXYSMAL ATRIAL FIBRILLATION (8) S/P AVR (aortic valve replacement) Code(s): Z95.2 - PRESENCE OF PROSTHETIC HEART VALVE Visit type - Case Type Case Type: ED Admission - Emergency Emergency Visit: Yes ED Registration Date: 07/25/19 Care time: The patient presented to the Emergency Department on the above date and was hospitalized for further evaluation of their emergent condition. - New patient This patient is new to me today: Yes Date on this admission: 07/27/19
--- NOTE | 2019-07-27 10:26 | CON.CARD ---
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 States she fell on 07/09/19 and denied any pain or LOC at that time. Patient was working the [employer] and began to experience LEFT buttock pain.She is on Coumadin (which she is compliant) for Afib with supratherapeutic INR 3.66 received FFP and vit K, also on ASA 81 qd, anemic received pRBC. The patient denies any shortness of breath, palpitations, dyspnea worse than baseline, true syncope, orthopnea, PND or LE edema or NSAID use While in the ED, patient had the following studies: 1. Xray of hip/pelvis/lumbar/coccyx with no evidence of fracture or pathology 2. CT pelvis: 10 x 7.4 x 6.4 cm intramuscular hematoma posterior to left hip - History Source History Provided By: Patient Limitations to Obtaining History: No Limitations - Past Medical History Cardio/Vascular: Yes: AFIB, HTN, Hyperlipdemia Infectious Disease: Yes: Herpes Zoster Musculoskeletal: Yes: Osteoarthritis - Past Surgical History Past Surgical History: Yes: Cholecystectomy, Valve Replacement (Aortic) - Alcohol/Substance Use Hx Alcohol Use: No History of Substance Use: reports: None - Smoking History Smoking history: Never smoked Have you smoked in the past 12 months: No Aproximately how many cigarettes per day: 0 - Social History ADL: Independent History of Recent Travel: No Home Medications - Allergies Allergies/Adverse Reactions: Allergies Allergy/AdvReac Type Severity Reaction Status Date / Time sulfamethoxazole Allergy Severe Rash Verified 10/28/18 15:18 [From Bactrim] trimethoprim [From Bactrim] Allergy Severe Rash Verified 10/28/18 15:18 - Home Medications Home Medications: Ambulatory Orders Aspirin [ASA -] 81 mg PO DAILY #0 tab.chew 07/03/12 Calcium Carb/Vit D3/Minerals [Caltrate-600 with Vit D Tab] 1 each PO DAILY #0 tablet 07/03/12 Cyanocobalamin Vit B-12 Inj. [Vitamin B12 Injection -] 1,000 mcg IJ MONTHLY #0 vial 07/03/12 Multivitamin W/Iron, Minerals [Centrum] 1 tab PO DAILY #0 liquid 07/03/12 Rosuvastatin Calcium [Crestor] 5 mg PO HS #0 tablet 07/03/12 Sotalol HCl [Sotalol] 80 mg PO BID #0 tablet 07/03/12 Levothyroxine [Synthroid -] 100 mcg PO DAILY 10/09/15 Warfarin Sodium [Coumadin] 2.5 mg PO DAILY #0 tablet 10/10/15 Losartan Potassium [Cozaar -] 50 mg PO DAILY 02/17/18 Folic Acid - 1 mg PO DAILY 07/25/19 Furosemide 20 mg PO DAILY 07/25/19 Potassium Chloride 20 meq PO DAILY 07/25/19 Review of Systems - Review of Systems Musculoskeletal: reports: Extremity Pain Vital Signs: Vital Signs Temperature 98.5 F 07/27/19 05:00 Pulse Rate 79 07/27/19 05:00 Respiratory Rate 20 07/27/19 05:00 Blood Pressure 140/66 07/27/19 05:00 O2 Sat by Pulse Oximetry (%) 97 07/26/19 21:00 Constitutional: Yes: No Distress, Calm Neck: Yes: Supple Respiratory: Yes: Regular, CTA Bilaterally Gastrointestinal: Yes: Normal Bowel Sounds, Soft Cardiovascular: Yes: Regular Rate and Rhythm JVD: No Carotid Bruit: No Heart Sounds: Yes: S1, S2 Murmur: Yes: Grade 2 Musculoskeletal: Yes: Muscle Pain (Left thigh pain) Edema: No - Other Data Labs, Other Data: CBC, BMP 07/27/19 07:05 07/27/19 07:05 INR, PTT INR 2.54 (0.83-1.09) H 07/26/19 07:15 NSR @ 67 Ejection Fraction %: LVEF > or = 40 % Problem List - Problems (1) Hematoma Code(s): T14.8XXA - OTHER INJURY OF UNSPECIFIED BODY REGION, INITIAL ENCOUNTER (2) Anticoagulation adequate with anticoagulant therapy Code(s): Z79.01 - MAP MOUNTER (CURRENT) USE OF 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 (3) Diastolic dysfunction Code(s): I51.9 - HEART DISEASE, UNSPECIFIED (4) Fall (on) (from) unspecified stairs and steps, initial encounter Code(s): W10.9XXA - FALL (ON) (FROM) UNSPECIFIED STAIRS AND STEPS, INIT ENCNTR Qualifiers: Encounter type: initial encounter Qualified Code(s): W10.9XXA - Fall (on) ( from) unspecified stairs and steps, initial encounter (5) Gait instability Code(s): R26.81 - UNSTEADINESS ON FEET (6) Hyperlipidemia Code(s): E78.5 - HYPERLIPIDEMIA, UNSPECIFIED Qualifiers: Hyperlipidemia type: pure hypercholesterolemia Qualified Code(s): E78.00 - Pure hypercholesterolemia, unspecified (7) Hypertensive cardiomegaly without heart failure Code(s): I11.9 - HYPERTENSIVE HEART DISEASE WITHOUT HEART FAILURE (8) Hypothyroidism Code(s): E03.9 - HYPOTHYROIDISM, UNSPECIFIED Qualifiers: Hypothyroidism type: unspecified Qualified Code(s): E03.9 - Hypothyroidism , unspecified (9) Paroxysmal atrial fibrillation Code(s): I48.0 - PAROXYSMAL ATRIAL FIBRILLATION (10) S/P AVR (aortic valve replacement) Code(s): Z95.2 - PRESENCE OF PROSTHETIC HEART VALVE (11) Status post aortic aneurysm repair Code(s): Z98.89 - OTHER SPECIFIED POSTPROCEDURAL STATES * DO NOT USE *; Z86.79 - PERSONAL HISTORY OF OTHER DISEASES OF THE CIRCULATORY SYSTEM Assessment/Plan Echocardiogram: 07/27/2019 Normal LV size and fxn, abnl LV compliance, LVEF 55- 60%, mild MR, TR RVSP 30-40 mmHg, bioAVR MG 29 mmHg, PG 49 mmHg Echocardiogram: 04/19/2019 Mild cLVH with normal LV systolic function, LVEF 60- 65%, normal diastolic function, normal RV size and fxn, bioAVR MG 22 mmHg, PG 39 mmHg, mild MR, TR RVSP 25 mmHg Echocardiography 01/12/2018 revealed concentric left ventricular hypertrophy with normal left ventricular size and systolic function and estimated left ventricular ejection fraction between 70-75%, borderline bi-atrial dilatation, mild mitral valve regurgitation, mild tricuspid valve regurgitation with calculated RVSP of 25 mmHg, bio-prosthetic aortic valve with a mean trans- valvular gradient of 23.8 mmHg and a peak transvalvular gradient of 38.9 mmHg and trace aortic valve regurgitation. 01/17/2018 Echo: Normal biventricular size and fxn, mod elevated gradient across AV prosthesis MG 33 mmHg, PG 55 mmHg Pharmacologic Lexiscan myocardial perfusion imaging study performed December 08, 2016 revealed small size apical wall defect compatible with apical thinning with normal left ventricular contraction pattern on LV gated analysis with calculated left ventricular ejection fraction of 74% at rest and 73% post Lexiscan infusion. Carotid Dopplers with L possibly 50-70% ICA stenosis 1. Post-traumatic left gluteal intramuscular hematoma 2. Acute anemia due to #1 post pRBC 1. PAF with RVR now in sinus rhythm [id number] of 5 with supratherapeutic INR s /p vit K and FFP 2. 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 HTN/HCVD 4. Hyperlipidemia 5. Mild carotid stenosis 6. Hypothyroidism 7. Microalbuminuria 8. Diastolic dysfunction PLAN: 1. F/u Repeat Pelvic CT to monitor for hematoma expansion, monitor CBC, warm moist compresses, coumadin on hold until hemostasis assured, no indication for surgical evacuation now, d/c ASA and Lasix 3. Continue Sotalol 80 bid 4. Continue Crestor 5 qhs and Losartan 50 qd. 5. Abx prophylaxis against endocarditis 6. Eventual f/u in office with Dr. Morris [phone] upon d/c
[2019-07-27] MEDS: LOSARTAN POTASSIUM 50 MG TABLET (FP) PO SCH (12:16)
[2019-07-27] MEDS ORDERED: PT OWN MED DRAWER 7, Y5N ONE ×3 (14:20→21:07)
--- NOTE | 2019-07-27 14:21 | PN ---
Physical Exam: SUBJECTIVE: Patient seen and examined in the morning. Patient was transfused one unit of PRBC overnight. No complaints of chest pain, shortness of breath, abdominal pains,fever, chills, nausea, vomiting, diarrhea. OBJECTIVE: Vital Signs Period Temp Pulse Resp BP Sys/Vincent Pulse Ox Last 24 Hr 97.3 F-98.5 F 73-79 20-20 117-140/55-86 97 GENERAL: The patient is awake, alert, and fully oriented, in no acute distress. HEAD: Normal with no signs of trauma. EYES: PERRL, extraocular movements intact, sclera anicteric, conjunctiva clear. LUNGS: Breath sounds equal, clear to auscultation bilaterally, no wheezes, no crackles. HEART: Regular rate and rhythm, S1, S2, 2/6 holosystolic murmur present in the right sternal border. ABDOMEN: Soft, nontender, nondistended, normoactive bowel sounds. EXTREMITIES: 2+ pulses, warm, well-perfused, no edema. Hematoma present on left buttock. No ecchymosis present, no erythema. No increase in size as compared to yesterday. NEUROLOGICAL: Cranial nerves II through XII grossly intact. SKIN: Warm, dry, normal turgor, no rashes or lesions noted Laboratory Results - last 24 hr CBC, BMP 07/27/19 07:05 07/27/19 07:05 Active Medications Generic Name Dose Route Start Last Admin Trade Name Freq PRN Reason Stop Dose Admin Acetaminophen 650 mg 07/26/19 00:30 07/26/19 06:33 Tylenol - PO 650 mg Q4H PRN Administration PAIN LEVEL 4 - 6 Levothyroxine Sodium 100 mcg 07/26/19 07:00 07/27/19 06:42 Synthroid - PO 100 mcg DAILY@0700 DANDY Administration Losartan Potassium 50 mg 07/27/19 11:30 07/27/19 12:16 Cozaar - PO 50 mg DAILY DANDY Administration Multi-Ingredient Ointment 1 applic 07/27/19 22:00 Zinc Oxide TP BID DANDY Rosuvastatin Calcium 5 mg 07/27/19 22:00 Crestor - PO HS DANDY Sotalol HCl 80 mg 07/27/19 11:30 Betapace - PO BID DANDY ASSESSMENT/PLAN: 84 F with PMH of Afib (on warfarin), Aortic valve replacement, hypothyroidism, pernicious anemia, HLD, CHF, presenting with left hip and buttock pain likely secondary to hematoma and found to be anemic on presentation. 1) Left Gluteal Hematoma -Pelvic CT shows no evidence of fracture however there is 10X 7.4 x 6.4 acute intramuscular hematoma in the left gluteus. -Repeat Pelvic CT shows no change in hematoma. -Holding patient's home dose of warfarin. -No surgical intervention yet. -CBC daily -Cardiology consulted, appreciate recs -Vascular Surgery consulted, appreciate recs 2)Acute Anemia with macrocytosis -2 units of FFP, 1 unit PRBC given, 5 mg PO Vitamin K on admission. -1 unit of PRBC given overnight -Hgb: 9.3 3)Positive U/A -Urine culture pending - 4)Mechanical Fall -Coccyx,hip,pelvic, lumbar spine all negative. -Fall precautions -Physical therapy 5)Hypertension -Sotalol 80 mg BID PO 6)Hypothyroidism -Levothyroxine 100 mcg Daily PO F: Patient on no IV fluids E: Monitor CMP N: Patient is on sodium restricted diet DVT: SCD's Dispo: admitted to medicine Visit type - Emergency Visit Emergency Visit: Yes ED Registration Date: 07/25/19 Care time: The patient presented to the Emergency Department on the above date and was hospitalized for further evaluation of their emergent condition. - New Patient This patient is new to me today: No - Critical Care Critical Care patient: No ATTENDING PHYSICIAN STATEMENT I saw and evaluated the patient. I reviewed the resident's note and discussed the case with the resident. I agree with the resident's findings and plan as documented. SUBJECTIVE: OBJECTIVE: ASSESSMENT AND PLAN:
--- NOTE | 2019-07-27 15:25 | ECHO ---
Name: CYNTHIA SHAIKH Exam:Adult Echocardiogram Study Date: 07/27/2019 11:25 AM Age: 84 yrs Reason For Study: LV Function Height: 59 in Weight: 148 lb BSA: 1.6 m2 MMode/2D Measurements & Calculations IVSd: 0.90 cm Ao root diam: 2.9 cm LVIDd: 3.8 cm LA dimension: 4.0 cm LVIDs: 2.0 cm LVPWd: 1.0 cm EDV(Teich): 62.6 ml LVOT diam: 2.0 cm ESV(Teich): 12.8 ml LAV (MOD-bp): 72.6 ml Doppler Measurements & Calculations MV E max greyson: 104.0 cm/sec Ao V2 max: 350.5 cm/sec MV A max greyson: 140.6 cm/sec Ao max P.2 mmHg MV E/A: 0.74 Ao V2 mean: 255.6 cm/sec MV dec time: 0.24 sec Ao mean P.0 mmHg Ao V2 VTI: 76.5 cm TRESSA(I,D): 0.78 cm2 TRESSA(V,D): 0.91 cm2 LV V1 max P.5 mmHg SV(LVOT): 59.7 ml LV V1 mean P.4 mmHg LV V1 max: 106.1 cm/sec LV V1 mean: 69.5 cm/sec LV V1 VTI: 19.8 cm TR max greyson: 291.8 cm/sec PA V2 max: 85.5 cm/sec TR max P.1 mmHg PA max P.9 mmHg Med Peak E' Greyson: 4.8 cm/sec PI Vmax: 119.4 cm/sec Med E/e': 21.7 Lat Peak E' Greyson: 6.4 cm/sec Lat E/e': 16.2 Left Ventricle Left ventricular systolic function is normal. Ejection Fraction = 55-60%. The transmitral spectral Do ppler flow pattern is suggestive of impaired LV relaxation. Right Ventricle The right ventricle is normal in size and function. Atria The left atrium is mildly dilated. Right atrial size is normal. Mitral Valve There is moderate mitral annular calcification. There is no mitral valve stenosis. There is mild mitr al regurgitation. Tricuspid Valve The tricuspid valve is normal in structure and function. There is mild tricuspid regurgitation. Right ventricular systolic pressure is elevated at 30-40mmHg. Aortic Valve Moderate valvular aortic stenosis. No aortic regurgitation is present. Pulmonic Valve The pulmonic valve is not well seen, but is grossly normal. There is no pulmonic valvular stenosis. M ild pulmonic valvular regurgitation. Great Vessels The aortic root is normal size. Pericardium/Pleura There is no pericardial effusion. Interpretation Summary Left ventricular systolic function is normal. Ejection Fraction = 55-60%. The transmitral spectral Doppler flow pattern is suggestive of impaired LV relaxation. The left atrium is mildly dilated. There is moderate mitral annular calcification. There is mild mitral regurgitation. There is mild tricuspid regurgitation. Right ventricular systolic pressure is elevated at 30-40mmHg. Moderate valvular aortic stenosis. There is no pericardial effusion. MD Contreras *Hilda 07/27/2019 03:25 PM
[2019-07-27] MEDS: SOTALOL HCL 80 MG TABLET (FP) PO SCH ×2 (15:52→21:17)
[2019-07-27 15:58] LABS: EPI CELLS 2.3 /HPF (0-5/HPF); HYALINE CASTS 12 /lpf (0-8); URINE APPEARANCE CLOUDY; URINE BACTERIA 1631.7 /hpf (NEGATIVE); URINE BILIRUBIN NEGATIVE (NEGATIVE); URINE COLOR YELLOW; URINE GLUCOSE (UA) NEGATIVE (NEGATIVE); URINE KETONE TRACE (NEGATIVE); URINE LEUK ESTERASE 2+ (NEGATIVE); URINE NITRITE POSITIVE (NEGATIVE); URINE PROTEIN 1+ (NEGATIVE); URINE RBC 4 /hpf (0-4); URINE WBC 162 /hpf (0-5)
[2019-07-27 18:05] LABS: BASO % 0.3 % (0-2.0); EOS % 1.9 % (0-4.5); HEMATOCRIT 26.5 % (32.4-45.2); LYMPH % 14.3 % (8-40); MCH 31.5 pg (25.7-33.7); MCHC 33.9 g/dl (32.0-36.0); MEAN CELL VOLUME 92.8 fl (80-96); MEAN PLT VOLUME 8.7 fl (7.5-11.1); NEUT % 69.5 % (42.8-82.8); PLATELET COUNT 158 K/MM3 (134-434); RBC 2.86 M/mm3 (3.60-5.2); RDW 16.4 % (11.6-15.6); WHITE BLOOD COUNT 8.6 K/mm3 (4.0-10.0)
[2019-07-27] MEDS: ZINC OXIDE 20% TOPICAL OINTMENT 30 GM TUBE TP SCH (21:16)
[2019-07-27] MEDS: ROSUVASTATIN CA 5 MG TABLET (FP) PO SCH (21:17)
[2019-07-28] MEDS: LEVOTHYROXINE NA 100 MCG TABLET (FP) PO SCH (06:24)
[2019-07-28 08:56] LABS: BASO % 0.6 % (0-2.0); EOS % 3.2 % (0-4.5); HEMATOCRIT 26.3 % (32.4-45.2); HEMOGLOBIN 8.8 GM/dL (10.7-15.3); LYMPH % 15.8 % (8-40); MCH 31.5 pg (25.7-33.7); MCHC 33.6 g/dl (32.0-36.0); MEAN CELL VOLUME 93.7 fl (80-96); MEAN PLT VOLUME 8.8 fl (7.5-11.1); MONO % 12.2 % (3.8-10.2); NEUT % 68.2 % (42.8-82.8); PLATELET COUNT 165 K/MM3 (134-434); RBC 2.81 M/mm3 (3.60-5.2); RDW 16.1 % (11.6-15.6); WHITE BLOOD COUNT 7.7 K/mm3 (4.0-10.0)
[2019-07-28] MEDS ORDERED: PT OWN MED DRAWER 7, Y5N ONE (09:08)
[2019-07-28] MEDS: SOTALOL HCL 80 MG TABLET (FP) PO SCH ×2 (09:15→22:49)
[2019-07-28] MEDS: LOSARTAN POTASSIUM 50 MG TABLET (FP) PO SCH (09:16)
[2019-07-28] MEDS: ZINC OXIDE 20% TOPICAL OINTMENT 30 GM TUBE TP SCH ×2 (09:16→22:51)
[2019-07-28 09:21] LABS: ALBUMIN 2.5 g/dl (3.4-5.0); BILIRUBIN,TOTAL 1.4 mg/dL (0.2-1); CALCIUM 8.5 mg/dL (8.5-10.1); CREATININE 0.6 mg/dL (0.55-1.3); TOT PROT 5.4 g/dl (6.4-8.2)
--- NOTE | 2019-07-28 09:42 | PN ---
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 States she fell on 07/09/19 and denied any pain or LOC at that time. Patient was working the [employer] and began to experience LEFT buttock pain.She is on Coumadin (which she is compliant) for Afib with supratherapeutic INR 3.66 received FFP and vit K, also on ASA 81 qd, anemic received pRBC. The patient denies any shortness of breath, palpitations, dyspnea worse than baseline, true syncope, orthopnea, PND or LE edema or NSAID use While in the ED, patient had the following studies: 1. Xray of hip/pelvis/lumbar/coccyx with no evidence of fracture or pathology 2. CT pelvis: 10 x 7.4 x 6.4 cm intramuscular hematoma posterior to left hip - Current Medication List Current Medications: Active Medications Acetaminophen (Tylenol -) 650 mg PO Q4H PRN PRN Reason: PAIN LEVEL 4 - 6 Last Admin: 07/26/19 06:33 Dose: 650 mg Levothyroxine Sodium (Synthroid -) 100 mcg PO DAILY@0700 [facility] Last Admin: 07/28/19 06:24 Dose: 100 mcg Losartan Potassium (Cozaar -) 50 mg PO DAILY [facility] Last Admin: 07/28/19 09:16 Dose: 50 mg Multi-Ingredient Ointment (Zinc Oxide) 1 applic TP BID [facility] Last Admin: 07/28/19 09:16 Dose: 1 applic Rosuvastatin Calcium (Crestor -) 5 mg PO HS [facility] Last Admin: 07/27/19 21:17 Dose: 5 mg Sotalol HCl (Betapace -) 80 mg PO BID [facility] Last Admin: 07/28/19 09:15 Dose: 80 mg - Objective Vital Signs: Vital Signs Temperature 98.1 F 07/28/19 08:44 Pulse Rate 63 07/28/19 08:44 Respiratory Rate 19 07/28/19 08:44 Blood Pressure 118/66 11/09/19 08:44 O2 Sat by Pulse Oximetry (%) 97 07/27/19 21:00 Eyes: Yes: WNL, Conjunctiva Clear, EOM Intact HENT: Yes: WNL, Atraumatic, Normocephalic Neck: Yes: WNL, Supple, Trachea Midline Cardiovascular: Yes: WNL, Regular Rate and Rhythm, Murmur, S1, S2 Respiratory: Yes: WNL, Regular, CTA Bilaterally Gastrointestinal: Yes: WNL, Normal Bowel Sounds Genitourinary: Yes: WNL Musculoskeletal: Yes: Other (tigh pain) Extremities: Yes: WNL Edema: No Integumentary: Yes: WNL Neurological: Yes: WNL, Alert, Oriented ...Motor Strength: WNL Psychiatric: Yes: WNL Labs: CBC, BMP 07/28/19 08:07 07/28/19 08:07 INR, PTT INR 2.54 (0.83-1.09) H 07/26/19 07:15 Assessment/Plan Echocardiogram: 07/27/2019 Normal LV size and fxn, abnl LV compliance, LVEF 55- 60%, mild MR, TR RVSP 30-40 mmHg, bioAVR MG 29 mmHg, PG 49 mmHg Echocardiogram: 04/19/2019 Mild cLVH with normal LV systolic function, LVEF 60- 65%, normal diastolic function, normal RV size and fxn, bioAVR MG 22 mmHg, PG 39 mmHg, mild MR, TR RVSP 25 mmHg Echocardiography 01/12/2018 revealed concentric left ventricular hypertrophy with normal left ventricular size and systolic function and estimated left ventricular ejection fraction between 70-75%, borderline bi-atrial dilatation, mild mitral valve regurgitation, mild tricuspid valve regurgitation with calculated RVSP of 25 mmHg, bio-prosthetic aortic valve with a mean trans- valvular gradient of 23.8 mmHg and a peak transvalvular gradient of 38.9 mmHg and trace aortic valve regurgitation. 01/17/2018 Echo: Normal biventricular size and fxn, mod elevated gradient across AV prosthesis MG 33 mmHg, PG 55 mmHg Pharmacologic Lexiscan myocardial perfusion imaging study performed December 08, 2016 revealed small size apical wall defect compatible with apical thinning with normal left ventricular contraction pattern on LV gated analysis with calculated left ventricular ejection fraction of 74% at rest and 73% post Lexiscan infusion. Carotid Dopplers with L possibly 50-70% ICA stenosis 1. Post-traumatic left gluteal intramuscular hematoma 2. Acute anemia due to #1 post pRBC 1. PAF with RVR now in sinus rhythm [id number] of 5 with supratherapeutic INR s /p vit K and FFP 2. 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 HTN/HCVD 4. Hyperlipidemia 5. Mild carotid stenosis 6. Hypothyroidism 7. Microalbuminuria 8. Diastolic dysfunction PLAN: 1. F/u Repeat Pelvic CT to monitor for hematoma expansion, monitor CBC, warm moist compresses, coumadin on hold until hemostasis assured, no indication for surgical evacuation now, d/c ASA and Lasix 3. Continue Sotalol 80 bid 4. Continue Crestor 5 qhs and Losartan 50 qd. 5. Abx prophylaxis against endocarditis 6. Eventual f/u in office with Dr. Morris [phone] upon d/c Coverage dr. Garcia
--- NOTE | 2019-07-28 17:22 | PN ---
Physical Exam: SUBJECTIVE: Patient seen and examined. She complains of left buttock pain. OBJECTIVE: Vital Signs Period Temp Pulse Resp BP Sys/Vincent Pulse Ox Last 24 Hr 97.4 F-98.6 F 55-79 18-20 110-144/57-73 97 GENERAL: The patient is awake, alert, and fully oriented, in no acute distress. LUNGS: Breath sounds equal, clear to auscultation bilaterally, no wheezes, no crackles, no accessory muscle use. HEART: Regular rate and rhythm, S1, S2, (+) 2/6 SM. ABDOMEN: Soft, nontender, nondistended, normoactive bowel sounds, no guarding, no rebound, no hepatosplenomegaly, no masses. EXTREMITIES: 2+ pulses, warm, well-perfused, no edema. Laboratory Results - last 24 hr 07/27/19 07/28/19 07/28/19 17:50 08:07 08:07 WBC 8.6 7.7 RBC 2.86 L 2.81 L Hgb 9.0 L 8.8 L Hct 26.5 L 26.3 L MCV 92.8 93.7 MCH 31.5 31.5 MCHC 33.9 33.6 RDW 16.4 H 16.1 H Plt Count 158 165 MPV 8.7 8.8 Absolute Neuts (auto) 6.0 5.3 Neutrophils % 69.5 68.2 Lymphocytes % 14.3 15.8 Monocytes % 14.0 H 12.2 H Eosinophils % 1.9 3.2 Basophils % 0.3 0.6 Nucleated RBC % 0 0 Sodium 141 Potassium 4.0 Chloride 110 H Carbon Dioxide 27 Anion Gap 4 L BUN 19.0 H Creatinine 0.6 Est GFR (CKD-EPI)AfAm 98.38 Est GFR (CKD-EPI)NonAf 84.88 Random Glucose 85 Calcium 8.5 Total Bilirubin 1.4 H AST 23 ALT 17 Alkaline Phosphatase 64 Total Protein 5.4 L Albumin 2.5 L Active Medications Generic Name Dose Route Start Last Admin Trade Name Freq PRN Reason Stop Dose Admin Acetaminophen 650 mg 07/26/19 00:30 07/26/19 06:33 Tylenol - PO 650 mg Q4H PRN Administration PAIN LEVEL 4 - 6 Levothyroxine Sodium 100 mcg 07/26/19 07:00 07/28/19 06:24 Synthroid - PO 100 mcg DAILY@0700 DANDY Administration Losartan Potassium 50 mg 07/27/19 11:30 07/28/19 09:16 Cozaar - PO 50 mg DAILY DANDY Administration Multi-Ingredient Ointment 1 applic 07/27/19 22:00 07/28/19 09:16 Zinc Oxide TP 1 applic BID DANDY Administration Rosuvastatin Calcium 5 mg 07/27/19 22:00 07/27/19 21:17 Crestor - PO 5 mg HS DANDY Administration Sotalol HCl 80 mg 07/27/19 11:30 07/28/19 09:15 Betapace - PO 80 mg BID DANDY Administration ASSESSMENT/PLAN: This is an 84 year old woman with a history of HTN, hyperlipidemia, diastolic dysfunction, PAF, bioprosthetic AV replacement, hypothyroidism, pernicious anemia who presented with left hip and buttock pain. 1. Acute blood loss anemia secondary to left gluteal hematoma - Aspirin, Coumadin on hold - Transfused 2 units PRBCs during this admission - Given 2 units FFP and vitamin K 5 mg PO as patient was on Coumadin - Continue to monitor hemoglobin - Continue PT 2. s/p fall 3. HTN - Continue Cozaar 4. Hyperlipidemia - Continue Crestor 5. Paroxysmal atrial fibrillation - Currently in sinus rhythm - Continue Sotalol - Coumadin held secondary to hematoma 6. Diastolic dysfunction - No evidence of acute heart failure 7. History of bioprosthetic AV replacement 8. Hypothyroidism - Continue Synthroid 9. Disposition - Plan for discharge to short term rehab Visit type - Emergency Visit Emergency Visit: Yes ED Registration Date: 07/25/19 Care time: The patient presented to the Emergency Department on the above date and was hospitalized for further evaluation of their emergent condition. - New Patient This patient is new to me today: Yes Date on this admission: 07/28/19 - Critical Care Critical Care patient: No - Discharge Referral Referred to [facility] No
[2019-07-28] MEDS ORDERED: POLYETHYLENE GLYCOL 3350 119 GM BTL PO ONE (20:50)
[2019-07-28] MEDS ORDERED: DOCUSATE SODIUM 100 MG CAPSULE (FP) PO ONE (20:50)
[2019-07-28] MEDS ORDERED: SENNOSIDES 8.6MG TABLET (FP) PO SCH (22:00)
[2019-07-28] MEDS: ROSUVASTATIN CA 5 MG TABLET (FP) PO SCH (22:48)
[2019-07-29] MEDS: LEVOTHYROXINE NA 100 MCG TABLET (FP) PO SCH (06:15)
[2019-07-29 07:09] LABS: HEMATOCRIT 26.6 % (32.4-45.2); HEMOGLOBIN 9.2 GM/dL (10.7-15.3); MCH 31.8 pg (25.7-33.7); MCHC 34.5 g/dl (32.0-36.0); MEAN CELL VOLUME 92.4 fl (80-96); MEAN PLT VOLUME 8.5 fl (7.5-11.1); PLATELET COUNT 188 K/MM3 (134-434); RBC 2.88 M/mm3 (3.60-5.2); RDW 15.9 % (11.6-15.6); WHITE BLOOD COUNT 7.1 K/mm3 (4.0-10.0)
[2019-07-29 07:31] LABS: CALCIUM 8.7 mg/dL (8.5-10.1); CREATININE 0.7 mg/dL (0.55-1.3); POTASSIUM 4.2 mmol/L (3.5-5.1)
[2019-07-29] MEDS ORDERED: PT OWN MED DRAWER 7, Y5N ONE ×2 (09:07→20:42)
[2019-07-29] MEDS: SOTALOL HCL 80 MG TABLET (FP) PO SCH ×2 (09:11→21:50)
[2019-07-29] MEDS: LOSARTAN POTASSIUM 50 MG TABLET (FP) PO SCH (09:11)
[2019-07-29] MEDS: ZINC OXIDE 20% TOPICAL OINTMENT 30 GM TUBE TP SCH ×2 (09:12→21:50)
--- NOTE | 2019-07-29 09:19 | PN ---
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 States she fell on 07/09/19 and denied any pain or LOC at that time. Patient was working the [employer] and began to experience LEFT buttock pain.She is on Coumadin (which she is compliant) for Afib with supratherapeutic INR 3.66 received FFP and vit K, also on ASA 81 qd, anemic received pRBC. The patient denies any shortness of breath, palpitations, dyspnea worse than baseline, true syncope, orthopnea, PND or LE edema or NSAID use While in the ED, patient had the following studies: 1. Xray of hip/pelvis/lumbar/coccyx with no evidence of fracture or pathology 2. CT pelvis: 10 x 7.4 x 6.4 cm intramuscular hematoma posterior to left hip - Current Medication List Current Medications: Active Medications Acetaminophen (Tylenol -) 650 mg PO Q4H PRN PRN Reason: PAIN LEVEL 4 - 6 Last Admin: 07/26/19 06:33 Dose: 650 mg Levothyroxine Sodium (Synthroid -) 100 mcg PO DAILY@0700 [facility] Last Admin: 07/29/19 06:15 Dose: 100 mcg Losartan Potassium (Cozaar -) 50 mg PO DAILY [facility] Last Admin: 07/29/19 09:11 Dose: 50 mg Multi-Ingredient Ointment (Zinc Oxide) 1 applic TP BID [facility] Last Admin: 07/29/19 09:12 Dose: 1 applic Rosuvastatin Calcium (Crestor -) 5 mg PO HS [facility] Last Admin: 07/28/19 22:48 Dose: 5 mg Sotalol HCl (Betapace -) 80 mg PO BID [facility] Last Admin: 07/29/19 09:11 Dose: 80 mg - Objective Vital Signs: Vital Signs Temperature 98 F 07/29/19 09:00 Pulse Rate 58 L 07/29/19 09:00 Respiratory Rate 20 07/29/19 09:00 Blood Pressure 113/58 L 11/10/19 09:00 O2 Sat by Pulse Oximetry (%) 97 07/28/19 21:00 Eyes: Yes: WNL, Conjunctiva Clear, EOM Intact HENT: Yes: WNL, Atraumatic, Normocephalic Neck: Yes: WNL, Supple, Trachea Midline Cardiovascular: Yes: Murmur, S1, S2 Respiratory: Yes: WNL, Regular, CTA Bilaterally Gastrointestinal: Yes: WNL, Normal Bowel Sounds Genitourinary: Yes: WNL Musculoskeletal: Yes: WNL Extremities: Yes: WNL Edema: No Integumentary: Yes: WNL Neurological: Yes: WNL, Alert, Oriented ...Motor Strength: WNL Psychiatric: Yes: WNL Labs: CBC, BMP 07/29/19 06:05 07/29/19 06:05 INR, PTT INR 2.54 (0.83-1.09) H 07/26/19 07:15 Assessment/Plan Echocardiogram: 07/27/2019 Normal LV size and fxn, abnl LV compliance, LVEF 55- 60%, mild MR, TR RVSP 30-40 mmHg, bioAVR MG 29 mmHg, PG 49 mmHg Echocardiogram: 04/19/2019 Mild cLVH with normal LV systolic function, LVEF 60- 65%, normal diastolic function, normal RV size and fxn, bioAVR MG 22 mmHg, PG 39 mmHg, mild MR, TR RVSP 25 mmHg Echocardiography 01/12/2018 revealed concentric left ventricular hypertrophy with normal left ventricular size and systolic function and estimated left ventricular ejection fraction between 70-75%, borderline bi-atrial dilatation, mild mitral valve regurgitation, mild tricuspid valve regurgitation with calculated RVSP of 25 mmHg, bio-prosthetic aortic valve with a mean trans- valvular gradient of 23.8 mmHg and a peak transvalvular gradient of 38.9 mmHg and trace aortic valve regurgitation. 01/17/2018 Echo: Normal biventricular size and fxn, mod elevated gradient across AV prosthesis MG 33 mmHg, PG 55 mmHg Pharmacologic Lexiscan myocardial perfusion imaging study performed December 08, 2016 revealed small size apical wall defect compatible with apical thinning with normal left ventricular contraction pattern on LV gated analysis with calculated left ventricular ejection fraction of 74% at rest and 73% post Lexiscan infusion. Carotid Dopplers with L possibly 50-70% ICA stenosis 1. Post-traumatic left gluteal intramuscular hematoma 2. Acute anemia due to #1 post pRBC 1. PAF with RVR now in sinus rhythm [id number] of 5 with supratherapeutic INR s /p vit K and FFP 2. 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 HTN/HCVD 4. Hyperlipidemia 5. Mild carotid stenosis 6. Hypothyroidism 7. Microalbuminuria 8. Diastolic dysfunction PLAN: 1. F/u Repeat Pelvic CT to monitor for hematoma expansion, monitor CBC, warm moist compresses, coumadin on hold until hemostasis assured, no indication for surgical evacuation now, d/c ASA and Lasix 3. Continue Sotalol 80 bid 4. Continue Crestor 5 qhs and Losartan 50 qd. 5. Abx prophylaxis against endocarditis 6. Eventual f/u in office with Dr. Morris [phone] upon d/c Coverage dr. Garcia
--- NOTE | 2019-07-29 11:01 | PN ---
Physical Exam: SUBJECTIVE: Patient seen and examined, no events overnight OBJECTIVE: Vital Signs Period Temp Pulse Resp BP Sys/Vincent Pulse Ox Last 24 Hr 98 F-99.4 F 58-68 18-20 94-124/53-70 97 GENERAL: The patient is awake, alert, and fully oriented, in no acute distress. HEAD: Normal with no signs of trauma. LUNGS: Breath sounds equal, clear to auscultation bilaterally, no wheezes, no crackles, no accessory muscle use. HEART: Regular rate and rhythm, S1, S2 without murmur, rub or gallop. ABDOMEN: Soft, nontender, nondistended, normoactive bowel sounds EXTREMITIES: 2+ pulses, warm, well-perfused, no edema. PSYCH: Normal mood, normal affect. SKIN: Warm, dry, normal turgor, no rashes or lesions noted CBC, BMP 07/29/19 06:05 07/29/19 06:05 Active Medications Acetaminophen (Tylenol -) 650 mg PO Q4H PRN PRN Reason: PAIN LEVEL 4 - 6 Last Admin: 07/26/19 06:33 Dose: 650 mg Levothyroxine Sodium (Synthroid -) 100 mcg PO DAILY@0700 [facility] Last Admin: 07/29/19 06:15 Dose: 100 mcg Losartan Potassium (Cozaar -) 50 mg PO DAILY [facility] Last Admin: 07/29/19 09:11 Dose: 50 mg Multi-Ingredient Ointment (Zinc Oxide) 1 applic TP BID [facility] Last Admin: 07/29/19 09:12 Dose: 1 applic Rosuvastatin Calcium (Crestor -) 5 mg PO HS [facility] Last Admin: 07/28/19 22:48 Dose: 5 mg Sotalol HCl (Betapace -) 80 mg PO BID [facility] Last Admin: 07/29/19 09:11 Dose: 80 mg ASSESSMENT/PLAN: #left gluteal hematoma with anemia - has received 2 units of PRBC, 2 units FFP, and Vitamin K - hgb stable - holding coumadin - evaluated by surgery and nothing to do at this time - continue PT #paroxysmal afib - rate controlled, holding anticoagulation - continue sotalol - followed by cardio #HTN - continue losartan 50 mg daily #HLD - continue rosuvastatin 5 mg po hs #hypothyroidism - continue levothyroxine 100 mcg daily #Fall - UA positive, and growing lactose fermenting bacteria - patient asymptomatic - consider treatment if symptomatic DVT ppx: SCD's Dispo: patient to go to rehab, likely tomorrow Visit type - Emergency Visit Emergency Visit: No - New Patient This patient is new to me today: No - Critical Care Critical Care patient: No ATTENDING PHYSICIAN STATEMENT I saw and evaluated the patient. I reviewed the resident's note and discussed the case with the resident. I agree with the resident's findings and plan as documented. SUBJECTIVE: OBJECTIVE: ASSESSMENT AND PLAN:
--- NOTE | 2019-07-29 11:09 | PN ---
Teaching Attending Note Name of Resident: Linh Ngo ATTENDING PHYSICIAN STATEMENT I saw and evaluated the patient. I reviewed the resident's note and discussed the case with the resident. I agree with the resident's findings and plan as documented. SUBJECTIVE: Patient says left buttock pain is improving. OBJECTIVE: Vital Signs Period Temp Pulse Resp BP Sys/Vincent Pulse Ox Last 24 Hr 98 F-99.4 F 58-68 18-20 94-124/53-70 97 HEART: S1S2, RRR, (+) 2/6 SM LUNGS: Clear ABDOMEN: Soft, non-tender, non-distended, normal BS EXTREMITIES: No edema Laboratory Results - last 24 hr 07/29/19 07/29/19 06:05 06:05 WBC 7.1 RBC 2.88 L Hgb 9.2 L Hct 26.6 L MCV 92.4 MCH 31.8 MCHC 34.5 RDW 15.9 H Plt Count 188 MPV 8.5 Sodium 140 Potassium 4.2 Chloride 108 H Carbon Dioxide 28 Anion Gap 3 L BUN 23.0 H Creatinine 0.7 Est GFR (CKD-EPI)AfAm 93.52 Est GFR (CKD-EPI)NonAf 80.69 Random Glucose 88 Calcium 8.7 Current Medications Generic Name Dose Route Start Last Admin Trade Name Freq PRN Reason Stop Dose Admin Acetaminophen 650 mg 07/26/19 00:30 07/26/19 06:33 Tylenol - PO 650 mg Q4H PRN Administration PAIN LEVEL 4 - 6 Levothyroxine Sodium 100 mcg 07/26/19 07:00 07/29/19 06:15 Synthroid - PO 100 mcg DAILY@0700 DANDY Administration Losartan Potassium 50 mg 07/27/19 11:30 07/29/19 09:11 Cozaar - PO 50 mg DAILY DANDY Administration Multi-Ingredient Ointment 1 applic 07/27/19 22:00 07/29/19 09:12 Zinc Oxide TP 1 applic BID DANDY Administration Rosuvastatin Calcium 5 mg 07/27/19 22:00 07/28/19 22:48 Crestor - PO 5 mg HS DANDY Administration Sotalol HCl 80 mg 07/27/19 11:30 07/29/19 09:11 Betapace - PO 80 mg BID DANDY Administration ASSESSMENT AND PLAN: This is an 84 year old woman with a history of HTN, hyperlipidemia, diastolic dysfunction, PAF, bioprosthetic AV replacement, hypothyroidism, pernicious anemia who presented with left hip and buttock pain. 1. Acute blood loss anemia secondary to left gluteal hematoma - Aspirin, Coumadin on hold - Transfused 2 units PRBCs during this admission - Given 2 units FFP and vitamin K 5 mg PO as patient was on Coumadin - Hemoglobin stable - Continue PT 2. s/p fall 3. Asymptomatic bacteriuria - Would not treat unless patient develops symptoms of UTI 4. HTN - Continue Cozaar 5. Hyperlipidemia - Continue Crestor 6. Paroxysmal atrial fibrillation - Currently in sinus rhythm - Continue Sotalol - Coumadin held secondary to hematoma - hemoglobin stable x 3 days so will discuss resuming Coumadin with vascular 7. Diastolic dysfunction - No evidence of acute heart failure 8. History of bioprosthetic AV replacement 9. Hypothyroidism - Continue Synthroid 10. Disposition - Ok for discharge to short term rehab when bed is available
[2019-07-29] MEDS: ROSUVASTATIN CA 5 MG TABLET (FP) PO SCH (21:50)
[2019-07-30] MEDS: LEVOTHYROXINE NA 100 MCG TABLET (FP) PO SCH (06:05)
[2019-07-30 08:05] LABS: HEMATOCRIT 28.7 % (32.4-45.2); HEMOGLOBIN 9.6 GM/dL (10.7-15.3); MCH 31.2 pg (25.7-33.7); MCHC 33.3 g/dl (32.0-36.0); MEAN CELL VOLUME 93.6 fl (80-96); MEAN PLT VOLUME 8.1 fl (7.5-11.1); PLATELET COUNT 218 K/MM3 (134-434); RBC 3.06 M/mm3 (3.60-5.2); RDW 15.5 % (11.6-15.6); WHITE BLOOD COUNT 7.3 K/mm3 (4.0-10.0)
--- NOTE | 2019-07-30 09:07 | PN ---
Teaching Attending Note Name of Resident: Maria G Ponce ATTENDING PHYSICIAN STATEMENT I saw and evaluated the patient. I reviewed the resident's note and discussed the case with the resident. I agree with the resident's findings and plan as documented. SUBJECTIVE: Patient is feeling better with no acute distress. Vital Signs Temperature 98.8 F 07/27/19 13:00 Pulse Rate 85 07/27/19 13:00 Respiratory Rate 20 07/27/19 13:00 Blood Pressure 131/68 07/27/19 13:00 O2 Sat by Pulse Oximetry (%) 98 07/27/19 09:00 GENERAL: The patient is awake, alert, and fully oriented, in no acute distress. HEAD: Normal with no signs of trauma. EYES: PERRL, extraocular movements intact, sclera anicteric, conjunctiva clear. ENT: Ears normal, oropharynx clear without exudates, moist mucous membranes. NECK: Trachea midline, full range of motion, supple. LUNGS: Breath sounds equal, clear to auscultation bilaterally, no wheezes, no crackles, no accessory muscle use. HEART: Regular rate and rhythm, S1, S2 positive, JOHN 2/6 no rub or gallop. ABDOMEN: Soft, Nt,ND, normoactive bowel sounds, no guarding, no rebound, no hepatosplenomegaly, no masses. EXTREMITIES: 2+ pulses, warm, well-perfused, no edema. NEUROLOGICAL: Cranial nerves II through XII grossly intact. Normal speech, gait not observed. PSYCH: Normal mood, normal affect. SKIN: Warm, dry, normal turgor, no rashes or lesions noted CBCD WBC 8.3 K/mm3 (4.0-10.0) 07/27/19 07:05 RBC 2.93 M/mm3 (3.60-5.2) L 07/27/19 07:05 Hgb 9.3 GM/dL (10.7-15.3) L 07/27/19 07:05 Hct 26.8 % (32.4-45.2) L 07/27/19 07:05 MCV 91.4 fl (80-96) 07/27/19 07:05 MCHC 34.8 g/dl (32.0-36.0) 07/27/19 07:05 RDW 16.3 % (11.6-15.6) H 07/27/19 07:05 Plt Count 153 K/MM3 (134-434) 07/27/19 07:05 MPV 8.1 fl (7.5-11.1) 07/27/19 07:05 CMP Sodium 142 mmol/L (136-145) 07/27/19 07:05 Potassium 3.9 mmol/L (3.5-5.1) 07/27/19 07:05 Chloride 111 mmol/L (98-107) H 07/27/19 07:05 Carbon Dioxide 28 mmol/L (21-32) 07/27/19 07:05 Anion Gap 3 MMOL/L (8-16) L 07/27/19 07:05 BUN 19.5 mg/dL (7-18) H 07/27/19 07:05 Creatinine 0.6 mg/dL (0.55-1.3) 07/27/19 07:05 Random Glucose 95 mg/dL (74-106) 07/27/19 07:05 Calcium 8.8 mg/dL (8.5-10.1) 07/27/19 07:05 Total Bilirubin 0.9 mg/dL (0.2-1) 07/26/19 07:15 AST 21 U/L (15-37) 07/26/19 07:15 ALT 15 U/L (13-61) 07/26/19 07:15 Alkaline Phosphatase 69 U/L (45-117) 07/26/19 07:15 Total Protein 5.8 g/dl (6.4-8.2) L 07/26/19 07:15 Albumin 3.0 g/dl (3.4-5.0) L 07/26/19 07:15 Current Medications Generic Name Dose Route Start Last Admin Trade Name Galq PRN Reason Stop Dose Admin Acetaminophen 650 mg 07/26/19 00:30 07/26/19 06:33 Tylenol - PO 650 mg Q4H PRN Administration PAIN LEVEL 4 - 6 Levothyroxine Sodium 100 mcg 07/26/19 07:00 07/27/19 06:42 Synthroid - PO 100 mcg DAILY@0700 [facility] Administration Home Medications Medication Instructions Recorded Aspirin [ASA -] 81 mg PO DAILY #0 tab.chew 07/03/12 Calcium Carb/Vit D3/Minerals 1 each PO DAILY #0 tablet 07/03/12 [Caltrate-600 with Vit D Tab] Cyanocobalamin Vit B-12 Inj. 1,000 mcg IJ MONTHLY #0 vial 07/03/12 [Vitamin B12 Injection -] Multivitamin W/Iron, Minerals 1 tab PO DAILY #0 liquid 07/03/12 [Centrum] Rosuvastatin Calcium [Crestor] 5 mg PO HS #0 tablet 07/03/12 Sotalol HCl [Sotalol] 80 mg PO BID #0 tablet 07/03/12 Levothyroxine [Synthroid -] 100 mcg PO DAILY 10/09/15 Warfarin Sodium [Coumadin] 2.5 mg PO DAILY #0 tablet 10/10/15 Losartan Potassium [Cozaar -] 50 mg PO DAILY 02/17/18 Folic Acid - 1 mg PO DAILY 07/25/19 Furosemide 20 mg PO DAILY 07/25/19 Potassium Chloride 20 meq PO DAILY 07/25/19 Home Medications Medication Instructions Recorded Calcium Carb/Vit D3/Minerals 1 each PO DAILY #0 tablet 07/03/12 [Caltrate-600 with Vit D Tab] Cyanocobalamin Vit B-12 Inj. 1,000 mcg IJ MONTHLY #0 vial 07/03/12 [Vitamin B12 Injection -] Multivitamin W/Iron, Minerals 1 tab PO DAILY #0 liquid 07/03/12 [Centrum] Sotalol HCl [Sotalol] 80 mg PO BID #0 tablet 07/03/12 Levothyroxine [Synthroid -] 100 mcg PO DAILY 10/09/15 Folic Acid - 1 mg PO DAILY 07/25/19 Cefuroxime Axetil [Ceftin -] 250 mg PO BID #14 tablet 07/30/19 Losartan Potassium [Cozaar -] 50 mg PO DAILY tablet 07/30/19 Rosuvastatin [Crestor -] 5 mg PO HS tablet 07/30/19 Zinc Oxide 1 applic TP BID tube 07/30/[address] without contrast showed no evidence of pelvic or hip fracture. pelvic CT in 8 hours to make sure hematoma was not expanding. ASSESSMENT AND PLAN: Patient is an 84-year-old woman s/p Prosthetic bovine aortic valve presented with large acute hematoma at the level of left hip. # Acute Intramuscular Hematoma at the level of left hip :10 x 7.4 x 6.5 cm , repeat CT of pelvis: 9.4x8x11.3cm with soft tissue edema, Demirealization, cant exclude subtle sacral fx, positive for soft tissue edema. hemoglobin is stable , monitor closely.s/p FFP and transfusion.As per cardio to hold off on coumadin , aspirin and Lasix. needs to be reevaluated by cardio in a week period to restart the meds. #acute severe normocytic anemiadue to acute bleed into gluteus marisol. with baseline of 11 g/dL back in February 2019, now is 9g/dl #Frequent falls and unsteady gait. Patient appears clinically dry, dehydrated, hold furosemide temporarily, orthostatics #Hypothyroidism: continue home meds. # HTN: Continue Cozaar # Hyperlipidemia: continue Crestor # Paroxysmal atrial fibrillation : in sinus rhythm now, continue Sotalol Coumadin /aspirin is on hold due to hematoma ; patient will be re-assessed by cardio in a week #Diastolic dysfunction: stable # History of bioprosthetic AV replacement # Hypothyroidism continue Synthroid DVT px: Elevated INR , hold coumadin since has Hematoma. Ok for discharge to short term rehab
[2019-07-30] MEDS ORDERED: PT OWN MED DRAWER 7, Y5N ONE (09:26)
--- NOTE | 2019-07-30 09:28 | PN ---
Progress Note, Physician History of Present Illness: Left buttock pain resolving c/w resolving hematoma. Hgb stable. - Current Medication List Current Medications: Active Medications Acetaminophen (Tylenol -) 650 mg PO Q4H PRN PRN Reason: PAIN LEVEL 4 - 6 Last Admin: 07/26/19 06:33 Dose: 650 mg Levothyroxine Sodium (Synthroid -) 100 mcg PO DAILY@0700 [facility] Last Admin: 07/30/19 06:05 Dose: 100 mcg Losartan Potassium (Cozaar -) 50 mg PO DAILY [facility] Last Admin: 07/29/19 09:11 Dose: 50 mg Multi-Ingredient Ointment (Zinc Oxide) 1 applic TP BID [facility] Last Admin: 07/29/19 21:50 Dose: 1 applic Rosuvastatin Calcium (Crestor -) 5 mg PO HS [facility] Last Admin: 07/29/19 21:50 Dose: 5 mg Sotalol HCl (Betapace -) 80 mg PO BID [facility] Last Admin: 07/29/19 21:50 Dose: 80 mg - Objective Vital Signs: Vital Signs Temperature 98.5 F 07/30/19 06:59 Pulse Rate 58 L 07/30/19 06:59 Respiratory Rate 18 07/30/19 06:59 Blood Pressure 120/68 07/30/19 06:59 O2 Sat by Pulse Oximetry (%) 98 07/29/19 21:00 Constitutional: Yes: No Distress, Calm Neck: Yes: Supple Cardiovascular: Yes: Regular Rate and Rhythm Respiratory: Yes: Regular, CTA Bilaterally Gastrointestinal: Yes: Normal Bowel Sounds, Soft Edema: No Labs: CBC, BMP 07/30/19 07:33 07/29/19 06:05 INR, PTT INR 2.54 (0.83-1.09) H 07/26/19 07:15 Problem List - Problems (1) Hematoma Code(s): T14.8XXA - OTHER INJURY OF UNSPECIFIED BODY REGION, INITIAL ENCOUNTER (2) Anticoagulation adequate with anticoagulant therapy Code(s): Z79.01 - FASHION DESIGN PROFESSOR (CURRENT) USE OF 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 (3) Diastolic dysfunction Code(s): I51.9 - HEART DISEASE, UNSPECIFIED (4) Fall (on) (from) unspecified stairs and steps, initial encounter Code(s): W10.9XXA - FALL (ON) (FROM) UNSPECIFIED STAIRS AND STEPS, INIT ENCNTR Qualifiers: Encounter type: initial encounter Qualified Code(s): W10.9XXA - Fall (on) ( from) unspecified stairs and steps, initial encounter (5) Gait instability Code(s): R26.81 - UNSTEADINESS ON FEET (6) Hyperlipidemia Code(s): E78.5 - HYPERLIPIDEMIA, UNSPECIFIED Qualifiers: Hyperlipidemia type: pure hypercholesterolemia Qualified Code(s): E78.00 - Pure hypercholesterolemia, unspecified (7) Hypertensive cardiomegaly without heart failure Code(s): I11.9 - HYPERTENSIVE HEART DISEASE WITHOUT HEART FAILURE (8) Hypothyroidism Code(s): E03.9 - HYPOTHYROIDISM, UNSPECIFIED Qualifiers: Hypothyroidism type: unspecified Qualified Code(s): E03.9 - Hypothyroidism , unspecified (9) Paroxysmal atrial fibrillation Code(s): I48.0 - PAROXYSMAL ATRIAL FIBRILLATION (10) S/P AVR (aortic valve replacement) Code(s): Z95.2 - PRESENCE OF PROSTHETIC HEART VALVE (11) Status post aortic aneurysm repair Code(s): Z98.89 - OTHER SPECIFIED POSTPROCEDURAL STATES * DO NOT USE *; Z86.79 - PERSONAL HISTORY OF OTHER DISEASES OF THE CIRCULATORY SYSTEM Assessment/Plan Echocardiogram: 07/27/2019 Normal LV size and fxn, abnl LV compliance, LVEF 55- 60%, mild MR, TR RVSP 30-40 mmHg, bioAVR MG 29 mmHg, PG 49 mmHg Echocardiogram: 04/19/2019 Mild cLVH with normal LV systolic function, LVEF 60- 65%, normal diastolic function, normal RV size and fxn, bioAVR MG 22 mmHg, PG 39 mmHg, mild MR, TR RVSP 25 mmHg Echocardiography 01/12/2018 revealed concentric left ventricular hypertrophy with normal left ventricular size and systolic function and estimated left ventricular ejection fraction between 70-75%, borderline bi-atrial dilatation, mild mitral valve regurgitation, mild tricuspid valve regurgitation with calculated RVSP of 25 mmHg, bio-prosthetic aortic valve with a mean trans- valvular gradient of 23.8 mmHg and a peak transvalvular gradient of 38.9 mmHg and trace aortic valve regurgitation. 01/17/2018 Echo: Normal biventricular size and fxn, mod elevated gradient across AV prosthesis MG 33 mmHg, PG 55 mmHg Pharmacologic Lexiscan myocardial perfusion imaging study performed December 08, 2016 revealed small size apical wall defect compatible with apical thinning with normal left ventricular contraction pattern on LV gated analysis with calculated left ventricular ejection fraction of 74% at rest and 73% post Lexiscan infusion. Carotid Dopplers with L possibly 50-70% ICA stenosis 1. Post-traumatic left gluteal intramuscular hematoma 2. Acute anemia due to #1 post pRBC 3. PAF with RVR now in sinus rhythm [id number] of 5 with supratherapeutic INR s /p vit K and FFP 4. Post bio-prosthetic AVR - [place] with moderate transvalvular gradient 5. HTN/HCVD 6. Hyperlipidemia 7. Mild carotid stenosis 8. Hypothyroidism 9. Microalbuminuria 10. Diastolic dysfunction PLAN: 1. Repeat Pelvic CT confirms stable left buttock hematoma, monitor CBC, warm moist compresses, coumadin on hold until hemostasis assured, no indication for surgical evacuation now, d/naomi ASA and Lasix 2. Continue Sotalol 80 bid 3. Continue Crestor 5 qhs and Losartan 50 qd. 4. Abx prophylaxis against endocarditis 5. Eventual f/u in office with Dr. Morris [phone] upon d/c, PT->SNF
[2019-07-30] MEDS: SOTALOL HCL 80 MG TABLET (FP) PO SCH (09:31)
[2019-07-30] MEDS: LOSARTAN POTASSIUM 50 MG TABLET (FP) PO SCH (09:31)
[2019-07-30] MEDS: ZINC OXIDE 20% TOPICAL OINTMENT 30 GM TUBE TP SCH (09:32)
--- NOTE | 2019-07-30 14:23 | DS ---
Physical Exam: SUBJECTIVE: Patient seen and examined in the morning. No acute events overnight. No complaints of chest pain, shortness of breath, abdominal pain, dysuria, nausea, vomiting, diarrhea. OBJECTIVE: Vital Signs Period Temp Pulse Resp BP Sys/Vincent Pulse Ox Last 24 Hr 97.5 F-99.2 F 58-65 18-20 101-120/46-68 98-98 PHYSICAL EXAM GENERAL: The patient is awake, alert, and fully oriented, in no acute distress. HEAD: Normal with no signs of trauma. EYES: PERRL, extraocular movements intact, sclera anicteric, conjunctiva clear. LUNGS: Breath sounds equal, clear to auscultation bilaterally, no wheezes, no crackles. HEART: Regular rate and rhythm, S1, S2, 2/6 holosystolic murmur present in the right sternal border. ABDOMEN: Soft, nontender, nondistended, normoactive bowel sounds. EXTREMITIES: 2+ pulses, warm, well-perfused, no edema. Hematoma present on left buttock. No ecchymosis present, no erythema. NEUROLOGICAL: Cranial nerves II through XII grossly intact. SKIN: Warm, dry, normal turgor, no rashes or lesions noted LABS Laboratory Results - last 24 hr CBC, BMP 07/30/19 07:33 07/29/19 06:05 Microbiology 07/27/19 14:25 Urine - Urine Clean Catch Urine Culture - Final Escherichia Coli HOSPITAL COURSE: Date of Admission:07/25/19 Date of Discharge: 07/30/19 84 F with PMH of Afib (on warfarin), Aortic valve replacement, hypothyroidism, pernicious anemia, HLD, CHF, presenting with left hip and buttock pain likely secondary to hematoma and found to be anemic on presentation. Patient was found to have Hgb of 7.7 in the Emergency department and 7.1 on repeat. Coumadin was reversed and 2 units FFP were given along with [address] imaging showed a 10X 7.4 x 6.4 cm acute intramuscular hematoma in the left gluteus. Vascular surgery was consulted, and they ruled the hematoma as stable and not requiring surgical intervention since it was stable. Cardiology was consulted as patient's Warfarin was stopped, and will follow up with her bridge ironworker after discharge. Patient Urine Culture grew E.Coli and patient will be discharged on antibiotic therapy: Cefuroxime 250 mg BID. Patient is discharged to rehab facility. Imaging done this study: Pelvis CT 07/25/19: 10X 7.4 x 6.4 cm acute intramuscular hematoma posteriorly at the level of the left hip. Pelvis CT 07/26/19: Essentially unchanged left pelvic buttock hematoma. No fractures were identified although a subtle insufficiency fracture within the sacral wing cannot be entirely excluded. If clinically warranted consider MRI. Minutes to complete discharge: 35 Discharge Summary Problems reviewed: Yes Reason For Visit: ANEMIA Current Active Problems Back pain (Acute) Fall from standing (Acute) Hematoma (Acute) Condition: Stable - Instructions Diet, Activity, Other Instructions: You were admitted to the hospital because you fell. You were found to have a large collection of blood in your hip. This will get better with time. You were evaluated by surgery but you do not need surgery at this time. For your low red blood cells we gave you transfusions of blood. Your hemoglobin is now stable. While you were here you were found to have an infection in your urine. We are treating you with antibiotics for the infection. Please take Ceftin 250 mg by mouth twice a day for one week. Please continue all your other home medications as prescribed. Make an appointment to see your primary care physician within one week. Follow up with the bridge ironworker in one week to monitor your heart function. Follow up with the surgeon in one week to monitor your hip. Return to the Emergency Department if you have any nausea, vomiting, dizziness, change in vision, headache, or chest pain. Referrals: Marge Morris MD [Staff Physician] - 1 Week Dayne Grullon MD [Primary Care Provider] - 2 Weeks Anjel Marquez DO [Staff Physician] - 1 Week Disposition: [facility] FACILITY - Home Medications Comprehensive Discharge Medication List: Ambulatory Orders Aspirin [ASA -] 81 mg PO DAILY #0 tab.chew 07/03/12 Calcium Carb/Vit D3/Minerals [Caltrate-600 with Vit D Tab] 1 each PO DAILY #0 tablet 07/03/12 Cyanocobalamin Vit B-12 Inj. [Vitamin B12 Injection -] 1,000 mcg IJ MONTHLY #0 vial 07/03/12 Multivitamin W/Iron, Minerals [Centrum] 1 tab PO DAILY #0 liquid 07/03/12 Sotalol HCl [Sotalol] 80 mg PO BID #0 tablet 07/03/12 Levothyroxine [Synthroid -] 100 mcg PO DAILY 10/09/15 Warfarin Sodium [Coumadin] 2.5 mg PO DAILY #0 tablet 10/10/15 Folic Acid - 1 mg PO DAILY 07/25/19 Furosemide 20 mg PO DAILY 07/25/19 Cefuroxime Axetil [Ceftin -] 250 mg PO BID #14 tablet 07/30/19 Losartan Potassium [Cozaar -] 50 mg PO DAILY tablet 07/30/19 Rosuvastatin [Crestor -] 5 mg PO HS tablet 07/30/19 Zinc Oxide 1 applic TP BID tube 07/30/19 This patient is new to me today: No Emergency Visit: Yes ED Registration Date: 07/25/19 Care time: The patient presented to the Emergency Department on the above date and was hospitalized for further evaluation of their emergent condition. Critical Care patient: No - Discharge Referral Referred to [facility] Med P.C.: No ATTENDING PHYSICIAN STATEMENT I saw and evaluated the patient. I reviewed the resident's note and discussed the case with the resident. I agree with the resident's findings and plan as documented. SUBJECTIVE: OBJECTIVE: ASSESSMENT AND PLAN:
[2019-07-30] MEDS ORDERED: SODIUM CHLORIDE 500 ML IV STA (16:31)
[2019-07-30 17:15] VITALS: TEMP 97.8
[2019-07-30] MEDS ORDERED: SODIUM CHLORIDE 250 ML IV STA (18:05)
[2019-07-30 18:56] VITALS: BP 106/51; PULSE 66
== END 2019-07-30 19:17 | DRG 813 ==
LOC: JER 13:01 → JERBED 19:45 → OBSVTOIN 22:44 → J8W 07-26 03:35
PROVIDERS: ADMIT Internal Medicine; ATTEND Internal Medicine
PROC: 30233L1 Transfusion of Nonautologous Fresh Plasma into Peripheral Vein, Percutaneous Approach (ICD-10-PCS; principal; 2019-07-26)
PROC: 30233K1 Transfusion of Nonautologous Frozen Plasma into Peripheral Vein, Percutaneous Approach (ICD-10-PCS; 2019-07-26)
PROC: 30233N1 Transfusion of Nonautologous Red Blood Cells into Peripheral Vein, Percutaneous Approach (ICD-10-PCS; 2019-07-26)
DX: D68.32 Hemorrhagic disorder due to extrinsic circulating anticoagulants (principal); N39.0 Urinary tract infection, site not specified; D62 Acute posthemorrhagic anemia; S30.0XXA Contusion of lower back and pelvis, initial encounter; E78.5 Hyperlipidemia, unspecified; I48.0 Paroxysmal atrial fibrillation; I11.9 Hypertensive heart disease without heart failure; W19.XXXA Unspecified fall, initial encounter; Y93.9 Activity, unspecified; Y92.89 Other specified places as the place of occurrence of the external cause
CPT/HCPCS: 36415; 36430; 36511; 72100-TC-FY; 72192-TC; 72220-TC-FY; 73523-TC-FY; 80048; 80053; 81003; 82272; 82607; 82746; 83735; 84100; 84443; 85025; 85027; 85610; 85730; 86850; 86900; 86901; 86922; 87086; 87186; 93005; 93010; 93306-TC; 97116-GP; 97161-GP; 99282-25; G0008; G0378; P9017; P9038; P9058; Q2036

== ENCOUNTER 2019-10-06 15:41 | Inpatient (IN) | payer OTHER, BC ==
--- NOTE | 2019-10-06 15:51 | PDOC ---
History of Present Illness - General Chief Complaint: Weakness Stated Complaint: WEAKNESS Time Seen by Provider: 10/06/19 15:49 History Source: Patient, EMS Exam Limitations: Clinical Condition - History of Present Illness Initial Comments: Lin Berg is an 84 yo F w a hx of Afib (on coumadin), Aortic valve replacement (bovine valve > 12 yrs ago), hypothyroidism, pernicious Anemia (on monthly self administered B12 injection), HLD, diastolic HF, herpes zoster, and OA presents to the [facility] er BIBEMS for weakness and dehydration. Per EMS patient was hypotensive on route so they placed a line and started fluid resuscitating the patient with 1L of NS. Here in the Er the patient states that she went to bed last night feeling her baseline, then when she woke up this morning she felt weak, dehydrated, had substernal chest pain which has resolved in the ED, and is mildly short of breath. She states she feels like her mouth is dry and has not drank enough today. She states she did not take any of her meds today. She states she has a history of UTI's but she is incontinent and has not noticed recent urinary or bowel changes. Chest pain: substernal, rated 5/10 earlier now resolved, not associated with nausea, vomiting, diaphoresis, and not worsened with physical activity, no radiation. Denies recent fevers, chills, infections, producitve cough, dysuria, frequency, or urgency. PCP: Dr. Grullon GI: Dr. Mathis Cards: Kenneth PSH: Aortic valve replacement, cholecystectomy Social Hx: Lives at home, denies smoking, drinking, or other substance usage AllergiesL trimethoprim, sulfamethoxazole Past History - Past Medical History Allergies/Adverse Reactions: Allergies Allergy/AdvReac Type Severity Reaction Status Date / Time sulfamethoxazole Allergy Severe Rash Verified 10/06/19 16:02 [From Bactrim] trimethoprim [From Bactrim] Allergy Severe Rash Verified 10/06/19 16:02 Home Medications: Ambulatory Orders Aspirin [ASA -] 81 mg PO DAILY 10/06/19 Calcium Carbonate/Vitamin D3 [Calcium 500 + Vit D Caplet] 1 each PO DAILY Cyanocobalamin Vit B-12 Inj. [Redisol] 1,000 mcg IJ Q30D 10/06/19 Folic Acid 1 mg PO DAILY 10/06/19 Furosemide 20 mg PO DAILY 10/06/19 Levothyroxine [Synthroid -] 12.5 mcg PO DAILY 10/06/19 Levothyroxine [Synthroid -] 100 mcg PO DAILY 10/06/19 Losartan Potassium 100 mg PO DAILY 10/06/19 Multivit-Min/Iron/Folic/Lutein [Centrum Silver Women Tablet] 1 each PO DAILY Potassium Chloride [K-Dur -] 20 meq PO DAILY 10/06/19 Rosuvastatin [Crestor -] 5 mg PO HS 10/06/19 Sotalol HCl [Betapace -] 80 mg PO BID 10/06/19 Warfarin Na [Coumadin] 3 mg PO DAILY 10/06/19 Anemia: Yes Asthma: No Cancer: No Cardiac Disorders: Yes (CHRONIC ATRIAL FIBRILLATION, ARTIFICAL AORTIC VALVE) CVA: No COPD: No CHF: No Dementia: No Diabetes: No GI Disorders: Yes (GASTRIC CARCINOID, COLON ADENOMAS) Disorders: No HTN: Yes Hypercholesterolemia: Yes Liver Disease: No Seizures: No Thyroid Disease: Yes (HYPOTHYROIDISM) - Surgical History Abdominal Surgery: Yes Appendectomy: No Cardiac Surgery: Yes (BOVINE AVR 2006-[facility]) Cholecystectomy: Yes (OPEN CHOLECYSTECTOMY) Lung Surgery: No Neurologic Surgery: No Orthopedic Surgery: Yes (BILATERAL CARPAL TUNNEL RELEASE) - Psycho Social/Smoking Cessation Hx Smoking Status: No Smoking History: Never smoked Have you smoked in the past 12 months: No Number of Cigarettes Smoked Daily: 0 Hx Alcohol Use: No Drug/Substance Use Hx: No Substance Use Type: None Hx Substance Use Treatment: No Review of Systems - Review of Systems Able to Perform ROS?: Yes Comments:: CONSTITUTIONAL: Present: fatigue Absent: fever, no chills EYES: Absent: visual changes ENT: Absent: ear pain, no sore throat CARDIOVASCULAR: Present: chest pain, palpitations RESPIRATORY: Present: SOB Absent: cough GI: Absent: abdominal pain, no nausea, no vomiting, no constipation, no diarrhea GENITOURINARY: Absent: dysuria, no frequency, no hematuria MUSKULOSKELETAL: Absent: back pain, no arthralgia, no myalgia SKIN: Present: sacral rash NEURO: Absent: headache Is the patient limited Faroese proficient: Yes *Physical Exam - Physical Exam General Appearance: Yes: Nourished, Appropriately Dressed, Apparent Distress, Mild Distress, Other (Potently smells of urine, patient looks pale) HEENT: positive: Normal ENT Inspection, Normal Voice. negative: Pharyngeal Erythema Neck: positive: Trachea midline, Supple Respiratory/Chest: positive: Lungs Clear, Normal Breath Sounds. negative: Chest Tender, Respiratory Distress, Labored Respiration, Rapid RR, Decreased Breath Sounds, Crackles, Rales, Rhonchi, Wheezing Cardiovascular: positive: S1, S2, Edema (2+), Murmur, Tachycardia, Systolic Murmur, Irregularly Irregular, Irregular Vascular Pulses: Dorsalis-Pedis (R): 2+, Doralis-Pedis (L): 2+ Female Pelvic Exam: positive: normal external exam. negative: discharge, vaginal bleeding Gastrointestinal/Abdominal: positive: Normal Bowel Sounds, Soft. negative: Increased Bowel Sounds, Distended, Guarding, Rebound, Tenderness Rectal Exam: positive: heme negative stool, normal exam, decreased tone. negative: melena, heme positive stool, hemorrhoids Lymphatic: negative: Adenopathy Musculoskeletal: positive: Normal Inspection, Decreased Range of Motion. negative: Vertebral Tenderness Extremity: positive: Normal Capillary Refill, Normal Inspection, Pedal Edema (2+ ), Swelling. negative: Normal Range of Motion Integumentary: positive: Dry, Warm, Pale, Ecchymosis. negative: Mottled, Diaphoresis, Petechiae, Rash Neurologic: positive: medical accountant II-XII NML intact, Fully Oriented, Alert, Normal Mood/ Affect, Normal Response, Respond to painful stimul, Responsive. negative: Facial Droop Vital Signs - Vital Signs #1 Time: 17:42 Blood Pressure: 113/76 BP Location: Right Arm Blood Pressure Position: Sitting Temperature: 99.2 F Temperature Source: Rectal Procedures - Bedside Ultrasound Bedside Ultrasound: Lung Other: IVC Remarks: IVC: plethoric, minimal variation with respiration Lungs: there are B-lines in the R upper lobe, no pleural effusions. Heart Score/ECG Review - History History: Moderately suspicious - Electrocardiogram EKG: Normal - Age Age: >/= 65 - Risk Factors Risk Factors Heart Score: Yes Hx Hypercholesterolemia, Yes Hx Hypertension, Yes Hx Diabetes, Yes Positive family hx of cardiac disease, Yes Hx Obesity Based on the list above the patient has:: >/=3 risk factors or Hx atherosclerotic disease - Troponin Troponin: </= normal limit - Score Heart Score - Total: 5 - ECG Intrepretation Rhythm: Irregularly Irregular Comment:: Irregularly irregular A-fib with RVR ventricular rate of 116 - [place]: Normal - P and MA Comment:: No P waves - QRS Poor R Wave Progression: Yes Q Wave Present: Yes Comment:: Q waves in 3 and aVF - ST and T Early Repolarization: No Non Specific ST-T Wave changes: Yes Prolonged Q-T Interval: Yes Comment:: QTc - 539 (Patient taking Sotalol) - ECG Impressions Normal ECG: No Non-specific ST Elevation: No Ischemic Changes: Yes Tachycardia: Afib w/rapid Vent rate ED Treatment Course - LABORATORY CBC & Chemistry Diagram: 10/06/19 16:30 10/06/19 16:30 - RADIOLOGY Radiograph Interpretation: CXR: EXAM#: TYPE/EXAM: RESULT: [id number] RAD/CHEST X-RAY PORTABLE* Portable chest: Chest pain. Single view of the chest is been submitted. There is a weak inspiration with sternal sutures and clips, right-sided clips, large heart, unfolded aorta, normal bayron and clear lung sow. There is no sign of infiltrate or failure. The angles are sharp. Soft tissues are intact. The degenerative spine and shoulder changes. There is right shoulder calcification. Impression: No acute pathology. Previous surgeries. No change of an adverse nature since 06/07/2018. Medical Decision Making - Medical Decision Making Lin Berg is an 84 yo F w a hx of Afib (on coumadin), Aortic valve replacement (bovine valve > 12 yrs ago), hypothyroidism, pernicious Anemia (on monthly self administered B12 injection), HLD, diastolic HF, herpes zoster, and OA presents to the [facility] er BIBEMS for weakness and dehydration, endorses chest pain, SOB. EKG shows A-fib with RVR, patient is hypotensive. - The patient and room have a strong and potent scent of urine. Vital Signs Temp Pulse Resp BP Pulse Ox 97.7 F 100 H 19 90/45 L 100 10/06/19 15:57 10/06/19 15:57 10/06/19 15:57 10/06/19 15:57 10/06/19 16:02 DDx IBNLT: ACS, Arrhythmia, heart failure, PNA, UTI, electrolyte/metabolic disturbance, anemia, GI bleed Plan: EKG, POCUS chest, labs, urine, rectal temp, CXR, stool occult, re-assess, likely admission to hospital, Cardiac consult - Rectal Temp: 99.2 - Stool occult: negative EKG: A-fib with RVR rate of 116, no ST elevations or depressions, see full ECG read in ECG section. POCUS Chest: Heart: Irregular rhythm. Overall appropriate squeeze with a decent EF, no focal wall motion abnormality, no pericardial effusion, left atrial dilatation, normal LV/RV ratio. LUNGS: There are B-lines in the right upper lung field, no pleural effusions, no dynamic air bronchograms, normal lung sliding throughout all lung sow IVC: The IVC is plethoric and plump with minimal respiratory variation - patient is likely fluid overloaded. Labs: Elevated BUN - given minimal fluid in lungs based on US exam and lack of crackles combined with dry lips and external pallor will gently hydrate patient at 100cc/hr. IVC looks plethoric and patient is edematous in her legs but does not appear to have fluid in her lungs at the present time. She appears overall dry so will gently hydrate. - Trop mildly elevated - BNP elevated - INR therapeutic for aortic valve replacement - H&H stable Urine: Suggests patient has a UTI with 1+ LE and greater than 5000 bacteria. Prior cultures have been huber-sensitive to all Abx, will empirically start patient on ceftriaxone CXR: Unremarkable cardiac Consult: Dr. Morris - Call placed to his office - Dr. Clayton is forestry consultant and answering service states they will call back the ER - Patient is still tachycardic and irregular in RVR. She usually takes sotalol at home and did not take her sotalol today. Given that her QTc is prolonged at 539 will call her tin flipper and ask to start patient on metoprolol today - Spoke with Dr. Clayton - reccommends giving small dose of IV metoprolol to start 2.5-5 mg assuming BP is stable - if that works can give patient PO dose of 25 Disposition: Telemetry for A-fib w RVR, heart failure, chest pain, and UTI - Patient endorsed to IM team for further care and management - Resident: Leonela - Attending: Dr. Holloway Discharge - Discharge Information Problems reviewed: Yes Clinical Impression/Diagnosis: SOB (shortness of breath), Atrial fibrillation with RVR, Diastolic dysfunction UTI (urinary tract infection) Qualifiers: Urinary tract infection type: acute cystitis Hematuria presence: with hematuria Qualified Code(s): N30.01 - Acute cystitis with hematuria Chest pain Qualifiers: Chest pain type: unspecified Qualified Code(s): R07.9 - Chest pain, unspecified Heart failure Qualifiers: Heart failure type: diastolic Heart failure chronicity: acute on chronic Qualified Code(s): I50.33 - Acute on chronic diastolic (congestive) heart failure Condition: Stable - Admission Yes - Follow up/Referral - Patient Discharge Instructions - Post Discharge Activity
[2019-10-06 16:02] VITALS: BMI 30.4
[2019-10-06] MEDS ORDERED: ASPIRIN 81 MG CHEWABLE TABLETS PO ONE (16:15)
[2019-10-06] MEDS ORDERED: ASPIRIN 81 MG CHEWABLE TABLETS ONE (16:37)
[2019-10-06 16:42] LABS: BASO % 0.8 % (0-2.0); EOS % 0.6 % (0-4.5); HEMATOCRIT 34.3 % (32.4-45.2); HEMOGLOBIN 11.5 GM/dL (10.7-15.3); LYMPH % 12.3 % (8-40); MCH 32.4 pg (25.7-33.7); MCHC 33.4 g/dl (32.0-36.0); MEAN PLT VOLUME 8.2 fl (7.5-11.1); MONO % 8.9 % (3.8-10.2); NEUT % 77.4 % (42.8-82.8); PLATELET COUNT 200 K/MM3 (134-434); RBC 3.54 M/mm3 (3.60-5.2); RDW 14.1 % (11.6-15.6); WHITE BLOOD COUNT 7.4 K/mm3 (4.0-10.0)
[2019-10-06 16:55] LABS: INR 3.83 (0.83-1.09); PROTHROMBIN TIME (PATIENT) 45.8 SEC (9.7-13.0)
[2019-10-06 16:58] LABS: ACTIVATED PTT 46.6 SECONDS (25.2-36.5)
[2019-10-06 17:13] LABS: ALBUMIN 3.6 g/dl (3.4-5.0); BILIRUBIN,TOTAL 0.7 mg/dL (0.2-1); BLOOD UREA NITROGEN 29.3 mg/dL (7-18); CALCIUM 8.9 mg/dL (8.5-10.1); CREATININE 0.9 mg/dL (0.55-1.3); MAGNESIUM 2.2 mg/dL (1.8-2.4); N-TERMINAL BNP 1957.6 pg/ml (5-450); POTASSIUM 3.7 mmol/L (3.5-5.1); TOT PROT 7.1 g/dl (6.4-8.2)
[2019-10-06 17:18] LABS: EPI CELLS 0.5 /HPF (0-5/HPF); HYALINE CASTS 13 /lpf (0-8); URINE APPEARANCE CLOUDY; URINE BACTERIA 5875.8 /hpf (NEGATIVE); URINE BILIRUBIN NEGATIVE (NEGATIVE); URINE COLOR YELLOW; URINE GLUCOSE (UA) NEGATIVE (NEGATIVE); URINE KETONE 1+ (NEGATIVE); URINE LEUK ESTERASE 1+ (NEGATIVE); URINE NITRITE NEGATIVE (NEGATIVE); URINE PROTEIN 2+ (NEGATIVE); URINE RBC 1 /hpf (0-4); URINE WBC 36 /hpf (0-5)
[2019-10-06] MEDS ORDERED: CEFTRIAXONE 1,000 MG in DEXTROSE 5%-WATER - 50 ML IVPB ONE (17:22)
[2019-10-06] MEDS ORDERED: SODIUM CHLORIDE 1,000 ML IV SCH (17:45)
[2019-10-06] MEDS ORDERED: CEFTRIAXONE 1 GM/50 ML BAG ONE (17:56)
--- NOTE | 2019-10-06 18:06 | PN ---
Teaching Attending Note Name of Resident: Gaston Perez ATTENDING PHYSICIAN STATEMENT I saw and evaluated the patient. I reviewed the resident's note and discussed the case with the resident. I agree with the resident's findings and plan as documented. SUBJECTIVE: Feeling tired, CP/palpitations resolved. Denies dysuria/hematuria. Incontinent of urine. No fever/chills/nausea/vomiting/diarrhea. OBJECTIVE: Afebrile, Borderline BP Last Vital Signs Temp Pulse Resp BP Pulse Ox 99.2 F 100 H 19 113/76 100 10/06/19 17:55 10/06/19 15:57 10/06/19 15:57 10/06/19 17:55 10/06/19 16:02 HEENT - Atraumatic, normocephalic. Heart - S1 S2, SM Lungs - clear to auscultation Abdomen - soft, non-tender. Bowel Sounds normal. Extremities - trace edema, no calf tenderness. Neuro - AAO x 3. JALIL. No focal neuro deficits. Laboratory Results - last 24 hr 10/06/19 10/06/19 10/06/19 16:30 16:30 16:30 WBC 7.4 RBC 3.54 L Hgb 11.5 Hct 34.3 D MCV 97.0 H MCH 32.4 MCHC 33.4 RDW 14.1 Plt Count 200 MPV 8.2 Absolute Neuts (auto) 5.7 Neutrophils % 77.4 Lymphocytes % 12.3 D Monocytes % 8.9 Eosinophils % 0.6 D Basophils % 0.8 Nucleated RBC % 0 PT with INR 45.80 H INR 3.83 H PTT (Actin FS) 46.6 H Sodium Potassium Chloride Carbon Dioxide Anion Gap BUN Creatinine Est GFR (CKD-EPI)AfAm Est GFR (CKD-EPI)NonAf Random Glucose Calcium Magnesium Total Bilirubin AST ALT Alkaline Phosphatase Creatine Kinase 67 Troponin I 0.07 H B-Natriuretic Peptide Total Protein Albumin Urine Color Urine Appearance Urine pH Ur Specific [place] Urine Protein Urine Glucose (UA) Urine Ketones Urine Blood Urine Nitrite Urine Bilirubin Urine Urobilinogen Ur Leukocyte Esterase Urine WBC (Auto) Urine RBC (Auto) Urine Casts (Auto) U Epithel Cells (Auto) Urine Bacteria (Auto) 10/06/19 10/06/19 16:30 17:07 WBC RBC Hgb Hct MCV MCH MCHC RDW Plt Count MPV Absolute Neuts (auto) Neutrophils % Lymphocytes % Monocytes % Eosinophils % Basophils % Nucleated RBC % PT with INR INR PTT (Actin FS) Sodium 146 H Potassium 3.7 Chloride 115 H Carbon Dioxide 21 Anion Gap 10 BUN 29.3 H Creatinine 0.9 Est GFR (CKD-EPI)AfAm 69.01 Est GFR (CKD-EPI)NonAf 59.55 Random Glucose 71 L Calcium 8.9 Magnesium 2.2 Total Bilirubin 0.7 AST 30 ALT 38 Alkaline Phosphatase 88 Creatine Kinase Troponin I B-Natriuretic Peptide 1957.6 H Total Protein 7.1 Albumin 3.6 Urine Color Yellow Urine Appearance Cloudy Urine pH 5.0 Ur Specific [place] 1.017 Urine Protein 2+ H Urine Glucose (UA) Negative Urine Ketones 1+ H Urine Blood 3+ H Urine Nitrite Negative Urine Bilirubin Negative Urine Urobilinogen 1.0 Ur Leukocyte Esterase 1+ H Urine WBC (Auto) 36 Urine RBC (Auto) 1 Urine Casts (Auto) 13 U Epithel Cells (Auto) 0.5 Urine Bacteria (Auto) 5875.8 Current Medications Generic Name Dose Route Start Last Admin Trade Name Freq PRN Reason Stop Dose Admin Sodium Chloride 1,000 mls @ 100 mls/hr 10/06/19 17:45 10/06/19 18:02 Normal Saline - IV 100 mls/hr ASDIR DANDY Administration Home Medications Medication Instructions Recorded Aspirin [ASA -] 81 mg PO DAILY 10/06/19 Calcium Carbonate/Vitamin D3 1 each PO DAILY 10/06/19 [Calcium 500 + Vit D Caplet] Cyanocobalamin Vit B-12 Inj. 1,000 mcg IJ Q30D 10/06/19 [Redisol] Folic Acid 1 mg PO DAILY 10/06/19 Furosemide 20 mg PO DAILY 10/06/19 Levothyroxine [Synthroid -] 12.5 mcg PO DAILY 10/06/19 Levothyroxine [Synthroid -] 100 mcg PO DAILY 10/06/19 Losartan Potassium 100 mg PO DAILY 10/06/19 Multivit-Min/Iron/Folic/Lutein 1 each PO DAILY 10/06/19 [Centrum Silver Women Tablet] Potassium Chloride [K-Dur -] 20 meq PO DAILY 10/06/19 Rosuvastatin [Crestor -] 5 mg PO HS 10/06/19 Sotalol HCl [Betapace -] 80 mg PO DAILY 10/06/19 Warfarin Na [Coumadin] 3 mg PO DAILY 10/06/19 ASSESSMENT AND PLAN: 84 year old female with history of Atrial fibrillation (on Coumadin), HTN, Hypothyroidism, Pernicious Anemia (on weekly SQ B12 replacement), s/p AVR ( bioprosthetic), OA, Chronic Diastolic CHF, HLD, presents with weakness, lethargy , CP, palpitations, found to be hypotensive by EMS. 1. Atrial fibrillation with RVR HR 116 on ECG QTc > 500 Normally on Sotalol. IV Metoprolol for RVR. Cardio to eval. INR supratherapeutic, will hold Coumadin 2. Dehydration sec to poor oral intake Questionable UTI, normally incontinent UA pos for LE/Bacteria + Gentle IV hydration No fever, dysuria, or leukocytosis. Received 1 dose of Ceftriaxone, will hold further abx pending Urine Cx. 3. Atypical CP - resolved. No acute changes on ECG TropI 0.07, likely sec to demand due to RVR. Telemonitoring and serial troponins. Cardio to eval. 4. HTN - normally on Sotalol and Losartan. 5. HLD - continue Crestor 6. Hypothyrosidism - continue Levothyroxine. TSH check. 7. Chronic Diastolic CHF - normally on Lasix Will hold in favor of gentle IV hydration due to dehydration. DVT Px - on Coumadin, INR supratherapeutic. 8.
[2019-10-06] MEDS ORDERED: METOPROLOL TARTRATE 5 MG/5 ML VIAL IVPUSH ONE (18:24)
--- NOTE | 2019-10-06 18:25 | PDOC ---
Attending Attestation - Resident Resident Name: Jose L Mahoney - ED Attending Attestation I have performed the following: I have examined & evaluated the patient, The case was reviewed & discussed with the resident, I agree w/resident's findings & plan, Exceptions are as noted - HPI HPI: 10/06/19 18:24 Agree with resident hpi - Physicial Exam PE: 10/06/19 18:24 Agree with resident exam - Medical Decision Making 10/06/19 18:25 84yo F with MMP presents to the ED with generalized weakness, dehydration and CP Vitals remarkable for tachycardia fluctuating btwn 90s and 130s, and hypotension to 90/45 EKG with Afib with RVR Sepsis w/u initiated, pt found to have UTI Based on previous UCx, pt covered with ceftriaxone Very gently hydrating as her IVF is very full on US, but her mucous membranes are very dry With regards to Afib with RVR, pt typically on sotalol at home but has not taken today Given prolonged QT on EKG, will c/s pt's applications trainer Dr. Celaya Pt admitted to Dr. Holloway for further mgmt
[2019-10-06] MEDS ORDERED: ACETAMINOPHEN 325 MG TABLET (FP) PO PRN ×2 (18:27→18:35)
[2019-10-06] MEDS: SODIUM CHLORIDE 1,000 ML IV SCH (18:38)
[2019-10-06] MEDS ORDERED: METOPROLOL TARTRATE 5 MG/5 ML VIAL ONE (18:40)
--- NOTE | 2019-10-06 19:06 | HP ---
CHIEF COMPLAINT: chest pain, weakness PCP: Dr. Grullon GI: Dr. Mathis Cardiology: Dr. Cooper HISTORY OF PRESENT ILLNESS: 84 y/o/f w a hx of Afib (on coumadin checked every 2 weeks), Aortic valve replacement (bovine valve in 2006), hypothyroidism, pernicious Anemia (on monthly self administered B12 injection), HLD, diastolic HF, herpes zoster, and OA presents to the ED for chest pain and weakness today. Patient states she fell asleep on her couch last night and this morning did not feel strong enough to get up and walk. She felt weak and dehydrated. She experienced chest pain with associated palpitations and felt lightheaded when she attempted to get up later in the day. Patient was on her couch for the most of the day and did not take her medications and did not eat today. Patient called EMS and was brought to [facility] and states her chest pain resolved on the way here. She was noted to be hypotensive by EMS and was given fluids with improvement. She was recently at [facility] for 2 months for rehab and was released last Tuesday. Patient states she walks with a walker at home since being released from [facility]. She states she gets SOB when walking but not at rest. Denies chest pain currently. Denies fever, chills, N/V/D, headache, constipation, vision changes, dysuria, hematuria. Patient verbally stated that she would like to be DNR/DNI but has not signed any paperwork. Her HCP is her son and daughter in law. 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 Allergies sulfamethoxazole [From Bactrim] Allergy (Severe, Verified 10/06/19 16:02) Rash trimethoprim [From Bactrim] Allergy (Severe, Verified 10/06/19 16:02) Rash HOME MEDICATIONS: Home Medications Medication Instructions Recorded Aspirin [ASA -] 81 mg PO DAILY 10/06/19 Calcium Carbonate/Vitamin D3 1 each PO DAILY 10/06/19 [Calcium 500 + Vit D Caplet] Cyanocobalamin Vit B-12 Inj. 1,000 mcg IJ Q30D 10/06/19 [Redisol] Folic Acid 1 mg PO DAILY 10/06/19 Furosemide 20 mg PO DAILY 10/06/19 Levothyroxine [Synthroid -] 12.5 mcg PO DAILY 10/06/19 Levothyroxine [Synthroid -] 100 mcg PO DAILY 10/06/19 Losartan Potassium 100 mg PO DAILY 10/06/19 Multivit-Min/Iron/Folic/Lutein 1 each PO DAILY 10/06/19 [Centrum Silver Women Tablet] Potassium Chloride [K-Dur -] 20 meq PO DAILY 10/06/19 Rosuvastatin [Crestor -] 5 mg PO HS 10/06/19 Sotalol HCl [Betapace -] 80 mg PO BID 10/06/19 Warfarin Na [Coumadin] 3 mg PO DAILY 10/06/19 REVIEW OF SYSTEMS as per HPI PHYSICAL EXAMINATION Vital Signs - 24 hr 10/06/19 10/06/19 10/06/19 15:57 16:02 18:18 Temperature 97.7 F Temperature [#1 ] Pulse Rate 100 H Pulse Rate [ 83 Right Radial] Respiratory 19 Rate Blood Pressure 90/45 L Blood Pressure [#1] Blood Pressure 113/75 [Right Arm] O2 Sat by Pulse 100 100 98 Oximetry (%) 10/06/19 18:33 Temperature Temperature [#1 99.2 F ] Pulse Rate Pulse Rate [ Right Radial] Respiratory Rate Blood Pressure Blood Pressure 113/76 [#1] Blood Pressure [Right Arm] O2 Sat by Pulse Oximetry (%) GENERAL: Awake, alert, and fully oriented, in no acute distress. HEAD: Normal with no signs of trauma. EYES: PERRL, EOMI, no scleral icterus EARS, NOSE, THROAT: oropharynx clear without exudates. dry mucous membranes. NECK: Normal range of motion, supple without lymphadenopathy, JVD LUNGS: Breath sounds equal, clear to auscultation bilaterally. No wheezes, and no crackles. No accessory muscle use. HEART: irregularly irregular ABDOMEN: Soft, nontender, not distended, normoactive bowel sounds, no guarding, no rebound, no masses MUSCULOSKELETAL: No bony deformities or tenderness EXTREMITIES: 2+ pulses, warm, well-perfused. No calf tenderness. 1+ non pitting edema of bilateral lower extremities NEUROLOGICAL: Normal speech. gait not observed. 5/5 strength upper extremities. Sensation intact throughout. No facial droop PSYCHIATRIC: Cooperative. Good eye contact. Appropriate mood and affect. SKIN: Warm, dry Laboratory Results - last 24 hr 10/06/19 10/06/19 10/06/19 16:30 16:30 16:30 WBC 7.4 RBC 3.54 L Hgb 11.5 Hct 34.3 D MCV 97.0 H MCH 32.4 MCHC 33.4 RDW 14.1 Plt Count 200 MPV 8.2 Absolute Neuts (auto) 5.7 Neutrophils % 77.4 Lymphocytes % 12.3 D Monocytes % 8.9 Eosinophils % 0.6 D Basophils % 0.8 Nucleated RBC % 0 PT with INR 45.80 H INR 3.83 H PTT (Actin FS) 46.6 H Sodium Potassium Chloride Carbon Dioxide Anion Gap BUN Creatinine Est GFR (CKD-EPI)AfAm Est GFR (CKD-EPI)NonAf Random Glucose Calcium Magnesium Total Bilirubin AST ALT Alkaline Phosphatase Creatine Kinase 67 Troponin I 0.07 H B-Natriuretic Peptide Total Protein Albumin Urine Color Urine Appearance Urine pH Ur Specific Dick[place] Urine Protein Urine Glucose (UA) Urine Ketones Urine Blood Urine Nitrite Urine Bilirubin Urine Urobilinogen Ur Leukocyte Esterase Urine WBC (Auto) Urine RBC (Auto) Urine Casts (Auto) U Epithel Cells (Auto) Urine Bacteria (Auto) Stool Occult Blood 10/06/19 10/06/19 10/06/19 16:30 17:07 17:16 WBC RBC Hgb Hct MCV MCH MCHC RDW Plt Count MPV Absolute Neuts (auto) Neutrophils % Lymphocytes % Monocytes % Eosinophils % Basophils % Nucleated RBC % PT with INR INR PTT (Actin FS) Sodium 146 H Potassium 3.7 Chloride 115 H Carbon Dioxide 21 Anion Gap 10 BUN 29.3 H Creatinine 0.9 Est GFR (CKD-EPI)AfAm 69.01 Est GFR (CKD-EPI)NonAf 59.55 Random Glucose 71 L Calcium 8.9 Magnesium 2.2 Total Bilirubin 0.7 AST 30 ALT 38 Alkaline Phosphatase 88 Creatine Kinase Troponin I B-Natriuretic Peptide 1957.6 H Total Protein 7.1 Albumin 3.6 Urine Color Yellow Urine Appearance Cloudy Urine pH 5.0 Ur Specific Dick[place] 1.017 Urine Protein 2+ H Urine Glucose (UA) Negative Urine Ketones 1+ H Urine Blood 3+ H Urine Nitrite Negative Urine Bilirubin Negative Urine Urobilinogen 1.0 Ur Leukocyte Esterase 1+ H Urine WBC (Auto) 36 Urine RBC (Auto) 1 Urine Casts (Auto) 13 U Epithel Cells (Auto) 0.5 Urine Bacteria (Auto) 5875.8 Stool Occult Blood Negative ASSESSMENT/PLAN: 84 y/o/f w a hx of Afib (on coumadin checked every 2 weeks), Aortic valve replacement (bovine valve in 2006), hypothyroidism, pernicious Anemia (on monthly self administered B12 injection), HLD, HTN, diastolic HF, herpes zoster , and OA presents to the ED for chest pain and weakness. Admitted for weakness 2 /2 afib with rvr vs. ?UTI. #Afib with RVR - EKG showing Afib with RVR, rate 116 - QTC prolonged at 539, will hold Sotalol - Metoprolol 5mg IV push ordered - Can start on Metoprolol 25mg QD as tolerated by HR and BP - Cardiology consulted (Dr. Morris) - On Coumadin, INR supratherapeutic. Will hold dose tomorrow #Hypotension 2/2 dehydration vs sepsis - patient had poor oral intake today - UA positive for 1+Ketones, 1+Leuk Esterase, Bacteria 5875.8, WBC 38 - Ceftriaxone given x1 in the ED. Will hold further abx pending Urine cultures - patient afebrile, no leukocytosis, no symptoms of UTI - IVF #Chest pain - now resolved - no ischemic changes noted on EKG - Trop 0.07 -> 1.01 - Contacted cardio, recommended to continue to trend trop, EKG. no need to start plavix at this time in setting of supratherapeutic INR #HTN - Continue Losartan - Holding Sotalol #HLD - Continue home Crestor #Hypothyroidism - Continue home Synthroid dose - Check TSH with morning labs #CHF - Hold lasix as patient is getting IVF - restart lasix until appropriate to restart #Prophylaxis - On Coumadin at home. Holding dose for tomorrow due to supratherapeutic INR. Restart as appropriate with INR - SCDs #FEN - IVF @ 75mls/hr, caution with fluids due to history of CHF. monitor for signs of overload - Cholesterol/Sodium controlled diet - PT eval #Disposition - admitted to telemetry - patient verbally stated that she would like to be DNR/DNI but has not filled out paperwork. States that HCP is son and daughter in law Visit type - Emergency Visit Emergency Visit: Yes ED Registration Date: 10/06/19 Care time: The patient presented to the Emergency Department on the above date and was hospitalized for further evaluation of their emergent condition. - New Patient This patient is new to me today: No - Critical Care Critical Care patient: No ATTENDING PHYSICIAN STATEMENT I saw and evaluated the patient. I reviewed the resident's note and discussed the case with the resident. I agree with the resident's findings and plan as documented. SUBJECTIVE: OBJECTIVE: ASSESSMENT AND PLAN:
--- NOTE | 2019-10-06 19:35 | CON.CARD ---
Consult Consult Specialty:: cardiology Reason for Consultation:: AF with RVR - History of Present Illness Chief Complaint: Pt A&Ox3; denies chest pain, palpitations; + dyspnea; feels weak. History of Present Illness: Lin Berg is an 84 yo white woman with a hx of Afib (on Sotalol and coumadin) , Aortic valve replacement (bovine valve > 12 yrs ago), hypothyroidism, pernicious anemia (on monthly self -administered B12 injection), HLD, diastolic HF, herpes zoster, and OA, who presents to the [facility] ER [facility]IB[facility] for weakness, dehydration, and chest pain. Per EMS patient was hypotensive on route so they placed a line and started fluid resuscitating the patient with 1L of NS. Here in the ER the patient states that she went to bed last night feeling her baseline, then when she woke up this morning she felt weak, dehydrated, had substernal chest pain which has resolved in the ED, and is mildly short of breath. She states she feels like her mouth is dry and has not drank enough today. She states she did not take any of her meds today. She states she has a history of UTI's but she is incontinent; no recent urinary or bowel changes. Chest pain: substernal, rated 5/10 earlier now resolved, not associated with nausea, vomiting, diaphoresis, and not worsened with physical activity, no radiation. Denies recent fevers, chills, infections, productive cough, dysuria, frequency, or urgency. PCP: Dr. Grullon GI: Dr. Mathis Cards: Arturo Past Surgical Hx: bioprosthetic ortic valve replacement, cholecystectomy Social Hx: Lives at home, denies smoking, drinking, or other substance usage Allergies: trimethoprim, sulfamethoxazole - History Source History Provided By: Patient, Medical Record Limitations to Obtaining History: No Limitations - Past Medical History Cardio/Vascular: Yes: AFIB, HTN, Hyperlipdemia Pulmonary: No: Asthma Reproductive: Yes: Postmenopausal ...: No Infectious Disease: Yes: Herpes Zoster Musculoskeletal: Yes: Osteoarthritis - Past Surgical History Past Surgical History: Yes: Cholecystectomy, Valve Replacement (Aortic) - Alcohol/Substance Use Hx Alcohol Use: No History of Substance Use: reports: None - Smoking History Smoking history: Never smoked Have you smoked in the past 12 months: No Aproximately how many cigarettes per day: 0 - Social History ADL: Independent History of Recent Travel: No Home Medications - Allergies Allergies/Adverse Reactions: Allergies Allergy/AdvReac Type Severity Reaction Status Date / Time sulfamethoxazole Allergy Severe Rash Verified 10/06/19 16:02 [From Bactrim] trimethoprim [From Bactrim] Allergy Severe Rash Verified 10/06/19 16:02 - Home Medications Home Medications: Ambulatory Orders Aspirin [ASA -] 81 mg PO DAILY 10/06/19 Calcium Carbonate/Vitamin D3 [Calcium 500 + Vit D Caplet] 1 each PO DAILY Cyanocobalamin Vit B-12 Inj. [Redisol] 1,000 mcg IJ Q30D 10/06/19 Folic Acid 1 mg PO DAILY 10/06/19 Furosemide 20 mg PO DAILY 10/06/19 Levothyroxine [Synthroid -] 12.5 mcg PO DAILY 10/06/19 Levothyroxine [Synthroid -] 100 mcg PO DAILY 10/06/19 Losartan Potassium 100 mg PO DAILY 10/06/19 Multivit-Min/Iron/Folic/Lutein [Centrum Silver Women Tablet] 1 each PO DAILY Potassium Chloride [K-Dur -] 20 meq PO DAILY 10/06/19 Rosuvastatin [Crestor -] 5 mg PO HS 10/06/19 Sotalol HCl [Betapace -] 80 mg PO BID 10/06/19 Warfarin Na [Coumadin] 3 mg PO DAILY 10/06/19 Family Medical History Family History: Denies Review of Systems - Review of Systems Constitutional: reports: Weakness Eyes: reports: No Symptoms HENT: reports: No Symptoms Neck: reports: No Symptoms Cardiovascular: reports: Chest Pain, Shortness of Breath Respiratory: reports: SOB on Exertion Gastrointestinal: reports: No Symptoms Genitourinary: reports: No Symptoms Breasts: reports: No Symptoms Reported Musculoskeletal: reports: Joint Pain Integumentary: reports: No Symptoms Neurological: reports: No Symptoms Endocrine: reports: No Symptoms Hematology/Lymphatic: reports: No Symptoms Psychiatric: reports: No Symptoms - Risk Factors Known Risk Factors: Yes: Age, Hypercholesterolemia, Hypertension Vital Signs: Vital Signs Temperature 99.2 F 10/06/19 18:33 Pulse Rate 104 H 10/06/19 19:32 Respiratory Rate 20 10/06/19 19:32 Blood Pressure 111/62 10/06/19 19:32 O2 Sat by Pulse Oximetry (%) 98 10/06/19 19:32 Constitutional: Yes: Anxious Eyes: Yes: WNL HENT: Yes: WNL Neck: Yes: WNL Respiratory: Yes: WNL Gastrointestinal: Yes: WNL Renal/: Yes: WNL Cardiovascular: Yes: Tachycardia, Pulse Irregular JVD: No Carotid Bruit: No PMI: Non-Displaced Heart Sounds: Yes: S1 (varies in intensity), S2 Murmur: Yes: Systolic Murmur, Grade 2 Musculoskeletal: Yes: Joint Stiffness, Muscle Weakness Extremities: Yes: Cool Edema: No Peripheral Pulses WNL: Yes Integumentary: Yes: WNL Neurological: Yes: Alert, Oriented, Weakness Psychiatric: Yes: WNL - Other Data Labs, Other Data: CBC, BMP 10/06/19 16:30 10/06/19 16:30 INR, PTT INR 3.83 (0.83-1.09) H 10/06/19 16:30 Troponin, BNP 10/06/19 10/06/19 16:30 16:30 Troponin I 0.07 H B-Natriuretic Peptide 1957.6 H Troponin, BNP 10/06/19 10/06/19 16:30 16:30 Troponin I 0.07 H B-Natriuretic Peptide 1957.6 H Abnormal Lab Results 10/07/19 10/07/19 10/07/19 05:48 05:48 05:48 RBC 3.35 L Hct 32.2 L MCV 96.2 H PT with INR 57.50 H INR 4.80 H* Chloride 114 H BUN 30.4 H CK-MB (CK-2) Troponin I Albumin 3.2 L TSH 4.80 H 10/07/19 10/07/19 05:48 21:35 RBC Hct MCV PT with INR INR Chloride BUN CK-MB (CK-2) 4.6 H Troponin I 0.69 H* 0.39 H Albumin TSH Echo: Report Reviewed Ejection Fraction %: LVEF > or = 40 % Imaging - Results Chest X-ray: Image Reviewed EKG: Image Reviewed Problem List - Problems (1) Atrial fibrillation with RVR Assessment/Plan: Sotalol held due to prolonged QT. If baseline BP allows, will give metoprolol tartrate, first IVP, then (if BP remains stable and HR improves) PO 25 mg q12 or q8 hrs. EKG serially; telemetry. Hold warfarin (INR 3.8); also on ASA 81 mg/d. Code(s): I48.91 - UNSPECIFIED ATRIAL FIBRILLATION (2) Chest pain Assessment/Plan: No chest pain presently. serial TNI (0.07; contributing factors include demand ischemia from AF with RVR , CHF/valvular heart disease). EKG: AF with RVR; ?old IWMI (Qs 3, aVF). (hx mildly elevated TNI in the past). CXR: no acute infiltrate. ECHO 07/2019: normal LVEF; abnormal diastolic compliance; moderate ; mild TR and MR; mild LAE; no mention made of regional wall motion abnormalities.. On warfarin (supratherapeutic INR) and ASA 81 mg/d; metoprolol; statin. F/u prior cardiac workup (no hx stress test in this hospital). Code(s): R07.9 - CHEST PAIN, UNSPECIFIED Qualifiers: Chest pain type: unspecified Qualified Code(s): R07.9 - Chest pain, unspecified (3) Diastolic dysfunction Code(s): I51.9 - HEART DISEASE, UNSPECIFIED (4) UTI (urinary tract infection) Code(s): N39.0 - URINARY TRACT INFECTION, SITE NOT SPECIFIED Qualifiers: Urinary tract infection type: acute cystitis Hematuria presence: with hematuria Qualified Code(s): N30.01 - Acute cystitis with hematuria (5) HTN (hypertension) Assessment/Plan: on losartan now on metoprolol F/u BP and HR. Code(s): I10 - ESSENTIAL (PRIMARY) HYPERTENSION Qualifiers: Hypertension type: essential hypertension Qualified Code(s): I10 - Essential (primary) hypertension (6) Prosthetic aortic valve stenosis Assessment/Plan: ECHO 08/07: normal LVEF; moderate Code(s): T82.857A - STENOSIS OF OTHER CARDIAC PROSTH DEV/GRFT, INITIAL ENCOUNTER (7) Hypothyroidism Assessment/Plan: f/u free T4 (mildly elevated 03/07) On Synthroid. Code(s): E03.9 - HYPOTHYROIDISM, UNSPECIFIED Qualifiers: Hypothyroidism type: unspecified Qualified Code(s): E03.9 - Hypothyroidism , unspecified (8) Dehydration Assessment/Plan: elevated BUN given IV fluids by EMS. F/u Is and Os, electrolytes, BP. Code(s): E86.0 - DEHYDRATION
[2019-10-06] MEDS ORDERED: ACETAMINOPHEN 325 MG TABLET (FP) ONE (20:46)
[2019-10-06] MEDS ORDERED: METOPROLOL TARTRATE 25 MG TABLET (FP) PO ONE (22:05)
[2019-10-06] MEDS ORDERED: METOPROLOL TARTRATE 25 MG TABLET (FP) ONE (22:07)
[2019-10-06] MEDS: ROSUVASTATIN CA 5 MG TABLET (FP) PO SCH (22:51)
[2019-10-07] MEDS ORDERED: HEPARIN NA (PORCINE) 5,000 UNITS/ML 1ML VIAL ONE (06:24)
[2019-10-07 06:29] LABS: HEMATOCRIT 32.2 % (32.4-45.2); HEMOGLOBIN 10.7 GM/dL (10.7-15.3); MCH 32.1 pg (25.7-33.7); MCHC 33.4 g/dl (32.0-36.0); MEAN CELL VOLUME 96.2 fl (80-96); MEAN PLT VOLUME 8.2 fl (7.5-11.1); PLATELET COUNT 184 K/MM3 (134-434); RBC 3.35 M/mm3 (3.60-5.2); WHITE BLOOD COUNT 6.6 K/mm3 (4.0-10.0)
[2019-10-07 06:41] LABS: PROTHROMBIN TIME (PATIENT) 57.5 SEC (9.7-13.0)
[2019-10-07 06:46] LABS: INR 4.8 (0.83-1.09)
[2019-10-07 06:55] LABS: ALBUMIN 3.2 g/dl (3.4-5.0); BILIRUBIN,TOTAL 0.4 mg/dL (0.2-1); BLOOD UREA NITROGEN 30.4 mg/dL (7-18); CALCIUM 8.5 mg/dL (8.5-10.1); CREATININE 0.9 mg/dL (0.55-1.3); POTASSIUM 3.5 mmol/L (3.5-5.1); TOT PROT 6.6 g/dl (6.4-8.2)
[2019-10-07] MEDS: LEVOTHYROXINE NA 112 MCG TABLET (FP) PO SCH (07:00)
[2019-10-07] MEDS ORDERED: LEVOTHYROXINE NA 100 MCG TABLET (FP) PO SCH (07:00)
[2019-10-07] MEDS ORDERED: METOPROLOL TARTRATE 25 MG TABLET (FP) ONE (07:31)
[2019-10-07] MEDS ORDERED: ASPIRIN 81 MG CHEWABLE TABLETS ONE (07:31)
[2019-10-07] MEDS ORDERED: FOLIC ACID 1 MG TABLET (FP) ONE (07:32)
[2019-10-07] MEDS ORDERED: LOSARTAN POTASSIUM 50 MG TABLET (FP) ONE (07:32)
[2019-10-07] MEDS: FOLIC ACID 1 MG TABLET (FP) PO SCH (09:02)
[2019-10-07] MEDS: LOSARTAN POTASSIUM 50 MG TABLET (FP) PO SCH (09:02)
[2019-10-07] MEDS: METOPROLOL TARTRATE 25 MG TABLET (FP) PO SCH ×2 (09:03→21:17)
[2019-10-07] MEDS: SODIUM CHLORIDE 1,000 ML IV SCH (09:32)
[2019-10-07] MEDS ORDERED: LEVOTHYROXINE NA 25 MCG TABLET (FP) PO SCH (10:00)
[2019-10-07] MEDS ORDERED: ASPIRIN 81 MG CHEWABLE TABLETS PO SCH (10:00)
--- NOTE | 2019-10-07 11:02 | EKG ---
Test Reason : Blood Pressure : / mmHG Vent. Rate : 101 BPM Atrial Rate : 136 BPM P-R Int : 000 ms QRS Dur : 090 ms QT Int : 340 ms P-R-T Axes : 000 -25 035 degrees QTc Int : 440 ms ATRIAL FIBRILLATION WITH RAPID VENTRICULAR RESPONSE WITH PREMATURE VENTRICULAR OR ABERRANTLY CONDUCTED COMPLEXES INFERIOR INFARCT , AGE UNDETERMINED ABNORMAL ECG WHEN COMPARED WITH ECG OF 06-OCT-2019 16:03, NO SIGNIFICANT CHANGE WAS FOUND Confirmed by RAKEL RUIZ, PALMER ([id number]) on 10/07/2019 11:01:34 AM Referred By: Confirmed By:PALMER ELLINGTON MD
--- NOTE | 2019-10-07 11:02 | EKG ---
Test Reason : Blood Pressure : / mmHG Vent. Rate : 116 BPM Atrial Rate : 131 BPM P-R Int : 000 ms QRS Dur : 078 ms QT Int : 388 ms P-R-T Axes : 000 -24 042 degrees QTc Int : 539 ms POOR DATA QUALITY, INTERPRETATION MAY BE ADVERSELY AFFECTED ATRIAL FIBRILLATION WITH RAPID VENTRICULAR RESPONSE WITH PREMATURE VENTRICULAR OR ABERRANTLY CONDUCTED COMPLEXES NONSPECIFIC ST AND T WAVE ABNORMALITY PROLONGED QT ABNORMAL ECG WHEN COMPARED WITH ECG OF 26-JUL-2019 00:32, ATRIAL FIBRILLATION HAS REPLACED SINUS RHYTHM VENT. RATE HAS INCREASED BY [address] NOW DEPRESSED IN LATERAL LEADS Confirmed by PALMER ELLINGTON MD ([id number]) on 10/07/2019 11:02:33 AM Referred By: Confirmed By:PALMER ELLINGTON MD
--- NOTE | 2019-10-07 14:16 | PN ---
Progress Note (short form) - Note Progress Note: SUBJECTIVE: Feeling better, CP/palpitations resolved. Denies dysuria/hematuria. Incontinent of urine. No fever/chills/nausea/vomiting/diarrhea. OBJECTIVE: Afebrile, Hemdynamicaly Stable. RVR overngiht, now resolved. Last Vital Signs Temp Pulse Resp BP Pulse Ox 97.3 F L 88 19 132/78 97 10/07/19 07:30 10/07/19 11:28 10/07/19 11:28 10/07/19 11:28 10/07/19 11:28 Heart - S1 S2, SM, irrregular Lungs - clear to auscultation Abdomen - soft, non-tender. Bowel Sounds normal. Extremities - trace edema, no calf tenderness. Neuro - AAO x 3. JALIL. RLE 12/22 Laboratory Results - last 24 hr 10/06/19 10/06/19 10/06/19 16:30 16:30 16:30 WBC 7.4 RBC 3.54 L Hgb 11.5 Hct 34.3 D MCV 97.0 H MCH 32.4 MCHC 33.4 RDW 14.1 Plt Count 200 MPV 8.2 Absolute Neuts (auto) 5.7 Neutrophils % 77.4 Lymphocytes % 12.3 D Monocytes % 8.9 Eosinophils % 0.6 D Basophils % 0.8 Nucleated RBC % 0 PT with INR 45.80 H INR 3.83 H PTT (Actin FS) 46.6 H Sodium Potassium Chloride Carbon Dioxide Anion Gap BUN Creatinine Est GFR (CKD-EPI)AfAm Est GFR (CKD-EPI)NonAf Random Glucose Calcium Magnesium Total Bilirubin AST ALT Alkaline Phosphatase Creatine Kinase 67 CK-MB (CK-2) Troponin I 0.07 H B-Natriuretic Peptide Total Protein Albumin TSH Free T4 Urine Color Urine Appearance Urine pH Ur Specific [place] Urine Protein Urine Glucose (UA) Urine Ketones Urine Blood Urine Nitrite Urine Bilirubin Urine Urobilinogen Ur Leukocyte Esterase Urine WBC (Auto) Urine RBC (Auto) Urine Casts (Auto) U Epithel Cells (Auto) Urine Bacteria (Auto) Stool Occult Blood 10/06/19 10/06/19 10/06/19 16:30 17:07 17:16 WBC RBC Hgb Hct MCV MCH MCHC RDW Plt Count MPV Absolute Neuts (auto) Neutrophils % Lymphocytes % Monocytes % Eosinophils % Basophils % Nucleated RBC % PT with INR INR PTT (Actin FS) Sodium 146 H Potassium 3.7 Chloride 115 H Carbon Dioxide 21 Anion Gap 10 BUN 29.3 H Creatinine 0.9 Est GFR (CKD-EPI)AfAm 69.01 Est GFR (CKD-EPI)NonAf 59.55 Random Glucose 71 L Calcium 8.9 Magnesium 2.2 Total Bilirubin 0.7 AST 30 ALT 38 Alkaline Phosphatase 88 Creatine Kinase CK-MB (CK-2) Troponin I B-Natriuretic Peptide 1957.6 H Total Protein 7.1 Albumin 3.6 TSH Free T4 Urine Color Yellow Urine Appearance Cloudy Urine pH 5.0 Ur Specific [place] 1.017 Urine Protein 2+ H Urine Glucose (UA) Negative Urine Ketones 1+ H Urine Blood 3+ H Urine Nitrite Negative Urine Bilirubin Negative Urine Urobilinogen 1.0 Ur Leukocyte Esterase 1+ H Urine WBC (Auto) 36 Urine RBC (Auto) 1 Urine Casts (Auto) 13 U Epithel Cells (Auto) 0.5 Urine Bacteria (Auto) 5875.8 Stool Occult Blood Negative 10/06/19 10/07/19 10/07/19 22:45 05:48 05:48 WBC 6.6 RBC 3.35 L Hgb 10.7 Hct 32.2 L MCV 96.2 H MCH 32.1 MCHC 33.4 RDW 14.0 Plt Count 184 MPV 8.2 Absolute Neuts (auto) Neutrophils % Lymphocytes % Monocytes % Eosinophils % Basophils % Nucleated RBC % PT with INR 57.50 H INR 4.80 H* PTT (Actin FS) Sodium Potassium Chloride Carbon Dioxide Anion Gap BUN Creatinine Est GFR (CKD-EPI)AfAm Est GFR (CKD-EPI)NonAf Random Glucose Calcium Magnesium Total Bilirubin AST ALT Alkaline Phosphatase Creatine Kinase CK-MB (CK-2) Troponin I 1.01 H* B-Natriuretic Peptide Total Protein Albumin TSH Free T4 1.37 Urine Color Urine Appearance Urine pH Ur Specific [place] Urine Protein Urine Glucose (UA) Urine Ketones Urine Blood Urine Nitrite Urine Bilirubin Urine Urobilinogen Ur Leukocyte Esterase Urine WBC (Auto) Urine RBC (Auto) Urine Casts (Auto) U Epithel Cells (Auto) Urine Bacteria (Auto) Stool Occult Blood 10/07/19 10/07/19 05:48 05:48 WBC RBC Hgb Hct MCV MCH MCHC RDW Plt Count MPV Absolute Neuts (auto) Neutrophils % Lymphocytes % Monocytes % Eosinophils % Basophils % Nucleated RBC % PT with INR INR PTT (Actin FS) Sodium 145 Potassium 3.5 Chloride 114 H Carbon Dioxide 24 Anion Gap 8 BUN 30.4 H Creatinine 0.9 Est GFR (CKD-EPI)AfAm 69.01 Est GFR (CKD-EPI)NonAf 59.55 Random Glucose 74 Calcium 8.5 Magnesium 2.0 Total Bilirubin 0.4 AST 28 ALT 33 Alkaline Phosphatase 80 Creatine Kinase 96 CK-MB (CK-2) 4.6 H Troponin I 0.69 H* B-Natriuretic Peptide Total Protein 6.6 Albumin 3.2 L TSH 4.80 H Free T4 Urine Color Urine Appearance Urine pH Ur Specific [place] Urine Protein Urine Glucose (UA) Urine Ketones Urine Blood Urine Nitrite Urine Bilirubin Urine Urobilinogen Ur Leukocyte Esterase Urine WBC (Auto) Urine RBC (Auto) Urine Casts (Auto) U Epithel Cells (Auto) Urine Bacteria (Auto) Stool Occult Blood Current Medications Generic Name Dose Route Start Last Admin Trade Name Freq PRN Reason Stop Dose Admin Acetaminophen 650 mg 10/06/19 18:35 10/06/19 20:48 Tylenol - PO 650 mg Q6H PRN Administration PAIN LEVEL 1-5 Aspirin 81 mg 10/07/19 10:00 10/07/19 09:03 Asa - PO 81 mg DAILY DANDY Administration Folic Acid 1 mg 10/07/19 10:00 10/07/19 09:02 Folic Acid - PO 1 mg DAILY DANDY Administration Sodium Chloride 1,000 mls @ 75 mls/hr 10/06/19 18:30 10/07/19 09:32 Normal Saline - IV 75 mls/hr ASDIR DANDY Administration Levothyroxine Sodium 112 mcg 10/07/19 07:00 10/07/19 07:00 Synthroid - PO 112 mcg DAILY@0700 DANDY Administration Losartan Potassium 100 mg 10/07/19 10:00 10/07/19 09:02 Cozaar - PO 100 mg DAILY DANDY Administration Metoprolol Tartrate 25 mg 10/07/19 10:00 10/07/19 09:03 Lopressor - PO 25 mg BID DANDY Administration Rosuvastatin Calcium 5 mg 10/06/19 22:00 10/06/19 22:51 Crestor - PO 5 mg HS DANDY Administration Home Medications Medication Instructions Recorded Aspirin [ASA -] 81 mg PO DAILY 10/06/19 Calcium Carbonate/Vitamin D3 1 each PO DAILY 10/06/19 [Calcium 500 + Vit D Caplet] Cyanocobalamin Vit B-12 Inj. 1,000 mcg IJ Q30D 10/06/19 [Redisol] Folic Acid 1 mg PO DAILY 10/06/19 Furosemide 20 mg PO DAILY 10/06/19 Levothyroxine [Synthroid -] 12.5 mcg PO DAILY 10/06/19 Levothyroxine [Synthroid -] 100 mcg PO DAILY 10/06/19 Losartan Potassium 100 mg PO DAILY 10/06/19 Multivit-Min/Iron/Folic/Lutein 1 each PO DAILY 10/06/19 [Centrum Silver Women Tablet] Potassium Chloride [K-Dur -] 20 meq PO DAILY 10/06/19 Rosuvastatin [Crestor -] 5 mg PO HS 10/06/19 Sotalol HCl [Betapace -] 80 mg PO BID 10/06/19 Warfarin Na [Coumadin] 3 mg PO DAILY 10/06/19 ASSESSMENT AND PLAN: 84 year old female with history of Atrial fibrillation (on Coumadin), HTN, Hypothyroidism, Pernicious Anemia (on weekly SQ B12 replacement), s/p AVR ( bioprosthetic), OA, Chronic Diastolic CHF, HLD, presents with weakness, lethargy , CP, palpitations, found to be hypotensive by EMS. 1. Atrial fibrillation with RVR, up to 130s QTc > 500 Normally on Sotalol. IV Metoprolol for RVR. Cardio eval and recommend transitioning Sotalol to Metoprolol 25mg BID INR supratherapeutic, will continue to hold Coumadin Telemonitoring 2. Dehydration sec to poor oral intake Questionable UTI, normally incontinent UA pos for LE/Bacteria +, Urine Cx pending. Gentle IV hydration No fever, dysuria, or leukocytosis. Received 1 dose of Ceftriaxone, will hold further Abx pending Urine Cx. 3. Atypical CP - resolved. No acute changes on ECG TropI max 1.01, likely sec to demand due to RVR. Eval by Cardo - rec change in BB 4. HTN - Sotalol changed to Metoprolol. Continue Losartan. 5. HLD - continue Crestor 6. Hypothyroidism - continue Levothyroxine. TSH 4.37. For up-titration of Levothyroxine as out-patient. 7. Chronic Diastolic CHF - normally on Lasix Will hold in favor of gentle IV hydration due to dehydration. 8. RLE weakness, chronic, worse recently. Recently discharged from [facility]. Given worsening RLE weakness, will order CT head. DVT Px - on Coumadin, INR supratherapeutic. Dispo - failed PT eval. Unable to ambulate with rolator. Will need placement. Visit type - Emergency Visit Emergency Visit: Yes ED Registration Date: 10/06/19 Care time: The patient presented to the Emergency Department on the above date and was hospitalized for further evaluation of their emergent condition. - New Patient This patient is new to me today: No - Critical Care Critical Care patient: No - Discharge Referral Referred to [facility] Med P.C.: No
[2019-10-07] MEDS ORDERED: PT OWN MED DRAWER 7, Y5N ONE ×2 (17:18→20:26)
[2019-10-07] MEDS: ROSUVASTATIN CA 5 MG TABLET (FP) PO SCH (21:16)
--- NOTE | 2019-10-08 06:13 | PN ---
Progress Note, Physician Chief Complaint: Pt A&Ox3; no chest pain; +dyspnea on mild exertion; no palpitations. History of Present Illness: Lin Berg is an 84 yo white woman with a hx of Afib (on Sotalol and coumadin) , Aortic valve replacement (bovine valve > 12 yrs ago), hypothyroidism, pernicious anemia (on monthly self -administered B12 injection), HLD, diastolic HF, herpes zoster, and OA, who presents to the [facility] for weakness, dehydration, and chest pain. Per EMS patient was hypotensive on route so they placed a line and started fluid resuscitating the patient with 1L of NS. Here in the ER the patient states that she went to bed last night feeling her baseline, then when she woke up this morning she felt weak, dehydrated, had substernal chest pain which has resolved in the ED, and is mildly short of breath. She states she feels like her mouth is dry and has not drank enough today. She states she did not take any of her meds today. She states she has a history of UTI's but she is incontinent; no recent urinary or bowel changes. Chest pain: substernal, rated 5/10 earlier now resolved, not associated with nausea, vomiting, diaphoresis, and not worsened with physical activity, no radiation. Denies recent fevers, chills, infections, productive cough, dysuria, frequency, or urgency. PCP: Dr. Grlulon GI: Dr. Mathis Cards: Arturo Past Surgical Hx: bioprosthetic aortic valve replacement, cholecystectomy Social Hx: Lives at home, denies smoking, drinking, or other substance usage Allergies: trimethoprim, sulfamethoxazole - Current Medication List Current Medications: Active Medications Acetaminophen (Tylenol -) 650 mg PO Q6H PRN PRN Reason: PAIN LEVEL 1-5 Last Admin: 10/06/19 20:48 Dose: 650 mg Aspirin (Asa -) 81 mg PO DAILY [facility] Last Admin: 10/07/19 09:03 Dose: 81 mg Folic Acid (Folic Acid -) 1 mg PO DAILY [facility] Last Admin: 10/07/19 09:02 Dose: 1 mg Sodium Chloride (Normal Saline -) 1,000 mls @ 75 mls/hr IV ASDIR [facility] Last Admin: 10/07/19 09:32 Dose: 75 mls/hr Levothyroxine Sodium (Synthroid -) 112 mcg PO DAILY@0700 [facility] Last Admin: 10/07/19 07:00 Dose: 112 mcg Losartan Potassium (Cozaar -) 100 mg PO DAILY [facility] Last Admin: 10/07/19 09:02 Dose: 100 mg Metoprolol Tartrate (Lopressor -) 25 mg PO BID [facility] Last Admin: 10/07/19 21:17 Dose: 25 mg Rosuvastatin Calcium (Crestor -) 5 mg PO HS [facility] Last Admin: 10/07/19 21:16 Dose: 5 mg - Objective Vital Signs: Vital Signs Temperature 97.6 F 10/08/19 02:00 Pulse Rate 88 10/08/19 02:00 Respiratory Rate 18 10/08/19 02:00 Blood Pressure 122/63 10/08/19 02:00 O2 Sat by Pulse Oximetry (%) 97 10/07/19 21:00 Constitutional: Yes: Calm Eyes: Yes: WNL HENT: Yes: WNL Neck: Yes: WNL Cardiovascular: Yes: Tachycardia, Pulse Irregular Respiratory: Yes: WNL Gastrointestinal: Yes: WNL ...Rectal Exam: Yes: Deferred Genitourinary: No: Anuria Breast(s): Yes: WNL Musculoskeletal: Yes: Joint Stiffness, Muscle Weakness Extremities: Yes: Cool Edema: No Peripheral Pulses WNL: Yes Integumentary: Yes: WNL Neurological: Yes: Alert, Oriented Psychiatric: Yes: WNL Labs: CBC, BMP 10/07/19 05:48 10/07/19 05:48 INR, PTT INR 4.80 (0.83-1.09) H* 10/07/19 05:48 Abnormal Lab Results 10/07/19 10/07/19 10/07/19 05:48 05:48 05:48 RBC 3.35 L Hct 32.2 L MCV 96.2 H PT with INR 57.50 H INR 4.80 H* Chloride 114 H BUN 30.4 H CK-MB (CK-2) Troponin I Albumin 3.2 L TSH 4.80 H 10/07/19 10/07/19 05:48 21:35 RBC Hct MCV PT with INR INR Chloride BUN CK-MB (CK-2) 4.6 H Troponin I 0.69 H* 0.39 H Albumin TSH - ....Imaging Chest X-ray: Image Reviewed EKG: Image Reviewed Other: Image Reviewed (telemetry: AF; periods of RVR) Problem List - Problems (1) Atrial fibrillation with RVR Assessment/Plan: Sotalol held due to prolonged QT. On metoprolol for HR control. EKG serially; telemetry. Hold warfarin (INR 3.8); also on ASA 81 mg/d. Code(s): I48.91 - UNSPECIFIED ATRIAL FIBRILLATION (2) Chest pain Assessment/Plan: No chest pain or dyspnea presently. serial TNI (0.07-->1.01-->0.69; contributing factors include demand ischemia from AF with RVR, CHF/valvular heart disease). EKG: AF with RVR; ?old IWMI (Qs 3, aVF). (hx mildly elevated TNI in the past). CXR: no acute infiltrate. ECHO 07/2019: normal LVEF; abnormal diastolic compliance; moderate ; mild TR and MR; mild LAE; no mention made of regional wall motion abnormalities.. On warfarin (supratherapeutic INR) and ASA 81 mg/d; metoprolol; statin. F/U serial TNI and EKGs; telemetry. F/u prior cardiac workup (no hx stress test in this hospital). Code(s): R07.9 - CHEST PAIN, UNSPECIFIED Qualifiers: Chest pain type: unspecified Qualified Code(s): R07.9 - Chest pain, unspecified (3) Diastolic dysfunction Assessment/Plan: On losartan and metoprolol. F/u Is and Os, daily weight, electrolytes, BUn/Cr. Code(s): I51.9 - HEART DISEASE, UNSPECIFIED (4) UTI (urinary tract infection) Code(s): N39.0 - URINARY TRACT INFECTION, SITE NOT SPECIFIED Qualifiers: Urinary tract infection type: acute cystitis Hematuria presence: with hematuria Qualified Code(s): N30.01 - Acute cystitis with hematuria (5) HTN (hypertension) Assessment/Plan: on losartan now on metoprolol for HR and BP. F/u BP and HR. Code(s): I10 - ESSENTIAL (PRIMARY) HYPERTENSION Qualifiers: Hypertension type: essential hypertension Qualified Code(s): I10 - Essential (primary) hypertension (6) Prosthetic aortic valve stenosis Assessment/Plan: ECHO 08/07: normal LVEF; moderate Code(s): T82.857A - STENOSIS OF OTHER CARDIAC PROSTH DEV/GRFT, INITIAL ENCOUNTER (7) Hypothyroidism Assessment/Plan: f/u free T4 (mildly elevated 03/07) On Synthroid. Code(s): E03.9 - HYPOTHYROIDISM, UNSPECIFIED Qualifiers: Hypothyroidism type: unspecified Qualified Code(s): E03.9 - Hypothyroidism , unspecified (8) Dehydration Assessment/Plan: elevated BUN given IV fluids by EMS. F/u Is and Os, electrolytes, BP. Code(s): E86.0 - DEHYDRATION
[2019-10-08] MEDS: LEVOTHYROXINE NA 112 MCG TABLET (FP) PO SCH (06:46)
[2019-10-08] MEDS: SODIUM CHLORIDE 1,000 ML IV SCH (06:47)
[2019-10-08] MEDS ORDERED: METOPROLOL TARTRATE 25 MG TABLET (FP) PO SCH (08:30)
[2019-10-08] MEDS: FUROSEMIDE 20 MG TABLET (FP) PO SCH (09:36)
[2019-10-08] MEDS: LOSARTAN POTASSIUM 50 MG TABLET (FP) PO SCH (09:36)
[2019-10-08] MEDS: FOLIC ACID 1 MG TABLET (FP) PO SCH (09:36)
--- NOTE | 2019-10-08 09:54 | EKG ---
Test Reason : Blood Pressure : / mmHG Vent. Rate : 101 BPM Atrial Rate : 156 BPM P-R Int : 000 ms QRS Dur : 086 ms QT Int : 378 ms P-R-T Axes : 000 -18 115 degrees QTc Int : 490 ms ATRIAL FIBRILLATION WITH RAPID VENTRICULAR RESPONSE WITH PREMATURE VENTRICULAR OR ABERRANTLY CONDUCTED COMPLEXES INFERIOR INFARCT (CITED ON OR BEFORE 07-OCT-2019) ABNORMAL ECG WHEN COMPARED WITH ECG OF 07-OCT-2019 10:55, NO SIGNIFICANT CHANGE WAS FOUND Confirmed by MARY ELLEN YOUNG MD ([id number]) on 10/08/2019 9:53:54 AM Referred By: Yuridia RICARDO Confirmed By:MARY ELLEN YOUNG MD
--- NOTE | 2019-10-08 10:05 | EKG ---
Test Reason : Blood Pressure : / mmHG Vent. Rate : 079 BPM Atrial Rate : 326 BPM P-R Int : 000 ms QRS Dur : 092 ms QT Int : 416 ms P-R-T Axes : 000 -29 115 degrees QTc Int : 477 ms ATRIAL FIBRILLATION WITH PREMATURE VENTRICULAR OR ABERRANTLY CONDUCTED COMPLEXES INFERIOR INFARCT (CITED ON OR BEFORE 07-OCT-2019) ABNORMAL ECG WHEN COMPARED WITH ECG OF 07 OCT 2019 NO SIGNIFICANT CHANGE WAS FOUND Confirmed by HECOTR RUIZ, MARY ELLEN ([id number]) on 10/08/2019 10:04:39 AM Referred By: Yuridia RICARDO Confirmed By:MARY ELLEN YOUNG MD
--- NOTE | 2019-10-08 10:35 | PN ---
Progress Note, Physician History of Present Illness: Left knee hematoma, chest pain and dyspnea improving. - Current Medication List Current Medications: Active Medications Acetaminophen (Tylenol -) 650 mg PO Q6H PRN PRN Reason: PAIN LEVEL 1-5 Last Admin: 10/06/19 20:48 Dose: 650 mg Aspirin (Asa -) 81 mg PO DAILY [facility] Last Admin: 10/07/19 09:03 Dose: 81 mg Folic Acid (Folic Acid -) 1 mg PO DAILY [facility] Last Admin: 10/08/19 09:36 Dose: 1 mg Furosemide (Lasix -) 20 mg PO DAILY [facility] Last Admin: 10/08/19 09:36 Dose: 20 mg Ceftriaxone Sodium 1 gm/ (Dextrose) 50 mls @ 200 mls/hr IVPB DAILY [facility]; Protocol Levothyroxine Sodium (Synthroid -) 112 mcg PO DAILY@0700 [facility] Last Admin: 10/08/19 06:46 Dose: 112 mcg Losartan Potassium (Cozaar -) 100 mg PO DAILY [facility] Last Admin: 10/08/19 09:36 Dose: 100 mg Metoprolol Tartrate (Lopressor -) 25 mg PO TID [facility] Last Admin: 10/08/19 08:40 Dose: 25 mg Rosuvastatin Calcium (Crestor -) 5 mg PO HS [facility] Last Admin: 10/07/19 21:16 Dose: 5 mg - Objective Vital Signs: Vital Signs Temperature 98.1 F 10/08/19 06:00 Pulse Rate 93 H 10/08/19 06:00 Respiratory Rate 18 10/08/19 06:00 Blood Pressure 142/90 10/08/19 06:00 O2 Sat by Pulse Oximetry (%) 97 10/07/19 21:00 Constitutional: Yes: No Distress, Calm Neck: Yes: Supple Cardiovascular: Yes: Pulse Irregular Respiratory: Yes: Regular, Diminished Gastrointestinal: Yes: Normal Bowel Sounds, Soft Musculoskeletal: Yes: Other (Left knee hematoma) Edema: No Labs: CBC, BMP 10/07/19 05:48 10/07/19 05:48 INR, PTT INR 4.80 (0.83-1.09) H* 10/07/19 05:48 - ....Imaging EKG: Report Reviewed (Afib @ 116 prolonged QTc 539 msec->Afib @104 QTc 490 msec) Problem List - Problems (1) Atrial fibrillation with RVR Code(s): I48.91 - UNSPECIFIED ATRIAL FIBRILLATION (2) Diastolic dysfunction Code(s): I51.9 - HEART DISEASE, UNSPECIFIED (3) Prosthetic aortic valve stenosis Code(s): T82.857A - STENOSIS OF OTHER CARDIAC PROSTH DEV/GRFT, INITIAL ENCOUNTER (4) Anticoagulation adequate with anticoagulant therapy Code(s): Z79.01 - POLITICAL SCIENCE CHAIR (CURRENT) USE OF 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 (5) Aortic stenosis, moderate Code(s): I35.0 - NONRHEUMATIC AORTIC (VALVE) STENOSIS (6) HTN (hypertension) Code(s): I10 - ESSENTIAL (PRIMARY) HYPERTENSION Qualifiers: Hypertension type: essential hypertension Qualified Code(s): I10 - Essential (primary) hypertension (7) Hematoma Code(s): T14.8XXA - OTHER INJURY OF UNSPECIFIED BODY REGION, INITIAL ENCOUNTER (8) Hyperlipidemia Code(s): E78.5 - HYPERLIPIDEMIA, UNSPECIFIED Qualifiers: Hyperlipidemia type: pure hypercholesterolemia Qualified Code(s): E78.00 - Pure hypercholesterolemia, unspecified (9) Hypertensive cardiomegaly without heart failure Code(s): I11.9 - HYPERTENSIVE HEART DISEASE WITHOUT HEART FAILURE (10) Hypothyroidism Code(s): E03.9 - HYPOTHYROIDISM, UNSPECIFIED Qualifiers: Hypothyroidism type: unspecified Qualified Code(s): E03.9 - Hypothyroidism , unspecified (11) Microalbuminuria Code(s): R80.9 - PROTEINURIA, UNSPECIFIED (12) Paroxysmal atrial fibrillation Code(s): I48.0 - PAROXYSMAL ATRIAL FIBRILLATION (13) S/P AVR (aortic valve replacement) Code(s): Z95.2 - PRESENCE OF PROSTHETIC HEART VALVE (14) Status post aortic aneurysm repair Code(s): Z98.89 - OTHER SPECIFIED POSTPROCEDURAL STATES * DO NOT USE *; Z86.79 - PERSONAL HISTORY OF OTHER DISEASES OF THE CIRCULATORY SYSTEM Assessment/Plan Echocardiogram: 07/27/2019 Normal LV size and fxn, abnl LV compliance, LVEF 55- 60%, mild MR, TR RVSP 30-40 mmHg, bioAVR MG 29 mmHg, PG 49 mmHg Echocardiogram: 04/19/2019 Mild cLVH with normal LV systolic function, LVEF 60- 65%, normal diastolic function, normal RV size and fxn, bioAVR MG 22 mmHg, PG 39 mmHg, mild MR, TR RVSP 25 mmHg Echocardiography 01/12/2018 revealed concentric left ventricular hypertrophy with normal left ventricular size and systolic function and estimated left ventricular ejection fraction between 70-75%, borderline bi-atrial dilatation, mild mitral valve regurgitation, mild tricuspid valve regurgitation with calculated RVSP of 25 mmHg, bio-prosthetic aortic valve with a mean trans- valvular gradient of 23.8 mmHg and a peak transvalvular gradient of 38.9 mmHg and trace aortic valve regurgitation. 01/17/2018 Echo: Normal biventricular size and fxn, mod elevated gradient across AV prosthesis MG 33 mmHg, PG 55 mmHg Pharmacologic Lexiscan myocardial perfusion imaging study performed December 08, 2016 revealed small size apical wall defect compatible with apical thinning with normal left ventricular contraction pattern on LV gated analysis with calculated left ventricular ejection fraction of 74% at rest and 73% post Lexiscan infusion. Carotid Dopplers with L possibly 50-70% ICA stenosis 1. PAF with RVR [id number] of 5 with supratherapeutic INR 2. Demand ischemia 3. 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 HTN/HCVD 5. Hyperlipidemia 6. Mild carotid stenosis 7. Hypothyroidism 8. Microalbuminuria 9. Diastolic dysfunction 10. Prolonged QTc on sotalol 11. UTI 12. H/o acute blood loss anemia requiring transfusion post-traumatic left gluteal intramuscular hematoma PLAN: 1. Hold coumadin per INR, remains on ASA 81 qd and Lasix 20 qd, trops downtrending, f/u HCT results 2. Changed Sotalol 80 bid to metoprolol 25 qid for rate-control given prolonged QTc 3. Continue Crestor 5 qhs and Losartan 100 qd. 4. Abx prophylaxis against endocarditis 5. Empiric abx course for UTI 6. Eventual f/u in office with Dr. Morris [phone] upon d/c, PT->SNF
[2019-10-08] MEDS ORDERED: cefTRIAXone SODIUM 1 GM VIAL ONE (10:47)
[2019-10-08] MEDS ORDERED: DEXTROSE 5%-WATER - 50 ML IVPB ONE (10:48)
[2019-10-08] MEDS: CEFTRIAXONE 1 GM in DEXTROSE 5%-WATER - 50 ML IVPB SCH (11:40)
--- NOTE | 2019-10-08 11:55 | PN ---
Progress Note (short form) - Note Progress Note: SUBJECTIVE: Feeling much better, CP/palpitations resolved. Denies dysuria/ hematuria. Incontinent of urine chronically. No fever/chills/nausea/vomiting/ diarrhea. OBJECTIVE: Afebrile, Hemdynamicaly Stable. RVR resolved. Last Vital Signs Temp Pulse Resp BP Pulse Ox 98.1 F 93 H 18 142/90 97 10/08/19 06:00 10/08/19 06:00 10/08/19 06:00 10/08/19 06:00 10/07/19 21:00 Heart - S1 S2, SM, irrregular Lungs - clear to auscultation Abdomen - soft, non-tender. Bowel Sounds normal. Extremities - trace edema, no calf tenderness. Neuro - AAO x 3. JALIL. RLE 4/5 Laboratory Results - last 24 hr 10/07/19 21:35 Troponin I 0.39 H Current Medications Generic Name Dose Route Start Last Admin Trade Name Freq PRN Reason Stop Dose Admin Acetaminophen 650 mg 10/06/19 18:35 10/06/19 20:48 Tylenol - PO 650 mg Q6H PRN Administration PAIN LEVEL 1-5 Aspirin 81 mg 10/07/19 10:00 10/07/19 09:03 Asa - PO 81 mg DAILY DANDY Administration Folic Acid 1 mg 10/07/19 10:00 10/08/19 09:36 Folic Acid - PO 1 mg DAILY DANDY Administration Furosemide 20 mg 10/08/19 10:00 10/08/19 09:36 Lasix - PO 20 mg DAILY DANDY Administration Ceftriaxone Sodium 1 gm/ 50 mls @ 200 mls/hr 10/08/19 10:30 10/08/19 11:40 Dextrose IVPB 200 mls/hr DAILY DANDY Administration Protocol Levothyroxine Sodium 112 mcg 10/07/19 07:00 10/08/19 06:46 Synthroid - PO 112 mcg DAILY@0700 DANDY Administration Losartan Potassium 100 mg 10/07/19 10:00 10/08/19 09:36 Cozaar - PO 100 mg DAILY DANDY Administration Metoprolol Tartrate 25 mg 10/08/19 12:00 Lopressor - PO Q6HPO DANDY Rosuvastatin Calcium 5 mg 10/06/19 22:00 10/07/19 21:16 Crestor - PO 5 mg HS DANDY Administration Home Medications Medication Instructions Recorded Aspirin [ASA -] 81 mg PO DAILY 10/06/19 Calcium Carbonate/Vitamin D3 1 each PO DAILY 10/06/19 [Calcium 500 + Vit D Caplet] Cyanocobalamin Vit B-12 Inj. 1,000 mcg IJ Q30D 10/06/19 [Redisol] Folic Acid 1 mg PO DAILY 10/06/19 Furosemide 20 mg PO DAILY 10/06/19 Levothyroxine [Synthroid -] 12.5 mcg PO DAILY 10/06/19 Levothyroxine [Synthroid -] 100 mcg PO DAILY 10/06/19 Losartan Potassium 100 mg PO DAILY 10/06/19 Multivit-Min/Iron/Folic/Lutein 1 each PO DAILY 10/06/19 [Centrum Silver Women Tablet] Potassium Chloride [K-Dur -] 20 meq PO DAILY 10/06/19 Rosuvastatin [Crestor -] 5 mg PO HS 10/06/19 Sotalol HCl [Betapace -] 80 mg PO BID 10/06/19 Warfarin Na [Coumadin] 3 mg PO DAILY 10/06/19 ASSESSMENT AND PLAN: 84 year old female with history of Atrial fibrillation (on Coumadin), HTN, Hypothyroidism, Pernicious Anemia (on weekly SQ B12 replacement), s/p AVR ( bioprosthetic), OA, Chronic Diastolic CHF, HLD, presents with weakness, lethargy , CP, palpitations, found to be hypotensive by EMS. 1. Atrial fibrillation with RVR, up to 130s, resolved. QTc > 500. Sotalol transitioned to Metoprolol 25mg BID. repeat QTc 440. INR supratherapeutic, Coumadin held, awaiting repeat INR. 2. Dehydration sec to poor oral intake and UTI Urine Cx LFNB > 100,000 CFU/ml No fever, dysuria, or leukocytosis. Will treat with Ceftriaxone pending ID and Sensitivities. Well fluid resuscitated. Will hold further IV fluids, and resume Lasix. Oral intake encouraged. 3. Atypical CP - resolved. No acute changes on ECG TropI max 1.01, likely sec to demand due to RVR. Eval by Cardo - rec change in BB Out-patient follow up as per Cardio. 4. HTN - Sotalol changed to Metoprolol. Continue Losartan. 5. HLD - continue Crestor 6. Hypothyroidism - continue Levothyroxine. TSH 4.37. For up-titration of Levothyroxine as out-patient. 7. Chronic Diastolic CHF - normally on Lasix - Lasix initially held in favor of gentle IV hydration due to dehydration. Will discontinue IV fluids and resume Lasix. 8. RLE weakness, chronic, worse recently. Recently discharged from [facility]. Given worsening RLE weakness, CT head ordered. Low probability fo acute neuro event. DVT Px - on Coumadin, INR supratherapeutic. Awaiting today's INR. Dispo - failed PT eval. Unable to ambulate with rolator. Will need placement. Discussed with CM/SUSANNE. Visit type - Emergency Visit Emergency Visit: Yes ED Registration Date: 10/06/19 Care time: The patient presented to the Emergency Department on the above date and was hospitalized for further evaluation of their emergent condition. - New Patient This patient is new to me today: No - Critical Care Critical Care patient: No - Discharge Referral Referred to [facility] Med P.C.: No
[2019-10-08] MEDS: METOPROLOL TARTRATE 25 MG TABLET (FP) PO SCH ×2 (12:29→18:07)
[2019-10-08 12:51] LABS: BASO % 0.3 % (0-2.0); EOS % 1.3 % (0-4.5); HEMATOCRIT 34.4 % (32.4-45.2); HEMOGLOBIN 11.7 GM/dL (10.7-15.3); LYMPH % 16.8 % (8-40); MCH 32.4 pg (25.7-33.7); MCHC 34.1 g/dl (32.0-36.0); MEAN CELL VOLUME 94.9 fl (80-96); MEAN PLT VOLUME 8.1 fl (7.5-11.1); MONO % 11.4 % (3.8-10.2); NEUT % 70.2 % (42.8-82.8); PLATELET COUNT 197 K/MM3 (134-434); RBC 3.62 M/mm3 (3.60-5.2); RDW 14.4 % (11.6-15.6); WHITE BLOOD COUNT 6.2 K/mm3 (4.0-10.0)
[2019-10-08 13:03] LABS: INR 3.5 (0.83-1.09); PROTHROMBIN TIME (PATIENT) 41.8 SEC (9.7-13.0)
[2019-10-08] MEDS: ROSUVASTATIN CA 5 MG TABLET (FP) PO SCH (22:59)
[2019-10-09] MEDS: METOPROLOL TARTRATE 25 MG TABLET (FP) PO SCH ×4 (00:15→17:18)
[2019-10-09] MEDS: LEVOTHYROXINE NA 112 MCG TABLET (FP) PO SCH (06:40)
[2019-10-09] MEDS ORDERED: DEXTROSE 5%-WATER - 50 ML IVPB ONE (10:00)
[2019-10-09] MEDS ORDERED: cefTRIAXone SODIUM 1 GM VIAL ONE (10:00)
[2019-10-09 10:14] LABS: INR 2.11 (0.83-1.09); PROTHROMBIN TIME (PATIENT) 25.1 SEC (9.7-13.0)
[2019-10-09] MEDS: FUROSEMIDE 20 MG TABLET (FP) PO SCH (10:35)
[2019-10-09] MEDS: LOSARTAN POTASSIUM 50 MG TABLET (FP) PO SCH (10:35)
[2019-10-09] MEDS: CEFTRIAXONE 1 GM in DEXTROSE 5%-WATER - 50 ML IVPB SCH (10:35)
[2019-10-09] MEDS: FOLIC ACID 1 MG TABLET (FP) PO SCH (10:36)
--- NOTE | 2019-10-09 11:05 | PN ---
Progress Note, Physician Chief Complaint: Events noted Not in distress History of Present Illness: Patient was seen and examined. Awake and alert. Chart was reviewed Denies chest pain, SOB or palpitations - Current Medication List Current Medications: Active Medications Acetaminophen (Tylenol -) 650 mg PO Q6H PRN PRN Reason: PAIN LEVEL 1-5 Last Admin: 10/06/19 20:48 Dose: 650 mg Aspirin (Asa -) 81 mg PO DAILY [facility] Last Admin: 10/07/19 09:03 Dose: 81 mg Folic Acid (Folic Acid -) 1 mg PO DAILY [facility] Last Admin: 10/09/19 10:36 Dose: 1 mg Furosemide (Lasix -) 20 mg PO DAILY [facility] Last Admin: 10/09/19 10:35 Dose: 20 mg Ceftriaxone Sodium 1 gm/ (Dextrose) 50 mls @ 200 mls/hr IVPB DAILY [facility]; Protocol Last Admin: 10/09/19 10:35 Dose: 200 mls/hr Levothyroxine Sodium (Synthroid -) 112 mcg PO DAILY@0700 [facility] Last Admin: 10/09/19 06:40 Dose: 112 mcg Losartan Potassium (Cozaar -) 100 mg PO DAILY [facility] Last Admin: 10/09/19 10:35 Dose: 100 mg Metoprolol Tartrate (Lopressor -) 25 mg PO Q6HPO [facility] Last Admin: 10/09/19 06:40 Dose: 25 mg Rosuvastatin Calcium (Crestor -) 5 mg PO HS [facility] Last Admin: 10/08/19 22:59 Dose: 5 mg - Objective Vital Signs: Vital Signs Temperature 97.8 F 10/09/19 09:00 Pulse Rate 95 H 10/09/19 09:00 Respiratory Rate 20 10/09/19 09:00 Blood Pressure 125/80 10/09/19 09:00 O2 Sat by Pulse Oximetry (%) 95 10/09/19 09:00 Neck: Yes: Supple Cardiovascular: Yes: Pulse Irregular, S1, S2 Respiratory: Yes: CTA Bilaterally Gastrointestinal: Yes: Normal Bowel Sounds, Soft. No: Tenderness Edema: No Additional Findings/Remarks: - Review of Systems Constitutional: denies: Chills, Fever Cardiovascular: denies Chest Pain, Shortness of Breath. denies: Palpitations Respiratory: denies Cough, SOB, SOB on Exertion, Wheezing. denies: Orthopnea, PND Genitourinary: denies: Discharge, Hematuria Neurological: denies: Dizziness, Headache, Seizure, Syncope Labs: CBC, BMP 10/08/19 12:15 10/07/19 05:48 INR, PTT INR 2.11 (0.83-1.09) H 10/09/19 09:21 Problem List - Problems (1) Atrial fibrillation with RVR Code(s): I48.91 - UNSPECIFIED ATRIAL FIBRILLATION (2) Diastolic dysfunction Code(s): I51.9 - HEART DISEASE, UNSPECIFIED (3) SOB (shortness of breath) Code(s): R06.02 - SHORTNESS OF BREATH (4) UTI (urinary tract infection) Code(s): N39.0 - URINARY TRACT INFECTION, SITE NOT SPECIFIED Qualifiers: Urinary tract infection type: acute cystitis Hematuria presence: with hematuria Qualified Code(s): N30.01 - Acute cystitis with hematuria (5) HTN (hypertension) Code(s): I10 - ESSENTIAL (PRIMARY) HYPERTENSION Qualifiers: Hypertension type: essential hypertension Qualified Code(s): I10 - Essential (primary) hypertension (6) Hematoma Code(s): T14.8XXA - OTHER INJURY OF UNSPECIFIED BODY REGION, INITIAL ENCOUNTER (7) Hyperlipidemia Code(s): E78.5 - HYPERLIPIDEMIA, UNSPECIFIED Qualifiers: Hyperlipidemia type: pure hypercholesterolemia Qualified Code(s): E78.00 - Pure hypercholesterolemia, unspecified (8) S/P AVR (aortic valve replacement) Code(s): Z95.2 - PRESENCE OF PROSTHETIC HEART VALVE (9) Status post aortic aneurysm repair Code(s): Z98.89 - OTHER SPECIFIED POSTPROCEDURAL STATES * DO NOT USE *; Z86.79 - PERSONAL HISTORY OF OTHER DISEASES OF THE CIRCULATORY SYSTEM Assessment/Plan 1. PAF with RVR [id number] of 5 2. Demand ischemia 3. 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 HTN/HCVD 5. Hyperlipidemia 6. Mild carotid stenosis 7. Hypothyroidism 8. Microalbuminuria 9. Diastolic dysfunction 10. Prolonged QTc on sotalol 11. UTI 12. History of acute blood loss anemia requiring transfusion post-traumatic left gluteal intramuscular hematoma PLAN: 1. Coumadin to keep INR 2-3. Continue ASA 81 mg QD and Lasix 20 mg QD troponin 2. Continue Metoprolol 25 mg QID for rate-control given prolonged QTc 3. Continue Crestor 5 mg QHS and Losartan 100 mg QD 4. Antibiotic prophylaxis for endocarditis protection when needed 5. Empiric antibiotic coverage for UTI 6. Eventual f/u in office with Dr. Morris [phone] upon discharge. Await SNF Further plans are to follow Efrain Osullivan MD
--- NOTE | 2019-10-09 12:43 | PN ---
Teaching Attending Note Name of Resident: Kayode Oscar ATTENDING PHYSICIAN STATEMENT I saw and evaluated the patient. I reviewed the resident's note and discussed the case with the resident. I agree with the resident's findings and plan as documented. Seen and examined; please see resident note for further historical information. I personally verified all miller historical information and exam findings. Personally interpreted all imaging and diagnostics and reviewed appropriate consults. I reviewed all labs and vital signs as per resident note and EMR as documented. I agree with the above assessment and plan unless supplemented by myself in the following. VS, labs, imaging reviewed NAD, AAO, resting comfortably in bed. Irregular HR s1/2 no mgr Normal muscle tone, moves all 5 extremities with normal apparent strength Neck is supple, trachea midline, no rhett LN Lungs CTAB with sym expansion NT ND +BS no rhett organomegaly CN2-12 wnl; no FND NC AT EOMI PERRLA Normal mood, appropriate behavior, euthymic affect No skin breakdown or rashes noted Noted to be growing out E. coli on urine culture that is pansensitive. Will complete treatment for uncomplicated cystitis ASSESSMENT AND PLAN: Patient is an 84-year-old female who is doing well. She remains on metoprolol 25 4 times daily for rate control given the history of sotalol use with prolonged QTC, she is on Coumadin with an INR between 2 and 3 and is admissible for DAPT with aspirin. She is indicated as having improved volume status and will remain on 20 mg of Lasix as well as 5 mg nightly of Crestor at 100 mg daily of losartan. Cardiology notes that the patient should be continued on antibiotic prophylaxis for dental procedures, etc. when indicated as per the most recent guidelines. The patient is currently pending SNF for discharge and awaiting approval. No further events today. Problems include: Paroxysmal atrial fibrillation with elevated chads Vascor Uncomplicated cystitis, on ceftriaxone, pansensitive E. coli Type II N STEMI secondary to subendocardial ischemia due to demand Status post bioprosthetic aVR with noted moderate transvalvular gradient on echocardiogram Hyperlipidemia history Hypothyroidism history Diastolic dysfunction, currently euvolemic Prolonged QTC CODE STATUS remains unchanged, pending
--- NOTE | 2019-10-09 16:28 | PN ---
Physical Exam: SUBJECTIVE: Patient seen and examined. Today pt is doing well. No c/o or issues. No overnight events. Afebrile and asymptomatic. Denies f/c/n/v/d/sob, chest pain. OBJECTIVE: Vital Signs Period Temp Pulse Resp BP Sys/Vincent Pulse Ox Last 24 Hr 97.8 F-98.4 F 78-95 18-20 114-150/70-90 94-95 GENERAL: The patient is awake, alert, and fully oriented, in no acute distress. EYES: PERRL, extraocular movements intact, sclera anicteric, conjunctiva clear. No ptosis. ENT: oropharynx clear without exudates, moist mucous membranes. LUNGS: Breath sounds equal, clear to auscultation bilaterally, no wheezes, no crackles HEART: Regular rate and irregular rhythm, S1, S2 without murmur, rub or gallop. ABDOMEN: Soft, nontender, nondistended, normoactive bowel sounds, no guarding, EXTREMITIES: 2+ pulses, warm, well-perfused, no edema. NEUROLOGICAL: Normal speech, gait not observed. RUE + RLE 4/5 strengthen, 4/5 sensation PSYCH: Normal mood, normal affect. SKIN: Warm, dry, normal turgor, no rashes or lesions noted Laboratory Results - last 24 hr CBC,CMP WBC 6.2 K/mm3 (4.0-10.0) 10/08/19 12:15 RBC 3.62 M/mm3 (3.60-5.2) 10/08/19 12:15 Hgb 11.7 GM/dL (10.7-15.3) 10/08/19 12:15 Hct 34.4 % (32.4-45.2) 10/08/19 12:15 MCV 94.9 fl (80-96) 10/08/19 12:15 MCH 32.4 pg (25.7-33.7) 10/08/19 12:15 MCHC 34.1 g/dl (32.0-36.0) 10/08/19 12:15 RDW 14.4 % (11.6-15.6) 10/08/19 12:15 Plt Count 197 K/MM3 (134-434) 10/08/19 12:15 MPV 8.1 fl (7.5-11.1) 10/08/19 12:15 Absolute Neuts (auto) 4.3 K/mm3 (1.5-8.0) 10/08/19 12:15 Neutrophils % 70.2 % (42.8-82.8) 10/08/19 12:15 Lymphocytes % 16.8 % (8-40) D 10/08/19 12:15 Monocytes % 11.4 % (3.8-10.2) H 10/08/19 12:15 Eosinophils % 1.3 % (0-4.5) D 10/08/19 12:15 Basophils % 0.3 % (0-2.0) 10/08/19 12:15 Nucleated RBC % 0 % (0-0) 10/08/19 12:15 Sodium 145 mmol/L (136-145) 10/07/19 05:48 Potassium 3.5 mmol/L (3.5-5.1) 10/07/19 05:48 Chloride 114 mmol/L (98-107) H 10/07/19 05:48 Carbon Dioxide 24 mmol/L (21-32) 10/07/19 05:48 Anion Gap 8 MMOL/L (8-16) 10/07/19 05:48 BUN 30.4 mg/dL (7-18) H 10/07/19 05:48 Creatinine 0.9 mg/dL (0.55-1.3) 10/07/19 05:48 Est GFR (CKD-EPI)AfAm 69.01 10/07/19 05:48 Est GFR (CKD-EPI)NonAf 59.55 10/07/19 05:48 Random Glucose 74 mg/dL (74-106) 10/07/19 05:48 Calcium 8.5 mg/dL (8.5-10.1) 10/07/19 05:48 Magnesium 2.0 mg/dL (1.8-2.4) 10/07/19 05:48 Total Bilirubin 0.4 mg/dL (0.2-1) 10/07/19 05:48 AST 28 U/L (15-37) 10/07/19 05:48 ALT 33 U/L (13-61) 10/07/19 05:48 Alkaline Phosphatase 80 U/L (45-117) 10/07/19 05:48 Creatine Kinase 96 U/L (26-192) 10/07/19 05:48 CK-MB (CK-2) 4.6 ng/mL (0.5-3.6) H 10/07/19 05:48 Troponin I 0.39 ng/ml (0.00-0.05) H 10/07/19 21:35 B-Natriuretic Peptide 1957.6 pg/ml (5-450) H 10/06/19 16:30 Total Protein 6.6 g/dl (6.4-8.2) 10/07/19 05:48 Albumin 3.2 g/dl (3.4-5.0) L 10/07/19 05:48 TSH 4.80 uIU/ml (0.358-3.74) H 10/07/19 05:48 Free T4 1.37 ng/dl (0.76-1.46) 10/06/19 22:45 10/09/19 09:21 PT with INR 25.10 H INR 2.11 H Active Medications Current Medications Acetaminophen (Tylenol -) 650 mg PO Q6H PRN PRN Reason: PAIN LEVEL 1-5 Last Admin: 10/06/19 20:48 Dose: 650 mg Aspirin (Asa -) 81 mg PO DAILY [facility] Last Admin: 10/07/19 09:03 Dose: 81 mg Folic Acid (Folic Acid -) 1 mg PO DAILY [facility] Last Admin: 10/09/19 10:36 Dose: 1 mg Furosemide (Lasix -) 20 mg PO DAILY [facility] Last Admin: 10/09/19 10:35 Dose: 20 mg Ceftriaxone Sodium 1 gm/ (Dextrose) 50 mls @ 200 mls/hr IVPB DAILY [facility]; Protocol Last Admin: 10/09/19 10:35 Dose: 200 mls/hr Levothyroxine Sodium (Synthroid -) 112 mcg PO DAILY@0700 [facility] Last Admin: 10/09/19 06:40 Dose: 112 mcg Losartan Potassium (Cozaar -) 100 mg PO DAILY [facility] Last Admin: 10/09/19 10:35 Dose: 100 mg Metoprolol Tartrate (Lopressor -) 25 mg PO Q6HPO [facility] Last Admin: 10/09/19 13:16 Dose: 25 mg Rosuvastatin Calcium (Crestor -) 5 mg PO HS [facility] Last Admin: 10/08/19 22:59 Dose: 5 mg Warfarin Sodium (Coumadin -) 3 mg PO DAILY@1800 [facility] Home Medications Medication Instructions Recorded Aspirin [ASA -] 81 mg PO DAILY 10/06/19 Calcium Carbonate/Vitamin D3 1 each PO DAILY 10/06/19 [Calcium 500 + Vit D Caplet] Cyanocobalamin Vit B-12 Inj. 1,000 mcg IJ Q30D 10/06/19 [Redisol] Folic Acid 1 mg PO DAILY 10/06/19 Furosemide 20 mg PO DAILY 10/06/19 Levothyroxine [Synthroid -] 12.5 mcg PO DAILY 10/06/19 Levothyroxine [Synthroid -] 100 mcg PO DAILY 10/06/19 Losartan Potassium 100 mg PO DAILY 10/06/19 Multivit-Min/Iron/Folic/Lutein 1 each PO DAILY 10/06/19 [Centrum Silver Women Tablet] Potassium Chloride [K-Dur -] 20 meq PO DAILY 10/06/19 Rosuvastatin [Crestor -] 5 mg PO HS 10/06/19 Sotalol HCl [Betapace -] 80 mg PO BID 10/06/19 Warfarin Na [Coumadin] 3 mg PO DAILY 10/06/19 Microbiology 10/06/19 17:00 Urine - Urine - Catheterized Urine Culture - Final Escherichia Coli ASSESSMENT/PLAN: 84 y/o F, pmh of Atrial fibrillation (on Coumadin), HTN, Hypothyroidism, Pernicious Anemia (on weekly SQ B12 replacement), s/p AVR (bioprosthetic), OA, Chronic Diastolic CHF, HLD presented with lethargy, chest pain, palpitations, hypotension is admitted for A-fib w/ RVR #Atrial fibrillation with RVR, up to 130s, OTc>500 now resolved. Cardio consult appreciated Sotalol switched to Metoprolol Tartrate 25 QID INR at 2.11 today, Goal is between 2-3 Coumadin 3mg PO to restart tonight at 6pm Monitor INR ASA 81 F/u at Dr. Celaya's office outpt #UTI w/ dehydration/poor oral intake UCx LFNB>100,00 cfu/ml Currently on ceftriaxone Sensitive to Levaquin vs Keflex- to be discharged on one of these #Chronic D-CHF cont Lasix 20 QD home dose F/u outpt Cardio #Atypical Chest pain now resolved. EKG- no acute changes TropI max 1.01, likely sec to demand due to RVR. #HTN Continue Losartan 100 QD #HLD cont Crestor #Hypothyroidism Levothyroxine TSH 4.37 Outpt f/u for up titration of Levothyroxine #RLE weakness likely chronic, but reports worsening recently D/naomi from [place] CT head negative PT eval #[id number] pt on Coumadin FEN Chol/fat free Oral diet, no IVF monitor lytes Dispo - failed PT eval, even with roller. Will need placement. Discussed with CM /SW- pending acceptance a SNF. Will f/u in am Visit type - Emergency Visit Emergency Visit: Yes ED Registration Date: 10/06/19 Care time: The patient presented to the Emergency Department on the above date and was hospitalized for further evaluation of their emergent condition. - New Patient This patient is new to me today: Yes Date on this admission: 10/10/19 - Critical Care Critical Care patient: No - Discharge Referral Referred to [facility] Med P.C.: No ATTENDING PHYSICIAN STATEMENT I saw and evaluated the patient. I reviewed the resident's note and discussed the case with the resident. I agree with the resident's findings and plan as documented. SUBJECTIVE: OBJECTIVE: ASSESSMENT AND PLAN:
[2019-10-09] MEDS ORDERED: WARFARIN NA 3 MG TABLET PO SCH (18:00)
[2019-10-09] MEDS: ROSUVASTATIN CA 5 MG TABLET (FP) PO SCH (22:07)
[2019-10-10] MEDS: METOPROLOL TARTRATE 25 MG TABLET (FP) PO SCH ×2 (00:31→06:10)
[2019-10-10] MEDS: LEVOTHYROXINE NA 112 MCG TABLET (FP) PO SCH (06:10)
[2019-10-10 08:10] LABS: HEMATOCRIT 33.8 % (32.4-45.2); HEMOGLOBIN 11.4 GM/dL (10.7-15.3); MCH 32.3 pg (25.7-33.7); MCHC 33.7 g/dl (32.0-36.0); MEAN CELL VOLUME 95.7 fl (80-96); MEAN PLT VOLUME 8.4 fl (7.5-11.1); PLATELET COUNT 205 K/MM3 (134-434); RBC 3.53 M/mm3 (3.60-5.2); RDW 14.1 % (11.6-15.6); WHITE BLOOD COUNT 6.7 K/mm3 (4.0-10.0)
[2019-10-10 08:24] LABS: INR 1.72 (0.83-1.09); PROTHROMBIN TIME (PATIENT) 20.4 SEC (9.7-13.0)
[2019-10-10 08:48] LABS: ALBUMIN 2.6 g/dl (3.4-5.0); BILIRUBIN,TOTAL 0.5 mg/dL (0.2-1); BLOOD UREA NITROGEN 12.6 mg/dL (7-18); CALCIUM 8.2 mg/dL (8.5-10.1); CREATININE 0.6 mg/dL (0.55-1.3); MAGNESIUM 1.8 mg/dL (1.8-2.4); PHOSPHOROUS 3.1 mg/dL (2.5-4.9); POTASSIUM 3.3 mmol/L (3.5-5.1); TOT PROT 5.8 g/dl (6.4-8.2)
[2019-10-10] MEDS ORDERED: POTASSIUM CHLORIDE TABS 20 MEQ TABLET.ER (FP) PO ONE (08:49)
[2019-10-10] MEDS ORDERED: DEXTROSE 5%-WATER - 50 ML IVPB ONE (08:58)
[2019-10-10] MEDS ORDERED: cefTRIAXone SODIUM 1 GM VIAL ONE (08:58)
[2019-10-10] MEDS: FOLIC ACID 1 MG TABLET (FP) PO SCH (10:04)
[2019-10-10] MEDS: CEFTRIAXONE 1 GM in DEXTROSE 5%-WATER - 50 ML IVPB SCH (10:04)
[2019-10-10] MEDS: FUROSEMIDE 20 MG TABLET (FP) PO SCH (10:04)
[2019-10-10] MEDS: LOSARTAN POTASSIUM 50 MG TABLET (FP) PO SCH (10:04)
--- NOTE | 2019-10-10 10:50 | PN ---
Teaching Attending Note Name of Resident: Kayode Oscar ATTENDING PHYSICIAN STATEMENT I saw and evaluated the patient. I reviewed the resident's note and discussed the case with the resident. I agree with the resident's findings and plan as documented. Seen and examined; please see resident note for further historical information. I personally verified all miller historical information and exam findings. Personally interpreted all imaging and diagnostics and reviewed appropriate consults. I reviewed all labs and vital signs as per resident note and EMR as documented. I agree with the above assessment and plan unless supplemented by myself in the following. Seen and examined, no events recorded overnight. Coumadin has been resumed, INR slightly sub-subtherapeutic will need to recheck in 2 to 3 days. She is pending placement at [facility]. Completed ceftriaxone this morning and will need no further antibiotics as she has had 5 days of treatment for her uncomplicated cystitis that grew pansensitive E. coli. 10 item review of systems completed and is negative aside from as discussed in the subjective data in my own/the resident documentation. VS, labs, imaging reviewed NAD, AAO, resting comfortably in bed. RRR s1/2 no mgr Normal muscle tone, moves all 5 extremities with normal apparent strength Neck is supple, trachea midline, no rhett LN Lungs CTAB with sym expansion NT ND +BS no rhett organomegaly CN2-12 wnl; no FND NC AT EOMI PERRLA Normal mood, appropriate behavior, euthymic affect No skin breakdown or rashes noted Microbiology discussed ASSESSMENT AND PLAN: She remains on metoprolol 25 4 times daily for rate control given the history of sotalol use with prolonged QTC, she is on Coumadin with an INR between 2 and 3 and is admissible for DAPT with aspirin. She is indicated as having improved volume status and will remain on 20 mg of Lasix as well as 5 mg nightly of Crestor at 100 mg daily of losartan. Cardiology notes that the patient should be continued on antibiotic prophylaxis for dental procedures, etc. when indicated as per the most recent guidelines. The patient is currently pending SNF for discharge and awaiting approval. No further events today. Problems include: Paroxysmal atrial fibrillation with elevated chads Vascor Uncomplicated cystitis, on ceftriaxone, pansensitive E. coli Type II N STEMI secondary to subendocardial ischemia due to demand Status post bioprosthetic aVR with noted moderate transvalvular gradient on echocardiogram Hyperlipidemia history Hypothyroidism history Diastolic dysfunction, currently euvolemic Prolonged QTC CODE STATUS remains unchanged, pending placement. She has been formally discharged but has no bed, we will continue to await insurance authorization
[2019-10-10 10:54] VITALS: BP 142/74; PULSE 94; TEMP 98.6
--- NOTE | 2019-10-10 11:37 | DS ---
Physical Exam: SUBJECTIVE: Patient seen and examined. Today pt is doing well and reports improvements since admission. No c/o or issues. No overnight events. Afebrile and asymptomatic. Still has difficulty ambulating with physical therapy. Denies f/c/n/v/d/sob, chest pain. OBJECTIVE: Vital Signs Period Temp Pulse Resp BP Sys/Vincent Pulse Ox Last 24 Hr 97.8 F-98.6 F 72-98 18-20 114-152/67-92 98-98 PHYSICAL EXAM GENERAL: AOX3, NAD EYES: PERRL, extraocular movements intact, sclera anicteric, conjunctiva clear. No ptosis. ENT: oropharynx clear without exudates, moist mucous membranes. LUNGS: Breath sounds equal, clear to auscultation bilaterally, no wheezes, no crackles HEART: Regular rate and irregular rhythm, S1, S2 without murmur, rub or gallop. ABDOMEN: Soft, nontender, nondistended, normoactive bowel sounds, no guarding, EXTREMITIES: 2+ pulses, warm, well-perfused, no edema. NEUROLOGICAL: Normal speech, gait not observed. RUE + RLE 4/5 strengthen, 4/5 sensation LABS Laboratory Results - last 24 hr 10/10/19 10/10/19 10/10/19 06:52 06:52 06:52 WBC 6.7 RBC 3.53 L Hgb 11.4 Hct 33.8 MCV 95.7 MCH 32.3 MCHC 33.7 RDW 14.1 Plt Count 205 MPV 8.4 PT with INR 20.40 H INR 1.72 H Sodium 143 Potassium 3.3 L Chloride 109 H Carbon Dioxide 29 Anion Gap 5 L BUN 12.6 Creatinine 0.6 Est GFR (CKD-EPI)AfAm 98.38 Est GFR (CKD-EPI)NonAf 84.88 Random Glucose 86 Calcium 8.2 L Phosphorus 3.1 Magnesium 1.8 Total Bilirubin 0.5 AST 13 L ALT 20 Alkaline Phosphatase 66 Total Protein 5.8 L Albumin 2.6 L TSH 7.01 H Home Medications Medication Instructions Recorded Aspirin [ASA -] 81 mg PO DAILY 10/06/19 Calcium Carbonate/Vitamin D3 1 each PO DAILY 10/06/19 [Calcium 500 + Vit D Caplet] Cyanocobalamin Vit B-12 Inj. 1,000 mcg IJ Q30D 10/06/19 [Vitamin B12 Injection -] Folic Acid 1 mg PO DAILY 10/06/19 Furosemide 20 mg PO DAILY 10/06/19 Levothyroxine [Synthroid -] 12.5 mcg PO DAILY 10/06/19 Levothyroxine [Synthroid -] 100 mcg PO DAILY 10/06/19 Losartan Potassium 100 mg PO DAILY 10/06/19 Multivit-Min/Iron/Folic/Lutein 1 each PO DAILY 10/06/19 [Centrum Silver Women Tablet] Potassium Chloride [K-Dur -] 20 meq PO DAILY 10/06/19 Rosuvastatin [Crestor -] 5 mg PO HS 10/06/19 Warfarin Na [Coumadin -] 3 mg PO DAILY 10/06/19 Metoprolol Tartrate [Lopressor -] 25 mg PO Q6HPO #120 tablet 10/10/19 Microbiology 10/06/19 17:00 Urine - Urine - Catheterized Urine Culture - Final Escherichia Coli HOSPITAL COURSE: Date of Admission:10/06/19 84 y/o F, pmh of Atrial fibrillation (on Coumadin), HTN, Hypothyroidism, Pernicious Anemia (on weekly SQ B12 replacement), s/p AVR (bioprosthetic), OA, Chronic Diastolic CHF, HLD, recently at [facility] for 2 months for rehab and was released last Tuesday, presented with lethargy, chest pain, palpitations, hypotension to 90/45 is admitted for A-fib w/ RVR and hypotension. Upon admission pt's heart rate was in 116 and her QTc 539. As per Dr. Clayton recom, Pt was started on Metoprolol 5mg IV w/ PO metoprolol 25mg QD. He was also started on on IVF and ceftriaxone in the ED due Hypotension 2/2 dehydration vs UTI w/ UA positive for 1+Ketones, 1+Leuk Esterase, Bacteria 5875.8, WBC 38. Cardio consulted for chest pain, recommended to continue to trend trop (Trop 0.07 -> 1.01), EKG. No need to start plavix at this time in setting of supratherapeutic INR. EKG was negative for any acute changes thus ACS r/o. Cardio eval and recommend transitioning Sotalol to Metoprolol 25mg BID due to increased QTc. The TropI max 1.01, likely was 2/2 to demand due to RVR. Pt was started on metoprolol 25 QID, cont crestor 5mg, losartan 100mg QD, ASA 81mg, Lasix 20mg, Coumadin 3mg with INR goal of 2-3 and discharged home. No need for abx upon discharge because pt completed 5-6 days of Abx including todays dose. She was accepted and sent back to [facility]. CT head negative CXR portable Impression: No acute pathology. Previous surgeries. No change of an adverse nature since 06/07/2018. EKG: Irregularly irregular A-fib with RVR ventricular rate of 116 Pharmacologic Lexiscan myocardial perfusion imaging study performed December 08, 2016 revealed small size apical wall defect compatible with apical thinning with normal left ventricular contraction pattern on LV gated analysis with calculated left ventricular ejection fraction of 74% at rest and 73% post Lexiscan infusion. Carotid Dopplers with L possibly 50-70% ICA stenosis Echocardiography 01/12/2018 revealed concentric left ventricular hypertrophy with normal left ventricular size and systolic function and estimated left ventricular ejection fraction between 70-75%, borderline bi-atrial dilatation, mild mitral valve regurgitation, mild tricuspid valve regurgitation with calculated RVSP of 25 mmHg, bio-prosthetic aortic valve with a mean trans- valvular gradient of 23.8 mmHg and a peak transvalvular gradient of 38.9 mmHg and trace aortic valve regurgitation. Echocardiogram: 04/19/2019 Mild cLVH with normal LV systolic function, LVEF 60- 65%, normal diastolic function, normal RV size and fxn, bioAVR MG 22 mmHg, PG 39 mmHg, mild MR, TR RVSP 25 mmHg Echocardiogram: 07/27/2019 Normal LV size and fxn, abnl LV compliance, LVEF 55- 60%, mild MR, TR RVSP 30-40 mmHg, bioAVR MG 29 mmHg, PG 49 mmHg Date of Discharge: 10/10/19 Minutes to complete discharge: 40 Discharge Summary Problems reviewed: Yes Reason For Visit: WEAKNESS Condition: Improved - Instructions Diet, Activity, Other Instructions: You were admitted to the hospital for chest pain, weakness, and palpitations While in the hospital, we evaluated you with lab work, blood work, imaging including X rays of your chest and CAT scan of your head. We found that your symptoms were caused by a drop in your blood pressure due to the irregular rate and rhythm of your heart. We treated you with medications and your symptoms improved significantly. You also underwent physical therapy at the hospital to help you walk and regain your strength. You will need to continue physical therapy to help you regain function and strength. We made some adjustment to your medications; Please STOP taking Sotalol Please START taking Metoprolol Tartate 25 four times a day Please continue taking Lasix 20mg daily Please continue taking Losartan 100 mg daily Please continue taking Crestor 5mg Please continue taking Levothyroxine 100mg and 12.5 mg daily Please continue taking Coumadin 3 mg daily Please take all your medications as prescribed Please follow up with the director of operations home health Dr. Morris, within 1 week Please follow up with the director audience marketing Dr. Leonardo within 1 week Please follow up with your primary care physician within 1 week Return to the emergency room, if you experience worsening of your symptoms, chest pain, shortness of breath, palpitations or any worsening of your symptoms. Referrals: Marge Morris MD [Staff Physician] - 1 Week Dayne Grullon MD [Staff Physician] - 1 Week (3-5 days) Marlee Leonardo MD [Staff Physician] - Disposition: [facility] F[facility] - Home Medications Comprehensive Discharge Medication List: Ambulatory Orders Aspirin [ASA -] 81 mg PO DAILY 10/06/19 Calcium Carbonate/Vitamin D3 [Calcium 500 + Vit D Caplet] 1 each PO DAILY Cyanocobalamin Vit B-12 Inj. [Vitamin B12 Injection -] 1,000 mcg IJ Q30D Folic Acid 1 mg PO DAILY 10/06/19 Furosemide 20 mg PO DAILY 10/06/19 Levothyroxine [Synthroid -] 12.5 mcg PO DAILY 10/06/19 Levothyroxine [Synthroid -] 100 mcg PO DAILY 10/06/19 Losartan Potassium 100 mg PO DAILY 10/06/19 Multivit-Min/Iron/Folic/Lutein [Centrum Silver Women Tablet] 1 each PO DAILY Potassium Chloride [K-Dur -] 20 meq PO DAILY 10/06/19 Rosuvastatin [Crestor -] 5 mg PO HS 10/06/19 Warfarin Na [Coumadin -] 3 mg PO DAILY 10/06/19 Metoprolol Tartrate [Lopressor -] 25 mg PO Q6HPO #120 tablet 10/10/19 This patient is new to me today: Yes Date on this admission: 10/10/19 Emergency Visit: Yes ED Registration Date: 10/06/19 Care time: The patient presented to the Emergency Department on the above date and was hospitalized for further evaluation of their emergent condition. Critical Care patient: No - Discharge Referral Referred to [facility] No ATTENDING PHYSICIAN STATEMENT I saw and evaluated the patient. I reviewed the resident's note and discussed the case with the resident. I agree with the resident's findings and plan as documented. SUBJECTIVE: OBJECTIVE: ASSESSMENT AND PLAN:
== END 2019-10-10 11:09 | DRG 281 ==
LOC: JER 15:41 → JERBED 17:24 → J4W 10-07 13:30
PROVIDERS: ATTEND Internal Medicine
DX: I48.0 Paroxysmal atrial fibrillation (principal); I21.A1 Myocardial infarction type 2; I50.32 Chronic diastolic (congestive) heart failure; N39.0 Urinary tract infection, site not specified; Z95.2 Presence of prosthetic heart valve; E03.9 Hypothyroidism, unspecified; E78.5 Hyperlipidemia, unspecified; I11.0 Hypertensive heart disease with heart failure; E86.0 Dehydration; R07.89 Other chest pain; I95.9 Hypotension, unspecified; B96.20 Unspecified Escherichia coli [E. coli] as the cause of diseases classified elsewhere
CPT/HCPCS: 36415; 70450-TC; 71045-TC-FY; 80053; 81003; 82272; 82550; 82553; 83735; 83880; 84100; 84439; 84443; 84484; 85025; 85027; 85610; 85730; 87086; 87186; 93005; 93010; 97116-GP; 97161-GP; 99285-25; J7030

== ENCOUNTER 2019-11-21 13:03 | Inpatient (IN) | payer OTHER, BC ==
--- NOTE | 2019-11-21 14:04 | PDOC ---
History of Present Illness - General Stated Complaint: WEAKNESS History Source: Patient Exam Limitations: No Limitations - History of Present Illness Initial Comments: 84 y/o F, pmh of Atrial fibrillation (stopped coumadin within the past 2 months while at [facility]), HTN, Hypothyroidism, Pernicious Anemia (on weekly SQ B12 replacement), s/p AVR (bioprosthetic), OA, Chronic Diastolic CHF (LVEF 55-60%; 07/2019), and HLD presents to the emergency department from home with requests for placement and difficulty ambulating. Per the patient, she was discharged from [facility] 11/17/2019. She lives by herself and was unable to transfer herself to the bathroom. Per the patient, she has had 3 days of diarrheal episodes without blood. She states she is having 3x+ episodes per day. Per the patient, she had her first fpc visit today and was recommended by the patient chief nursing officer to present to the emergency department. Denies the following: fevers, chills, chest pain, SOB, abdominal pain, dysuria, hematuria, and leg swelling. Past History - Past Medical History Allergies/Adverse Reactions: Allergies Allergy/AdvReac Type Severity Reaction Status Date / Time sulfamethoxazole Allergy Severe Rash Verified 11/22/19 03:46 [From Bactrim] trimethoprim [From Bactrim] Allergy Severe Rash Verified 11/22/19 03:46 Home Medications: Ambulatory Orders Multivit-Min/Iron/Folic/Lutein [Centrum Silver Women Tablet] 1 each PO DAILY 10/06/19 Rosuvastatin [Crestor -] 5 mg PO HS 10/06/19 Levothyroxine [Synthroid -] 125 mcg PO DAILY 11/22/19 Losartan Potassium 25 mg PO DAILY 11/22/19 Metoprolol Tartrate [Lopressor -] 25 mg PO BID 11/22/19 Anemia: Yes Asthma: No Cancer: No Cardiac Disorders: Yes (CHRONIC ATRIAL FIBRILLATION, ARTIFICAL AORTIC VALVE) CVA: No COPD: No CHF: No Dementia: No Diabetes: Yes GI Disorders: Yes (GASTRIC CARCINOID, COLON ADENOMAS) Disorders: No HTN: Yes Hypercholesterolemia: Yes Liver Disease: No Seizures: No Thyroid Disease: Yes (HYPOTHYROIDISM) - Surgical History Abdominal Surgery: Yes Appendectomy: No Cardiac Surgery: Yes (BOVINE AVR 2006-[facility]) Cholecystectomy: Yes (OPEN CHOLECYSTECTOMY) Lung Surgery: No Neurologic Surgery: No Orthopedic Surgery: Yes (BILATERAL CARPAL TUNNEL RELEASE) - Immunization History Immunization Up to Date: Yes - Psycho Social/Smoking Cessation Hx Smoking Status: No Smoking History: Never smoked Have you smoked in the past 12 months: No Number of Cigarettes Smoked Daily: 0 Hx Alcohol Use: No Drug/Substance Use Hx: No Substance Use Type: None Hx Substance Use Treatment: No Review of Systems - Review of Systems Able to Perform ROS?: Yes Is the patient limited Colombian proficient: No Constitutional: No: Chills, Diaphoresis, Fever, Weakness HEENTM: No: Eye Pain, Nose Pain, Throat Pain, Mouth Pain Respiratory: No: Cough, Shortness of Breath, Hemoptysis Cardiac (ROS): No: Chest Pain, Lightheadedness, Palpitations, Chest Tightness ABD/GI: Yes: Diarrhea. No: Constipated, Nausea, Rectal Bleeding, Vomiting, Tarry Stools : No: Burning, Dysuria, Hematuria Musculoskeletal: Yes: Back Pain, Neck Pain. No: Joint Pain Integumentary: No: Bruising, Erythema, Rash Neurological: No: Headache, Numbness, Tingling, Tremors Psychiatric: No: Change in Appetite Endocrine: No: Unexplained Weight Loss Hematologic/Lymphatic: No: Anemia *Physical Exam - Vital Signs Last Vital Signs Temp Pulse Resp BP Pulse Ox 98.2 F 84 18 160/77 97 11/21/19 13:03 11/21/19 13:03 11/21/19 13:03 11/21/19 13:03 11/21/19 13:03 - Physical Exam General Appearance: Yes: Nourished, Appropriately Dressed. No: Apparent Distress, Intoxicated HEENT: positive: EOMI, JALIL, Normal Voice, Symmetrical, Pharynx Normal, Hearing Grossly Normal. negative: Pale Conjunctivae, Scleral Icterus (R), Scleral Icterus (L), Muffled/Hoarse voice, Pharyngeal Erythema, Tonsillar Exudate, Tonsillar Erythema, Nasal Congestion, Rhinorrhea, Excessive drooling Neck: positive: Trachea midline, Supple. negative: Tender, Lymphadenopathy (R), Lymphadenopathy (L), Tender lateral, Tender midline Respiratory/Chest: positive: Lungs Clear, Normal Breath Sounds. negative: Chest Tender, Respiratory Distress, Accessory Muscle Use, Crackles, Rales, Rhonchi, Stridor, Wheezing Cardiovascular: positive: Regular Rhythm, Regular Rate, S1, S2. negative: Systolic Murmur Gastrointestinal/Abdominal: positive: Normal Bowel Sounds, Flat, Soft. negative: Tender Lymphatic: negative: Adenopathy Musculoskeletal: positive: Normal Inspection, Vertebral Tenderness (thoracic T10). negative: CVA Tenderness Extremity: positive: Normal Capillary Refill, Normal Inspection, Normal Range of Motion. negative: Tender, Swelling, Calf Tenderness, Erythema Integumentary: positive: Normal Color, Dry, Warm Neurologic: positive: feed manager II-XII NML intact, Fully Oriented, Alert, Normal Mood/Affect ED Treatment Course - LABORATORY CBC & Chemistry Diagram: 11/22/19 10:07 11/22/19 10:07 Medical Decision Making - Medical Decision Making 84 y/o F, pmh of Atrial fibrillation (stopped coumadin within the past 2 months while at [facility]), HTN, Hypothyroidism, Pernicious Anemia (on weekly SQ B12 replacement), s/p AVR (bioprosthetic), OA, Chronic Diastolic CHF (LVEF 55-60%; 07/2019), and HLD presents to the emergency department from home with requests for placement and difficulty ambulating. Initial vitals Initial Vital Signs Temp Pulse Resp BP Pulse Ox 98.2 F 84 18 160/77 97 11/21/19 13:03 11/21/19 13:03 11/21/19 13:03 11/21/19 13:03 11/21/19 13:03 Work up: patient presents to the emergency department requesting placement per the nursing staff, there was a call placed from an individual stating they found the patient on the floor prior to calling the ambulance. the patient has no recollection of this event and states she did not hit head head or have LOC. However, she had neck pain and new midline tenderness in the thoracic back. Will obtain head CT, thoracic/cervical/lumbar CT to ensure no compression fractures. Will obtain labs and patient to be admitted for placement. EKG: sinus rhythm with PACs. No ST elevation or depression. previous EKG had atrial fibrillation. q wave noted in lead III, avF that was present in previous EKG Imaging: head CT/cervical spine/thoracic spine/lumbar spin negative for acute fractures CXR negative for acute process pelvis xray negative for acute process Laboratory Tests 11/21/19 11/21/19 11/21/19 14:30 14:30 14:30 WBC 9.3 RBC 3.25 L Hgb 10.3 L Hct 30.5 L MCV 93.8 MCH 31.8 MCHC 33.9 RDW 14.5 Plt Count 218 MPV 7.5 D Absolute Neuts (auto) 7.2 Neutrophils % 77.1 Lymphocytes % 9.0 D Monocytes % 13.5 H Eosinophils % 0.2 D Basophils % 0.2 Nucleated RBC % 0 Sodium 142 Potassium 2.9 L* Chloride 109 H Carbon Dioxide 25 Anion Gap 7 L BUN 15.9 Creatinine 0.6 Est GFR (CKD-EPI)AfAm 98.38 Est GFR (CKD-EPI)NonAf 84.88 Random Glucose 98 Lactic Acid Calcium 8.8 Phosphorus 2.2 L Magnesium 2.1 Total Bilirubin 1.1 H Direct Bilirubin 0.4 H AST 28 ALT 21 Alkaline Phosphatase 93 Creatine Kinase 83 Troponin I < 0.02 Total Protein 6.8 Albumin 3.0 L 11/21/19 14:45 WBC RBC Hgb Hct MCV MCH MCHC RDW Plt Count MPV Absolute Neuts (auto) Neutrophils % Lymphocytes % Monocytes % Eosinophils % Basophils % Nucleated RBC % Sodium Potassium Chloride Carbon Dioxide Anion Gap BUN Creatinine Est GFR (CKD-EPI)AfAm Est GFR (CKD-EPI)NonAf Random Glucose Lactic Acid 1.0 Calcium Phosphorus Magnesium Total Bilirubin Direct Bilirubin AST ALT Alkaline Phosphatase Creatine Kinase Troponin I Total Protein Albumin patient noted to have a potassium of 2.9. 80 meq of potassium chloride ordered for the patient for repletion Patient was endorsed to hospitalist service and accepted for admission Discharge - Discharge Information Problems reviewed: Yes Clinical Impression/Diagnosis: Impaired mobility and ADLs - Follow up/Referral - Patient Discharge Instructions - Post Discharge Activity
[2019-11-21 15:02] LABS: BASO % 0.2 % (0-2.0); EOS % 0.2 % (0-4.5); HEMATOCRIT 30.5 % (32.4-45.2); HEMOGLOBIN 10.3 GM/dL (10.7-15.3); MCH 31.8 pg (25.7-33.7); MCHC 33.9 g/dl (32.0-36.0); MEAN CELL VOLUME 93.8 fl (80-96); MEAN PLT VOLUME 7.5 fl (7.5-11.1); MONO % 13.5 % (3.8-10.2); NEUT % 77.1 % (42.8-82.8); PLATELET COUNT 218 K/MM3 (134-434); RBC 3.25 M/mm3 (3.60-5.2); RDW 14.5 % (11.6-15.6); WHITE BLOOD COUNT 9.3 K/mm3 (4.0-10.0)
[2019-11-21 15:47] LABS: BILIRUBIN,TOTAL 1.1 mg/dL (0.2-1); BLOOD UREA NITROGEN 15.9 mg/dL (7-18); CALCIUM 8.8 mg/dL (8.5-10.1); CREATININE 0.6 mg/dL (0.55-1.3); MAGNESIUM 2.1 mg/dL (1.8-2.4); PHOSPHOROUS 2.2 mg/dL (2.5-4.9); TOT PROT 6.8 g/dl (6.4-8.2)
[2019-11-21 15:49] LABS: POTASSIUM 2.9 mmol/L (3.5-5.1)
[2019-11-21] MEDS ORDERED: POTASSIUM CHLORIDE ORAL LIQUID 20 MEQ/15 ML PO ONE ×2 (16:10→17:41)
[2019-11-21] MEDS ORDERED: POTASSIUM CHLORIDE ORAL LIQUID 20 MEQ/15 ML ONE (17:20)
--- NOTE | 2019-11-21 20:04 | PN ---
Teaching Attending Note Name of Resident: Tessie Simpson ATTENDING PHYSICIAN STATEMENT I saw and evaluated the patient. I reviewed the resident's note and discussed the case with the resident. I agree with the resident's findings and plan as documented. SUBJECTIVE: 84-year-old woman with multiple medical comorbidities including hypertension, hypothyroidism, pernicious anemia, AVR with bioprosthesis, osteoarthritis, CHF diastolic dysfunction, dyslipidemia brought into hospital after she activated her life alert patient was found to be on ground by EMS. Patient denied any overt falls, trauma, or loss of consciousness. She reports difficulty performing her activities of daily living including ambulation, getting to the toilet, cooking, etc. She lives alone and has limited home health aide. Her children work and are unable to take care of her. Of note patient was just discharged from [facility] on 11/16/2019, discharged home. She was also complaining of some loose bowel movements for the past [address] of head, chest, thorax, lumbar spine performed which did not show any acute injuries or bleeds. OBJECTIVE: Last Vital Signs Temp Pulse Resp BP Pulse Ox 98.4 F 83 18 139/72 97 11/21/19 22:35 11/21/19 22:35 11/21/19 22:35 11/21/19 22:35 11/21/19 22:35 On physical exam patient was not in any acute distress, was a frail elderly lady who is alert and oriented x3. Head was atraumatic, normocephalic. Moist mucous membranes. Neck was supple with no JVD. Cardiovascular exam was S1, S2 , crescendo decrescendo systolic murmur. Abdomen was soft, nontender. No evidence of trauma to extremities. Abnormal Lab Results 11/21/19 11/21/19 11/21/19 14:30 14:30 20:55 RBC 3.25 L Hgb 10.3 L Hct 30.5 L Monocytes % 13.5 H PT with INR 15.10 H INR 1.28 H PTT (Actin FS) Potassium 2.9 L* Chloride 109 H Anion Gap 7 L Creatinine Phosphorus 2.2 L Total Bilirubin 1.1 H Direct Bilirubin 0.4 H Albumin 3.0 L 11/21/19 11/21/19 22:15 22:15 RBC Hgb Hct Monocytes % PT with INR INR PTT (Actin FS) 39.2 H Potassium 3.4 L Chloride 112 H Anion Gap 6 L Creatinine 0.5 L Phosphorus Total Bilirubin Direct Bilirubin 0.5 H Albumin Imaging studies reviewed ASSESSMENT AND PLAN: #84-year-old woman with multiple medical issues who is generally unable to care for herself at home and would be likely candidate for longterm level senior care versus extended home health aide hours. No evidence of trauma on physical exam after she was brought in with CT of head, chest, thorax, lumbar spine negative for acute injuries. Admit to [facility] Fall precautions PT evaluation #Hypokalemiamay be secondary to diarrhea Supplement potassium Imodium for diarrhea #Atrial fibrillation We will request medication list from [facility], unsure if patient is on anticoagulation #Hypothyroidism Continue with home dose Synthroid Send TSH Send free T4 #Hypertension Continue with home medications #DVT prophylaxisheparin subcutaneously
[2019-11-21 21:27] LABS: INR 1.28 (0.83-1.09); PROTHROMBIN TIME (PATIENT) 15.1 SEC (9.7-13.0)
[2019-11-21 21:58] LABS: BILIRUBIN,DIRECT 0.4 mg/dL (0.0-0.2)
[2019-11-21] MEDS: KCL 10 MEQ IVPB 10 MEQ/100 ML INFUS.BAG IVPB SCH ×2 (22:37→23:32)
--- NOTE | 2019-11-21 23:24 | HOSP ---
Physical Examination Vital Signs: On arrival to assess patient, the patient was extremely lethargic. Patient non- responsive to noxious stimuli. Saturating low 80's on 15L non-rebreather, agonally breathing (patient is DNR/DNI). BPs 80s/50s, MAP in 50s. Within minutes the patient's O2 saturation dropped to 70's, MAPS dropped to 30s. Pulses then examined and patient found to be pulseless. Patient had signed MOLST form in physical chart indicating DNR/DNI. Patient was unresponsive even to painful stimuli. Pupils fixed & no-reactive. No spontaneous breathing, no heart or lung sounds heard. No carotid, femoral or radial pulses present. Time of pronounced at 10:30PM. I have contacted patient's daughter Lia [phone] and made her aware of Ms. Berg's expiration; emotional support was offered. Patient was examined together with Medicine attending Dr. Cadena. Attempts made to contact PCP Dr. Grullon. Nursing staff to contact [facility]. [place] contacted patient's case not accepted. Labs: CBC, BMP 11/21/19 14:30
[2019-11-21 23:48] LABS: BILIRUBIN,DIRECT 0.5 mg/dL (0.0-0.2); CALCIUM 8.6 mg/dL (8.5-10.1); CREATININE 0.5 mg/dL (0.55-1.3); POTASSIUM 3.4 mmol/L (3.5-5.1)
[2019-11-22] MEDS ORDERED: KCL 10 MEQ IVPB 10 MEQ/100 ML INFUS.BAG IVPB ONE (00:06)
--- NOTE | 2019-11-22 00:34 | HP ---
CHIEF COMPLAINT: fall PCP: Dr. Grullon HISTORY OF PRESENT ILLNESS: 84 y.o. 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 As per home care and home health aides teacher the patient was found down on the ground although the patient has no recollection of falling (she is fully alert and oriented x3). She does however endorse discomfort to L neck and lower lumbar spine for the past day. She was discharged from her last hospital admission on 10/10/2019 to [facility] where she completed rehab and was discharged 11/16/2019. She has been living home alone w/ home health aid services since this time. She says she has been having difficulty tending to her ADLS and requires more assistance. Patient states she is mostly unable to walk at baseline and uses a wheelchair to get around; she has a 4 wheel walker but feels unsteady when she uses it. ROS: + L neck & lumbar spine discomfort, nonbloody diarrhea x 3 days denies ORTEGA/ CP/ SOB/ abd pain/ fevers/ chills/ N/V. ER course notable for: (1) no fractures on CT C/T/L spine (2) no bleeding or trauma seen on CT head Recent Travel: no PAST MEDICAL HISTORY: as per hpi PAST SURGICAL HISTORY: Cholecystectomy, aortic valve replacement 2007 at [facility] Social History: Smoking: remote history in her 20s Alcohol: occasionally Drugs: denies Allergies sulfamethoxazole [From Bactrim] Allergy (Severe, Verified 10/06/19 16:02) Rash trimethoprim [From Bactrim] Allergy (Severe, Verified 10/06/19 16:02) Rash HOME MEDICATIONS: Home Medications Medication Instructions Recorded Aspirin [ASA -] 81 mg PO DAILY 10/06/19 Calcium Carbonate/Vitamin D3 1 each PO DAILY 10/06/19 [Calcium 500 + Vit D Caplet] Cyanocobalamin Vit B-12 Inj. 1,000 mcg IJ Q30D 10/06/19 [Vitamin B12 Injection -] Folic Acid 1 mg PO DAILY 10/06/19 Furosemide 20 mg PO DAILY 10/06/19 Levothyroxine [Synthroid -] 12.5 mcg PO DAILY 10/06/19 Levothyroxine [Synthroid -] 100 mcg PO DAILY 10/06/19 Losartan Potassium 100 mg PO DAILY 10/06/19 Multivit-Min/Iron/Folic/Lutein 1 each PO DAILY 10/06/19 [Centrum Silver Women Tablet] Potassium Chloride [K-Dur -] 20 meq PO DAILY 10/06/19 Rosuvastatin [Crestor -] 5 mg PO HS 10/06/19 Warfarin Na [Coumadin -] 3 mg PO DAILY 10/06/19 Metoprolol Tartrate [Lopressor -] 25 mg PO Q6HPO #120 tablet 10/10/19 PHYSICAL EXAMINATION Vital Signs - 24 hr 11/21/19 11/21/19 13:03 22:35 Temperature 98.2 F 98.4 F Pulse Rate 84 Pulse Rate [ 83 Left Radial] Respiratory 18 18 Rate Blood Pressure 160/77 Blood Pressure 139/72 [Right Arm] O2 Sat by Pulse 97 97 Oximetry (%) GENERAL: AAOx3, in no acute distress. HEENT: Dry oral mucosa, cracked lips LUNGS: Breath sounds equal, clear to auscultation bilaterally. No wheezes, and no crackles. No accessory muscle use. HEART: Regular rate and rhythm, normal S1 and S2 without murmur, rub or gallop. ABDOMEN: Soft, nontender, not distended, normoactive bowel sounds, no guarding MUSCULOSKELETAL: TTP lumbar spine over bony prominences. No paraspinal tenderness. No CVA tenderness. EXTREMITIES: 2+ pulses, warm, well-perfused. No calf tenderness. Trace pitting edema b/l LE. NEUROLOGICAL: Cranial nerves II-XII intact. Normal speech. PSYCHIATRIC: Appropriate mood and affect. SKIN: Warm, dry Laboratory Results - last 24 hr 11/21/19 11/21/19 11/21/19 14:30 14:30 14:30 WBC 9.3 RBC 3.25 L Hgb 10.3 L Hct 30.5 L MCV 93.8 MCH 31.8 MCHC 33.9 RDW 14.5 Plt Count 218 MPV 7.5 D Absolute Neuts (auto) 7.2 Neutrophils % 77.1 Lymphocytes % 9.0 D Monocytes % 13.5 H Eosinophils % 0.2 D Basophils % 0.2 Nucleated RBC % 0 PT with INR INR PTT (Actin FS) Sodium 142 Potassium 2.9 L* Chloride 109 H Carbon Dioxide 25 Anion Gap 7 L BUN 15.9 Creatinine 0.6 Est GFR (CKD-EPI)AfAm 98.38 Est GFR (CKD-EPI)NonAf 84.88 Random Glucose 98 Lactic Acid Calcium 8.8 Phosphorus 2.2 L Magnesium 2.1 Total Bilirubin 1.1 H Direct Bilirubin 0.4 H AST 28 ALT 21 Alkaline Phosphatase 93 Creatine Kinase 83 Troponin I < 0.02 Total Protein 6.8 Albumin 3.0 L 11/21/19 11/21/19 11/21/19 14:45 20:55 22:15 WBC RBC Hgb Hct MCV MCH MCHC RDW Plt Count MPV Absolute Neuts (auto) Neutrophils % Lymphocytes % Monocytes % Eosinophils % Basophils % Nucleated RBC % PT with INR 15.10 H INR 1.28 H PTT (Actin FS) 39.2 H Sodium Potassium Chloride Carbon Dioxide Anion Gap BUN Creatinine Est GFR (CKD-EPI)AfAm Est GFR (CKD-EPI)NonAf Random Glucose Lactic Acid 1.0 Calcium Phosphorus Magnesium Total Bilirubin Direct Bilirubin AST ALT Alkaline Phosphatase Creatine Kinase Troponin I Total Protein Albumin 11/21/19 22:15 WBC RBC Hgb Hct MCV MCH MCHC RDW Plt Count MPV Absolute Neuts (auto) Neutrophils % Lymphocytes % Monocytes % Eosinophils % Basophils % Nucleated RBC % PT with INR INR PTT (Actin FS) Sodium 142 Potassium 3.4 L Chloride 112 H Carbon Dioxide 24 Anion Gap 6 L BUN 14.0 Creatinine 0.5 L Est GFR (CKD-EPI)AfAm 104.46 Est GFR (CKD-EPI)NonAf 90.13 Random Glucose 82 Lactic Acid Calcium 8.6 Phosphorus Magnesium Total Bilirubin Direct Bilirubin 0.5 H AST ALT Alkaline Phosphatase Creatine Kinase Troponin I Total Protein Albumin ASSESSMENT/PLAN: 84 y.o. F PMH A-fib, HTN, hypothyroid, pernicious anemia, a/p AVRbiopresthesis, OA, diaCHF LVEF 55-60%, herpes zoster, HLD presenting for a fall #Fall, likely mechanical -CT C/T/L spine negative for fracture -CT head negative for acute pathology -gently hydrating -f/u UA, coags -fall precautions -telemetry monitoring #Hypokalemia -K+ 2.9 -given 40meq PO in ED -giving 30meq IV now -f/u repeat bmp post K riders #Diarrhea -patient does endorse urinary incontinence at baseline. unsure if fecal incontinent -states she is unable to clean herself after a bowel movement as she has motor difficulty -no stool studies @ this time as likely not infectious in etiology. Patient has very poor diet. -will monitor for further episodes -if worsening may order stool studies #A-fib -patient cannot remember if she is still taking couamdin, however was discharged with 3mg coumadin daily 10/10/2019 -requested records from [facility] *Update: records indicate patient is NOT currently on coumadin* -attempts to speak w/ staff at [facility] unsuccessful at this time -will sign out to day team, unsure why coumadin was d/c'd #HTN -monitor BP regularly -reinstated home meds: losartan 25mg, metorpolol 25mg BID -low Na diet #Hypothyroidism -continue synthroid 125mcg daily -f/u TSH, free T4 #Diastolic CHF -daily weights -Is & Os -continue home lasix dose #FEN -NS @45cc/hr -f/u bmp -sodium controlled diet #Dispo telemetry social work consulted Visit type - Emergency Visit Emergency Visit: Yes Care time: The patient presented to the Emergency Department on the above date and was hospitalized for further evaluation of their emergent condition. - New Patient This patient is new to me today: Yes Date on this admission: 11/22/19 - Critical Care Critical Care patient: No ATTENDING PHYSICIAN STATEMENT I saw and evaluated the patient. I reviewed the resident's note and discussed the case with the resident. I agree with the resident's findings and plan as documented. SUBJECTIVE: OBJECTIVE: ASSESSMENT AND PLAN:
[2019-11-22] MEDS: KCL 10 MEQ IVPB 10 MEQ/100 ML INFUS.BAG IVPB SCH (00:49)
[2019-11-22] MEDS: SODIUM CHLORIDE 1,000 ML IV SCH (01:25)
--- NOTE | 2019-11-22 08:48 | PN ---
Physical Exam: SUBJECTIVE: Patient seen and examined. Asymptomatic and afebrile. No overnight issues or events. Pt reports incontinence w/ urine. Reports overall weakness but does not remember the fall. Pt is off coumadin due to correction physicians instructed to stop coumadin. Denies f/c/n/v/d/sob/cp. OBJECTIVE: Last Vital Signs Temp Pulse Resp BP Pulse Ox 98.4 F 83 18 139/72 97 11/21/19 22:35 11/21/19 22:35 11/21/19 22:35 11/21/19 22:35 11/22/19 03:44 GENERAL: AAOx3, NAD HEENT: PERRLA, EOMI, Dry oral mucosa, cracked lips LUNGS: Breath sounds equal, clear to auscultation bilaterally. No wheezes, and no crackles. HEART: Regular rate and rhythm, normal S1 and S2 without murmur, rub or gallop. ABDOMEN: Soft, nontender, not distended, normoactive bowel sounds, no guarding MUSCULOSKELETAL: TTP lumbar spine over bony prominences. No paraspinal tenderness. No CVA tenderness. EXTREMITIES: 2+ pulses, warm, well-perfused. No calf tenderness. Trace pitting edema b/l LE. Genital: small right labial sore/ulcer, multiple skin folds NEUROLOGICAL: Normal speech. PSYCHIATRIC: Appropriate mood and affect. SKIN: Warm, dry Laboratory Results - last 24 hr CBC,CMP WBC 8.2 K/mm3 (4.0-10.0) 11/22/19 10:07 RBC 2.97 M/mm3 (3.60-5.2) L 11/22/19 10:07 Hgb 9.4 GM/dL (10.7-15.3) L 11/22/19 10:07 Hct 27.8 % (32.4-45.2) L 11/22/19 10:07 MCV 93.6 fl (80-96) 11/22/19 10:07 MCH 31.8 pg (25.7-33.7) 11/22/19 10:07 MCHC 34.0 g/dl (32.0-36.0) 11/22/19 10:07 RDW 14.7 % (11.6-15.6) 11/22/19 10:07 Plt Count 205 K/MM3 (134-434) 11/22/19 10:07 MPV 7.7 fl (7.5-11.1) 11/22/19 10:07 Absolute Neuts (auto) 7.2 K/mm3 (1.5-8.0) 11/21/19 14:30 Neutrophils % 77.1 % (42.8-82.8) 11/21/19 14:30 Lymphocytes % 9.0 % (8-40) D 11/21/19 14:30 Monocytes % 13.5 % (3.8-10.2) H 11/21/19 14:30 Eosinophils % 0.2 % (0-4.5) D 11/21/19 14:30 Basophils % 0.2 % (0-2.0) 11/21/19 14:30 Nucleated RBC % 0 % (0-0) 11/21/19 14:30 Sodium 142 mmol/L (136-145) 11/22/19 10:07 Potassium 3.7 mmol/L (3.5-5.1) 11/22/19 10:07 Chloride 112 mmol/L (98-107) H 11/22/19 10:07 Carbon Dioxide 24 mmol/L (21-32) 11/22/19 10:07 Anion Gap 7 MMOL/L (8-16) L 11/22/19 10:07 BUN 13.5 mg/dL (7-18) 11/22/19 10:07 Creatinine 0.5 mg/dL (0.55-1.3) L 11/22/19 10:07 Est GFR (CKD-EPI)AfAm 104.46 11/22/19 10:07 Est GFR (CKD-EPI)NonAf 90.13 11/22/19 10:07 Random Glucose 101 mg/dL (74-106) 11/22/19 10:07 Lactic Acid 1.0 mmol/L (0.4-2.0) 11/21/19 14:45 Calcium 8.4 mg/dL (8.5-10.1) L 11/22/19 10:07 Phosphorus 2.2 mg/dL (2.5-4.9) L 11/21/19 14:30 Magnesium 2.1 mg/dL (1.8-2.4) 11/21/19 14:30 Total Bilirubin 1.2 mg/dL (0.2-1) H 11/22/19 10:07 Direct Bilirubin 0.5 mg/dL (0.0-0.2) H 11/21/19 22:15 AST 24 U/L (15-37) 11/22/19 10:07 ALT 18 U/L (13-61) 11/22/19 10:07 Alkaline Phosphatase 85 U/L (45-117) 11/22/19 10:07 Creatine Kinase 83 U/L (26-192) 11/21/19 14:30 Troponin I < 0.02 ng/ml (0.00-0.05) 11/21/19 14:30 Total Protein 5.8 g/dl (6.4-8.2) L 11/22/19 10:07 Albumin 2.5 g/dl (3.4-5.0) L 11/22/19 10:07 TSH 1.72 uIU/ml (0.358-3.74) 11/22/19 10:07 Free T4 1.46 ng/dl (0.76-1.46) 11/22/19 10:07 Active Medications Current Medications Sodium Chloride (Normal Saline -) 1,000 mls @ 42 mls/hr IV ASDIR DANDY Last Admin: 11/22/19 01:25 Dose: 42 mls/hr Documented by: Levothyroxine Sodium (Synthroid -) 12.5 mcg PO DAILY [facility] Levothyroxine Sodium (Synthroid -) 100 mcg PO DAILY [facility] Losartan Potassium (Cozaar -) 25 mg PO DAILY [facility] Metoprolol Tartrate (Lopressor -) 25 mg PO BID [facility] Rosuvastatin Calcium (Crestor -) 5 mg PO [facility] Home Medications Medication Instructions Recorded Levothyroxine [Synthroid -] 12.5 mcg PO DAILY 10/06/19 Levothyroxine [Synthroid -] 100 mcg PO DAILY 10/06/19 Multivit-Min/Iron/Folic/Lutein 1 each PO DAILY 10/06/19 [Centrum Silver Women Tablet] Rosuvastatin [Crestor -] 5 mg PO HS 10/06/19 Losartan Potassium 25 mg PO DAILY 11/22/19 Metoprolol Tartrate [Lopressor -] 25 mg PO BID 11/22/19 Last Vital Signs Temp Pulse Resp BP Pulse Ox 98.4 F 83 18 139/72 97 11/21/19 22:35 11/21/19 22:35 11/21/19 22:35 11/21/19 22:35 11/22/19 03:44 ASSESSMENT/PLAN: 84 y/o F, pmh of Atrial fibrillation (on Coumadin), HTN, Hypothyroidism, Pernicious Anemia (on weekly SQ B12 replacement), s/p AVR (bioprosthetic), OA, Chronic Diastolic CHF, herpes zoster, HLD, recently at [facility] for 2 months for rehab and was released last Tuesday, presented s/p fall and diarrhea is admitted for mechanical fall #S/p Fall likely 2/2 to mechanical vs vasovagal vs cardiogenic LOC likely since pt does not remember the event, no head trauma Pt states she felt too weak to get up CT C/T/L spine negative for fracture CT head negative for acute pathology UA negative fall precautions telemetry monitoring #Hyperbili- elevated T-bili T-biliat 1.2 Direct bili elevated will consider US abd will monitor #Hypokalemia now resolved #Urinary incontinence endorse urinary incontinence at baseline #Diarrhea now resolved, no bowel movements yet if worsening may order stool studies Patient has very poor diet. #A-fib Off couamdin, however was discharged with 3mg coumadin daily 10/10/2019 Reported that [facility] physicians discontinued her Coumadin *Update: records indicate patient is NOT currently on coumadin* Consulted Dr. Celaya- will f/u recom for AC #HTN losartan 25mg, metorpolol 25mg BID #Hypothyroidism continue synthroid 125mcg daily TSH, free T4- wnl #D-CHF daily weights Is & Os No lasix on home meds, will f/u with pharmacy and pt #FEN NS @45cc/hr sodium controlled diet #Dispo: monitor on tele, f/u cardiology recom, discuss with SW for placement Visit type - Emergency Visit Emergency Visit: Yes ED Registration Date: 11/21/19 Care time: The patient presented to the Emergency Department on the above date and was hospitalized for further evaluation of their emergent condition. - New Patient This patient is new to me today: Yes Date on this admission: 11/23/19 - Critical Care Critical Care patient: No - Discharge Referral Referred to [facility] Med P.C.: No ATTENDING PHYSICIAN STATEMENT I saw and evaluated the patient. I reviewed the resident's note and discussed the case with the resident. I agree with the resident's findings and plan as documented. SUBJECTIVE: OBJECTIVE: ASSESSMENT AND PLAN:
[2019-11-22] MEDS: METOPROLOL TARTRATE 25 MG TABLET (FP) PO SCH ×2 (09:50→23:12)
[2019-11-22] MEDS ORDERED: LEVOTHYROXINE NA 100 MCG TABLET (FP) PO SCH (10:00)
[2019-11-22] MEDS ORDERED: LEVOTHYROXINE NA 25 MCG TABLET (FP) PO SCH (10:00)
[2019-11-22] MEDS ORDERED: LOSARTAN POTASSIUM 25 MG TABLET PO SCH (10:00)
[2019-11-22 10:31] LABS: HEMATOCRIT 27.8 % (32.4-45.2); HEMOGLOBIN 9.4 GM/dL (10.7-15.3); MCH 31.8 pg (25.7-33.7); MEAN CELL VOLUME 93.6 fl (80-96); MEAN PLT VOLUME 7.7 fl (7.5-11.1); PLATELET COUNT 205 K/MM3 (134-434); RBC 2.97 M/mm3 (3.60-5.2); RDW 14.7 % (11.6-15.6); WHITE BLOOD COUNT 8.2 K/mm3 (4.0-10.0)
[2019-11-22 11:15] LABS: ALBUMIN 2.5 g/dl (3.4-5.0); BILIRUBIN,TOTAL 1.2 mg/dL (0.2-1); BLOOD UREA NITROGEN 13.5 mg/dL (7-18); CALCIUM 8.4 mg/dL (8.5-10.1); CREATININE 0.5 mg/dL (0.55-1.3); POTASSIUM 3.7 mmol/L (3.5-5.1); TOT PROT 5.8 g/dl (6.4-8.2)
--- NOTE | 2019-11-22 13:14 | CON.CARD ---
Consult Consult Specialty:: cardiology - History of Present Illness History of Present Illness: 84 y/o woman with pmhx of Atrial fibrillation (warfarin stopped within the past [address] [facility]), HTN, Hypothyroidism, Pernicious Anemia (on weekly SQ B12 replacement), s/p AVR (bioprosthetic), OA, Chronic Diastolic CHF (LVEF 55- 60%; 07/2019), and HLD, now presents to the emergency department from home with requests for placement and difficulty ambulating. Per the patient, she was discharged from [facility] 11/17/2019. She lives by herself and was unable to transfer herself to the bathroom. Per the patient, she has had 3 days of diarrheal episodes without blood. She states she is having 3x+ episodes per day. Per the patient, she had her first custodial visit today and was recommended by the patient - History Source History Provided By: Patient, Medical Record Limitations to Obtaining History: Poor Historian - Past Medical History Cardio/Vascular: Yes: AFIB, HTN, Hyperlipdemia, Other (bioprosthetic AoVR) Reproductive: Yes: Postmenopausal ...: No Heme/Onc: Yes: Anemia Infectious Disease: Yes: Herpes Zoster Musculoskeletal: Yes: Osteoarthritis - Past Surgical History Past Surgical History: Yes: Cholecystectomy, Valve Replacement (Aortic) - Alcohol/Substance Use Hx Alcohol Use: No History of Substance Use: reports: None - Smoking History Smoking history: Never smoked Have you smoked in the past 12 months: No Aproximately how many cigarettes per day: 0 - Social History ADL: Independent History of Recent Travel: No Home Medications - Allergies Allergies/Adverse Reactions: Allergies Allergy/AdvReac Type Severity Reaction Status Date / Time sulfamethoxazole Allergy Severe Rash Verified 11/22/19 03:46 [From Bactrim] trimethoprim [From Bactrim] Allergy Severe Rash Verified 11/22/19 03:46 - Home Medications Home Medications: Ambulatory Orders Levothyroxine [Synthroid -] 12.5 mcg PO DAILY 10/06/19 Levothyroxine [Synthroid -] 100 mcg PO DAILY 10/06/19 Multivit-Min/Iron/Folic/Lutein [Centrum Silver Women Tablet] 1 each PO DAILY 10/06/19 Rosuvastatin [Crestor -] 5 mg PO HS 10/06/19 Losartan Potassium 25 mg PO DAILY 11/22/19 Metoprolol Tartrate [Lopressor -] 25 mg PO BID 11/22/19 Review of Systems - Review of Systems Constitutional: reports: Weakness Vital Signs: Vital Signs Temperature 98.8 F 11/22/19 10:00 Pulse Rate 88 11/22/19 10:00 Respiratory Rate 18 11/22/19 10:00 Blood Pressure 104/54 L 11/22/19 10:00 O2 Sat by Pulse Oximetry (%) 97 11/22/19 09:00 - Other Data Labs, Other Data: CBC, BMP 11/22/19 10:07 11/22/19 10:07 INR, PTT INR 1.28 (0.83-1.09) H 11/21/19 20:55 Troponin, BNP 11/21/19 14:30 Troponin I < 0.02 Troponin, BNP 11/21/19 14:30 Troponin I < 0.02 Problem List - Problems (1) Gait disturbance Code(s): R26.9 - UNSPECIFIED ABNORMALITIES OF GAIT AND MOBILITY (2) HTN (hypertension) Code(s): I10 - ESSENTIAL (PRIMARY) HYPERTENSION Qualifiers: Hypertension type: essential hypertension Qualified Code(s): I10 - Essential (primary) hypertension (3) Hyperlipidemia Code(s): E78.5 - HYPERLIPIDEMIA, UNSPECIFIED Qualifiers: Hyperlipidemia type: pure hypercholesterolemia Qualified Code(s): E78.00 - Pure hypercholesterolemia, unspecified (4) Hypothyroidism Code(s): E03.9 - HYPOTHYROIDISM, UNSPECIFIED Qualifiers: Hypothyroidism type: unspecified Qualified Code(s): E03.9 - Hypothyroidism, unspecified (5) Paroxysmal A-fib Code(s): I48.0 - PAROXYSMAL ATRIAL FIBRILLATION (6) S/P AVR (aortic valve replacement) Code(s): Z95.2 - PRESENCE OF PROSTHETIC HEART VALVE (7) UTI (urinary tract infection) Code(s): N39.0 - URINARY TRACT INFECTION, SITE NOT SPECIFIED Qualifiers: Urinary tract infection type: acute cystitis Hematuria presence: with hematuria Qualified Code(s): N30.01 - Acute cystitis with hematuria
--- NOTE | 2019-11-22 14:02 | EKG ---
Test Reason : Blood Pressure : / mmHG Vent. Rate : 075 BPM Atrial Rate : 075 BPM P-R Int : 154 ms QRS Dur : 094 ms QT Int : 414 ms P-R-T Axes : 004 -27 016 degrees QTc Int : 462 ms SINUS RHYTHM WITH PREMATURE ATRIAL COMPLEXES INFERIOR INFARCT (CITED ON OR BEFORE 07-OCT-2019) POSSIBLE ANTERIOR INFARCT , AGE UNDETERMINED ABNORMAL ECG WHEN COMPARED WITH ECG OF 08-OCT-2019 08:54, SINUS RHYTHM HAS REPLACED ATRIAL FIBRILLATION Confirmed by PALMER ELLINGTON MD ([id number]) on 11/22/2019 2:01:42 PM Referred By: Confirmed By:PALMER ELLINGTON MD
--- NOTE | 2019-11-22 14:04 | EKG ---
Test Reason : Blood Pressure : / mmHG Vent. Rate : 084 BPM Atrial Rate : 084 BPM P-R Int : 134 ms QRS Dur : 082 ms QT Int : 386 ms P-R-T Axes : -04 -29 043 degrees QTc Int : 456 ms NORMAL SINUS RHYTHM WITH SINUS ARRHYTHMIA INFERIOR INFARCT (CITED ON OR BEFORE 07-OCT-2019) ABNORMAL ECG WHEN COMPARED WITH ECG OF 21-NOV-2019 14:58, PREMATURE ATRIAL COMPLEXES ARE NO LONGER PRESENT Confirmed by PALMER ELLINGTON MD ([id number]) on 11/22/2019 2:03:56 PM Referred By: Confirmed By:PALMER ELLINGTON MD
[2019-11-22] MEDS ORDERED: LOSARTAN POTASSIUM 50 MG TABLET (FP) PO SCH (14:15)
[2019-11-22] MEDS: LEVOTHYROXINE NA 125 MCG TABLET (FP) PO SCH (15:06)
--- NOTE | 2019-11-22 15:30 | PN ---
Progress Note, Physician History of Present Illness: 84 y/o F PMH A-fib, HTN, hypothyroid, pernicious anemia, a/p AVR biopresthesis, OA, HFpEF LVEF 55-60%, herpes zoster, HLD presenting from home via ambulance s/p possible fall. As per home care manager the patient was found down on the ground although the patient has no recollection of falling (she is fully alert and oriented x3). Of note patient had a few days of diarrhea and was feeling progressively weaker- which is now improving. - Current Medication List Current Medications: Active Medications Sodium Chloride (Normal Saline -) 1,000 mls @ 42 mls/hr IV ASDIR [facility] Last Admin: 11/22/19 01:25 Dose: 42 mls/hr Documented by: Levothyroxine Sodium (Synthroid -) 125 mcg PO 0700 [facility] Last Admin: 11/22/19 15:06 Dose: 125 mcg Documented by: Losartan Potassium (Cozaar -) 25 mg PO DAILY [facility] Metoprolol Tartrate (Lopressor -) 25 mg PO BID [facility] Last Admin: 11/22/19 09:50 Dose: 25 mg Documented by: Rosuvastatin Calcium (Crestor -) 5 mg PO HS [facility] - Objective Vital Signs: Vital Signs Temperature 99.7 F H 11/22/19 14:00 Pulse Rate 83 11/22/19 14:00 Respiratory Rate 18 11/22/19 14:00 Blood Pressure 151/66 11/22/19 14:00 O2 Sat by Pulse Oximetry (%) 97 11/22/19 09:00 Constitutional: Yes: Well Nourished Cardiovascular: Yes: Regular Rate and Rhythm, Murmur Respiratory: Yes: WNL Gastrointestinal: Yes: WNL Labs: CBC, BMP 11/22/19 10:07 11/22/19 10:07 INR, PTT INR 1.28 (0.83-1.09) H 11/21/19 20:55 Impression/Plan Impression/Plan: 84 y.o. F PMH A-fib, HTN, hypothyroid, pernicious anemia, a/p AVR biopresthesis, OA, HFpEF LVEF 55-60%, herpes zoster, HLD presenting from home via ambulance s/p possible fall. As per home care manager the patient was found down on the ground although the patient has no recollection of falling (she is fully alert and oriented x3). 1- Fall Fracture ruled out on CT C/T/L spine CT Head negative for acute pathology Patient has been off coumadin CK level 83 and continue fluid for now at low rate 2- Hypokalemia in the setting of diarrhea Diarrhea is improving currently Monitor K and BM 3- A-fib 3mg coumadin daily 10/10/2019 but currently not taking metoprolol tartrate 25 mg BID Keep HR <110 cardio consult for coumadin resumption with new onset fall risk/benefit 4-AVR Bioprosthetic valve/HFpEF Stable and clinically euvolemic 5-HLD/HTN Cozaar 25 mg Metoprolol tartrate 25 mg BID crestor 5 mg 6- Hypothyroid synthroid as per home dose continue 125 mcg 7-Hypoalbuminemia -likely 2/2 malnutrition correct HypoK and trend, Monitor Mg, PO4 Dietary consult DVT Px- Diet- regular Visit type - Emergency Visit Emergency Visit: Yes ED Registration Date: 11/21/19 Care time: The patient presented to the Emergency Department on the above date and was hospitalized for further evaluation of their emergent condition. - New Patient This patient is new to me today: Yes Date on this admission: 11/22/19 - Critical Care Critical Care patient: No - Discharge Referral Referred to [facility] Med P.C.: Yes
--- NOTE | 2019-11-22 15:59 | CON.CARD ---
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 The patient denies any shortness of breath, palpitations, dyspnea worse than baseline, true syncope, orthopnea, PND or LE edema. - History Source History Provided By: Patient Limitations to Obtaining History: No Limitations - Past Medical History Cardio/Vascular: Yes: AFIB, HTN, Hyperlipdemia Infectious Disease: Yes: Herpes Zoster Musculoskeletal: Yes: Osteoarthritis - Past Surgical History Past Surgical History: Yes: Cholecystectomy, Valve Replacement (Aortic) - Alcohol/Substance Use Hx Alcohol Use: No History of Substance Use: reports: None - Smoking History Smoking history: Never smoked Have you smoked in the past 12 months: No Aproximately how many cigarettes per day: 0 - Social History ADL: Independent History of Recent Travel: No Home Medications - Allergies Allergies/Adverse Reactions: Allergies Allergy/AdvReac Type Severity Reaction Status Date / Time sulfamethoxazole Allergy Severe Rash Verified 11/22/19 03:46 [From Bactrim] trimethoprim [From Bactrim] Allergy Severe Rash Verified 11/22/19 03:46 - Home Medications Home Medications: Ambulatory Orders Multivit-Min/Iron/Folic/Lutein [Centrum Silver Women Tablet] 1 each PO DAILY Rosuvastatin [Crestor -] 5 mg PO HS 10/06/19 Levothyroxine [Synthroid -] 125 mcg PO DAILY 11/22/19 Losartan Potassium 25 mg PO DAILY 11/22/19 Metoprolol Tartrate [Lopressor -] 25 mg PO BID 11/22/19 Review of Systems - Review of Systems Neurological: reports: Incoordination, Unsteady Gait Vital Signs: Vital Signs Temperature 99.7 F H 11/22/19 14:00 Pulse Rate 83 11/22/19 14:00 Respiratory Rate 18 11/22/19 14:00 Blood Pressure 151/66 11/22/19 14:00 O2 Sat by Pulse Oximetry (%) 97 11/22/19 09:00 Constitutional: Yes: No Distress, Calm Neck: Yes: Supple Respiratory: Yes: Regular, CTA Bilaterally Gastrointestinal: Yes: Normal Bowel Sounds, Soft Cardiovascular: Yes: Regular Rate and Rhythm JVD: No Carotid Bruit: No Heart Sounds: Yes: S1, S2 Murmur: Yes: Systolic Murmur, Grade 2 Edema: No - Other Data Labs, Other Data: CBC, BMP 11/22/19 10:07 11/22/19 10:07 INR, PTT INR 1.28 (0.83-1.09) H 11/21/19 20:55 NSR @ 75 PAC, PRWP, inferior infarct Ejection Fraction %: LVEF > or = 40 % Imaging - Results Chest X-ray: Report Reviewed (NAD) Problem List - Problems (1) Chronic anticoagulation Code(s): Z79.01 - SENIOR HUMAN RESOURCES REPRESENTATIVE (CURRENT) USE OF 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 (2) Gait disturbance Code(s): R26.9 - UNSPECIFIED ABNORMALITIES OF GAIT AND MOBILITY (3) HTN (hypertension) Code(s): I10 - ESSENTIAL (PRIMARY) HYPERTENSION Qualifiers: Hypertension type: essential hypertension Qualified Code(s): I10 - Essential (primary) hypertension (4) Hyperlipidemia Code(s): E78.5 - HYPERLIPIDEMIA, UNSPECIFIED Qualifiers: Hyperlipidemia type: pure hypercholesterolemia Qualified Code(s): E78.00 - Pure hypercholesterolemia, unspecified (5) Hypothyroidism Code(s): E03.9 - HYPOTHYROIDISM, UNSPECIFIED Qualifiers: Hypothyroidism type: unspecified Qualified Code(s): E03.9 - Hypothyroidism, unspecified (6) Paroxysmal A-fib Code(s): I48.0 - PAROXYSMAL ATRIAL FIBRILLATION (7) S/P AVR (aortic valve replacement) Code(s): Z95.2 - PRESENCE OF PROSTHETIC HEART VALVE Assessment/Plan 07/27/2019 Echo: Normal LV size and fxn 55-60%, mild LAE, mild MR, TR, mod MG 29 mmHg 04/29/2019 Echo: Normal LV size with mild cLVH, normal LV fxn, mild MR, TR, RVSP 25 mmHg 1. PAF with RVR [id number] of 5 2. CAD h/o demand ischemia 3. 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 HTN/HCVD 5. Hyperlipidemia 6. Mild carotid stenosis 7. Hypothyroidism 8. Microalbuminuria 9. Diastolic dysfunction 10. Prolonged QTc on sotalol 11. UTI 12. History of acute blood loss anemia requiring transfusion post-traumatic left gluteal intramuscular hematoma PLAN: 1. Change coumadin to Eliquis 5 bid with lower bleeding risk 2. Continue Metoprolol 25 mg BID for rate-control 3. Continue Crestor 5 mg QHS and Losartan 25 mg QD 4. Antibiotic prophylaxis for endocarditis protection when needed 5. PT and gait training 6. Eventual f/u in office with Dr. Morris [phone] upon discharge. Await SNF 7. Thank you for consultative opportunity
[2019-11-22] MEDS ORDERED: WARFARIN NA 5 MG TABLET (UD) PO SCH (18:00)
[2019-11-22 18:26] LABS: EPI CELLS 4.9 /HPF (0-5/HPF); HYALINE CASTS 12 /lpf (0-8); PH,URINE 7.5 (5.0-8.0); URINE APPEARANCE CLOUDY; URINE BACTERIA 5330.8 /hpf (NEGATIVE); URINE BILIRUBIN NEGATIVE (NEGATIVE); URINE COLOR YELLOW; URINE GLUCOSE (UA) NEGATIVE (NEGATIVE); URINE KETONE NEGATIVE (NEGATIVE); URINE LEUK ESTERASE 2+ (NEGATIVE); URINE NITRITE NEGATIVE (NEGATIVE); URINE PROTEIN 2+ (NEGATIVE); URINE RBC 5 /hpf (0-4); URINE UROBILINOGEN 4.0 E.U/dl mg/dL (0.2-1.0); URINE WBC 862 /hpf (0-5)
[2019-11-22 19:33] LABS: URINE CRYSTALS NONE SEEN /hpf
[2019-11-22] MEDS ORDERED: PT OWN MED DRAWER 7, Y5N ONE (23:09)
[2019-11-22] MEDS: ROSUVASTATIN CA 5 MG TABLET (FP) PO SCH (23:11)
[2019-11-22] MEDS: APIXABAN 5 MG TABLET PO SCH (23:12)
[2019-11-23] MEDS: LEVOTHYROXINE NA 125 MCG TABLET (FP) PO SCH (06:09)
[2019-11-23] MEDS: SODIUM CHLORIDE 1,000 ML IV SCH (06:09)
[2019-11-23] MEDS ORDERED: INSULIN (LEVEMIR) 100 UNITS/ML UNITS SQ ONE (06:40)
[2019-11-23 07:47] LABS: HEMATOCRIT 27.2 % (32.4-45.2); HEMOGLOBIN 9.4 GM/dL (10.7-15.3); MCHC 34.4 g/dl (32.0-36.0); MEAN CELL VOLUME 92.8 fl (80-96); MEAN PLT VOLUME 7.8 fl (7.5-11.1); PLATELET COUNT 208 K/MM3 (134-434); RBC 2.93 M/mm3 (3.60-5.2); RDW 14.6 % (11.6-15.6); WHITE BLOOD COUNT 7.1 K/mm3 (4.0-10.0)
[2019-11-23] MEDS ORDERED: CEFTRIAXONE 1 GM in DEXTROSE 5%-WATER - 50 ML IVPB ONE (07:50)
[2019-11-23 08:27] LABS: ALBUMIN 2.4 g/dl (3.4-5.0); BILIRUBIN,TOTAL 0.7 mg/dL (0.2-1); BLOOD UREA NITROGEN 14.8 mg/dL (7-18); CREATININE 0.5 mg/dL (0.55-1.3); MAGNESIUM 1.8 mg/dL (1.8-2.4); POTASSIUM 3.2 mmol/L (3.5-5.1); TOT PROT 5.7 g/dl (6.4-8.2)
--- NOTE | 2019-11-23 09:52 | PN ---
Progress Note (short form) - Note Progress Note: in bed, feeling better, stronger no cardiac events stable hemodynamically CBC, BMP 11/23/19 05:34 11/23/19 05:34 Vital Signs Temperature 98.1 F 11/23/19 06:00 Pulse Rate 65 11/23/19 06:00 Respiratory Rate 20 11/23/19 06:00 Blood Pressure 121/72 11/23/19 06:00 O2 Sat by Pulse Oximetry (%) 95 11/22/19 21:00 Current Medications Apixaban (Eliquis -) 5 mg PO BID [facility] Last Admin: 11/22/19 23:12 Dose: 5 mg Documented by: Sodium Chloride (Normal Saline -) 1,000 mls @ 42 mls/hr IV ASDIR [facility] Last Admin: 11/23/19 06:09 Dose: 42 mls/hr Documented by: Levothyroxine Sodium (Synthroid -) 125 mcg PO 0700 [facility] Last Admin: 11/23/19 06:09 Dose: 125 mcg Documented by: Losartan Potassium (Cozaar -) 25 mg PO DAILY [facility] Metoprolol Tartrate (Lopressor -) 25 mg PO BID [facility] Last Admin: 11/22/19 23:12 Dose: 25 mg Documented by: Rosuvastatin Calcium (Crestor -) 5 mg PO HS [facility] Last Admin: 11/22/19 23:11 Dose: 5 mg Documented by: Assessment: 07/27/2019 Echo: Normal LV size and fxn 55-60%, mild LAE, mild MR, TR, mod MG 29 mmHg 04/29/2019 Echo: Normal LV size with mild cLVH, normal LV fxn, mild MR, TR, RVSP 25 mmHg 1. PAF with RVR [id number] of 5 2. CAD h/o demand ischemia 3. 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 HTN/HCVD 5. Hyperlipidemia 6. Mild carotid stenosis 7. Hypothyroidism 8. Microalbuminuria 9. Diastolic dysfunction 10. Prolonged QTc on sotalol 11. UTI 12. History of acute blood loss anemia requiring transfusion post-traumatic left gluteal intramuscular hematoma PLAN: 1. started on Eliquis 5 bid with lower bleeding risk 2. Continue Metoprolol 25 mg BID for rate-control 3. Continue Crestor 5 mg QHS and Losartan 25 mg QD 4. Antibiotic prophylaxis for endocarditis protection when needed 5. PT and gait training 6. Eventual f/u in office with Dr. Morris [phone] upon discharge. Await SNF
[2019-11-23] MEDS ORDERED: LEVOTHYROXINE NA 125 MCG TABLET (FP) PO SCH (10:00)
[2019-11-23] MEDS ORDERED: LOSARTAN POTASSIUM 25 MG TABLET PO ONE (10:00)
[2019-11-23] MEDS ORDERED: POTASSIUM CHLORIDE TABS 20 MEQ TABLET.ER (FP) PO ONE (10:02)
[2019-11-23] MEDS ORDERED: cefTRIAXone SODIUM 1 GM VIAL ONE (10:35)
[2019-11-23] MEDS ORDERED: DEXTROSE 5%-WATER - 50 ML IVPB ONE (10:35)
[2019-11-23] MEDS: METOPROLOL TARTRATE 25 MG TABLET (FP) PO SCH ×2 (10:42→21:47)
[2019-11-23] MEDS: LOSARTAN POTASSIUM 25 MG TABLET PO SCH (10:42)
[2019-11-23] MEDS: APIXABAN 5 MG TABLET PO SCH ×2 (10:42→21:47)
--- NOTE | 2019-11-23 11:20 | PN ---
Physical Exam: SUBJECTIVE: Patient seen and examined. Asymptomatic and afebrile. No overnight issues or events. Pt reports incontinence w/ urine. Pt is off coumadin due to skilled nursing physicians instructed to stop coumadin. Denies f/c/n/v/d/sob/cp. OBJECTIVE: Vital Signs Period Temp Pulse Resp BP Sys/Vincent Pulse Ox Last 24 Hr 98.1 F-99.7 F 65-83 18-20 121-151/60-72 95 GENERAL: AAOx3, NAD HEENT: PERRLA, EOMI, Dry oral mucosa, cracked lips LUNGS: Breath sounds equal, clear to auscultation bilaterally. No wheezes, and no crackles. HEART: Regular rate and rhythm, normal S1 and S2 without murmur, rub or gallop. ABDOMEN: Soft, nontender, not distended, normoactive bowel sounds, no guarding MUSCULOSKELETAL: TTP lumbar spine over bony prominences. No paraspinal tenderness. No CVA tenderness. EXTREMITIES: 2+ pulses, warm, well-perfused. No calf tenderness. Trace pitting edema b/l LE. Genital: small right labial sore/ulcer, multiple skin folds NEUROLOGICAL: Normal speech. PSYCHIATRIC: Appropriate mood and affect. SKIN: Warm, dry Laboratory Results - last 24 hr 11/22/19 11/22/19 11/23/19 10:07 17:45 05:34 WBC 7.1 RBC 2.93 L Hgb 9.4 L Hct 27.2 L MCV 92.8 MCH 32.0 MCHC 34.4 RDW 14.6 Plt Count 208 MPV 7.8 Sodium 142 Potassium 3.7 Chloride 112 H Carbon Dioxide 24 Anion Gap 7 L BUN 13.5 Creatinine 0.5 L Est GFR (CKD-EPI)AfAm 104.46 Est GFR (CKD-EPI)NonAf 90.13 Random Glucose 101 Calcium 8.4 L Magnesium Total Bilirubin 1.2 H AST 24 ALT 18 Alkaline Phosphatase 85 Total Protein 5.8 L Albumin 2.5 L TSH 1.72 Urine Color Yellow Urine Appearance Cloudy Urine pH 7.5 D Ur Specific [place] 1.023 Urine Protein 2+ H Urine Glucose (UA) Negative Urine Ketones Negative Urine Blood 2+ H Urine Nitrite Negative Urine Bilirubin Negative Urine Urobilinogen 4.0 e.u/dl H Ur Leukocyte Esterase 2+ H Urine WBC (Auto) 862 Urine RBC (Auto) 5 Urine Casts (Auto) 12 U Epithel Cells (Auto) 4.9 Urine Crystals (Auto) None seen Urine Bacteria (Auto) 5330.8 11/23/19 05:34 WBC RBC Hgb Hct MCV MCH MCHC RDW Plt Count MPV Sodium 144 Potassium 3.2 L Chloride 112 H Carbon Dioxide 26 Anion Gap 6 L BUN 14.8 Creatinine 0.5 L Est GFR (CKD-EPI)AfAm 104.46 Est GFR (CKD-EPI)NonAf 90.13 Random Glucose 87 Calcium 8.0 L Magnesium 1.8 Total Bilirubin 0.7 AST 22 ALT 18 Alkaline Phosphatase 87 Total Protein 5.7 L Albumin 2.4 L TSH Urine Color Urine Appearance Urine pH Ur Specific [place] Urine Protein Urine Glucose (UA) Urine Ketones Urine Blood Urine Nitrite Urine Bilirubin Urine Urobilinogen Ur Leukocyte Esterase Urine WBC (Auto) Urine RBC (Auto) Urine Casts (Auto) U Epithel Cells (Auto) Urine Crystals (Auto) Urine Bacteria (Auto) Active Medications Generic Name Dose Route Start Last Admin Trade Name Freq PRN Reason Stop Dose Admin Apixaban 5 mg 11/22/19 22:00 11/23/19 10:42 Eliquis - PO 5 mg BID DANDY Administration Sodium Chloride 1,000 mls @ 42 mls/hr 11/22/19 01:00 11/23/19 06:09 Normal Saline - IV 42 mls/hr ASDIR DANDY Administration Levothyroxine Sodium 125 mcg 11/22/19 14:02 11/23/19 06:09 Synthroid - PO 125 mcg 0700 DANDY Administration Losartan Potassium 25 mg 11/23/19 10:00 11/23/19 10:42 Cozaar - PO 25 mg DAILY DANDY Administration Metoprolol Tartrate 25 mg 11/22/19 10:00 11/23/19 10:42 Lopressor - PO 25 mg BID DANDY Administration Rosuvastatin Calcium 5 mg 11/22/19 22:00 11/22/19 23:11 Crestor - PO 5 mg HS DANDY Administration ASSESSMENT/PLAN: 84 y/o F, pmh of Atrial fibrillation (off Coumadin), HTN, Hypothyroidism, Pernicious Anemia (on weekly SQ B12 replacement), s/p AVR (bioprosthetic), OA, Chronic Diastolic CHF, herpes zoster, HLD, recently at [facility] for 2 months for rehab and was released last Tuesday, presented s/p fall and diarrhea is admitted for mechanical fall #S/p Fall likely 2/2 to mechanical vs vasovagal vs cardiogenic LOC likely since pt does not remember the event, no head trauma UA negative UCx pending fall precautions telemetry monitoring- no events overnight Discussed with SW for placement- will likely get approval tomorrow #Asymptomatic bacteriuria UA positive Ceftriaxone started will f/u UCx for targeted tx #A-fib Off couamdin, however was discharged with 3mg coumadin daily 10/10/2019 Reported that [facility] physicians discontinued her Coumadin Dr Lam consulted- appreciate consult Pt started on Eliquis 5 BID #Hyperbili- elevated T-bili T-bili normalized will monitor #Hypokalemia now resolved #Urinary incontinence endorse urinary incontinence at baseline #Diarrhea now resolved, no bowel movements yet if worsening may order stool studies Patient has very poor diet. #HTN losartan 25mg, metorpolol 25mg BID #HLD cont Crestor #Hypothyroidism continue synthroid 125mcg daily TSH, free T4- wnl #D-CHF daily weights Is & Os No lasix on home meds, will f/u with pharmacy and pt #FEN NS @45cc/hr sodium controlled diet #Dispo: monitor on tele, discuss with SW for placement Visit type - Emergency Visit Emergency Visit: Yes ED Registration Date: 11/21/19 Care time: The patient presented to the Emergency Department on the above date and was hospitalized for further evaluation of their emergent condition. - New Patient This patient is new to me today: Yes Date on this admission: 11/25/19 - Critical Care Critical Care patient: No - Discharge Referral Referred to [facility] Med P.C.: No ATTENDING PHYSICIAN STATEMENT I saw and evaluated the patient. I reviewed the resident's note and discussed the case with the resident. I agree with the resident's findings and plan as documented. SUBJECTIVE: OBJECTIVE: ASSESSMENT AND PLAN:
--- NOTE | 2019-11-23 11:25 | PN ---
Progress Note, Physician History of Present Illness: 84 y/o F H A-fib, HTN, hypothyroid, pernicious anemia, a/p AVR biopresthesis, OA, HFpEF LVEF 55-60%, herpes zoster, HLD presenting from home via ambulance s/p possible fall. As per home companion the patient was found down on the ground although the patient has no recollection of falling (she is fully alert and oriented x3). Of note patient had a few days of diarrhea and was feeling progressively weaker- which is now improving. Today: Diarrhea improved Patient alert and very uptodate with her medications Has no active complaints, wants to go to [facility]. - Current Medication List Current Medications: Active Medications Apixaban (Eliquis -) 5 mg PO BID [facility] Last Admin: 11/23/19 10:42 Dose: 5 mg Documented by: Sodium Chloride (Normal Saline -) 1,000 mls @ 42 mls/hr IV ASDIR [facility] Last Admin: 11/23/19 06:09 Dose: 42 mls/hr Documented by: Levothyroxine Sodium (Synthroid -) 125 mcg PO 0700 [facility] Last Admin: 11/23/19 06:09 Dose: 125 mcg Documented by: Losartan Potassium (Cozaar -) 25 mg PO DAILY [facility] Last Admin: 11/23/19 10:42 Dose: 25 mg Documented by: Metoprolol Tartrate (Lopressor -) 25 mg PO BID [facility] Last Admin: 11/23/19 10:42 Dose: 25 mg Documented by: Rosuvastatin Calcium (Crestor -) 5 mg PO HS [facility] Last Admin: 11/22/19 23:11 Dose: 5 mg Documented by: - Objective Vital Signs: Vital Signs Temperature 98.1 F 11/23/19 06:00 Pulse Rate 65 11/23/19 06:00 Respiratory Rate 20 11/23/19 06:00 Blood Pressure 121/72 11/23/19 06:00 O2 Sat by Pulse Oximetry (%) 95 11/22/19 21:00 Labs: CBC, BMP 11/23/19 05:34 11/23/19 05:34 INR, PTT INR 1.28 (0.83-1.09) H 11/21/19 20:55 Impression/Plan Impression/Plan: 84 y.o. F [facility] A-fib, HTN, hypothyroid, pernicious anemia, a/p AVR biopresthesis, OA, HFpEF LVEF 55-60%, herpes zoster, HLD presenting from home via ambulance s/p possible fall. As per home companion the patient was found down on the ground although the patient has no recollection of falling (she is fully alert and oriented x3). 1- Fall Fracture ruled out on CT C/T/L spine CT Head negative for acute pathology Patient has been off coumadin CK level 83 and continue fluid for now at low rate 2- Hypokalemia in the setting of diarrhea Diarrhea is improving currently Monitor K and BM and replete as needed 3- A-fib 3mg coumadin daily 10/10/2019 but currently not taking-d/c metoprolol tartrate 25 mg BID Keep HR <110 Eliquis initiated per cardio recs 4-AVR Bioprosthetic valve/HFpEF Stable and clinically euvolemic 5-HLD/HTN Cozaar 25 mg Metoprolol tartrate 25 mg BID crestor 5 mg 6- Hypothyroid synthroid as per home dose continue 125 mcg 7-Hypoalbuminemia -likely 2/2 malnutrition correct HypoK and trend, Monitor Mg, PO4 Dietary consult DVT Px-On eliquis Diet- regular Visit type - Emergency Visit Emergency Visit: Yes ED Registration Date: 11/21/19 Care time: The patient presented to the Emergency Department on the above date and was hospitalized for further evaluation of their emergent condition. - New Patient This patient is new to me today: No - Critical Care Critical Care patient: No - Discharge Referral Referred to [facility] Med P.C.: No
--- NOTE | 2019-11-23 15:51 | PDOC ---
Documentation entered by Damaso Le SCRIBE, acting as scribe for Karen Bender MD. Karen Bender MD: This documentation has been prepared by the Rey beckett Elijah, SCRIBE, under my direction and personally reviewed by me in its entirety. I confirm that the documentation accurately reflects all work, treatment, procedures, and medical decision making performed by me. Attending Attestation - Resident Resident Name: Bal Sher - ED Attending Attestation I have performed the following: I have examined & evaluated the patient, The case was reviewed & discussed with the resident, I agree w/resident's findings & plan, Exceptions are as noted - HPI HPI: 11/21/19 18:04 84yoF presents c/o that she feels that she is unable to care for herself at home. Pt was DC'ed from [facility] 2d ago to home, minimal services. Pt feels overwhelmed by her medications, states that she needs assistance getting to and from bathroom/kitchen/bedroom and reports a fall at home. EMS found her on the ground this morning. NO fevers, no cp/sob, no n/v/d, no LOC. - Physicial Exam PE: 11/21/19 18:05 NAD, well appearing rrr ctabl soft ntnd A&O x 3 - Medical Decision Making 11/21/19 18:05 84yoF presnets feeling that she can't care for herself at home, resulting in a fall overnight and prolonged downtime on the floor. - labs - ekg - cxr - ivf - admit.
[2019-11-23] MEDS: ROSUVASTATIN CA 5 MG TABLET (FP) PO SCH (21:47)
[2019-11-24] MEDS: SODIUM CHLORIDE 1,000 ML IV SCH (06:34)
[2019-11-24] MEDS: LEVOTHYROXINE NA 125 MCG TABLET (FP) PO SCH (06:34)
[2019-11-24 07:49] LABS: HEMATOCRIT 29.2 % (32.4-45.2); HEMOGLOBIN 9.8 GM/dL (10.7-15.3); MCH 31.7 pg (25.7-33.7); MCHC 33.6 g/dl (32.0-36.0); MEAN CELL VOLUME 94.2 fl (80-96); MEAN PLT VOLUME 7.8 fl (7.5-11.1); PLATELET COUNT 242 K/MM3 (134-434); RDW 14.6 % (11.6-15.6); WHITE BLOOD COUNT 6.2 K/mm3 (4.0-10.0)
[2019-11-24 08:10] LABS: ALBUMIN 2.4 g/dl (3.4-5.0); BILIRUBIN,TOTAL 0.6 mg/dL (0.2-1); BLOOD UREA NITROGEN 14.5 mg/dL (7-18); CREATININE 0.5 mg/dL (0.55-1.3); MAGNESIUM 1.8 mg/dL (1.8-2.4); PHOSPHOROUS 3.3 mg/dL (2.5-4.9); POTASSIUM 3.2 mmol/L (3.5-5.1); TOT PROT 5.7 g/dl (6.4-8.2)
[2019-11-24] MEDS: METOPROLOL TARTRATE 25 MG TABLET (FP) PO SCH ×2 (09:00→22:20)
[2019-11-24] MEDS: APIXABAN 5 MG TABLET PO SCH ×2 (09:00→22:19)
[2019-11-24] MEDS: LOSARTAN POTASSIUM 25 MG TABLET PO SCH (09:01)
[2019-11-24] MEDS ORDERED: POTASSIUM CHLORIDE TABS 20 MEQ TABLET.ER (FP) PO ONE ×2 (11:25→15:26)
--- NOTE | 2019-11-24 11:31 | PN ---
Progress Note (short form) - Note Progress Note: in bed, BP reduced Vital Signs Temperature 97.9 F 11/24/19 10:00 Pulse Rate 122 H 11/24/19 10:00 Respiratory Rate 21 H 11/24/19 10:00 Blood Pressure 94/60 11/24/19 10:00 O2 Sat by Pulse Oximetry (%) 99 11/24/19 09:00 CBC, BMP 11/24/19 07:03 11/24/19 07:03 Current Medications Apixaban (Eliquis -) 5 mg PO BID [facility] Last Admin: 11/24/19 09:00 Dose: 5 mg Documented by: Sodium Chloride (Normal Saline -) 1,000 mls @ 42 mls/hr IV ASDIR [facility] Last Admin: 11/24/19 06:34 Dose: 42 mls/hr Documented by: Levothyroxine Sodium (Synthroid -) 125 mcg PO 0700 [facility] Last Admin: 11/24/19 06:34 Dose: 125 mcg Documented by: Losartan Potassium (Cozaar -) 25 mg PO DAILY [facility] Last Admin: 11/24/19 09:01 Dose: Not Given Documented by: Metoprolol Tartrate (Lopressor -) 25 mg PO BID [facility] Last Admin: 11/24/19 09:00 Dose: 25 mg Documented by: Potassium Chloride (K-Dur -) 40 meq PO ONCE ONE Stop: 11/24/19 11:26 Rosuvastatin Calcium (Crestor -) 5 mg PO [facility] Last Admin: 11/23/19 21:47 Dose: 5 mg Documented by: Assessment: 07/27/2019 Echo: Normal LV size and fxn 55-60%, mild LAE, mild MR, TR, mod MG 29 mmHg 04/29/2019 Echo: Normal LV size with mild cLVH, normal LV fxn, mild MR, TR, RVSP 25 mmHg 1. PAF with RVR [id number] of 5 2. CAD h/o demand ischemia 3. 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 HTN/HCVD 5. Hyperlipidemia 6. Mild carotid stenosis 7. Hypothyroidism 8. Microalbuminuria 9. Diastolic dysfunction 10. Prolonged QTc on sotalol 11. UTI 12. History of acute blood loss anemia requiring transfusion post-traumatic left gluteal intramuscular hematoma PLAN: 1. started on Eliquis 5 bid with lower bleeding risk 2. Continue Metoprolol 25 mg BID for rate-control 3. Continue Crestor 5 mg QHS ; hold losartan if BP remains borderline/low (now m easured with tachycardia, repeat when HR slower) 4. Antibiotic prophylaxis for endocarditis protection when needed 5. PT and gait training 6. Eventual f/u in office with Dr. Morris [phone] upon discharge. Await SNF
--- NOTE | 2019-11-24 15:35 | PN ---
Progress Note, Physician History of Present Illness: 84 y/o F PMH A-fib, HTN, hypothyroid, pernicious anemia, a/p AVR biopresthesis, OA, HFpEF LVEF 55-60%, herpes zoster, HLD presenting from home via ambulance s/p possible fall. As per home health travel ot the patient was found down on the ground although the patient has no recollection of falling (she is fully alert and oriented x3). Of note patient had a few days of diarrhea and was feeling progressively weaker- which is now improving. Currently being treated for UTI and Afib managed by janak goins - on eliquis and metoprolol 25 mg BID for rate control. Today: Diarrhea improved Today had episode of dyspnea and diaphoresis with HR -150 and BP 94/60's Resolved after giving her dose of metoprolol After episode- reevaluation shows patient is comfortable and had no complaints. - Current Medication List Current Medications: Active Medications Apixaban (Eliquis -) 5 mg PO BID [facility] Last Admin: 11/24/19 09:00 Dose: 5 mg Documented by: Sodium Chloride (Normal Saline -) 1,000 mls @ 42 mls/hr IV ASDIR [facility] Last Admin: 11/24/19 06:34 Dose: 42 mls/hr Documented by: Levothyroxine Sodium (Synthroid -) 125 mcg PO 0700 [facility] Last Admin: 11/24/19 06:34 Dose: 125 mcg Documented by: Metoprolol Tartrate (Lopressor -) 25 mg PO BID [facility] Last Admin: 11/24/19 09:00 Dose: 25 mg Documented by: Potassium Chloride (K-Dur -) 40 meq PO ONCE ONE Stop: 11/24/19 15:27 Rosuvastatin Calcium (Crestor -) 5 mg PO HS [facility] Last Admin: 11/23/19 21:47 Dose: 5 mg Documented by: - Objective Vital Signs: Vital Signs Temperature 97.9 F 11/24/19 10:00 Pulse Rate 101 H 11/24/19 14:00 Respiratory Rate 20 11/24/19 14:00 Blood Pressure 114/55 L 11/24/19 14:00 O2 Sat by Pulse Oximetry (%) 99 11/24/19 09:00 Labs: CBC, BMP 11/24/19 07:03 11/24/19 07:03 INR, PTT INR 1.28 (0.83-1.09) H 11/21/19 20:55 Impression/Plan Impression/Plan: 84 y.o. F PMH A-fib, HTN, hypothyroid, pernicious anemia, a/p AVR biopresthesis, OA, HFpEF LVEF 55-60%, herpes zoster, HLD presenting from home via ambulance s/p possible fall. As per home health travel ot the patient was found down on the ground although the patient has no recollection of falling (she is fully alert and oriented x3). 1- Fall Mechanical Fracture ruled out on CT C/T/L spine CT Head negative for acute pathology Patient has been off coumadin CK level 83 and continue fluid for now at low rate 2- Hypokalemia in the setting of diarrhea Diarrhea is improving currently Monitor K and BM and replete as needed UTI On ceftriaxone 3- A-fib 3mg coumadin daily 10/10/2019 but currently not taking-d/c metoprolol tartrate 25 mg BID--> may need to increase of Afib is uncontrolled Monitor on tele Keep HR <110 Eliquis initiated per cardio recs Continue fluids 4-AVR Bioprosthetic valve/HFpEF Stable and clinically euvolemic 5-HLD/HTN Cozaar 25 mg Metoprolol tartrate 25 mg BID crestor 5 mg 6- Hypothyroid synthroid as per home dose continue 125 mcg 7-Hypoalbuminemia -likely 2/2 malnutrition correct HypoK and trend, Monitor Mg, PO4 Dietary consult DVT Px-On eliquis Diet- regular Visit type - Emergency Visit Emergency Visit: Yes ED Registration Date: 11/21/19 Care time: The patient presented to the Emergency Department on the above date and was hospitalized for further evaluation of their emergent condition. - New Patient This patient is new to me today: No - Critical Care Critical Care patient: No - Discharge Referral Referred to [facility] Med P.C.: No
[2019-11-24] MEDS ORDERED: cefTRIAXone SODIUM 1 GM VIAL ONE (16:22)
[2019-11-24] MEDS ORDERED: DEXTROSE 5%-WATER - 50 ML IVPB ONE (16:23)
[2019-11-24] MEDS: CEFTRIAXONE 1 GM in DEXTROSE 5%-WATER - 50 ML IVPB SCH (16:25)
[2019-11-24] MEDS ORDERED: METOPROLOL TARTRATE 25 MG TABLET (FP) PO ONE (19:05)
[2019-11-24] MEDS: ROSUVASTATIN CA 5 MG TABLET (FP) PO SCH (22:18)
[2019-11-25] MEDS: SODIUM CHLORIDE 1,000 ML IV SCH (06:21)
[2019-11-25] MEDS: LEVOTHYROXINE NA 125 MCG TABLET (FP) PO SCH (06:22)
[2019-11-25 08:03] LABS: BASO % 0.7 % (0-2.0); EOS % 5.8 % (0-4.5); HEMATOCRIT 29.8 % (32.4-45.2); LYMPH % 17.8 % (8-40); MCH 31.4 pg (25.7-33.7); MCHC 33.6 g/dl (32.0-36.0); MEAN CELL VOLUME 93.5 fl (80-96); MEAN PLT VOLUME 7.9 fl (7.5-11.1); MONO % 12.5 % (3.8-10.2); NEUT % 63.2 % (42.8-82.8); PLATELET COUNT 246 K/MM3 (134-434); RBC 3.18 M/mm3 (3.60-5.2); RDW 14.6 % (11.6-15.6); WHITE BLOOD COUNT 5.9 K/mm3 (4.0-10.0)
[2019-11-25 08:25] LABS: BLOOD UREA NITROGEN 14.9 mg/dL (7-18); CALCIUM 7.6 mg/dL (8.5-10.1); CREATININE 0.6 mg/dL (0.55-1.3); POTASSIUM 3.8 mmol/L (3.5-5.1)
[2019-11-25] MEDS ORDERED: DEXTROSE 5%-WATER - 50 ML IVPB ONE (09:27)
[2019-11-25] MEDS ORDERED: cefTRIAXone SODIUM 1 GM VIAL ONE (09:27)
[2019-11-25] MEDS: APIXABAN 5 MG TABLET PO SCH ×2 (10:25→21:36)
[2019-11-25] MEDS: CEFTRIAXONE 1 GM in DEXTROSE 5%-WATER - 50 ML IVPB SCH (10:25)
[2019-11-25] MEDS: METOPROLOL TARTRATE 25 MG TABLET (FP) PO SCH ×2 (10:27→21:37)
--- NOTE | 2019-11-25 11:22 | PN ---
Progress Note (short form) - Note Progress Note: in bed, BP OK Vital Signs Temperature 97.7 F 11/25/19 10:32 Pulse Rate 99 H 11/25/19 10:32 Respiratory Rate 20 11/25/19 10:32 Blood Pressure 124/80 11/25/19 10:32 O2 Sat by Pulse Oximetry (%) 99 11/24/19 20:45 CBC, BMP 11/25/19 05:38 11/25/19 05:38 Current Medications Apixaban (Eliquis -) 5 mg PO BID [facility] Last Admin: 11/24/19 09:00 Dose: 5 mg Documented by: Sodium Chloride (Normal Saline -) 1,000 mls @ 42 mls/hr IV ASDIR [facility] Last Admin: 11/24/19 06:34 Dose: 42 mls/hr Documented by: Levothyroxine Sodium (Synthroid -) 125 mcg PO 0700 [facility] Last Admin: 11/24/19 06:34 Dose: 125 mcg Documented by: Losartan Potassium (Cozaar -) 25 mg PO DAILY [facility] Last Admin: 11/24/19 09:01 Dose: Not Given Documented by: Metoprolol Tartrate (Lopressor -) 25 mg PO BID [facility] Last Admin: 11/24/19 09:00 Dose: 25 mg Documented by: Potassium Chloride (K-Dur -) 40 meq PO ONCE ONE Stop: 11/24/19 11:26 Rosuvastatin Calcium (Crestor -) 5 mg PO [facility] Last Admin: 11/23/19 21:47 Dose: 5 mg Documented by: Assessment: 07/27/2019 Echo: Normal LV size and fxn 55-60%, mild LAE, mild MR, TR, mod MG 29 mmHg 04/29/2019 Echo: Normal LV size with mild cLVH, normal LV fxn, mild MR, TR, RVSP 25 mmHg 1. PAF with RVR [id number] of 5 2. CAD h/o demand ischemia 3. 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 HTN/HCVD 5. Hyperlipidemia 6. Mild carotid stenosis 7. Hypothyroidism 8. Microalbuminuria 9. Diastolic dysfunction 10. Prolonged QTc on sotalol 11. UTI 12. History of acute blood loss anemia requiring transfusion post-traumatic left gluteal intramuscular hematoma PLAN: Same: 1. started on Eliquis 5 bid with lower bleeding risk 2. Continue Metoprolol 25 mg BID for rate-control 3. Continue Crestor 5 mg QHS ; hold losartan if BP remains borderline/low 4. Antibiotic prophylaxis for endocarditis protection when needed 5. PT and gait training 6. Eventual f/u in office with Dr. Morris [phone] upon discharge. Await SNF
--- NOTE | 2019-11-25 11:57 | PN ---
Progress Note, Physician History of Present Illness: 84 y/o F PMH A-fib, HTN, hypothyroid, pernicious anemia, a/p AVR biopresthesis, OA, HFpEF LVEF 55-60%, herpes zoster, HLD presenting from home via ambulance s/p possible fall. As per home energy rater the patient was found down on the ground although the patient has no recollection of falling (she is fully alert and oriented x3). Of note patient had a few days of diarrhea and was feeling progressively weaker and admitted for placement. Currently being treated for UTI and Afib (cardio on board)- on eliquis and metoprolol 25 mg BID for rate control. Today: Diarrhea -NO episodes today Today she has not had episodes of diaphoresis or palpitations and dyspnea - Current Medication List Current Medications: Active Medications Apixaban (Eliquis -) 5 mg PO BID [facility] Last Admin: 11/25/19 10:25 Dose: 5 mg Documented by: Sodium Chloride (Normal Saline -) 1,000 mls @ 42 mls/hr IV ASDIR [facility] Last Admin: 11/25/19 06:21 Dose: 42 mls/hr Documented by: Ceftriaxone Sodium 1 gm/ (Dextrose) 50 mls @ 200 mls/hr IVPB DAILY [facility]; Protocol Last Admin: 11/25/19 10:25 Dose: 200 mls/hr Documented by: Levothyroxine Sodium (Synthroid -) 125 mcg PO 0700 [facility] Last Admin: 11/25/19 06:22 Dose: 125 mcg Documented by: Metoprolol Tartrate (Lopressor -) 25 mg PO BID [facility] Last Admin: 11/25/19 10:27 Dose: 25 mg Documented by: Rosuvastatin Calcium (Crestor -) 5 mg PO HS [facility] Last Admin: 11/24/19 22:18 Dose: 5 mg Documented by: - Objective Vital Signs: Vital Signs Temperature 97.7 F 11/25/19 10:32 Pulse Rate 99 H 11/25/19 10:32 Respiratory Rate 20 11/25/19 10:32 Blood Pressure 124/80 11/25/19 10:32 O2 Sat by Pulse Oximetry (%) 99 11/24/19 20:45 Labs: CBC, BMP 11/25/19 05:38 11/25/19 05:38 INR, PTT INR 1.28 (0.83-1.09) H 11/21/19 20:55 Impression/Plan Impression/Plan: 84 y.o. F PMH A-fib, HTN, hypothyroid, pernicious anemia, a/p AVR biopresthesis, OA, HFpEF LVEF 55-60%, herpes zoster, HLD presenting from home via ambulance s/p possible fall. As per home energy rater the patient was found down on the ground although the patient has no recollection of falling (she is fully alert and oriented x3). 1- Fall Mechanical -resolved Fracture ruled out on CT C/T/L spine CT Head negative for acute pathology Patient has been off coumadin CK level 83 and continue fluid for now at low rate PT 2- Hypokalemia in the setting of diarrhea-resolved Diarrhea -no episodes today- if continues >7days will need to send stool studies Monitor K and BM and replete as needed 3-UTI U/A positive and pt was having some Sx On ceftriaxone 3- A-fib 3mg coumadin daily 10/10/2019 -->d/c metoprolol tartrate 25 mg BID--> may need to increase of Afib is uncontrolled Monitor on tele Keep HR <110 Eliquis initiated per cardio recs Continue fluids 4-AVR Bioprosthetic valve/HFpEF Stable and clinically euvolemic 5-HLD/HTN Cozaar 25 mg Metoprolol tartrate 25 mg BID crestor 5 mg 6- Hypothyroid synthroid as per home dose continue 125 mcg 7-Hypoalbuminemia -likely 2/2 malnutrition correct HypoK and trend, Monitor Mg, PO4 Dietary consult DVT Px-On eliquis Diet- regular DISPO- TO SNF AWAITING PLACEMENT Visit type - Emergency Visit Emergency Visit: Yes ED Registration Date: 11/21/19 Care time: The patient presented to the Emergency Department on the above date and was hospitalized for further evaluation of their emergent condition. - New Patient This patient is new to me today: No - Critical Care Critical Care patient: No - Discharge Referral Referred to [facility] Med P.C.: No
--- NOTE | 2019-11-25 12:55 | PN ---
Physical Exam: SUBJECTIVE: Patient seen and examined. Asymptomatic and afebrile. No overnight issues or events. Pt reports incontinence w/ urine. Denies f/c/n/v/d/sob/cp. OBJECTIVE: Vital Signs Period Temp Pulse Resp BP Sys/Vincent Pulse Ox Last 24 Hr 97.3 F-98 F 95-106 20-20 111-137/55-80 99 GENERAL: AAOx3, NAD HEENT: PERRLA, EOMI, Dry oral mucosa, cracked lips LUNGS: Breath sounds equal, clear to auscultation bilaterally. No wheezes, and no crackles. HEART: Regular rate and rhythm, normal S1 and S2 without murmur, rub or gallop. ABDOMEN: Soft, nontender, not distended, normoactive bowel sounds, no guarding MUSCULOSKELETAL: TTP lumbar spine over bony prominences. No paraspinal tenderness. No CVA tenderness. EXTREMITIES: 2+ pulses, warm, well-perfused. No calf tenderness. Trace pitting edema b/l LE. Genital: small right labial sore/ulcer, multiple skin folds NEUROLOGICAL: Normal speech. PSYCHIATRIC: Appropriate mood and affect. SKIN: Warm, dry Laboratory Results - last 24 hr 11/25/19 11/25/19 11/25/19 05:38 05:38 06:26 WBC 5.9 RBC 3.18 L Hgb 10.0 L Hct 29.8 L MCV 93.5 MCH 31.4 MCHC 33.6 RDW 14.6 Plt Count 246 MPV 7.9 Absolute Neuts (auto) 3.7 Neutrophils % 63.2 Lymphocytes % 17.8 D Monocytes % 12.5 H Eosinophils % 5.8 H D Basophils % 0.7 D Nucleated RBC % 0 Sodium 146 H Potassium 3.8 Chloride 115 H Carbon Dioxide 23 Anion Gap 8 BUN 14.9 Creatinine 0.6 Est GFR (CKD-EPI)AfAm 98.38 Est GFR (CKD-EPI)NonAf 84.88 POC Glucometer 78 Random Glucose 80 Calcium 7.6 L Active Medications Generic Name Dose Route Start Last Admin Trade Name Freq PRN Reason Stop Dose Admin Apixaban 5 mg 11/22/19 22:00 11/25/19 10:25 Eliquis - PO 5 mg BID [facility] Administration Sodium Chloride 1,000 mls @ 42 mls/hr 11/22/19 01:00 11/25/19 06:21 Normal Saline - IV 42 mls/hr ASDIR [facility] Administration Ceftriaxone Sodium 1 gm/ 50 mls @ 200 mls/hr 11/24/19 15:45 11/25/19 10:25 Dextrose IVPB 200 mls/hr DAILY [facility] Administration Protocol Levothyroxine Sodium 125 mcg 11/22/19 14:02 11/25/19 06:22 Synthroid - PO 125 mcg 0700 [facility] Administration Metoprolol Tartrate 25 mg 11/22/19 10:00 11/25/19 10:27 Lopressor - PO 25 mg BID [facility] Administration Rosuvastatin Calcium 5 mg 11/22/19 22:00 11/24/19 22:18 Crestor - PO 5 mg HS [facility] Administration ASSESSMENT/PLAN: 84 y/o F, pmh of Atrial fibrillation (off Coumadin, off sotalol?), HTN, Hypothyroidism, Pernicious Anemia (on weekly SQ B12 replacement), s/p AVR (bioprosthetic), OA, Chronic Diastolic CHF, herpes zoster, HLD, recently at [facility] for 2 months for rehab and was released last Tuesday, p resented s/p fall and diarrhea is admitted for mechanical fall #S/p Fall likely 2/2 to mechanical vs vasovagal vs cardiogenic LOC likely since pt does not remember the event, no head trauma fall precautions telemetry monitoring- no events overnight Discussed with SW for placement- will likely get approval #Asymptomatic bacteriuria UA positive Ceftriaxone Switch to oral abx #A-fib Off couamdin, however was discharged with 3mg coumadin daily 10/10/2019 Reported that [facility] physicians discontinued her Coumadin Dr Lam consulted- appreciate consult Pt started on Eliquis 5 BID #Hyperbili- elevated T-bili T-bili normalized will monitor #Hypokalemia now resolved #Urinary incontinence endorse urinary incontinence at baseline #Diarrhea now resolved, no bowel movements yet if worsening may order stool studies Patient has very poor diet. #HTN losartan 25mg, metorpolol 25mg BID #HLD cont Crestor #Hypothyroidism continue synthroid 125mcg daily TSH, free T4- wnl #D-CHF daily weights Is & Os No lasix on home meds, will f/u with pharmacy and pt #FEN NS @45cc/hr sodium controlled diet #Dispo: monitor on tele, discuss with SW for placement, PO abx Visit type - Emergency Visit Emergency Visit: Yes ED Registration Date: 11/21/19 Care time: The patient presented to the Emergency Department on the above date and was hospitalized for further evaluation of their emergent condition. - New Patient This patient is new to me today: Yes Date on this admission: 12/09/19 - Critical Care Critical Care patient: No - Discharge Referral Referred to [facility] Med P.C.: No ATTENDING PHYSICIAN STATEMENT I saw and evaluated the patient. I reviewed the resident's note and discussed the case with the resident. I agree with the resident's findings and plan as documented. SUBJECTIVE: OBJECTIVE: ASSESSMENT AND PLAN:
[2019-11-25] MEDS: ROSUVASTATIN CA 5 MG TABLET (FP) PO SCH (21:36)
[2019-11-26] MEDS: SODIUM CHLORIDE 1,000 ML IV SCH ×2 (01:33→06:35)
[2019-11-26] MEDS: LEVOTHYROXINE NA 125 MCG TABLET (FP) PO SCH (06:33)
[2019-11-26 07:03] LABS: HEMATOCRIT 30.3 % (32.4-45.2); HEMOGLOBIN 10.1 GM/dL (10.7-15.3); MCH 31.4 pg (25.7-33.7); MCHC 33.2 g/dl (32.0-36.0); MEAN CELL VOLUME 94.7 fl (80-96); MEAN PLT VOLUME 7.4 fl (7.5-11.1); PLATELET COUNT 249 K/MM3 (134-434); RDW 14.6 % (11.6-15.6); WHITE BLOOD COUNT 6.5 K/mm3 (4.0-10.0)
[2019-11-26 07:45] LABS: ALBUMIN 2.2 g/dl (3.4-5.0); BILIRUBIN,TOTAL 0.3 mg/dL (0.2-1); BLOOD UREA NITROGEN 12.2 mg/dL (7-18); CALCIUM 8.1 mg/dL (8.5-10.1); CREATININE 0.6 mg/dL (0.55-1.3); MAGNESIUM 1.9 mg/dL (1.8-2.4); POTASSIUM 3.4 mmol/L (3.5-5.1); TOT PROT 5.5 g/dl (6.4-8.2)
[2019-11-26] MEDS ORDERED: POTASSIUM CHLORIDE TABS 20 MEQ TABLET.ER (FP) PO ONE (09:00)
[2019-11-26] MEDS ORDERED: cefTRIAXone SODIUM 1 GM VIAL ONE (09:06)
[2019-11-26] MEDS ORDERED: DEXTROSE 5%-WATER - 50 ML IVPB ONE (09:06)
[2019-11-26] MEDS: CEFTRIAXONE 1 GM in DEXTROSE 5%-WATER - 50 ML IVPB SCH (09:10)
[2019-11-26] MEDS: APIXABAN 5 MG TABLET PO SCH ×2 (09:10→22:25)
[2019-11-26] MEDS: METOPROLOL TARTRATE 25 MG TABLET (FP) PO SCH (09:10)
--- NOTE | 2019-11-26 09:46 | PN ---
Progress Note, Physician History of Present Illness: Patient denies any shortness of breath, palpitations, dyspnea worse than baseline, true syncope, orthopnea, PND or LE edema. - Current Medication List Current Medications: Active Medications Apixaban (Eliquis -) 5 mg PO BID [facility] Last Admin: 11/26/19 09:10 Dose: 5 mg Documented by: Sodium Chloride (Normal Saline -) 1,000 mls @ 42 mls/hr IV ASDIR [facility] Last Admin: 11/26/19 06:35 Dose: 42 mls/hr Documented by: Ceftriaxone Sodium 1 gm/ (Dextrose) 50 mls @ 200 mls/hr IVPB DAILY [facility]; Protocol Last Admin: 11/26/19 09:10 Dose: 200 mls/hr Documented by: Levothyroxine Sodium (Synthroid -) 125 mcg PO 0700 [facility] Last Admin: 11/26/19 06:33 Dose: 125 mcg Documented by: Metoprolol Tartrate (Lopressor -) 25 mg PO BID [facility] Last Admin: 11/26/19 09:10 Dose: 25 mg Documented by: Rosuvastatin Calcium (Crestor -) 5 mg PO HS [facility] Last Admin: 11/25/19 21:36 Dose: 5 mg Documented by: - Objective Vital Signs: Vital Signs Temperature 97.3 F L 11/26/19 08:45 Pulse Rate 117 H 11/26/19 08:45 Respiratory Rate 18 11/26/19 08:48 Blood Pressure 130/77 11/26/19 08:45 O2 Sat by Pulse Oximetry (%) 97 11/26/19 08:48 Constitutional: Yes: No Distress, Calm Neck: Yes: Supple Cardiovascular: Yes: Regular Rate and Rhythm Respiratory: Yes: Regular, Diminished Gastrointestinal: Yes: Normal Bowel Sounds, Soft Edema: No Labs: CBC, BMP 11/26/19 06:40 11/26/19 06:40 INR, PTT INR 1.28 (0.83-1.09) H 11/21/19 20:55 - ....Imaging EKG: Report Reviewed (Tele: NSR) Problem List - Problems (1) Chronic anticoagulation Code(s): Z79.01 - MAIL OPENER (CURRENT) USE OF 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 (2) Gait disturbance Code(s): R26.9 - UNSPECIFIED ABNORMALITIES OF GAIT AND MOBILITY (3) HTN (hypertension) Code(s): I10 - ESSENTIAL (PRIMARY) HYPERTENSION Qualifiers: Hypertension type: essential hypertension Qualified Code(s): I10 - Essential (primary) hypertension (4) Hyperlipidemia Code(s): E78.5 - HYPERLIPIDEMIA, UNSPECIFIED Qualifiers: Hyperlipidemia type: pure hypercholesterolemia Qualified Code(s): E78.00 - Pure hypercholesterolemia, unspecified (5) Hypothyroidism Code(s): E03.9 - HYPOTHYROIDISM, UNSPECIFIED Qualifiers: Hypothyroidism type: unspecified Qualified Code(s): E03.9 - Hypothyroidism, unspecified (6) Paroxysmal A-fib Code(s): I48.0 - PAROXYSMAL ATRIAL FIBRILLATION (7) S/P AVR (aortic valve replacement) Code(s): Z95.2 - PRESENCE OF PROSTHETIC HEART VALVE Assessment/Plan 07/27/2019 Echo: Normal LV size and fxn 55-60%, mild LAE, mild MR, TR, mod MG 29 mmHg 04/29/2019 Echo: Normal LV size with mild cLVH, normal LV fxn, mild MR, TR, RVSP 25 mmHg 1. PAF with RVR [id number] of 5 2. CAD h/o demand ischemia 3. 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 HTN/HCVD 5. Hyperlipidemia 6. Mild carotid stenosis 7. Hypothyroidism 8. Microalbuminuria 9. Diastolic dysfunction 10. Prolonged QTc on sotalol 11. UTI 12. History of acute blood loss anemia requiring transfusion post-traumatic left gluteal intramuscular hematoma PLAN: 1. Continue Eliquis 5 bid with lower bleeding risk than coumadin 2. Continue Metoprolol 25 mg BID for rate-control 3. Continue Crestor 5 mg QHS and resume Losartan 25 mg QD as hemodynamics tolerate 4. Antibiotic prophylaxis for endocarditis protection when needed 5. PT and gait training as tolerated 6. Eventual f/u in office with Dr. Morris [phone] upon discharge. Await SNF
[2019-11-26] MEDS: LOSARTAN POTASSIUM 25 MG TABLET PO SCH (12:20)
[2019-11-26] MEDS ORDERED: METOPROLOL TARTRATE 25 MG TABLET (FP) PO ONE (12:36)
--- NOTE | 2019-11-26 14:49 | PN ---
Progress Note, Physician History of Present Illness: 84 y/o F PMH A-fib, HTN, hypothyroid, pernicious anemia, a/p AVR biopresthesis, OA, HFpEF LVEF 55-60%, herpes zoster, HLD presenting from home via ambulance s/p fall after multiple diarrheal episodes. Currently being treated for UTI & Acute Gastroenteritis with Loose stools (C.Diff neg) and Afib with RVR (cardio on board)- on Eliquis and metoprolol 50 mg BID for rate control. Today: Diarrhea was initially improving but currently still having episodes . Per nurse were 2x loose watery foul smelling stool. Her Afib was not controlled on tele overnight - metoprolol was increased -could be due to her underlying dehydration/GE and UTI Today she has not had episodes of diaphoresis or palpitations and dyspnea - Current Medication List Current Medications: Active Medications Apixaban (Eliquis -) 5 mg PO BID [facility] Last Admin: 11/26/19 09:10 Dose: 5 mg Documented by: Sodium Chloride (Normal Saline -) 1,000 mls @ 42 mls/hr IV ASDIR [facility] Last Admin: 11/26/19 06:35 Dose: 42 mls/hr Documented by: Ceftriaxone Sodium 1 gm/ (Dextrose) 50 mls @ 200 mls/hr IVPB DAILY [facility]; Protocol Last Admin: 11/26/19 09:10 Dose: 200 mls/hr Documented by: Levothyroxine Sodium (Synthroid -) 125 mcg PO 0700 [facility] Last Admin: 11/26/19 06:33 Dose: 125 mcg Documented by: Losartan Potassium (Cozaar -) 25 mg PO DAILY [facility] Last Admin: 11/26/19 12:20 Dose: 25 mg Documented by: Metoprolol Tartrate (Lopressor -) 50 mg PO BID [facility] Rosuvastatin Calcium (Crestor -) 5 mg PO HS [facility] Last Admin: 11/25/19 21:36 Dose: 5 mg Documented by: - Objective Vital Signs: Vital Signs Temperature 97.3 F L 11/26/19 08:45 Pulse Rate 56 L 11/26/19 10:48 Respiratory Rate 18 11/26/19 08:48 Blood Pressure 130/77 11/26/19 08:45 O2 Sat by Pulse Oximetry (%) 97 11/26/19 10:48 Labs: CBC, BMP 11/26/19 06:40 11/26/19 06:40 INR, PTT INR 1.28 (0.83-1.09) H 11/21/19 20:55 Impression/Plan Impression/Plan: 84 y.o. F PMH A-fib, HTN, hypothyroid, pernicious anemia, a/p AVR biopresthesis, OA, HFpEF LVEF 55-60%, herpes zoster, HLD from home admitted s/p Fall in the setting of Acute Gastroenteritis with Diarrhea and Dehydration. 1- Acute GE with Diarrhea Diarrhea-still ongoing C.diff neg, Stool Cx sent On ceftriaxone 11/22-TD C/W Fluids IV NS @ 83cc/hrFall 2-A-fib with RVR 3mg coumadin daily 10/10/2019 -->d/c metoprolol tartrate 25 mg BID--> inc to Metoprolol 50 mg BID Monitor on tele (had episodes Keep HR <110 Eliquis initiated per cardio recs Continue fluids As above Can be due to her underlying acute conditions 3-Fall Fracture ruled out on CT C/T/L spine CT Head negative for acute pathology Patient has been off Coumadin CK level 83 and continue fluid for now at low rate PT 4- Hypokalemia in the setting of Diarrhea Monitor K and BM and replete as needed 5-UTI U/A positive and pt was having some Sx On ceftriaxone since 11/22 6-AVR Bioprosthetic valve/HFpEF Stable and clinically euvolemic 7-HLD/HTN Cozaar 25 mg Metoprolol tartrate 25 mg BID crestor 5 mg 8- Hypothyroid synthroid as per home dose continue 125 mcg 9-Hypoalbuminemia -likely 2/2 malnutrition correct HypoK and trend, Monitor Mg, PO4 Dietary consult DVT Px-On eliquis Diet- regular DISPO- SNF denied- to home Visit type - Emergency Visit Emergency Visit: Yes ED Registration Date: 11/21/19 Care time: The patient presented to the Emergency Department on the above date and was hospitalized for further evaluation of their emergent condition. - New Patient This patient is new to me today: No - Critical Care Critical Care patient: No - Discharge Referral Referred to [facility] Med P.C.: No
--- NOTE | 2019-11-26 15:50 | PN ---
Physical Exam: SUBJECTIVE: Patient seen and examined at the bedside. Stated she had 1 episode of loose stools overnight. Complained of soreness and weakness diffusely. Denied cp, sob, abd pain, n/v, headaches, dizziness, lightheadedness. OBJECTIVE: Vital Signs Period Temp Pulse Resp BP Sys/Vincent Pulse Ox Last 24 Hr 97.3 F-98.2 F 56-117 18-20 100-135/45-77 97-97 GENERAL: The patient is awake, alert, and fully oriented, in no acute distress. HEAD: Normal with no signs of trauma. EYES: PERRL, extraocular movements intact, conjunctiva clear. ENT: Oropharynx clear without exudates, dry mucous membranes. LUNGS: Breath sounds equal, clear to auscultation bilaterally, no wheezes, no crackles, no accessory muscle use. HEART: Regular rate and irregular rhythm, S1, S2 with prominent systolic ejection murmur. ABDOMEN: Soft, nontender, nondistended, normoactive bowel sounds, no guarding, no rebound. EXTREMITIES: 2+ pulses, warm, well-perfused, trace bilateral pitting edema. NEUROLOGICAL: Cranial nerves II through XII grossly intact. 4/5 muscle strength bilaterally upper and lower extremities. PSYCH: Normal mood, normal affect. SKIN: Warm, dry. Laboratory Results - last 24 hr 11/26/19 11/26/19 06:40 06:40 WBC 6.5 RBC 3.20 L Hgb 10.1 L Hct 30.3 L MCV 94.7 MCH 31.4 MCHC 33.2 RDW 14.6 Plt Count 249 MPV 7.4 L Sodium 144 Potassium 3.4 L Chloride 113 H Carbon Dioxide 23 Anion Gap 7 L BUN 12.2 Creatinine 0.6 Est GFR (CKD-EPI)AfAm 98.38 Est GFR (CKD-EPI)NonAf 84.88 Random Glucose 91 Calcium 8.1 L Magnesium 1.9 Total Bilirubin 0.3 AST 21 ALT 18 Alkaline Phosphatase 79 Total Protein 5.5 L Albumin 2.2 L Active Medications Generic Name Dose Route Start Last Admin Trade Name Freq PRN Reason Stop Dose Admin Apixaban 5 mg 11/22/19 22:00 11/26/19 09:10 Eliquis - PO 5 mg BID [facility] Administration Sodium Chloride 1,000 mls @ 42 mls/hr 11/22/19 01:00 11/26/19 06:35 Normal Saline - IV 42 mls/hr ASDIR [facility] Administration Ceftriaxone Sodium 1 gm/ 50 mls @ 200 mls/hr 11/24/19 15:45 11/26/19 09:10 Dextrose IVPB 200 mls/hr DAILY [facility] Administration Protocol Levothyroxine Sodium 125 mcg 11/22/19 14:02 11/26/19 06:33 Synthroid - PO 125 mcg 0700 [facility] Administration Losartan Potassium 25 mg 11/26/19 10:00 11/26/19 12:20 Cozaar - PO 25 mg DAILY [facility] Administration Metoprolol Tartrate 50 mg 11/26/19 22:00 Lopressor - PO BID [facility] Rosuvastatin Calcium 5 mg 11/22/19 22:00 11/25/19 21:36 Crestor - PO 5 mg HS [facility] Administration ASSESSMENT/PLAN: Lin Berg is an 84 year old female with a past medical history of Atrial fibrillation, HTN, Hypothyroidism, Pernicious Anemia (on weekly SQ B12 replacement), s/p AVR (bioprosthetic), OA, Chronic Diastolic CHF, herpes zoster, HLD, recently at [facility] for 2 months for rehab admitted for mechanical fall. S/p Fall - likely 2/2 to mechanical vs vasovagal vs cardiogenic - LOC likely since pt does not remember the event, no head trauma - CT head negative - no acute fxs noted on lumbar, cervical CT or pelvic x-rays - fall precautions - telemetry monitoring- with tachycardia in the 160s-170s, with brief runs of Vtach (5 runs) - unable to have days at SNF, will go home with home PT UTI - UA positive - Ceftriaxone, will switch to oral abx upon d/c - remains afebrile, improving A-fib - previously was on coumadin - cardiology consulted, recs appreciated - started on Eliquis 5mg BID - metoprolol 50mg bid Hyperbilirubinemia - T-bili normalized - will monitor, no symptoms Diarrhea - likely in setting of antibiotics - cdiff negative - stool studies ordered HTN - losartan 25mg - metoprolol 50mg BID HLD - continue home Crestor Hypothyroidism - continue home synthroid 125mcg daily HFpEF - daily weights - Is & Os - metoprolol and losartan FEN - NS @42cc/hr - continue to monitor electrolytes and replete as necessary, hypokalemia noted and repleted - sodium controlled diet Dispo - continue to monitor on telemetry Visit type - Emergency Visit Emergency Visit: Yes ED Registration Date: 11/21/19 Care time: The patient presented to the Emergency Department on the above date and was hospitalized for further evaluation of their emergent condition. - New Patient This patient is new to me today: Yes Date on this admission: 11/26/19 - Critical Care Critical Care patient: No
[2019-11-26] MEDS: ROSUVASTATIN CA 5 MG TABLET (FP) PO SCH (22:25)
[2019-11-26] MEDS: METOPROLOL TARTRATE 50 MG TABLET (FP) PO SCH (22:25)
[2019-11-27] MEDS: SODIUM CHLORIDE 1,000 ML IV SCH (01:02)
[2019-11-27] MEDS: LEVOTHYROXINE NA 125 MCG TABLET (FP) PO SCH (07:02)
[2019-11-27 07:51] LABS: BLOOD UREA NITROGEN 9.2 mg/dL (7-18); CALCIUM 7.9 mg/dL (8.5-10.1); CREATININE 0.5 mg/dL (0.55-1.3); MAGNESIUM 1.9 mg/dL (1.8-2.4); POTASSIUM 3.7 mmol/L (3.5-5.1)
[2019-11-27] MEDS ORDERED: cefTRIAXone SODIUM 1 GM VIAL ONE (10:25)
[2019-11-27] MEDS ORDERED: DEXTROSE 5%-WATER - 50 ML IVPB ONE (10:25)
[2019-11-27] MEDS: LOSARTAN POTASSIUM 25 MG TABLET PO SCH (10:29)
[2019-11-27] MEDS: APIXABAN 5 MG TABLET PO SCH ×2 (10:29→21:42)
[2019-11-27] MEDS: CEFTRIAXONE 1 GM in DEXTROSE 5%-WATER - 50 ML IVPB SCH (10:29)
[2019-11-27] MEDS: METOPROLOL TARTRATE 50 MG TABLET (FP) PO SCH ×3 (10:30→21:42)
--- NOTE | 2019-11-27 11:11 | PN ---
Progress Note (short form) - Note Progress Note: Chief Complaint: Events noted, notes reviewed, denies any chest discomfort or dyspnea History of Present Illness: Seen and examined on telemetry. Events noted, notes reviewed, denies any chest discomfort or dyspnea - Current Medication List Current Medications Apixaban (Eliquis -) 5 mg PO BID [facility] Last Admin: 11/27/19 10:29 Dose: 5 mg Documented by: Sodium Chloride (Normal Saline -) 1,000 mls @ 42 mls/hr IV ASDIR [facility] Last Admin: 11/27/19 01:02 Dose: 42 mls/hr Documented by: Ceftriaxone Sodium 1 gm/ (Dextrose) 50 mls @ 200 mls/hr IVPB DAILY [facility]; Protocol Last Admin: 11/27/19 10:29 Dose: 200 mls/hr Documented by: Levothyroxine Sodium (Synthroid -) 125 mcg PO 0700 [facility] Last Admin: 11/27/19 07:02 Dose: 125 mcg Documented by: Losartan Potassium (Cozaar -) 25 mg PO DAILY [facility] Last Admin: 11/27/19 10:29 Dose: 25 mg Documented by: Metoprolol Tartrate (Lopressor -) 50 mg PO BID [facility] Last Admin: 11/27/19 10:30 Dose: 50 mg Documented by: Rosuvastatin Calcium (Crestor -) 5 mg PO HS [facility] Last Admin: 11/26/19 22:25 Dose: 5 mg Documented by: Review of Systems Constitutional: denies: Chills or Fever Cardiovascular: as noted above Respiratory: denies: Cough Gastrointestinal: denies: Nausea, Vomiting, Diarrhea, Constipation or Abdominal Pain Genitourinary: denies: Dysuria Musculoskeletal: denies: Joint Pain Neurological: denies: Dizziness or Headache - Objective Vital Signs: Last Vital Signs Temp Pulse Resp BP Pulse Ox 98 F 70 18 126/75 95 11/27/19 05:00 11/27/19 05:00 11/27/19 05:00 11/27/19 05:00 11/26/19 21:00 Intake & Output 11/24/19 11/25/19 11/26/19 11/27/19 22:59 23:59 23:59 23:59 Intake Total 1074 744 Balance 1074 744 Weight 154 lb 12.8 oz 155 lb Neck: Supple Negative JVD No Bruit Respiratory: Scattered Rhonchi Bilaterally Cardiovascular: S1 S2 Regular Rate Rhythm Grade 2/6 systolic ejection murmur Gastrointestinal: Soft Benign Normal Bowel Sounds Ext: Negative Edema Labs: CBC, BMP 11/26/19 06:40 11/27/19 05:35 Hepatic Panel Total Bilirubin 0.3 mg/dL (0.2-1) 11/26/19 06:40 Direct Bilirubin 0.5 mg/dL (0.0-0.2) H 11/21/19 22:15 AST 21 U/L (15-37) 11/26/19 06:40 ALT 18 U/L (13-61) 11/26/19 06:40 Alkaline Phosphatase 79 U/L (45-117) 11/26/19 06:40 Albumin 2.2 g/dl (3.4-5.0) L 11/26/19 06:40 INR, PTT INR 1.28 (0.83-1.09) H 11/21/19 20:55 Assessment/Plan ASSESSMENT: 1. Paroxysmal atrial fibrillation [id number] score of 5 on anticoagulation therapy with Eliquis/prolonged QTc on Betapace therapy 2. 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 Diastolic LV dysfunction with clinical class 0 NYHA classification LV failure 4. Post aortic valve replacement/Bioprosthesis for symptomatic aortic valve stenosis with moderate degree of transvalvular gradient 5. Hypertensive cardiovascular disease 6. Hypercholesterolemia 7. Carotid stenosis 8. Hypothyroidism 9. History of acute blood loss post transfusion post traumatic left gluteal intramuscular hematoma PLAN: 1. Continue Eliquis therapy at 5 twice daily/statistically lower bleeding risk than Coumadin 2. Continue Lopressor therapy 3. Continue Cozaar therapy 4. Continue Lipitor therapy 5. Recommend antibiotic prophylaxis as per the [place] [employer] guidelines considering the above-noted bioprosthetic AVR 6. To initiate physical therapy/gait training Marge Morris M.D.
--- NOTE | 2019-11-27 13:59 | PN ---
Teaching Attending Note Name of Resident: Grady Alvarado ATTENDING PHYSICIAN STATEMENT I saw and evaluated the patient. I reviewed the resident's note and discussed the case with the resident. I agree with the resident's findings and plan as documented. SUBJECTIVE: No further diarrhea. No CP/palpitations/SOB. OBJECTIVE: Afebrile, Hemodynamically Stable. Some short-lived episodes of RVR overnight. Last Vital Signs Temp Pulse Resp BP Pulse Ox 98.1 F 86 18 110/66 95 11/27/19 09:00 11/27/19 13:00 11/27/19 09:00 11/27/19 13:00 11/27/19 09:00 HEENT - Atraumatic, Normocephalic. Heart - S1, S2, SM. Midline sternotomy scar. Lungs - clear to auscultation Abdomen - Soft, non-tender. Bowel Sounds normal. Extremities - no edema, no calf tenderness. Laboratory Results - last 24 hr 11/26/19 11/27/19 16:00 05:35 Sodium 142 Potassium 3.7 Chloride 112 H Carbon Dioxide 24 Anion Gap 6 L BUN 9.2 Creatinine 0.5 L Est GFR (CKD-EPI)AfAm 104.46 Est GFR (CKD-EPI)NonAf 90.13 Random Glucose 83 Calcium 7.9 L Magnesium 1.9 Stool Occult Blood Negative Current Medications Generic Name Dose Route Start Last Admin Trade Name Freq PRN Reason Stop Dose Admin Apixaban 5 mg 11/22/19 22:00 11/27/19 10:29 Eliquis - PO 5 mg BID DANDY Administration Sodium Chloride 1,000 mls @ 42 mls/hr 11/22/19 01:00 11/27/19 01:02 Normal Saline - IV 42 mls/hr ASDIR DANDY Administration Ceftriaxone Sodium 1 gm/ 50 mls @ 200 mls/hr 11/24/19 15:45 11/27/19 10:29 Dextrose IVPB 200 mls/hr DAILY DANDY Administration Protocol Levothyroxine Sodium 125 mcg 11/22/19 14:02 11/27/19 07:02 Synthroid - PO 125 mcg 0700 DANDY Administration Losartan Potassium 25 mg 11/26/19 10:00 11/27/19 10:29 Cozaar - PO 25 mg DAILY DANDY Administration Metoprolol Tartrate 50 mg 11/27/19 12:15 11/27/19 13:12 Lopressor - PO 50 mg Q8H DANDY Administration Rosuvastatin Calcium 5 mg 11/22/19 22:00 11/26/19 22:25 Crestor - PO 5 mg HS DANDY Administration Home Medications Medication Instructions Recorded Multivit-Min/Iron/Folic/Lutein 1 each PO DAILY 10/06/19 [Centrum Silver Women Tablet] Rosuvastatin [Crestor -] 5 mg PO HS 10/06/19 Levothyroxine [Synthroid -] 125 mcg PO DAILY 11/22/19 Losartan Potassium 25 mg PO DAILY 11/22/19 Apixaban [Eliquis -] 5 mg PO BID #60 tablet 11/26/19 Metoprolol Tartrate [Lopressor -] 50 mg PO Q8H #90 tablet 11/27/19 ASSESSMENT/PLAN: 84 year old female with history of Atrial fibrillation, HTN, Hypothyroidism, Pernicious Anemia, s/p AVR biopresthesis, OA, Chronic diastolic CHF, Herpes Zoster, HLD presenting from home via EMS s/p fall after multiple diarrheal episodes. 1. UTI - Urine Cx contaminated. Empirically on Ceftriaxone - Day 5 today. No need for further Abx therapy. Afebrile, Hemodynamically Stable. 2. Atrial fibrillation with RVR Increase Metoprolol to TID. Coumadin switched to Eliquis as per Cardio. 3. Fall - CT Head, C/T/L Spine no acute findings. PT 4. Chronic Diastolic CHF with Bioprothetic AVR - Stable, no evidence of decompensation Abx prophylaxis as per AHA guidelines as per Cardio. 5. HTN - continue Cozaar, Metoprolol 6. HLD- continue Crestor. 7. Hypothyroidism - continue Synthroid. DVT Px - on Eliquis. Medically clear for discharge but unable to go to SNF due to insurance issues. Worked with PT - not a safe discharge home, high fall risk. Alternative Dispo plan required.
--- NOTE | 2019-11-27 14:55 | PN ---
Physical Exam: SUBJECTIVE: Patient seen and examined at the bedside. Stated she had one episode of loose stools. Denies cp, palpitations, sob, abd pain, n/v/c/d, headaches, dizziness, lightheadedness, cough, fevers, chills. OBJECTIVE: Vital Signs Period Temp Pulse Resp BP Sys/Vincent Pulse Ox Last 24 Hr 97.3 F-98.1 F 70-113 18-20 110-143/66-82 95-95 GENERAL: The patient is awake, alert, and fully oriented, in no acute distress. HEAD: Normal with no signs of trauma. EYES: PERRL, extraocular movements intact, conjunctiva clear. ENT: Oropharynx clear without exudates, dry mucous membranes. LUNGS: Breath sounds equal, clear to auscultation bilaterally, no wheezes, no crackles, no accessory muscle use. HEART: Regular rate and irregular rhythm, S1, S2 with prominent systolic ejection murmur. ABDOMEN: Soft, nontender, nondistended, normoactive bowel sounds, no guarding, no rebound. EXTREMITIES: 2+ pulses, warm, well-perfused, trace bilateral pitting edema. NEUROLOGICAL: Cranial nerves II through XII grossly intact. 4/5 muscle strength bilaterally upper and lower extremities. PSYCH: Normal mood, normal affect. SKIN: Warm, dry. Laboratory Results - last 24 hr 11/26/19 11/27/19 16:00 05:35 Sodium 142 Potassium 3.7 Chloride 112 H Carbon Dioxide 24 Anion Gap 6 L BUN 9.2 Creatinine 0.5 L Est GFR (CKD-EPI)AfAm 104.46 Est GFR (CKD-EPI)NonAf 90.13 Random Glucose 83 Calcium 7.9 L Magnesium 1.9 Stool Occult Blood Negative Active Medications Generic Name Dose Route Start Last Admin Trade Name Freq PRN Reason Stop Dose Admin Apixaban 5 mg 11/22/19 22:00 11/27/19 10:29 Eliquis - PO 5 mg BID D[facility]Y Administration Sodium Chloride 1,000 mls @ 42 mls/hr 11/22/19 01:00 11/27/19 01:02 Normal Saline - IV 42 mls/hr ASDIR DANDY Administration Levothyroxine Sodium 125 mcg 11/22/19 14:02 11/27/19 07:02 Synthroid - PO 125 mcg 0700 DANDY Administration Losartan Potassium 25 mg 11/26/19 10:00 11/27/19 10:29 Cozaar - PO 25 mg DAILY D[facility]Y Administration Metoprolol Tartrate 50 mg 11/27/19 12:15 11/27/19 13:12 Lopressor - PO 50 mg Q8H DANDY Administration Rosuvastatin Calcium 5 mg 11/22/19 22:00 11/26/19 22:25 Crestor - PO 5 mg HS DANDY Administration ASSESSMENT/PLAN: Lin Berg is an 84 year old female with a past medical history of Atrial fibrillation, HTN, Hypothyroidism, Pernicious Anemia (on weekly SQ B12 replacement), s/p AVR (bioprosthetic), OA, Chronic Diastolic CHF, herpes zoster, HLD, recently at [facility] for 2 months for rehab admitted for mechanical fall. S/p Fall - likely 2/2 to mechanical vs vasovagal vs cardiogenic - LOC likely since pt does not remember the event, no head trauma - CT head negative - no acute fxs noted on lumbar, cervical CT or pelvic x-rays - fall precautions - telemetry monitoring- with runs of tachycardia in the 140s, with brief runs of Vtach (3 runs) - unable to have days at SNF, currently unsafe discharge, discussed options with patient to have out of pocket payment for SNF vs going home with family, she stated she will discuss those options with her family and social work and come to a decision as to what they want to do UTI - UA positive - completed antibiotics - remains afebrile A-fib - previously was on coumadin - cardiology consulted, recs appreciated - started on Eliquis 5mg BID - metoprolol 50mg q8h Hyperbilirubinemia - T-bili normalized - will monitor, no symptoms Diarrhea - likely in setting of antibiotics - cdiff negative - stool studies pending HTN - losartan 25mg - metoprolol 50mg q8h HLD - continue home Crestor Hypothyroidism - continue home synthroid 125mcg daily HFpEF - daily weights - Is & Os - metoprolol and losartan FEN - NS @42cc/hr - continue to monitor electrolytes and replete as necessary - sodium controlled diet Dispo - continue to monitor on telemetry Visit type - Emergency Visit Emergency Visit: Yes ED Registration Date: 11/21/19 Care time: The patient presented to the Emergency Department on the above date and was hospitalized for further evaluation of their emergent condition. - New Patient This patient is new to me today: No - Critical Care Critical Care patient: No
[2019-11-27] MEDS: ROSUVASTATIN CA 5 MG TABLET (FP) PO SCH (21:42)
[2019-11-28] MEDS: SODIUM CHLORIDE 1,000 ML IV SCH (01:38)
[2019-11-28] MEDS: METOPROLOL TARTRATE 50 MG TABLET (FP) PO SCH ×2 (03:39→23:04)
[2019-11-28] MEDS: LEVOTHYROXINE NA 125 MCG TABLET (FP) PO SCH (06:12)
[2019-11-28 07:50] LABS: BLOOD UREA NITROGEN 10.2 mg/dL (7-18); CALCIUM 7.8 mg/dL (8.5-10.1); CREATININE 0.5 mg/dL (0.55-1.3); MAGNESIUM 1.8 mg/dL (1.8-2.4); POTASSIUM 3.6 mmol/L (3.5-5.1)
[2019-11-28] MEDS: APIXABAN 5 MG TABLET PO SCH ×2 (09:43→23:04)
[2019-11-28] MEDS: LOSARTAN POTASSIUM 25 MG TABLET PO SCH (09:43)
--- NOTE | 2019-11-28 10:25 | PN ---
Progress Note, Physician History of Present Illness: Patient denies any shortness of breath, palpitations, dyspnea worse than baseline, true syncope, orthopnea, PND or LE edema. - Current Medication List Current Medications: Active Medications Apixaban (Eliquis -) 5 mg PO BID [facility] Last Admin: 11/28/19 09:43 Dose: 5 mg Documented by: Sodium Chloride (Normal Saline -) 1,000 mls @ 42 mls/hr IV ASDIR [facility] Last Admin: 11/28/19 01:38 Dose: 42 mls/hr Documented by: Levothyroxine Sodium (Synthroid -) 125 mcg PO 0700 [facility] Last Admin: 11/28/19 06:12 Dose: 125 mcg Documented by: Losartan Potassium (Cozaar -) 25 mg PO DAILY [facility] Last Admin: 11/28/19 09:43 Dose: 25 mg Documented by: Metoprolol Tartrate (Lopressor -) 50 mg PO Q8H [facility] Last Admin: 11/28/19 03:39 Dose: 50 mg Documented by: Rosuvastatin Calcium (Crestor -) 5 mg PO HS [facility] Last Admin: 11/27/19 21:42 Dose: 5 mg Documented by: - Objective Vital Signs: Vital Signs Temperature 97.3 F L 11/28/19 06:00 Pulse Rate 87 11/28/19 06:00 Respiratory Rate 18 11/28/19 06:00 Blood Pressure 113/63 11/28/19 06:00 O2 Sat by Pulse Oximetry (%) 95 11/27/19 21:00 Constitutional: Yes: No Distress, Calm Neck: Yes: Supple Cardiovascular: Yes: Pulse Irregular, Murmur (2/6 SM) Respiratory: Yes: Regular, Diminished Gastrointestinal: Yes: Normal Bowel Sounds, Soft Edema: No Labs: CBC, BMP 11/26/19 06:40 11/28/19 05:25 INR, PTT INR 1.28 (0.83-1.09) H 11/21/19 20:55 - ....Imaging EKG: Report Reviewed (Tele: Afib) Problem List - Problems (1) Chronic anticoagulation Code(s): Z79.01 - ASSISTED (CURRENT) USE OF 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 (2) Gait disturbance Code(s): R26.9 - UNSPECIFIED ABNORMALITIES OF GAIT AND MOBILITY (3) HTN (hypertension) Code(s): I10 - ESSENTIAL (PRIMARY) HYPERTENSION Qualifiers: Hypertension type: essential hypertension Qualified Code(s): I10 - Essential (primary) hypertension (4) Hyperlipidemia Code(s): E78.5 - HYPERLIPIDEMIA, UNSPECIFIED Qualifiers: Hyperlipidemia type: pure hypercholesterolemia Qualified Code(s): E78.00 - Pure hypercholesterolemia, unspecified (5) Hypothyroidism Code(s): E03.9 - HYPOTHYROIDISM, UNSPECIFIED Qualifiers: Hypothyroidism type: unspecified Qualified Code(s): E03.9 - Hypothyroidism, unspecified (6) Paroxysmal A-fib Code(s): I48.0 - PAROXYSMAL ATRIAL FIBRILLATION (7) S/P AVR (aortic valve replacement) Code(s): Z95.2 - PRESENCE OF PROSTHETIC HEART VALVE Assessment/Plan 07/27/2019 Echo: Normal LV size and fxn 55-60%, mild LAE, mild MR, TR, mod MG 29 mmHg 04/29/2019 Echo: Normal LV size with mild cLVH, normal LV fxn, mild MR, TR, RVSP 25 mmHg 1. PAF with RVR [id number] of 5 2. CAD h/o demand ischemia 3. 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 HTN/HCVD 5. Hyperlipidemia 6. Mild carotid stenosis 7. Hypothyroidism 8. Microalbuminuria 9. Diastolic dysfunction 10. Prolonged QTc on sotalol 11. UTI 12. History of acute blood loss anemia requiring transfusion post-traumatic left gluteal intramuscular hematoma PLAN: 1. Continue Eliquis 5 bid with lower bleeding risk than coumadin 2. Continue Metoprolol 50 mg TID for rate-control 3. Continue Crestor 5 mg QHS and Losartan 25 mg QD as hemodynamics tolerate 4. Antibiotic prophylaxis for endocarditis protection when needed, completed abx course for UTI 5. PT and gait training as tolerated->D/c planning 6. Eventual f/u in office with Dr. Morris [phone] upon discharge
[2019-11-28] MEDS ORDERED: METOPROLOL TARTRATE 50 MG TABLET (FP) PO ONE (11:16)
--- NOTE | 2019-11-28 12:56 | PN ---
Physical Exam: SUBJECTIVE: Patient seen and examined at the bedside. Stated that she had one episode of a loose bowel movement yesterday. States she is feeling better but still has generalized weakness and poor ambulation. Denies cp, abd pain, n/v, headaches, dizziness, lightheadedness, fever, chills, numbness, tingling, focal weakness. OBJECTIVE: Vital Signs Period Temp Pulse Resp BP Sys/Vincent Pulse Ox Last 24 Hr 97.3 F-98.6 F 85-108 18-20 102-135/63-84 95 GENERAL: The patient is awake, alert, and fully oriented, in no acute distress. HEAD: Normal with no signs of trauma. EYES: PERRL, extraocular movements intact, conjunctiva clear. ENT: Oropharynx clear without exudates, moist mucous membranes. LUNGS: Breath sounds equal, clear to auscultation bilaterally, no wheezes, no crackles, no accessory muscle use. HEART: Regular rate and irregular rhythm, S1, S2 with prominent systolic ejection murmur. ABDOMEN: Soft, nontender, nondistended, normoactive bowel sounds, no guarding, no rebound. EXTREMITIES: 2+ pulses, warm, well-perfused, trace bilateral pitting edema. NEUROLOGICAL: Cranial nerves II through XII grossly intact. 4/5 muscle strength bilaterally upper and lower extremities. PSYCH: Normal mood, normal affect. SKIN: Warm, dry. Laboratory Results - last 24 hr 11/28/19 05:25 Sodium 143 Potassium 3.6 Chloride 111 H Carbon Dioxide 24 Anion Gap 8 BUN 10.2 Creatinine 0.5 L Est GFR (CKD-EPI)AfAm 104.46 Est GFR (CKD-EPI)NonAf 90.13 Random Glucose 77 Calcium 7.8 L Magnesium 1.8 Active Medications Generic Name Dose Route Start Last Admin Trade Name Freq PRN Reason Stop Dose Admin Apixaban 5 mg 11/22/19 22:00 11/28/19 09:43 Eliquis - PO 5 mg BID DANDY Administration Sodium Chloride 1,000 mls @ 42 mls/hr 11/22/19 01:00 11/28/19 01:38 Normal Saline - IV 42 mls/hr ASDIR DANDY Administration Levothyroxine Sodium 125 mcg 11/22/19 14:02 11/28/19 06:12 Synthroid - PO 125 mcg 0700 DANDY Administration Losartan Potassium 25 mg 11/26/19 10:00 11/28/19 09:43 Cozaar - PO 25 mg DAILY DANDY Administration Metoprolol Tartrate 100 mg 11/28/19 22:00 Lopressor - PO BID DANDY Rosuvastatin Calcium 5 mg 11/22/19 22:00 11/27/19 21:42 Crestor - PO 5 mg HS DANDY Administration ASSESSMENT/PLAN: Lin Berg is an 84 year old female with a past medical history of Atrial fibrillation, HTN, Hypothyroidism, Pernicious Anemia (on weekly SQ B12 replacement), s/p AVR (bioprosthetic), OA, Chronic Diastolic CHF, herpes zoster, HLD, recently at [facility] for 2 months for rehab admitted for mechanical fall. S/p Fall - likely 2/2 to mechanical vs vasovagal vs cardiogenic - LOC likely since pt does not remember the event, no head trauma - CT head negative - no acute fxs noted on lumbar, cervical CT or pelvic x-rays - fall precautions - telemetry monitoring- with runs of tachycardia in the 140s, with brief runs of Vtach (3 runs) - unable to have days at SNF, currently unsafe discharge, discussed options with patient to have out of pocket payment for SNF vs going home with family, she stated she will discuss those options with her family and social work and come to a decision as to what they want to do UTI - UA positive - completed antibiotics - remains afebrile A-fib - previously was on coumadin - cardiology consulted, recs appreciated - started on Eliquis 5mg BID - continues to have brief episodes of afib with RVR - increased metoprolol 100mg bid Hyperbilirubinemia - T-bili normalized - will monitor, no symptoms Diarrhea - likely in setting of antibiotics, resolving - cdiff negative - stool studies negative HTN - losartan 25mg - metoprolol 100 bid HLD - continue home Crestor Hypothyroidism - continue home synthroid 125mcg daily HFpEF - daily weights - Is & Os - metoprolol and losartan FEN - no standing fluids - continue to monitor electrolytes and replete as necessary - sodium controlled diet Dispo - continue to monitor on telemetry Visit type - Emergency Visit Emergency Visit: Yes ED Registration Date: 11/21/19 Care time: The patient presented to the Emergency Department on the above date and was hospitalized for further evaluation of their emergent condition. - New Patient This patient is new to me today: No - Critical Care Critical Care patient: No
--- NOTE | 2019-11-28 13:21 | PN ---
Teaching Attending Note Name of Resident: Grady Alvarado ATTENDING PHYSICIAN STATEMENT I saw and evaluated the patient. I reviewed the resident's note and discussed the case with the resident. I agree with the resident's findings and plan as documented. SUBJECTIVE: No further diarrhea. No CP/palpitations/SOB. OBJECTIVE: Afebrile, Hemodynamically Stable. Some short-lived episodes of RVR again overnight. Last Vital Signs Temp Pulse Resp BP Pulse Ox 98 F 108 H 18 133/72 95 11/28/19 10:00 11/28/19 10:00 11/28/19 10:00 11/28/19 10:00 11/27/19 21:00 Heart - S1, S2, SM. Midline sternotomy scar. Lungs - clear to auscultation Abdomen - Soft, non-tender. Bowel Sounds normal. Extremities - no edema, no calf tenderness. Laboratory Results - last 24 hr 11/28/19 05:25 Sodium 143 Potassium 3.6 Chloride 111 H Carbon Dioxide 24 Anion Gap 8 BUN 10.2 Creatinine 0.5 L Est GFR (CKD-EPI)AfAm 104.46 Est GFR (CKD-EPI)NonAf 90.13 Random Glucose 77 Calcium 7.8 L Magnesium 1.8 Current Medications Generic Name Dose Route Start Last Admin Trade Name Freq PRN Reason Stop Dose Admin Apixaban 5 mg 11/22/19 22:00 11/28/19 09:43 Eliquis - PO 5 mg BID DANDY Administration Levothyroxine Sodium 125 mcg 11/22/19 14:02 11/28/19 06:12 Synthroid - PO 125 mcg 0700 DANDY Administration Losartan Potassium 25 mg 11/26/19 10:00 11/28/19 09:43 Cozaar - PO 25 mg DAILY DANDY Administration Metoprolol Tartrate 100 mg 11/28/19 22:00 Lopressor - PO BID DANDY Rosuvastatin Calcium 5 mg 11/22/19 22:00 11/27/19 21:42 Crestor - PO 5 mg HS DANDY Administration Home Medications Medication Instructions Recorded Multivit-Min/Iron/Folic/Lutein 1 each PO DAILY 10/06/19 [Centrum Silver Women Tablet] Rosuvastatin [Crestor -] 5 mg PO HS 10/06/19 Levothyroxine [Synthroid -] 125 mcg PO DAILY 11/22/19 Losartan Potassium 25 mg PO DAILY 11/22/19 Apixaban [Eliquis -] 5 mg PO BID #60 tablet 11/26/19 Metoprolol Tartrate [Lopressor -] 50 mg PO Q8H #90 tablet 11/27/19 ASSESSMENT/PLAN: 84 year old female with history of Atrial fibrillation, HTN, Hypothyroidism, CAD, Pernicious Anemia, s/p AVR biopresthesis, OA, Chronic diastolic CHF, Herpes Zoster, HLD presenting from home via EMS s/p fall after multiple diarrheal episodes. 1. UTI - Urine Cx contaminated. Empirically completed 5 day course of Ceftriaxone. No need for further Abx therapy. Diarrhea resolved, Cdiff and Strool Cx negative. Afebrile, Hemodynamically Stable. 2. Atrial fibrillation with RVR Increase Metoprolol dose to 100mg BID. Coumadin switched to Eliquis as per Cardio due to lower bleeding risk. Continue tele-monitoring. 3. Fall - CT Head, C/T/L Spine no acute findings. PT. 4. Chronic Diastolic CHF with Bioprothetic AVR - Stable, no evidence of decompensation Abx prophylaxis as per AHA guidelines as per Cardio. 5. HTN - continue Cozaar, Metoprolol 6. HLD- continue Crestor. 7. Hypothyroidism - continue Synthroid. DVT Px - on Eliquis. Medically clear for discharge but unable to go to SNF due to insurance issues. Worked with PT - not a safe discharge home, high fall risk. Alternative Dispo plan required. SW aware.
[2019-11-28] MEDS: ROSUVASTATIN CA 5 MG TABLET (FP) PO SCH (23:04)
[2019-11-29] MEDS: LEVOTHYROXINE NA 125 MCG TABLET (FP) PO SCH (07:00)
[2019-11-29] MEDS: LOSARTAN POTASSIUM 25 MG TABLET PO SCH (09:06)
[2019-11-29] MEDS: METOPROLOL TARTRATE 50 MG TABLET (FP) PO SCH ×2 (09:06→22:02)
[2019-11-29] MEDS: APIXABAN 5 MG TABLET PO SCH ×2 (09:06→22:02)
--- NOTE | 2019-11-29 09:08 | PN ---
Progress Note, Physician History of Present Illness: Patient denies any shortness of breath, palpitations, dyspnea worse than baseline, true syncope, orthopnea, PND or LE edema. Episodes of rapid afib, Lopressor uptitrated with improvement in rate-control. - Current Medication List Current Medications: Active Medications Apixaban (Eliquis -) 5 mg PO BID [facility] Last Admin: 11/29/19 09:06 Dose: 5 mg Documented by: Levothyroxine Sodium (Synthroid -) 125 mcg PO 0700 [facility] Last Admin: 11/29/19 07:00 Dose: 125 mcg Documented by: Losartan Potassium (Cozaar -) 25 mg PO DAILY [facility] Last Admin: 11/29/19 09:06 Dose: 25 mg Documented by: Metoprolol Tartrate (Lopressor -) 100 mg PO BID [facility] Last Admin: 11/29/19 09:06 Dose: 100 mg Documented by: Rosuvastatin Calcium (Crestor -) 5 mg PO HS [facility] Last Admin: 11/28/19 23:04 Dose: 5 mg Documented by: - Objective Vital Signs: Vital Signs Temperature 98.2 F 11/29/19 06:00 Pulse Rate 92 H 11/29/19 06:00 Respiratory Rate 20 11/29/19 06:00 Blood Pressure 136/84 11/29/19 06:00 O2 Sat by Pulse Oximetry (%) 98 11/28/19 21:00 Constitutional: Yes: No Distress, Calm Neck: Yes: Supple Cardiovascular: Yes: Pulse Irregular, Murmur (2/6 SM) Respiratory: Yes: Regular, CTA Bilaterally Gastrointestinal: Yes: Normal Bowel Sounds, Soft Edema: No Labs: CBC, BMP 11/26/19 06:40 11/28/19 05:25 INR, PTT INR 1.28 (0.83-1.09) H 11/21/19 20:55 - ....Imaging EKG: Report Reviewed (Tele: Rate-controlled afib) Problem List - Problems (1) Chronic anticoagulation Code(s): Z79.01 - QUALITY ASSURANCE SUPERVISOR BODY (CURRENT) USE OF 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 (2) Gait disturbance Code(s): R26.9 - UNSPECIFIED ABNORMALITIES OF GAIT AND MOBILITY (3) HTN (hypertension) Code(s): I10 - ESSENTIAL (PRIMARY) HYPERTENSION Qualifiers: Hypertension type: essential hypertension Qualified Code(s): I10 - Essenti al (primary) hypertension (4) Hyperlipidemia Code(s): E78.5 - HYPERLIPIDEMIA, UNSPECIFIED Qualifiers: Hyperlipidemia type: pure hypercholesterolemia Qualified Code(s): E78.00 - Pure hypercholesterolemia, unspecified (5) Hypothyroidism Code(s): E03.9 - HYPOTHYROIDISM, UNSPECIFIED Qualifiers: Hypothyroidism type: unspecified Qualified Code(s): E03.9 - Hypothyroidism, unspecified (6) Paroxysmal A-fib Code(s): I48.0 - PAROXYSMAL ATRIAL FIBRILLATION (7) S/P AVR (aortic valve replacement) Code(s): Z95.2 - PRESENCE OF PROSTHETIC HEART VALVE Assessment/Plan 07/27/2019 Echo: Normal LV size and fxn 55-60%, mild LAE, mild MR, TR, mod MG 29 mmHg 04/29/2019 Echo: Normal LV size with mild cLVH, normal LV fxn, mild MR, TR, RVSP 25 mmHg 1. PAF with RVR [id number] of 5 2. CAD h/o demand ischemia 3. 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 HTN/HCVD 5. Hyperlipidemia 6. Mild carotid stenosis 7. Hypothyroidism 8. Microalbuminuria 9. Diastolic dysfunction 10. Prolonged QTc on sotalol 11. UTI 12. History of acute blood loss anemia requiring transfusion post-traumatic left gluteal intramuscular hematoma PLAN: 1. Continue Eliquis 5 bid with lower bleeding risk than coumadin 2. Increased Metoprolol 100 bid for rate-control 3. Continue Crestor 5 mg QHS and Losartan 25 mg QD as hemodynamics tolerate 4. Antibiotic prophylaxis for endocarditis protection when needed, completed abx course for UTI 5. PT and gait training as tolerated->D/c planning 6. Eventual f/u in office with Dr. Morris [phone] upon discharge
--- NOTE | 2019-11-29 10:09 | PN ---
Teaching Attending Note Name of Resident: Grady Alvarado ATTENDING PHYSICIAN STATEMENT I saw and evaluated the patient. I reviewed the resident's note and discussed the case with the resident. I agree with the resident's findings and plan as documented. SUBJECTIVE: No further diarrhea. No CP/palpitations/SOB. OBJECTIVE: Afebrile, Hemodynamically Stable. HR much better controlled. Last Vital Signs Temp Pulse Resp BP Pulse Ox 98.2 F 92 H 20 136/84 98 11/29/19 06:00 11/29/19 06:00 11/29/19 06:00 11/29/19 06:00 11/28/19 21:00 Heart - S1, S2, SM. Midline sternotomy scar. Lungs - clear to auscultation Abdomen - Soft, non-tender. Bowel Sounds normal. Extremities - no edema, no calf tenderness. Current Medications Generic Name Dose Route Start Last Admin Trade Name Freq PRN Reason Stop Dose Admin Apixaban 5 mg 11/22/19 22:00 11/29/19 09:06 Eliquis - PO 5 mg BID DANDY Administration Levothyroxine Sodium 125 mcg 11/22/19 14:02 11/29/19 07:00 Synthroid - PO 125 mcg 0700 DANDY Administration Losartan Potassium 25 mg 11/26/19 10:00 11/29/19 09:06 Cozaar - PO 25 mg DAILY DANDY Administration Metoprolol Tartrate 100 mg 11/28/19 22:00 11/29/19 09:06 Lopressor - PO 100 mg BID DANDY Administration Rosuvastatin Calcium 5 mg 11/22/19 22:00 11/28/19 23:04 Crestor - PO 5 mg HS DANDY Administration Home Medications Medication Instructions Recorded Multivit-Min/Iron/Folic/Lutein 1 each PO DAILY 10/06/19 [Centrum Silver Women Tablet] Rosuvastatin [Crestor -] 5 mg PO HS 10/06/19 Levothyroxine [Synthroid -] 125 mcg PO DAILY 11/22/19 Losartan Potassium 25 mg PO DAILY 11/22/19 Apixaban [Eliquis -] 5 mg PO BID #60 tablet 11/26/19 Metoprolol Tartrate [Lopressor] 100 mg PO BID #60 tablet 11/29/19 ASSESSMENT/PLAN: 84 year old female with history of Atrial fibrillation, HTN, Hypothyroidism, CAD, Pernicious Anemia, s/p AVR biopresthesis, OA, Chronic diastolic CHF, Herpes Zoster, HLD presenting from home via EMS s/p fall after multiple diarrheal episodes. 1. UTI - Urine Cx contaminated. Empirically completed 5 day course of Ceftriaxone. No need for further Abx the rapy. Diarrhea resolved, Cdiff and Strool Cx negative. Afebrile, Hemodynamically Stable. 2. Atrial fibrillation with RVR HR much improved since increase in Metoprolol dose to 100mg BID. Coumadin switched to Eliquis as per Cardio due to lower bleeding risk. BP stable. 3. Fall - CT Head, C/T/L Spine no acute findings. PT - needs assistance standing from siting position, unable to ambulate with walker more than 6 feet. 4. Chronic Diastolic CHF with Bioprothetic AVR - Stable, no evidence of decompensation Abx prophylaxis as per AHA guidelines as per Cardio. 5. HTN - continue Cozaar, Metoprolol 6. HLD - continue Crestor. 7. Hypothyroidism - continue Synthroid. DVT Px - on Eliquis. Medically clear for discharge but unable to go to SNF due to insurance issues. Worked with PT - needs assistance standing from siting position, unable to ambulate with walker more than 6 feet. Incontinent, unable to perform ADLs, lives alone, not a safe discharge home, high fall risk. Alternative Dispo plan required. SW/CM aware.
--- NOTE | 2019-11-29 10:09 | PN ---
Physical Exam: SUBJECTIVE: Patient seen and examined at the bedside. States she is feeling the same as yesterday. Endorses 1 bowel movement overnight. Endorses continued weakness and chronic pain in her knees. Denies cp, sob, abd pain, n/v/c/d, headaches, dizziness, lightheadedness, numbness, tingling, dysuria. OBJECTIVE: Vital Signs Period Temp Pulse Resp BP Sys/Vincent Pulse Ox Last 24 Hr 97.4 F-98.2 F 83-113 20-20 115-144/72-84 98 GENERAL: The patient is awake, alert, and fully oriented, in no acute distress. HEAD: Normal with no signs of trauma. EYES: PERRL, extraocular movements intact, conjunctiva clear. ENT: Oropharynx clear without exudates, moist mucous membranes. LUNGS: Breath sounds equal, clear to auscultation bilaterally, no wheezes, no crackles, no accessory muscle use. HEART: Regular rate and irregular rhythm, S1, S2 with prominent systolic ejection murmur. ABDOMEN: Soft, nontender, nondistended, normoactive bowel sounds, no guarding, no rebound. EXTREMITIES: 2+ pulses, warm, well-perfused, trace bilateral pitting edema. NEUROLOGICAL: Cranial nerves II through XII grossly intact. 4/5 muscle strength bilaterally upper and lower extremities. PSYCH: Normal mood, normal affect. SKIN: Warm, dry. Active Medications Generic Name Dose Route Start Last Admin Trade Name Freq PRN Reason Stop Dose Admin Apixaban 5 mg 11/22/19 22:00 11/29/19 09:06 Eliquis - PO 5 mg BID DANDY Administration Levothyroxine Sodium 125 mcg 11/22/19 14:02 11/29/19 07:00 Synthroid - PO 125 mcg 0700 DANDY Administration Losartan Potassium 25 mg 11/26/19 10:00 11/29/19 09:06 Cozaar - PO 25 mg DAILY DANDY Administration Metoprolol Tartrate 100 mg 11/28/19 22:00 11/29/19 09:06 Lopressor - PO 100 mg BID DANDY Administration Rosuvastatin Calcium 5 mg 11/22/19 22:00 11/28/19 23:04 Crestor - PO 5 mg HS DANDY Administration ASSESSMENT/PLAN: Lin Berg is an 84 year old female with a past medical history of Atrial fibrillation, HTN, Hypothyroidism, Pernicious Anemia (on weekly SQ B12 replacement), s/p AVR (bioprosthetic), OA, Chronic Diastolic CHF, herpes zoster, HLD, recently at [facility] for 2 months for rehab admitted for mechanical fall. S/p Fall - likely 2/2 to mechanical vs vasovagal vs cardiogenic - LOC likely since pt does not remember the event, no head trauma - CT head negative - no acute fxs noted on lumbar, cervical CT or pelvic x-rays - fall precautions - telemetry monitoring- brief period of Vtach 3 runs, no afib with RVR or tachycardia since initiation of metoprolol 100mg bid - unable to have days at SNF, currently unsafe discharge, discussed options with patient to have out of pocket payment for SNF vs going home with family, she stated she will discuss those options with her family and social work and come to a decision as to what they want to do. Contacted hospital staff to determine safest option for patient to go home. UTI - UA positive - completed antibiotics - remains afebrile A-fib - previously was on coumadin - cardiology consulted, recs appreciated - started on Eliquis 5mg BID - continues to have brief episodes of afib with RVR - metoprolol 100mg bid Hyperbilirubinemia - T-bili normalized - will monitor, no symptoms Diarrhea - likely in setting of antibiotics, resolving - cdiff negative - stool studies negative HTN - losartan 25mg - metoprolol 100mg bid HLD - continue home Crestor Hypothyroidism - continue home synthroid 125mcg daily HFpEF - daily weights - Is & Os - metoprolol and losartan FEN - no standing fluids - continue to monitor electrolytes and replete as necessary - sodium controlled diet Dispo - continue to monitor on telemetry Visit type - Emergency Visit Emergency Visit: Yes ED Registration Date: 11/21/19 Care time: The patient presented to the Emergency Department on the above date and was hospitalized for further evaluation of their emergent condition. - New Patient This patient is new to me today: No - Critical Care Critical Care patient: No
[2019-11-29] MEDS: ROSUVASTATIN CA 5 MG TABLET (FP) PO SCH (22:02)
[2019-11-30] MEDS: LEVOTHYROXINE NA 125 MCG TABLET (FP) PO SCH (06:19)
[2019-11-30 08:04] LABS: BASO % 0.8 % (0-2.0); EOS % 4.1 % (0-4.5); HEMATOCRIT 29.9 % (32.4-45.2); HEMOGLOBIN 10.1 GM/dL (10.7-15.3); MCH 31.5 pg (25.7-33.7); MCHC 33.7 g/dl (32.0-36.0); MEAN CELL VOLUME 93.4 fl (80-96); MEAN PLT VOLUME 7.7 fl (7.5-11.1); MONO % 13.5 % (3.8-10.2); NEUT % 66.6 % (42.8-82.8); PLATELET COUNT 308 K/MM3 (134-434); RDW 14.3 % (11.6-15.6); WHITE BLOOD COUNT 6.4 K/mm3 (4.0-10.0)
[2019-11-30 08:27] LABS: BLOOD UREA NITROGEN 13.5 mg/dL (7-18); CALCIUM 8.4 mg/dL (8.5-10.1); CREATININE 0.6 mg/dL (0.55-1.3); PHOSPHOROUS 3.3 mg/dL (2.5-4.9); POTASSIUM 3.5 mmol/L (3.5-5.1)
[2019-11-30] MEDS: APIXABAN 5 MG TABLET PO SCH ×2 (10:26→21:43)
[2019-11-30] MEDS: METOPROLOL TARTRATE 50 MG TABLET (FP) PO SCH ×2 (10:26→21:42)
[2019-11-30] MEDS: LOSARTAN POTASSIUM 25 MG TABLET PO SCH (10:26)
--- NOTE | 2019-11-30 10:56 | PN ---
Progress Note (short form) - Note Progress Note: History of Present Illness: feelsfine, Lopressor uptitrated with improvement in rate-control. - Vital Signs Temperature 97.8 F 11/30/19 05:36 Pulse Rate 99 H 11/30/19 05:36 Respiratory Rate 20 11/30/19 05:36 Blood Pressure 140/89 11/30/19 05:36 O2 Sat by Pulse Oximetry (%) 97 11/29/19 21:00 Constitutional: Yes: No Distress, Calm Neck: Yes: Supple Cardiovascular: Yes: Pulse Irregular, Murmur (2/6 SM) Respiratory: Yes: Regular, CTA Bilaterally Gastrointestinal: Yes: Normal Bowel Sounds, Soft Edema: No Labs: C CBC, BMP 11/30/19 07:00 11/30/19 07:00 Problem List - Problems (1) Chronic anticoagulation Code(s): Z79.01 - SUPERVISOR SANDBLASTER (CURRENT) USE OF 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 (2) Gait disturbance Code(s): R26.9 - UNSPECIFIED ABNORMALITIES OF GAIT AND MOBILITY (3) HTN (hypertension) Code(s): I10 - ESSENTIAL (PRIMARY) HYPERTENSION Qualifiers: Hypertension type: essential hypertension Qualified Code(s): I10 - Essential (primary) hypertension (4) Hyperlipidemia Code(s): E78.5 - HYPERLIPIDEMIA, UNSPECIFIED Qualifiers: Hyperlipidemia type: pure hypercholesterolemia Qualified Code(s): E78.00 - Pure hypercholesterolemia, unspecified (5) Hypothyroidism Code(s): E03.9 - HYPOTHYROIDISM, UNSPECIFIED Qualifiers: Hypothyroidism type: unspecified Qualified Code(s): E03.9 - Hypothyroidism, unspecified (6) Paroxysmal A-fib Code(s): I48.0 - PAROXYSMAL ATRIAL FIBRILLATION (7) S/P AVR (aortic valve replacement) Code(s): Z95.2 - PRESENCE OF PROSTHETIC HEART VALVE Assessment/Plan 07/27/2019 Echo: Normal LV size and fxn 55-60%, mild LAE, mild MR, TR, mod MG 29 mmHg 04/29/2019 Echo: Normal LV size with mild cLVH, normal LV fxn, mild MR, TR, RVSP 25 mmHg 1. PAF with RVR [id number] of 5 2. CAD h/o demand ischemia 3. 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 HTN/HCVD 5. Hyperlipidemia 6. Mild carotid stenosis 7. Hypothyroidism 8. Microalbuminuria 9. Diastolic dysfunction 10. Prolonged QTc on sotalol 11. UTI 12. History of acute blood loss anemia requiring transfusion post-traumatic left gluteal intramuscular hematoma PLAN: Continue same: 1. Continue Eliquis 5 bid with lower bleeding risk than coumadin 2. Increased Metoprolol 100 bid for rate-control 3. Continue Crestor 5 mg QHS and Losartan 25 mg QD as hemodynamics tolerate 4. Antibiotic prophylaxis for endocarditis protection when needed, completed abx course for UTI 5. PT and gait training as tolerated->D/c planning 6. Eventual f/u in office with Dr. Morris [phone] upon discharge
--- NOTE | 2019-11-30 12:56 | PN ---
Teaching Attending Note Name of Resident: Arley Allan ATTENDING PHYSICIAN STATEMENT I saw and evaluated the patient. I reviewed the resident's note and discussed the case with the resident. I agree with the resident's findings and plan as documented. SUBJECTIVE: Has loose stool x 1 daily. No further diarrhea. No CP/palpitations/SOB. No fever/chills. OBJECTIVE: Afebrile, Hemodynamically Stable. HR much better controlled. Last Vital Signs Temp Pulse Resp BP Pulse Ox 97.8 F 99 H 20 140/89 97 11/30/19 05:36 11/30/19 05:36 11/30/19 05:36 11/30/19 05:36 11/29/19 21:00 Heart - S1, S2, SM. Midline sternotomy scar. Lungs - clear to auscultation Abdomen - Soft, non-tender. Bowel Sounds normal. Extremities - no edema, no calf tenderness. Laboratory Results - last 24 hr 11/30/19 11/30/19 07:00 07:00 WBC 6.4 RBC 3.20 L Hgb 10.1 L Hct 29.9 L MCV 93.4 MCH 31.5 MCHC 33.7 RDW 14.3 Plt Count 308 D MPV 7.7 Absolute Neuts (auto) 4.3 Neutrophils % 66.6 Lymphocytes % 15.0 Monocytes % 13.5 H Eosinophils % 4.1 Basophils % 0.8 Nucleated RBC % 0 Sodium 141 Potassium 3.5 Chloride 109 H Carbon Dioxide 23 Anion Gap 9 BUN 13.5 Creatinine 0.6 Est GFR (CKD-EPI)AfAm 98.38 Est GFR (CKD-EPI)NonAf 84.88 Random Glucose 83 Calcium 8.4 L Phosphorus 3.3 Magnesium 2.0 Current Medications Generic Name Dose Route Start Last Admin Trade Name Freq PRN Reason Stop Dose Admin Apixaban 5 mg 11/22/19 22:00 11/30/19 10:26 Eliquis - PO 5 mg BID DANDY Administration Levothyroxine Sodium 125 mcg 11/22/19 14:02 11/30/19 06:19 Synthroid - PO 125 mcg 0700 DANDY Administration Losartan Potassium 25 mg 11/26/19 10:00 11/30/19 10:26 Cozaar - PO 25 mg DAILY DANDY Administration Metoprolol Tartrate 100 mg 11/28/19 22:00 11/30/19 10:26 Lopressor - PO 100 mg BID DANDY Administration Rosuvastatin Calcium 5 mg 11/22/19 22:00 11/29/19 22:02 Crestor - PO 5 mg HS DANDY Administration Home Medications Medication Instructions Recorded Multivit-Min/Iron/Folic/Lutein 1 each PO DAILY 10/06/19 [Centrum Silver Women Tablet] Rosuvastatin [Crestor -] 5 mg PO HS 10/06/19 Levothyroxine [Synthroid -] 125 mcg PO DAILY 11/22/19 Losartan Potassium 25 mg PO DAILY 11/22/19 Apixaban [Eliquis -] 5 mg PO BID #60 tablet 11/26/19 Metoprolol Tartrate [Lopressor] 100 mg PO BID #60 tablet 11/29/19 ASSESSMENT/PLAN: 84 year old female with history of Atrial fibrillation, HTN, Hypothyroidism, CAD, Pernicious Anemia, s/p AVR biopresthesis, OA, Chronic diastolic CHF, Herpes Zoster, HLD presenting from home via EMS s/p fall after multiple diarrheal episodes. 1. UTI - Urine Cx contaminated. Empirically completed 5 day course of Ceftriaxone. No need for further Abx therapy. Diarrhea resolved, Cdiff and Strool Cx negative. Afebrile, Hemodynamically Stable. 2. Atrial fibrillation with RVR HR much improved since increase in Metoprolol dose to 100mg BID. Coumadin switched to Eliquis as per Cardio due to lower bleeding risk. BP stable. 3. Fall - CT Head, C/T/L Spine no acute findings. PT - needs assistance standing from siting position, unable to ambulate with walker more than 6 feet. 4. Chronic Diastolic CHF with Bioprothetic AVR - Stable, no evidence of decompensation Abx prophylaxis as per AHA guidelines as per Cardio. 5. HTN - continue Cozaar, Metoprolol 6. HLD - continue Crestor. 7. Hypothyroidism - continue Synthroid. DVT Px - on Eliquis. Medically clear for discharge but unable to go to SNF due to insurance issues. Worked with PT - needs assistance standing from siting position, unable to ambulate with walker more than 6 feet. Incontinent, unable to perform ADLs, lives alone, unable to cook meals or to answer her door - not a safe discharge home, high fall risk, especially as she is on anticoagulation. Alternative Dispo plan required. SW/CM aware.
--- NOTE | 2019-11-30 17:13 | PN ---
Physical Exam: SUBJECTIVE: Patient seen and examined at bedside. No acute events overnight. OBJECTIVE: Vital Signs Period Temp Pulse Resp BP Sys/Vincent Pulse Ox Last 24 Hr 97.3 F-98.7 F 83-99 20-20 129-140/65-98 97-97 GENERAL: NAD HEAD: Normal with no signs of trauma. EYES: PERRL, extraocular movements intact, conjunctiva clear. ENT: MMM LUNGS: CTAB HEART: RR S1S2. JOHN ABDOMEN: Soft, nontender, nondistended, normoactive bowel sounds, no guarding, no rebound. EXTREMITIES: N significant pedel edema NEUROLOGICAL: Cranial nerves II through XII grossly intact. PSYCH: Normal mood, normal affect. SKIN: Warm, dry. Laboratory Results - last 24 hr 11/30/19 11/30/19 07:00 07:00 WBC 6.4 RBC 3.20 L Hgb 10.1 L Hct 29.9 L MCV 93.4 MCH 31.5 MCHC 33.7 RDW 14.3 Plt Count 308 D MPV 7.7 Absolute Neuts (auto) 4.3 Neutrophils % 66.6 Lymphocytes % 15.0 Monocytes % 13.5 H Eosinophils % 4.1 Basophils % 0.8 Nucleated RBC % 0 Sodium 141 Potassium 3.5 Chloride 109 H Carbon Dioxide 23 Anion Gap 9 BUN 13.5 Creatinine 0.6 Est GFR (CKD-EPI)AfAm 98.38 Est GFR (CKD-EPI)NonAf 84.88 Random Glucose 83 Calcium 8.4 L Phosphorus 3.3 Magnesium 2.0 Active Medications Generic Name Dose Route Start Last Admin Trade Name Freq PRN Reason Stop Dose Admin Apixaban 5 mg 11/22/19 22:00 11/30/19 10:26 Eliquis - PO 5 mg BID DANDY Administration Levothyroxine Sodium 125 mcg 11/22/19 14:02 11/30/19 06:19 Synthroid - PO 125 mcg 0700 DANDY Administration Losartan Potassium 25 mg 11/26/19 10:00 11/30/19 10:26 Cozaar - PO 25 mg DAILY DANDY Administration Metoprolol Tartrate 100 mg 11/28/19 22:00 11/30/19 10:26 Lopressor - PO 100 mg BID DANDY Administration Rosuvastatin Calcium 5 mg 11/22/19 22:00 11/29/19 22:02 Crestor - PO 5 mg HS DANDY Administration ASSESSMENT/PLAN: Lin Berg is an 84 year old female with a past medical history of Atrial fibrillation, HTN, Hypothyroidism, Pernicious Anemia (on weekly SQ B12 replacement), s/p AVR (bioprosthetic), OA, Chronic Diastolic CHF, herpes zoster, HLD, recently at [facility] for 2 months for rehab admitted for mechanical fall. S/p Fall - likely 2/2 to mechanical vs vasovagal vs cardiogenic - LOC likely since pt does not remember the event, no head trauma - CT head negative - no acute fxs noted on lumbar, cervical CT or pelvic x-rays - fall precautions - Today ambulated only 8 feet with Physical therapy. UTI - UA positive - completed antibiotics - remains afebrile A-fib - previously was on coumadin - cardiology consulted, recs appreciated - started on Eliquis 5mg BID - metoprolol 100mg bid. HR much better controlled with uptitration. Hyperbilirubinemia - T-bili normalized - will monitor, no symptoms Diarrhea - likely in setting of antibiotics, resolving - cdiff negative - stool studies negative HTN - losartan 25mg - metoprolol 100mg bid HLD - continue home Crestor Hypothyroidism - continue home synthroid 125mcg daily HFpEF - daily weights - Is & Os - metoprolol and losartan FEN - no standing fluids - continue to monitor electrolytes and replete as necessary - sodium controlled diet Dispo - continue to monitor on tele Visit type - Emergency Visit Emergency Visit: Yes ED Registration Date: 11/21/19 Care time: The patient presented to the Emergency Department on the above date and was hospitalized for further evaluation of their emergent condition. - New Patient This patient is new to me today: No - Critical Care Critical Care patient: No - Discharge Referral Referred to [facility] Med [facility].C[facility] No ATTENDING PHYSICIAN STATEMENT I saw and evaluated the patient. I reviewed the resident's note and discussed the case with the resident. I agree with the resident's findings and plan as documented. SUBJECTIVE: OBJECTIVE: ASSESSMENT AND PLAN:
[2019-11-30] MEDS: ROSUVASTATIN CA 5 MG TABLET (FP) PO SCH (21:43)
[2019-12-01] MEDS: LEVOTHYROXINE NA 125 MCG TABLET (FP) PO SCH (06:00)
[2019-12-01 08:04] LABS: HEMATOCRIT 28.8 % (32.4-45.2); HEMOGLOBIN 9.8 GM/dL (10.7-15.3); MCH 31.8 pg (25.7-33.7); MCHC 34.1 g/dl (32.0-36.0); MEAN PLT VOLUME 7.5 fl (7.5-11.1); PLATELET COUNT 267 K/MM3 (134-434); RBC 3.09 M/mm3 (3.60-5.2); RDW 14.4 % (11.6-15.6); WHITE BLOOD COUNT 5.9 K/mm3 (4.0-10.0)
[2019-12-01 08:05] LABS: ALBUMIN 2.2 g/dl (3.4-5.0); BILIRUBIN,TOTAL 0.4 mg/dL (0.2-1); BLOOD UREA NITROGEN 11.3 mg/dL (7-18); CALCIUM 7.9 mg/dL (8.5-10.1); CREATININE 0.5 mg/dL (0.55-1.3); MAGNESIUM 2.1 mg/dL (1.8-2.4); PHOSPHOROUS 3.6 mg/dL (2.5-4.9); POTASSIUM 3.4 mmol/L (3.5-5.1); TOT PROT 5.6 g/dl (6.4-8.2)
--- NOTE | 2019-12-01 08:49 | PN ---
Progress Note, Physician - Current Medication List Current Medications: Active Medications Apixaban (Eliquis -) 5 mg PO BID [facility] Last Admin: 11/30/19 21:43 Dose: 5 mg Documented by: Levothyroxine Sodium (Synthroid -) 125 mcg PO 0700 [facility] Last Admin: 12/01/19 06:00 Dose: 125 mcg Documented by: Losartan Potassium (Cozaar -) 25 mg PO DAILY [facility] Last Admin: 11/30/19 10:26 Dose: 25 mg Documented by: Metoprolol Tartrate (Lopressor -) 100 mg PO BID [facility] Last Admin: 11/30/19 21:42 Dose: 100 mg Documented by: Rosuvastatin Calcium (Crestor -) 5 mg PO HS [facility] Last Admin: 11/30/19 21:43 Dose: 5 mg Documented by: - Objective Vital Signs: Vital Signs Temperature 97.5 F L 12/01/19 06:00 Pulse Rate 78 12/01/19 06:00 Respiratory Rate 20 12/01/19 06:00 Blood Pressure 123/66 12/01/19 06:00 O2 Sat by Pulse Oximetry (%) 97 11/30/19 21:00 Eyes: Yes: WNL, Conjunctiva Clear, EOM Intact HENT: Yes: WNL, Atraumatic, Normocephalic Neck: Yes: WNL, Supple, Trachea Midline Cardiovascular: Yes: WNL, Regular Rate and Rhythm, Murmur, S1, S2 Respiratory: Yes: WNL, Regular, CTA Bilaterally Gastrointestinal: Yes: WNL, Normal Bowel Sounds Genitourinary: Yes: WNL Musculoskeletal: Yes: WNL Extremities: Yes: WNL Edema: No Integumentary: Yes: WNL Neurological: Yes: WNL, Alert, Oriented ...Motor Strength: WNL Psychiatric: Yes: WNL Labs: CBC, BMP 12/01/19 06:57 12/01/19 06:57 INR, PTT INR 1.28 (0.83-1.09) H 11/21/19 20:55 Assessment/Plan Assessment/Plan 07/27/2019 Echo: Normal LV size and fxn 55-60%, mild LAE, mild MR, TR, mod MG 29 mmHg 04/29/2019 Echo: Normal LV size with mild cLVH, normal LV fxn, mild MR, TR, RVSP 25 mmHg 1. PAF with RVR [id number] of 5 2. CAD h/o demand ischemia 3. 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 HTN/HCVD 5. Hyperlipidemia 6. Mild carotid stenosis 7. Hypothyroidism 8. Microalbuminuria 9. Diastolic dysfunction 10. Prolonged QTc on sotalol 11. UTI 12. History of acute blood loss anemia requiring transfusion post-traumatic left gluteal intramuscular hematoma PLAN: Continue same: 1. Continue Eliquis 5 bid with lower bleeding risk than coumadin 2. Increased Metoprolol 100 bid for rate-control 3. Continue Crestor 5 mg QHS and Losartan 25 mg QD as hemodynamics tolerate 4. Antibiotic prophylaxis for endocarditis protection when needed, completed abx course for UTI 5. PT and gait training as tolerated->D/c planning 6. Eventual f/u in office with Dr. Morirs [phone] upon discharge Cardiology coverage for dr. Gonzalez
[2019-12-01] MEDS: METOPROLOL TARTRATE 50 MG TABLET (FP) PO SCH ×2 (09:15→22:34)
[2019-12-01] MEDS: APIXABAN 5 MG TABLET PO SCH ×2 (09:15→22:34)
[2019-12-01] MEDS: LOSARTAN POTASSIUM 25 MG TABLET PO SCH (09:15)
--- NOTE | 2019-12-01 11:39 | PN ---
Teaching Attending Note Name of Resident: Arley Allan ATTENDING PHYSICIAN STATEMENT I saw and evaluated the patient. I reviewed the resident's note and discussed the case with the resident. I agree with the resident's findings and plan as documented. SUBJECTIVE: Feels well. No further diarrhea. No CP/palpitations/SOB. No fever/chills. OBJECTIVE: Afebrile, Hemodynamically Stable. HR controlled. Last Vital Signs Temp Pulse Resp BP Pulse Ox 98.3 F 83 18 144/79 96 12/01/19 10:00 12/01/19 10:00 12/01/19 10:12/01/19 10:12/01/19 09:00 Heart - S1, S2, SM. Midline sternotomy scar. Lungs - clear to auscultation Abdomen - Soft, non-tender. Bowel Sounds normal. Extremities - no edema, no calf tenderness. Laboratory Results - last 24 hr 12/01/19 12/01/19 06:57 06:57 WBC 5.9 RBC 3.09 L Hgb 9.8 L Hct 28.8 L MCV 93.0 MCH 31.8 MCHC 34.1 RDW 14.4 Plt Count 267 MPV 7.5 Sodium 142 Potassium 3.4 L Chloride 111 H Carbon Dioxide 25 Anion Gap 6 L BUN 11.3 Creatinine 0.5 L Est GFR (CKD-EPI)AfAm 104.46 Est GFR (CKD-EPI)NonAf 90.13 Random Glucose 78 Calcium 7.9 L Phosphorus 3.6 Magnesium 2.1 Total Bilirubin 0.4 AST 19 ALT 17 Alkaline Phosphatase 70 Total Protein 5.6 L Albumin 2.2 L Current Medications Generic Name Dose Route Start Last Admin Trade Name Freq PRN Reason Stop Dose Admin Apixaban 5 mg 11/22/19 22:00 12/01/19 09:15 Eliquis - PO 5 mg BID DANDY Administration Levothyroxine Sodium 125 mcg 11/22/19 14:02 12/01/19 06:00 Synthroid - PO 125 mcg 0700 DANDY Administration Losartan Potassium 25 mg 11/26/19 10:00 12/01/19 09:15 Cozaar - PO 25 mg DAILY DANDY Administration Metoprolol Tartrate 100 mg 11/28/19 22:00 12/01/19 09:15 Lopressor - PO 100 mg BID DANDY Administration Rosuvastatin Calcium 5 mg 11/22/19 22:00 11/30/19 21:43 Crestor - PO 5 mg HS [facility] Administration Home Medications Medication Instructions Recorded Multivit-Min/Iron/Folic/Lutein 1 each PO DAILY 10/06/19 [Centrum Silver Women Tablet] Rosuvastatin [Crestor -] 5 mg PO HS 10/06/19 Levothyroxine [Synthroid -] 125 mcg PO DAILY 11/22/19 Losartan Potassium 25 mg PO DAILY 11/22/19 Apixaban [Eliquis -] 5 mg PO BID #60 tablet 11/26/19 Metoprolol Tartrate [Lopressor] 100 mg PO BID #60 tablet 11/29/19 ASSESSMENT/PLAN: 84 year old female with history of Atrial fibrillation, HTN, Hypothyroidism, CAD, Pernicious Anemia, s/p AVR biopresthesis, OA, Chronic diastolic CHF, Herpes Zoster, HLD presenting from home via EMS s/p fall after multiple diarrheal episodes. 1. UTI - Urine Cx contaminated. Empirically completed 5 day course of Ceftriaxone. No need for further Abx therapy. Diarrhea resolved, Cdiff and Stool Cx negative. Afebrile, Hemodynamically Stable. 2. Atrial fibrillation with RVR HR much improved since increase in Metoprolol dose to 100mg BID. Coumadin switched to Eliquis as per Cardio due to lower bleeding risk. BP stable. 3. Fall - CT Head, C/T/L Spine no acute findings. PT - needs assistance standing from siting position, unable to ambulate with walker more than 6 feet. 4. Chronic Diastolic CHF with Bioprothetic AVR - Stable, no evidence of decompensation Abx prophylaxis as per AHA guidelines as per Cardio. 5. HTN - continue Cozaar, Metoprolol 6. HLD - continue Crestor. 7. Hypothyroidism - continue Synthroid. DVT Px - on Eliquis. Medically clear for discharge but unable to go to SNF due to insurance issues. Worked with PT - needs assistance standing from siting position, unable to ambulate with walker more than 8 feet. Incontinent, unable to perform ADLs, lives alone, unable to cook meals or to answer her door - not a safe discharge to home, high fall risk, especially as she is on anticoagulation. Alternative Dispo plan required. SW/CM aware.
--- NOTE | 2019-12-01 11:49 | PN ---
Physical Exam: SUBJECTIVE: Patient seen and examined at bedside. No acute events overnight. OBJECTIVE: Vital Signs Period Temp Pulse Resp BP Sys/Vincent Pulse Ox Last 24 Hr 97.4 F-98.3 F 78-98 18-20 120-144/65-79 96-97 GENERAL: No acute distress HEAD: Normal with no signs of trauma. EYES: EOMI Sclera Clear ENT: MMM LUNGS: CTAB HEART: RR S1S2. JOHN. Midline sternotomy scar ABDOMEN: Soft, nontender, nondistended, normoactive bowel sounds, no guarding, no rebound. EXTREMITIES: No significant pedel edema NEUROLOGICAL: Cranial nerves II through XII grossly intact. PSYCH: Normal mood, normal affect. SKIN: Warm, dry. Laboratory Results - last 24 hr 12/01/19 12/01/19 06:57 06:57 WBC 5.9 RBC 3.09 L Hgb 9.8 L Hct 28.8 L MCV 93.0 MCH 31.8 MCHC 34.1 RDW 14.4 Plt Count 267 MPV 7.5 Sodium 142 Potassium 3.4 L Chloride 111 H Carbon Dioxide 25 Anion Gap 6 L BUN 11.3 Creatinine 0.5 L Est GFR (CKD-EPI)AfAm 104.46 Est GFR (CKD-EPI)NonAf 90.13 Random Glucose 78 Calcium 7.9 L Phosphorus 3.6 Magnesium 2.1 Total Bilirubin 0.4 AST 19 ALT 17 Alkaline Phosphatase 70 Total Protein 5.6 L Albumin 2.2 L Active Medications Generic Name Dose Route Start Last Admin Trade Name Freq PRN Reason Stop Dose Admin Apixaban 5 mg 11/22/19 22:00 12/01/19 09:15 Eliquis - PO 5 mg BID DANDY Administration Levothyroxine Sodium 125 mcg 11/22/19 14:02 12/01/19 06:00 Synthroid - PO 125 mcg 0700 DANDY Administration Losartan Potassium 25 mg 11/26/19 10:00 12/01/19 09:15 Cozaar - PO 25 mg DAILY DANDY Administration Metoprolol Tartrate 100 mg 11/28/19 22:00 12/01/19 09:15 Lopressor - PO 100 mg BID DANDY Administration Potassium Chloride 40 meq 12/01/19 12:00 K-Dur - PO 12/01/19 12:01 ONCE ONE Rosuvastatin Calcium 5 mg 11/22/19 22:00 11/30/19 21:43 Crestor - PO 5 mg HS DANDY Administration ASSESSMENT/PLAN: Lin Berg is an 84 year old female with a past medical history of Atrial fibrillation, HTN, Hypothyroidism, Pernicious Anemia (on weekly SQ B12 replacement), s/p AVR (bioprosthetic), OA, Chronic Diastolic CHF, herpes zoster, HLD, recently at [facility] for 2 months for rehab admitted for mechanical fall. S/p Fall - likely 2/2 to mechanical vs vasovagal vs cardiogenic - LOC likely since pt does not remember the event, no head trauma - CT head negative - no acute fxs noted on lumbar, cervical CT or pelvic x-rays - fall precautions - 11/30/2019 ambulated only 8 feet with Physical therapy. UTI - UA positive - completed antibiotics - remains afebrile A-fib w/ RVR - previously was on coumadin - cardiology consulted, recs appreciated - started on Eliquis 5mg BID - metoprolol 100mg bid. HR much better controlled with uptitration. Diarrhea - likely in setting of antibiotics, resolving - cdiff negative - stool studies negative HTN - losartan 25mg - metoprolol 100mg bid HLD - continue home Crestor Hypothyroidism - continue home synthroid 125mcg daily HFpEF - daily weights - Is & Os - metoprolol and losartan FEN - no standing fluids - continue to monitor electrolytes and replete as necessary - sodium controlled diet Dispo - continue to monitor on tele Visit type - Emergency Visit Emergency Visit: Yes ED Registration Date: 11/21/19 Care time: The patient presented to the Emergency Department on the above date and was hospitalized for further evaluation of their emergent condition. - New Patient This patient is new to me today: No - Critical Care Critical Care patient: No - Discharge Referral Referred to [facility] Med P.C.: No ATTENDING PHYSICIAN STATEMENT I saw and evaluated the patient. I reviewed the resident's note and discussed the case with the resident. I agree with the resident's findings and plan as documented. SUBJECTIVE: OBJECTIVE: ASSESSMENT AND PLAN:
[2019-12-01] MEDS ORDERED: POTASSIUM CHLORIDE TABS 20 MEQ TABLET.ER (FP) PO ONE (12:00)
[2019-12-01] MEDS: ROSUVASTATIN CA 5 MG TABLET (FP) PO SCH (22:34)
[2019-12-02] MEDS: LEVOTHYROXINE NA 125 MCG TABLET (FP) PO SCH (05:59)
--- NOTE | 2019-12-02 09:30 | PN ---
Progress Note, Physician - Current Medication List Current Medications: Active Medications Apixaban (Eliquis -) 5 mg PO BID [facility] Last Admin: 12/01/19 22:34 Dose: 5 mg Documented by: Levothyroxine Sodium (Synthroid -) 125 mcg PO 0700 [facility] Last Admin: 12/02/19 05:59 Dose: 125 mcg Documented by: Losartan Potassium (Cozaar -) 25 mg PO DAILY [facility] Last Admin: 12/01/19 09:15 Dose: 25 mg Documented by: Metoprolol Tartrate (Lopressor -) 100 mg PO BID [facility] Last Admin: 12/01/19 22:34 Dose: 100 mg Documented by: Rosuvastatin Calcium (Crestor -) 5 mg PO HS [facility] Last Admin: 12/01/19 22:34 Dose: 5 mg Documented by: - Objective Vital Signs: Vital Signs Temperature 97.5 F L 12/02/19 05:56 Pulse Rate 83 12/02/19 05:56 Respiratory Rate 18 12/02/19 05:56 Blood Pressure 146/76 12/02/19 05:56 O2 Sat by Pulse Oximetry (%) 97 12/01/19 20:12 Eyes: Yes: WNL, Conjunctiva Clear, EOM Intact HENT: Yes: WNL, Atraumatic, Normocephalic Neck: Yes: WNL, Supple, Trachea Midline Cardiovascular: Yes: WNL, Regular Rate and Rhythm Respiratory: Yes: WNL, Regular, CTA Bilaterally Gastrointestinal: Yes: WNL, Normal Bowel Sounds Genitourinary: Yes: WNL Musculoskeletal: Yes: WNL Extremities: Yes: WNL Edema: No Integumentary: Yes: WNL Neurological: Yes: WNL, Alert, Oriented ...Motor Strength: WNL Psychiatric: Yes: WNL Labs: CBC, BMP 12/01/19 06:57 12/01/19 06:57 INR, PTT INR 1.28 (0.83-1.09) H 11/21/19 20:55 Assessment/Plan Assessment/Plan 07/27/2019 Echo: Normal LV size and fxn 55-60%, mild LAE, mild MR, TR, mod MG 29 mmHg 04/29/2019 Echo: Normal LV size with mild cLVH, normal LV fxn, mild MR, TR, RVSP 25 mmHg 1. PAF with RVR [id number] of 5 2. CAD h/o demand ischemia 3. 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 HTN/HCVD 5. Hyperlipidemia 6. Mild carotid stenosis 7. Hypothyroidism 8. Microalbuminuria 9. Diastolic dysfunction 10. Prolonged QTc on sotalol 11. UTI 12. History of acute blood loss anemia requiring transfusion post-traumatic left gluteal intramuscular hematoma PLAN: Continue same: 1. Continue Eliquis 5 bid with lower bleeding risk than coumadin 2. Increased Metoprolol 100 bid for rate-control 3. Continue Crestor 5 mg QHS and Losartan 25 mg QD as hemodynamics tolerate 4. Antibiotic prophylaxis for endocarditis protection when needed, completed abx course for UTI 5. PT and gait training as tolerated->D/c planning 6. Eventual f/u in office with Dr. Morris [phone] upon discharge Cardiology coverage for dr. Gonzalez
[2019-12-02] MEDS: METOPROLOL TARTRATE 50 MG TABLET (FP) PO SCH ×2 (10:18→22:14)
[2019-12-02] MEDS: APIXABAN 5 MG TABLET PO SCH ×2 (10:18→22:14)
[2019-12-02] MEDS: LOSARTAN POTASSIUM 25 MG TABLET PO SCH (10:18)
--- NOTE | 2019-12-02 11:08 | PN ---
Progress Note (short form) - Note Progress Note: SUBJECTIVE: Feels well. No further diarrhea. No CP/palpitations/SOB. No fever/chills. OBJECTIVE: Afebrile, Hemodynamically Stable. HR controlled. Last Vital Signs Temp Pulse Resp BP Pulse Ox 98.2 F 88 18 124/64 96 12/02/19 09:45 12/02/19 09:45 12/02/19 09:45 12/02/19 09:45 12/02/19 09:00 Heart - S1, S2, SM. Midline sternotomy scar. Lungs - clear to auscultation Abdomen - Soft, non-tender. Bowel Sounds normal. Extremities - no edema, no calf tenderness. Current Medications Generic Name Dose Route Start Last Admin Trade Name Freq PRN Reason Stop Dose Admin Apixaban 5 mg 11/22/19 22:00 12/02/19 10:18 Eliquis - PO 5 mg BID DANDY Administration Levothyroxine Sodium 125 mcg 11/22/19 14:02 12/02/19 05:59 Synthroid - PO 125 mcg 0700 DANDY Administration Losartan Potassium 25 mg 11/26/19 10:00 12/02/19 10:18 Cozaar - PO 25 mg DAILY DANDY Administration Metoprolol Tartrate 100 mg 11/28/19 22:00 12/02/19 10:18 Lopressor - PO 100 mg BID DANDY Administration Rosuvastatin Calcium 5 mg 11/22/19 22:00 12/01/19 22:34 Crestor - PO 5 mg HS DANDY Administration Home Medications Medication Instructions Recorded Multivit-Min/Iron/Folic/Lutein 1 each PO DAILY 10/06/19 [Centrum Silver Women Tablet] Rosuvastatin [Crestor -] 5 mg PO HS 10/06/19 Levothyroxine [Synthroid -] 125 mcg PO DAILY 11/22/19 Losartan Potassium 25 mg PO DAILY 11/22/19 Apixaban [Eliquis -] 5 mg PO BID #60 tablet 11/26/19 Metoprolol Tartrate [Lopressor] 100 mg PO BID #60 tablet 11/29/19 ASSESSMENT/PLAN: 84 year old female with history of Atrial fibrillation, HTN, Hypothyroidism, CAD, Pernicious Anemia, s/p AVR biopresthesis, OA, Chronic diastolic CHF, Herpes Zoster, HLD presenting from home via EMS s/p fall after multiple diarrheal episodes. 1. UTI - Urine Cx contaminated. Empirically completed 5 day course of Ceftriaxone. No need for further Abx therapy. Diarrhea resolved, Cdiff and Stool Cx negative. Afebrile, Hemodynamically Stable. 2. Atrial fibrillation with RVR HR much improved since increase in Metoprolol dose to 100mg BID. Coumadin switched to Eliquis as per Cardio due to lower bleeding risk. BP stable. 3. Fall - CT Head, C/T/L Spine no acute findings. PT - needs assistance standing from siting position, unable to ambulate with walker more than 8 feet. 4. Chronic Diastolic CHF s/p Bioprothetic AVR - Stable, no evidence of decompensation Abx prophylaxis as per AHA guidelines as per Cardio. 5. HTN - continue Cozaar, Metoprolol 6. HLD - continue Crestor. 7. Hypothyroidism - continue Synthroid. 8. Hypokalemia - repleted. Will monitor. DVT Px - on Eliquis. Medically optimized for discharge but unable to go to SNF due to insurance issues. Worked with PT - needs assistance standing from siting position, unable to ambulate with walker more than 8 feet. Incontinent, unable to perform ADLs, lives alone, unable to cook meals or to answer her door - not a safe discharge to home, high fall risk, especially as she is on anticoagulation. Alternative Dispo plan required. SW/CM aware. Visit type - Emergency Visit Emergency Visit: Yes ED Registration Date: 11/21/19 Care time: The patient presented to the Emergency Department on the above date and was hospitalized for further evaluation of their emergent condition. - New Patient This patient is new to me today: No - Critical Care Critical Care patient: No - Discharge Referral Referred to [facility] Med P.C.: No
[2019-12-02] MEDS: ROSUVASTATIN CA 5 MG TABLET (FP) PO SCH (22:14)
[2019-12-03] MEDS: LEVOTHYROXINE NA 125 MCG TABLET (FP) PO SCH (06:56)
[2019-12-03] MEDS: METOPROLOL TARTRATE 50 MG TABLET (FP) PO SCH ×2 (09:08→21:17)
[2019-12-03] MEDS: APIXABAN 5 MG TABLET PO SCH ×2 (09:09→21:17)
[2019-12-03] MEDS: LOSARTAN POTASSIUM 25 MG TABLET PO SCH (09:09)
--- NOTE | 2019-12-03 10:15 | PN ---
Physical Exam: SUBJECTIVE: Patient seen and examined at the bedside. Stated was feeling well. Endorsed continued weakness and pain in her knees. Denies cp, sob, abd pain, n/v/c/d, fever, chills, headaches, dizziness, lightheadedness. Spoken in detail with Dr. Grullon (patient's PCP) who agrees that patient is unsafe at home to be discharged as it and an alternative safe discharge plan is necessary by case management is necessary. She remains medically cleared for discharge. OBJECTIVE: Vital Signs Period Temp Pulse Resp BP Sys/Vincent Pulse Ox Last 24 Hr 97.0 F-98 F 65-106 20-20 107-141/65-83 96-99 GENERAL: The patient is awake, alert, and fully oriented, in no acute distress. HEAD: Normal with no signs of trauma. EYES: PERRL, extraocular movements intact, conjunctiva clear. ENT: Oropharynx clear without exudates, moist mucous membranes. LUNGS: Breath sounds equal, clear to auscultation bilaterally, no wheezes, no crackles, no accessory muscle use. HEART: Regular rate and irregular rhythm, S1, S2 with prominent systolic ejection murmur. ABDOMEN: Soft, nontender, nondistended, normoactive bowel sounds, no guarding, no rebound. EXTREMITIES: 2+ pulses, warm, well-perfused, trace bilateral pitting edema. NEUROLOGICAL: Cranial nerves II through XII grossly intact. 4/5 muscle strength bilaterally upper and lower extremities. PSYCH: Normal mood, normal affect. SKIN: Warm, dry. Laboratory Results - last 24 hr 12/02/19 10:30 Potassium 4.0 Active Medications Generic Name Dose Route Start Last Admin Trade Name Galq PRN Reason Stop Dose Admin Apixaban 5 mg 11/22/19 22:00 12/03/19 09:09 Eliquis - PO 5 mg BID DANDY Administration Levothyroxine Sodium 125 mcg 11/22/19 14:02 12/03/19 06:56 Synthroid - PO 125 mcg 0700 DANDY Administration Losartan Potassium 25 mg 11/26/19 10:00 12/03/19 09:09 Cozaar - PO 25 mg DAILY DANDY Administration Metoprolol Tartrate 100 mg 11/28/19 22:00 12/03/19 09:08 Lopressor - PO 100 mg BID DANDY Administration Rosuvastatin Calcium 5 mg 11/22/19 22:00 12/02/19 22:14 Crestor - PO 5 mg HS DANDY Administration ASSESSMENT/PLAN: Lin Berg is an 84 year old female with a past medical history of Atrial fibrillation, HTN, Hypothyroidism, Pernicious Anemia (on weekly SQ B12 replacement), s/p AVR (bioprosthetic), OA, Chronic Diastolic CHF, herpes zoster, HLD, recently at [facility] for 2 months for rehab admitted for mechanical fall. S/p Fall - likely 2/2 to mechanical vs vasovagal vs cardiogenic - LOC likely since pt does not remember the event, no head trauma - CT head negative - no acute fxs noted on lumbar, cervical CT or pelvic x-rays - fall precautions - telemetry monitoring- brief period of Vtach 3 runs, no afib with RVR or tachycardia since initiation of metoprolol 100mg bid - unable to have days at SNF, currently unsafe discharge, discussed options with patient to have out of pocket payment for SNF vs going home with family, she stated she will discuss those options with her family and social work and come to a decision as to what they want to do. Contacted hospital staff to determine safest option for patient discharge. UTI - UA positive - completed antibiotics - remains afebrile A-fib - previously was on coumadin - cardiology consulted, recs appreciated - started on Eliquis 5mg BID - metoprolol 100mg bid - remains well controlled Hyperbilirubinemia - T-bili normalized - will monitor, no symptoms Diarrhea - likely in setting of antibiotics, resolving - cdiff negative - stool studies negative HTN - losartan 25mg - metoprolol 100mg bid HLD - continue home Crestor Hypothyroidism - continue home synthroid 125mcg daily HFpEF - daily weights - Is & Os - metoprolol and losartan FEN - no standing fluids - continue to monitor electrolytes and replete as necessary - sodium controlled diet Dispo - transfer to Med-surg Visit type - Emergency Visit Emergency Visit: Yes ED Registration Date: 11/21/19 Care time: The patient presented to the Emergency Department on the above date and was hospitalized for further evaluation of their emergent condition. - New Patient This patient is new to me today: No - Critical Care Critical Care patient: No
--- NOTE | 2019-12-03 10:37 | PN ---
Progress Note, Physician History of Present Illness: Patient denies any shortness of breath, palpitations, dyspnea worse than baseline, true syncope, orthopnea, PND or LE edema. Episodes of rapid afib, Lopressor uptitrated with improvement in rate-control. - Current Medication List Current Medications: Active Medications Apixaban (Eliquis -) 5 mg PO BID [facility] Last Admin: 12/03/19 09:09 Dose: 5 mg Documented by: Levothyroxine Sodium (Synthroid -) 125 mcg PO 0700 [facility] Last Admin: 12/03/19 06:56 Dose: 125 mcg Documented by: Losartan Potassium (Cozaar -) 25 mg PO DAILY [facility] Last Admin: 12/03/19 09:09 Dose: 25 mg Documented by: Metoprolol Tartrate (Lopressor -) 100 mg PO BID [facility] Last Admin: 12/03/19 09:08 Dose: 100 mg Documented by: Rosuvastatin Calcium (Crestor -) 5 mg PO HS [facility] Last Admin: 12/02/19 22:14 Dose: 5 mg Documented by: - Objective Vital Signs: Vital Signs Temperature 97.6 F 12/03/19 10:00 Pulse Rate 65 12/03/19 10:00 Respiratory Rate 20 12/03/19 10:00 Blood Pressure 130/77 12/03/19 10:00 O2 Sat by Pulse Oximetry (%) 99 12/03/19 09:00 Constitutional: Yes: No Distress, Calm Neck: Yes: Supple Cardiovascular: Yes: Pulse Irregular, Murmur (2/6 SM) Respiratory: Yes: Regular, CTA Bilaterally Gastrointestinal: Yes: Normal Bowel Sounds, Soft Edema: No Labs: CBC, BMP 12/01/19 06:57 12/02/19 10:30 INR, PTT INR 1.28 (0.83-1.09) H 11/21/19 20:55 - ....Imaging EKG: Report Reviewed (Tele: Rate-controlled afib) Problem List - Problems (1) Chronic anticoagulation Code(s): Z79.01 - [facility] (CURRENT) USE OF 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 (2) Gait disturbance Code(s): R26.9 - UNSPECIFIED ABNORMALITIES OF GAIT AND MOBILITY (3) HTN (hypertension) Code(s): I10 - ESSENTIAL (PRIMARY) HYPERTENSION Qualifiers: Hypertension type: essential hypertension Qualified Code(s): I10 - [place] (primary) hypertension (4) Hyperlipidemia Code(s): E78.5 - HYPERLIPIDEMIA, UNSPECIFIED Qualifiers: Hyperlipidemia type: pure hypercholesterolemia Qualified Code(s): E78.00 - Pure hypercholesterolemia, unspecified (5) Hypothyroidism Code(s): E03.9 - HYPOTHYROIDISM, UNSPECIFIED Qualifiers: Hypothyroidism type: unspecified Qualified Code(s): E03.9 - Hypothyroidism, unspecified (6) Paroxysmal A-fib Code(s): I48.0 - PAROXYSMAL ATRIAL FIBRILLATION (7) S/P AVR (aortic valve replacement) Code(s): Z95.2 - PRESENCE OF PROSTHETIC HEART VALVE Assessment/Plan 07/27/2019 Echo: Normal LV size and fxn 55-60%, mild LAE, mild MR, TR, mod MG 29 mmHg 04/29/2019 Echo: Normal LV size with mild cLVH, normal LV fxn, mild MR, TR, RVSP 25 mmHg 1. PAF with RVR [id number] of 5 2. CAD h/o demand ischemia 3. 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 HTN/HCVD 5. Hyperlipidemia 6. Mild carotid stenosis 7. Hypothyroidism 8. Microalbuminuria 9. Diastolic dysfunction 10. Prolonged QTc on sotalol 11. UTI 12. History of acute blood loss anemia requiring transfusion post-traumatic left gluteal intramuscular hematoma PLAN: 1. Continue Eliquis 5 bid with lower bleeding risk than coumadin 2. Continue Metoprolol 100 bid for rate-control 3. Continue Crestor 5 mg QHS and Losartan 25 mg QD as hemodynamics tolerate 4. Antibiotic prophylaxis for endocarditis protection when needed, completed abx course for UTI 5. PT and gait training as tolerated, OOB to chair ->D/c planning 6. Eventual f/u in office with Dr. Morris [phone] upon discharge
--- NOTE | 2019-12-03 10:59 | PN ---
Teaching Attending Note Name of Resident: Grady Alvarado ATTENDING PHYSICIAN STATEMENT I saw and evaluated the patient. I reviewed the resident's note and discussed the case with the resident. I agree with the resident's findings and plan as documented. SUBJECTIVE: Feels well. No further diarrhea. No CP/palpitations/SOB. No fever/chills. OBJECTIVE: Afebrile, Hemodynamically Stable. HR controlled. AAO x 3. Last Vital Signs Temp Pulse Resp BP Pulse Ox 97.6 F 65 20 130/77 99 12/03/19 10:00 12/03/19 10:00 12/03/19 10:00 12/03/19 10:00 12/03/19 09:00 Heart - S1, S2, SM. Midline sternotomy scar. Lungs - clear to auscultation Abdomen - Soft, non-tender. Bowel Sounds normal. Extremities - no edema, no calf tenderness. Laboratory Results - last 24 hr 12/02/19 10:30 Potassium 4.0 Current Medications Generic Name Dose Route Start Last Admin Trade Name Galq PRN Reason Stop Dose Admin Apixaban 5 mg 11/22/19 22:00 12/03/19 09:09 Eliquis - PO 5 mg BID DANDY Administration Levothyroxine Sodium 125 mcg 11/22/19 14:02 12/03/19 06:56 Synthroid - PO 125 mcg 0700 DANDY Administration Losartan Potassium 25 mg 11/26/19 10:00 12/03/19 09:09 Cozaar - PO 25 mg DAILY DANDY Administration Metoprolol Tartrate 100 mg 11/28/19 22:00 12/03/19 09:08 Lopressor - PO 100 mg BID DANDY Administration Rosuvastatin Calcium 5 mg 11/22/19 22:00 12/02/19 22:14 Crestor - PO 5 mg HS DANDY Administration Home Medications Medication Instructions Recorded Multivit-Min/Iron/Folic/Lutein 1 each PO DAILY 10/06/19 [Centrum Silver Women Tablet] Rosuvastatin [Crestor -] 5 mg PO HS 10/06/19 Levothyroxine [Synthroid -] 125 mcg PO DAILY 11/22/19 Losartan Potassium 25 mg PO DAILY 11/22/19 Apixaban [Eliquis -] 5 mg PO BID #60 tablet 11/26/19 Metoprolol Tartrate [Lopressor] 100 mg PO BID #60 tablet 11/29/19 ASSESSMENT/PLAN: 84 year old female with history of Atrial fibrillation, HTN, Hypothyroidism, CAD, Pernicious Anemia, s/p AVR biopresthesis, OA, Chronic diastolic CHF, Herpes Zoster, HLD presenting from home via EMS s/p fall after multiple diarrheal episodes. 1. UTI - Urine Cx contaminated. Empirically completed 5 day course of Ceftriaxone. No need for further Abx therapy. Diarrhea resolved, Cdiff and Stool Cx negative. Afebrile, Hemodynamically Stable. 2. Atrial fibrillation with RVR HR much improved since increase in Metoprolol dose to 100mg BID. Coumadin switched to Eliquis as per Cardio due to lower bleeding risk. BP stable. 3. Fall - CT Head, C/T/L Spine no acute findings. PT - needs assistance standing from siting position, unable to ambulate with walker more than 8 feet. 4. Chronic Diastolic CHF s/p Bioprothetic AVR - Stable, no evidence of decompensation Abx prophylaxis as per AHA guidelines as per Cardio. 5. HTN - continue Cozaar, Metoprolol 6. HLD - continue Crestor. 7. Hypothyroidism - continue Synthroid. 8. Hypokalemia - repleted. DVT Px - on Eliquis. Medically optimized for discharge but apparently unable to go to SNF due to insurance issues. Worked with PT - needs assistance standing from siting position, unable to ambulate with walker more than 8 feet. Incontinent, unable to perform ADLs, lives alone, unable to cook meals or to answer her door - not a safe discharge to home, high fall risk, especially as she is on anticoagulation. Alternative Dispo plan required. SW/CM aware.
[2019-12-03] MEDS: ROSUVASTATIN CA 5 MG TABLET (FP) PO SCH (21:17)
[2019-12-03 21:57] VITALS: BMI 28.3
[2019-12-04] MEDS: LEVOTHYROXINE NA 125 MCG TABLET (FP) PO SCH (06:32)
[2019-12-04] MEDS: LOSARTAN POTASSIUM 25 MG TABLET PO SCH (09:24)
[2019-12-04] MEDS: APIXABAN 5 MG TABLET PO SCH (09:24)
[2019-12-04] MEDS: METOPROLOL TARTRATE 50 MG TABLET (FP) PO SCH (09:24)
[2019-12-04 10:11] VITALS: BP 117/47; PULSE 89; TEMP 97.9
--- NOTE | 2019-12-04 10:34 | PN ---
Physical Exam: SUBJECTIVE: Patient seen and examined at the bedside. Remains stable. Denies any new acute complaints. OBJECTIVE: Vital Signs Period Temp Pulse Resp BP Sys/Vincent Pulse Ox Last 24 Hr 97.7 F-98.1 F 83-89 20-20 117-142/47-79 96-96 GENERAL: The patient is awake, alert, and fully oriented, in no acute distress. HEAD: Normal with no signs of trauma. EYES: PERRL, extraocular movements intact, conjunctiva clear. ENT: Oropharynx clear without exudates, moist mucous membranes. LUNGS: Breath sounds equal, clear to auscultation bilaterally, no wheezes, no crackles, no accessory muscle use. HEART: Regular rate and irregular rhythm, S1, S2 with prominent systolic ejection murmur. ABDOMEN: Soft, nontender, nondistended, normoactive bowel sounds, no guarding, no rebound. EXTREMITIES: 2+ pulses, warm, well-perfused, trace bilateral pitting edema. NEUROLOGICAL: Cranial nerves II through XII grossly intact. 4/5 muscle strength bilaterally upper and lower extremities. PSYCH: Normal mood, normal affect. SKIN: Warm, dry. Active Medications Generic Name Dose Route Start Last Admin Trade Name Freq PRN Reason Stop Dose Admin Apixaban 5 mg 11/22/19 22:00 12/04/19 09:24 Eliquis - PO 5 mg BID DANDY Administration Levothyroxine Sodium 125 mcg 11/22/19 14:02 12/04/19 06:32 Synthroid - PO 125 mcg 0700 DANDY Administration Losartan Potassium 25 mg 11/26/19 10:00 12/04/19 09:24 Cozaar - PO 25 mg DAILY DANDY Administration Metoprolol Tartrate 100 mg 11/28/19 22:00 12/04/19 09:24 Lopressor - PO 100 mg BID DANDY Administration Rosuvastatin Calcium 5 mg 11/22/19 22:00 12/03/19 21:17 Crestor - PO 5 mg HS DANDY Administration ASSESSMENT/PLAN: Lin Berg is an 84 year old female with a past medical history of Atrial fibrillation, HTN, Hypothyroidism, Pernicious Anemia (on weekly SQ B12 replacement), s/p AVR (bioprosthetic), OA, Chronic Diastolic CHF, herpes zoster, HLD, recently at [facility] for 2 months for rehab admitted for m echanical fall. S/p Fall - likely 2/2 to mechanical vs vasovagal vs cardiogenic - LOC likely since pt does not remember the event, no head trauma - CT head negative - no acute fxs noted on lumbar, cervical CT or pelvic x-rays - fall precautions - telemetry monitoring- brief period of Vtach 3 runs, no afib with RVR or tachycardia since initiation of metoprolol 100mg bid - unable to have days at SNF, currently unsafe discharge, discussed options with patient to have out of pocket payment for SNF vs going home with family, she stated she will discuss those options with her family and social work and come to a decision as to what they want to do. Contacted hospital staff to determine safest option for patient discharge. UTI - UA positive - completed antibiotics - remains afebrile A-fib - previously was on coumadin - cardiology consulted, recs appreciated - started on Eliquis 5mg BID - metoprolol 100mg bid - remains well controlled Hyperbilirubinemia - T-bili normalized - will monitor, no symptoms Diarrhea - likely in setting of antibiotics, resolving - cdiff negative - stool studies negative HTN - losartan 25mg - metoprolol 100mg bid HLD - continue home Crestor Hypothyroidism - continue home synthroid 125mcg daily HFpEF - daily weights - Is & Os - metoprolol and losartan FEN - no standing fluids - continue to monitor electrolytes and replete as necessary - sodium controlled diet Dispo - continue to monitor on Med-surg Visit type - Emergency Visit Emergency Visit: Yes ED Registration Date: 11/21/19 Care time: The patient presented to the Emergency Department on the above date and was hospitalized for further evaluation of their emergent condition. - New Patient This patient is new to me today: No - Critical Care Critical Care patient: No
--- NOTE | 2019-12-04 12:00 | PN ---
Progress Note (short form) - Note Progress Note: Chief Complaint: (Seen and examined earlier today) Events noted, notes reviewed, denies any chest discomfort or dyspnea History of Present Illness: Seen and examined earlier today on telemetry. Events noted, notes reviewed, denies any chest discomfort or dyspnea - Current Medication List Current Medications Apixaban (Eliquis -) 5 mg PO BID [facility] Last Admin: 12/04/19 09:24 Dose: 5 mg Documented by: Levothyroxine Sodium (Synthroid -) 125 mcg PO 0700 [facility] Last Admin: 12/04/19 06:32 Dose: 125 mcg Documented by: Losartan Potassium (Cozaar -) 25 mg PO DAILY [facility] Last Admin: 12/04/19 09:24 Dose: 25 mg Documented by: Metoprolol Tartrate (Lopressor -) 100 mg PO BID [facility] Last Admin: 12/04/19 09:24 Dose: 100 mg Documented by: Rosuvastatin Calcium (Crestor -) 5 mg PO HS [facility] Last Admin: 12/03/19 21:17 Dose: 5 mg Documented by: Review of Systems Constitutional: denies: Chills or Fever Cardiovascular: as noted above Respiratory: denies: Cough Gastrointestinal: denies: Nausea, Vomiting, Diarrhea, Constipation or Abdominal Pain Genitourinary: denies: Dysuria Musculoskeletal: denies: Joint Pain Neurological: denies: Dizziness or Headache - Objective Vital Signs: Last Vital Signs Temp Pulse Resp BP Pulse Ox 97.9 F 89 20 117/47 L 96 12/04/19 10:00 12/04/19 10:00 12/04/19 10:00 12/04/19 10:00 12/04/19 09:00 Intake & Output 12/01/19 12/02/19 12/03/19 12/04/19 23:59 23:59 23:59 23:59 Intake Total 1000 690 590 Balance 1000 690 590 Weight 150 lb 12.8 oz 150 lb 6.4 oz 149 lb 12.8 oz Neck: Supple Negative JVD No Bruit Respiratory: Clear to A&P Bilaterally Cardiovascular: S1 S2 Irregularly Irregular Grade 2/6 systolic ejection murmur Gastrointestinal: Soft Benign Normal Bowel Sounds Ext: Negative Edema Labs: CBC, BMP 12/01/19 06:57 12/02/19 10:30 Hepatic Panel Total Bilirubin 0.4 mg/dL (0.2-1) 12/01/19 06:57 Direct Bilirubin 0.5 mg/dL (0.0-0.2) H 11/21/19 22:15 AST 19 U/L (15-37) 12/01/19 06:57 ALT 17 U/L (13-61) 12/01/19 06:57 Alkaline Phosphatase 70 U/L (45-117) 12/01/19 06:57 Albumin 2.2 g/dl (3.4-5.0) L 12/01/19 06:57 INR, PTT INR 1.28 (0.83-1.09) H 11/21/19 20:55 Assessment/Plan ASSESSMENT: 1. Paroxysmal atrial fibrillation [id number] score of 5 on anticoagulation therapy with Eliquis/prolonged QTc on Betapace therapy 2. 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 Diastolic LV dysfunction with clinical class 0 NYHA classification LV failure 4. Post aortic valve replacement/Bioprosthesis for symptomatic aortic valve stenosis with moderate degree of transvalvular gradient 5. Hypertensive cardiovascular disease 6. Hypercholesterolemia 7. Carotid stenosis 8. Hypothyroidism 9. History of acute blood loss post transfusion post traumatic left gluteal intramuscular hematoma PLAN: 1. Continue Eliquis therapy at 5 twice daily/statistically lower bleeding risk than Coumadin 2. Continue Lopressor therapy 3. Continue Cozaar therapy 4. Continue Lipitor therapy 5. Recommend antibiotic prophylaxis as per the [place] [employer] guidelines considering the above-noted bioprosthetic AVR 6. Plan to discharge home as per the primary team and follow-up in the office post discharge Marge Morris M.D.
--- NOTE | 2019-12-04 13:15 | DS ---
Physical Exam: SUBJECTIVE: Patient seen and examined at the bedside. Remains stable. Denies any new acute complaints. OBJECTIVE: Vital Signs Period Temp Pulse Resp BP Sys/Vincent Pulse Ox Last 24 Hr 97.7 F-98.1 F 83-89 20-20 117-142/47-79 96-96 PHYSICAL EXAM GENERAL: The patient is awake, alert, and fully oriented, in no acute distress. HEAD: Normal with no signs of trauma. EYES: PERRL, extraocular movements intact, conjunctiva clear. ENT: Oropharynx clear without exudates, moist mucous membranes. LUNGS: Breath sounds equal, clear to auscultation bilaterally, no wheezes, no crackles, no accessory muscle use. HEART: Regular rate and irregular rhythm, S1, S2 with prominent systolic ejection murmur. ABDOMEN: Soft, nontender, nondistended, normoactive bowel sounds, no guarding, no rebound. EXTREMITIES: 2+ pulses, warm, well-perfused, trace bilateral pitting edema. NEUROLOGICAL: Cranial nerves II through XII grossly intact. 4/5 muscle strength bilaterally upper and lower extremities. PSYCH: Normal mood, normal affect. SKIN: Warm, dry. HOSPITAL COURSE: Lin Berg is an 84 year old female with a past medical history of Atrial fibrillation, HTN, Hypothyroidism, Pernicious Anemia (on weekly SQ B12 replacement), s/p AVR (bioprosthetic), OA, Chronic Diastolic CHF, herpes zoster, HLD, recently at [facility] for 2 months for rehab admitted for mechanical fall. Patient had episodes of afib with RVR while hospitalized and had metoprolol uptitrated to 100mg bid with adequate control. Was restarted on anticoagulation with Eliquis 5mg bid. Had diagnosed UTI and was treated with antibiotics that were completed when the patient was hospitalized. Diarrhea episodes resolved, negative stool studies and c diff. Patient was unable to walk very far and would have benefited from SNF but was unable to have insurance approval due to all Medicare Days being used in previous hospitalizations and rehab stays. Upon intensive discussion between patient, patient's son, and primary care Dr. Grullon, the patient and family desire to go home and state that the family will be able to provide safety during ambulation, food preparation, toileting, and other ADLs. Advised to take extreme caution with ambulation to minimize risks of falling. Patient and family were advised to continue with their applications for supplemental insurance in order to enter a rehabilitation facility as soon as possible. Patient was started on metoprolol and Eliquis and advised to follow up with her PCP and cardiology. Patient and family were spoken to regarding the plan, were in agreement, and reiterated it. Patient was discharged in stable medical condition. Date of Admission:11/21/19 Date of Discharge: 12/04/19 Minutes to complete discharge: 35 <Grady Alvarado - Last Filed: 12/04/19 13:16> Physical Exam: SUBJECTIVE: Patient seen and examined OBJECTIVE: Vital Signs Period Temp Pulse Resp BP Sys/Vincent Pulse Ox Last 24 Hr 97.7 F-97.9 F 83-89 20-20 117-142/47-72 96-96 PHYSICAL EXAM GENERAL: The patient is awake, alert, and fully oriented, in no acute distress. HEAD: Normal with no signs of trauma. EYES: PERRL, extraocular movements intact, sclera anicteric, conjunctiva clear. ENT: Ears normal, nares patent, oropharynx clear without exudates, moist mucous membranes. NECK: Trachea midline, full range of motion, supple. LUNGS: Breath sounds equal, clear to auscultation bilaterally, no wheezes, no crackles, no accessory muscle use. HEART: Regular rate and rhythm, S1, S2 without murmur, rub or gallop. ABDOMEN: Soft, nontender, nondistended, normoactive bowel sounds, no guarding, no rebound, no hepatosplenomegaly, no masses. EXTREMITIES: 2+ pulses, warm, well-perfused, no edema. NEUROLOGICAL: Cranial nerves II through XII grossly intact. Normal speech, gait not observed. PSYCH: Normal mood, normal affect. SKIN: Warm, dry, normal turgor, no rashes or lesions noted. LABS HOSPITAL COURSE: Date of Admission:11/21/19 Date of Discharge: 12/04/19 <Gisel Redman - Last Filed: 12/04/19 17:06> Discharge Summary Problems reviewed: Yes - Home Medications Comprehensive Discharge Medication List: Ambulatory Orders Multivit-Min/Iron/Folic/Lutein [Centrum Silver Women Tablet] 1 each PO DAILY 10/06/19 Rosuvastatin [Crestor -] 5 mg PO HS 10/06/19 Levothyroxine [Synthroid -] 125 mcg PO DAILY 11/22/19 Losartan Potassium 25 mg PO DAILY 11/22/19 Apixaban [Eliquis -] 5 mg PO BID #60 tablet 11/26/19 Metoprolol Tartrate [Lopressor] 100 mg PO BID #60 tablet 11/29/19 <Grady Alvarado - Last Filed: 12/04/19 13:16> - Home Medications Comprehensive Discharge Medication List: Ambulatory Orders Multivit-Min/Iron/Folic/Lutein [Centrum Silver Women Tablet] 1 each PO DAILY Rosuvastatin [Crestor -] 5 mg PO HS 10/06/19 Levothyroxine [Synthroid -] 125 mcg PO DAILY 11/22/19 Losartan Potassium 25 mg PO DAILY 11/22/19 Apixaban [Eliquis -] 5 mg PO BID #60 tablet 11/26/19 Metoprolol Tartrate [Lopressor] 100 mg PO BID #60 tablet 11/29/19 <Gisel Redman - Last Filed: 12/04/19 17:06> Reason For Visit: FALL Condition: Stable - Instructions Diet, Activity, Other Instructions: You were admitted after a fall. You were noted to have elevated heart rate while you were on the monitor technician and had your medication altered to slow down your heart rate. You were also noted to have a urinary tract infection which you were treated with antibiotics which you have completed while you were in the hospital. You were started on a medication to prevent clots because of your abnormal heart rhythm. You had diarrhea which was tested and did not show signs of an infection. You are not able to go to a senior care facility due to insurance problems. You have indicated to us that you would like to go home and after speaking with you, your family, and your primary care physician it is indicated that you have a safe plan where you will be able to be cared for by your family and visiting nurse services until you are able to have insurance to pay for rehabilitation services. MEDICATIONS START to take metoprolol 100mg twice a day. START to take Eliquis 5mg twice a day. Continue to take all of your home medications as prescribed. REFERRALS Please follow up with your primary care doctor, Dr. Grullon, within 1 week. Please follow up with your industrial relations representative, Dr. Celaya, within 1 week. SPECIAL INSTRUCTIONS Take extra care when you are walking to prevent falls. If you have any further symptoms of lightheadedness, falls, loss of consciousness, dizziness, fevers, chest pain, shortness of breath, or any other general feelings of unwellness, please call 911 or go to your nearest emergency room. Referrals: Marge Morris MD [Staff Physician] - 1 Week Dayne Grullon MD [Primary Care Provider] - 1 Week Disposition: VNS/HOME HEALTH CARE This patient is new to me today: No Emergency Visit: Yes ED Registration Date: 11/21/19 Care time: The patient presented to the Emergency Department on the above date and was hospitalized for further evaluation of their emergent condition. Critical Care patient: No - Discharge Referral Referred to [facility] No <Grady Alvarado - Last Filed: 12/04/19 13:16> ATTENDING PHYSICIAN STATEMENT I saw and evaluated the patient. I reviewed the resident's note and discussed the case with the resident. I agree with the resident's findings and plan as documented. S SUBJECTIVE: OBJECTIVE ASSESSMENT AND PLAN: Patient ideally was awaiting insurance as she ran out of days on medicare for any kind of facility, however the son is now home with family 11/04 and this will be the situation for weeks and he wanted to take her home and the patient wanted to go home as well and did not want to wait in the hospital. Family wants to assist her in ADLs. Patient and family instructed to return to ED if any concerns. Family will apply for insurance . She also has very good follow up with PCP and PCP is aware of plan. <Gisel Redman - Last Filed: 12/04/19 17:06>
== END 2019-12-04 12:03 | disposition home health service (06) | DRG 92 ==
LOC: JER 13:03 → JERBED 19:42 → J4W 11-22 07:42
PROVIDERS: ADMIT Internal Medicine; ATTEND Internal Medicine
DX: R29.6 Repeated falls (principal); E46 Unspecified protein-calorie malnutrition; I50.32 Chronic diastolic (congestive) heart failure; N39.0 Urinary tract infection, site not specified; I24.8 Other forms of acute ischemic heart disease; E87.6 Hypokalemia; E78.5 Hyperlipidemia, unspecified; E88.09 Other disorders of plasma-protein metabolism, not elsewhere classified; R94.31 Abnormal electrocardiogram [ECG] [EKG]; E03.9 Hypothyroidism, unspecified; I11.0 Hypertensive heart disease with heart failure; I25.119 Atherosclerotic heart disease of native coronary artery with unspecified angina pectoris; I48.0 Paroxysmal atrial fibrillation; R19.7 Diarrhea, unspecified
CPT/HCPCS: 36415; 70450-TC; 71045-TC-FY; 72125-TC; 72128-TC; 72131-TC; 72170-TC-FY; 80048; 80053; 81003; 82248; 82272; 82550; 82962; 83605; 83735; 84100; 84132; 84439; 84443; 84484; 85025; 85027; 85610; 85730; 87045; 87046; 87086; 87205; 87324; 87449; 93005; 93010; 94761; 97116-GP; 97161-GP; 99285-25; J7030